=== PATIENT | female | born 1980 | race Caucasian/White ===

== ENCOUNTER 2022-05-19 16:01 | Inpatient (IN) | payer OTHER, MEDICAID, SELFPAY ==
[2022-05-19] VITALS (20 sets, daily range): BP systolic 162–197; BP diastolic 106–133; PULSE 92–135; RESP 13–24; TEMP 37.2; O2SAT 96–100
[2022-05-19 17:23] LABS: Add Manual Diff / Slide Review NO; Basophils Absolute Auto 0 /uL (0-100); Basophils Percent Auto 1.6 % (0-2); Eosinophils Absolute Auto 0 /uL (0-450); Eosinophils Percent Auto 0.1 % (2-4); Hematocrit 37.1 % (36-46); Hemoglobin 12.6 g/dL (12.0-16.0); Lymphocytes Absolute Auto 600 /uL (1100-4500); Lymphocytes Percent Auto 21.5 % (25-40); Mean Corpuscular HGB Conc 33.9 % (30-36); Mean Corpuscular Volume 97.4 fL (80-100); Monocytes Absolute Auto 300 /uL (0-900); Neutrophils Absolute Auto 1900 /uL (1500-7000); Neutrophils Percent Auto 64.8 % (50-75); Platelet Count 193 X10^3/uL (150-400); Red Cell Distribution Width 16.2 % (11.6-14.8); White Blood Cell Count 2.9 X10^3/uL (4.5-11.0)
[2022-05-19 17:24] LABS: Ur Creatinine Normal (Normal); Ur Specific Gravity Normal (Normal); Urine pH Normal (Normal)
[2022-05-19 17:25] LABS: UR Morphine/Opiate cutoff 300 Negative (Negative); Urine Amphetamines Negative (Negative); Urine Barbiturates Negative (Negative); Urine Benzodiazepines Negative (Negative); Urine Cocaine Negative (Negative); Urine MDMA Negative (Negative); Urine Methadone Negative (Negative); Urine Methamphetamines Negative (Negative); Urine Oxycodone Negative (Negative); Urine Phencyclidine Negative (Negative); Urine Tetrahydrocannabinol Positive (Negative); Urine Tricyclic Antidepressant Negative (Negative)
[2022-05-19 17:32] LABS: Prothrombin Time 11.9 SECONDS (10.1-12.7)
[2022-05-19 17:35] LABS: PTT Partial Thromboplastin Tim 31 SECONDS (26-36)
[2022-05-19 17:43] LABS: COVID19 -Nasal RAPID Negative (Negative)
[2022-05-19 17:52] LABS: Alanine Aminotransferase 33 IU/L (<35); Albumin Globulin Ratio 1.1 (1.0-2.8); Alkaline Phosphatase 51 U/L (38-126); Ammonia (NH3) 20 umol/L (9-30); Aspartate Aminotransferase 75 IU/L (14-36); BUN Creatinine Ratio 10.5 (6-22); Blood Urea Nitrogen 6 mg/dL (7-17); Calcium 8.1 mg/dL (8.4-10.2); Carbon Dioxide 20 mmol/L (22-32); Chloride 101 mmol/L (98-107); Estimated Glomerular Filt Rate > 60 mL/min (>60); Ethanol (ETOH) 123 mg/dL; Globulin 3.5 g/dL (1.7-4.1); Glucose 92 mg/dL (70-100); HEMOLYSIS < 15 (0-50); Lipase 307 U/L (23-300); Potassium 3.4 mmol/L (3.4-5.1); Sodium 138 mmol/L (137-145); Total Protein 7.5 g/dL (6.3-8.2)
[2022-05-19] MEDS: LORazepam 2 MG/ML INJ IV ×2 (17:55→21:23)
[2022-05-19] MEDS: ONDANSETRON 4 MG/2 ML INJ IV (17:55)
--- NOTE | 2022-05-19 17:56 | PC.NURSE ---
CIWA protocol give ativan 2 mg repeat q1hr per protocol. 2 mg iv ativan confirmed by 2 rns will not scan dose and briana wants waste, pulled dose available 2mg and gave full no waste required.
[2022-05-19] MEDS: SODIUM CHLORIDE 0.9% 1,000 ML 1000 ML IV ×2 (17:58→21:24)
[2022-05-19 18:22] LABS: Magnesium 1.2 mg/dL (1.6-2.3)
--- NOTE | 2022-05-19 18:23 | ED.EXTPRO ---
HPI - Extremity Problem General Chief complaint: Extremity Problem,Nontraumatic Stated complaint: numbness in both legs Time Seen by Provider: 05/19/22 17:28 Source: patient Mode of arrival: Wheelchair History of Present Illness HPI Narrative: Patient is a 42-year-old female history of alcohol abuse presenting with 5 days of numbness in her legs. She says she drinks a significant amount of Tequila daily she is shaking quite a bit. She said she fell on her tailbone since then she is had numbness in her legs. She says it just feels different. She is still able to tell when she is to urinate and have a bowel movement. No abdominal pain no nausea vomiting. Her upper extremities exam she has no complaints. She is noted to be tachycardic here in the ED. No chest pain or shortness of breath. No nausea vomiting. Related Data Allergies Allergy/AdvReac Type Severity Reaction Status Date / Time Penicillins Allergy Swelling Verified 05/19/22 16:28 of Lip/Tongue/Throat Review of Systems Review of Systems ROS Unobtainable: All systems reviewed & are unremarkable except as noted in HPI and below Patient History Social History Smoking Status: Current every day smoker Smoking Status: Current every day smoker tobacco type: vaping Substance Use Type: marijuana Exam Initial Vital Signs Initial Vital Signs: Vital Signs Temperature 99 F 05/19/22 16:29 Pulse Rate 115 H 05/19/22 16:29 Respiratory Rate 22 05/19/22 16:29 Blood Pressure 162/115 H 05/19/22 16:29 Pulse Oximetry 100 05/19/22 16:29 Oxygen Delivery Method 05/19/22 16:29 GENERAL: Alert 42-year-old female and in [no acute] distress. HEENT: Head atraumatic,EOMI, pupils reactive, face symmetric, [moist] mucous membranes CARDIOVASCULAR: Tachycardic, no murmurs RESPIRATORY: Breath sounds equal bilaterally, no wheezes rales or rhonchi. ABDOMEN: Soft, nontender. Normoactive bowel sounds all 4 quadrants. No guarding or rebound. EXTREMITIES: Normal range of motion, no clubbing or edema. Neurovascularly intact NEUROLOGICAL: Alert and oriented x4.Normal gait and speech. Decreased sensation bilaterally in lower extremities but strength is equal in lower extremities. All over shaking and tremors. Patient ambulated she is definitely ataxic unable have a steady gait. SKIN: Warm, dry, no laceration, no petechiae, no rashes or lesions. Course Orders Ordered: ED Orders 05/19/22 19:22 Ictotest Urine Stat Urine Microscopic Stat 05/19/22 19:26 Vitamin B12 Stat Acetaminophen (Acetaminophen 325 Mg Tablet) 650 mg PO Q6H PRN PRN Reason: Fever/Mild Pain (1-3) Al Hydrox/Mg Hydrox/Simethicone (Mag Hydrox/Alum/Simeth 30 Ml Udc) 30 ml PO Q6HR PRN PRN Reason: Dyspepsia Aspirin (Aspirin Ec 81 Mg Tablet) 81 mg PO DAILY MARYJO Atorvastatin Calcium (Atorvastatin 20 Mg Tablet) 20 mg PO BEDTIME MARYJO Clopidogrel Bisulfate (Clopidogrel 75 Mg Tablet) 75 mg PO DAILY MARYJO Enoxaparin Sodium (Enoxaparin 40 Mg/0.4 Ml Syringe) 40 mg SUBCUT DAILY MARYJO Folic Acid (Folic Acid 1 Mg Tablet) 1 mg PO DAILY MARYJO Dextrose (Dextrose 5% Water) 1,000 mls @ 125 mls/hr IV CONT MARYJO Last Admin: 05/19/22 20:35 Dose: 125 mls/hr Documented By: NICHOLAS Sodium Chloride (Normal Saline 0.9%) 1,000 mls @ 100 mls/hr IV CONT MARYJO Last Admin: 05/20/22 01:21 Dose: 100 mls/hr Documented By: NICHOLAS Magnesium Sulfate (Magnesium Sulfate) 4 gm in 100 mls @ 25 mls/hr IV NOW ONE Stop: 05/20/22 03:50 Last Admin: 05/20/22 01:00 Dose: 25 mls/hr Documented By: NICHOLAS Co-signed By: DAVE Lorazepam (Lorazepam 2 Mg/Ml Inj) 0 mg IV CIWAPRN PRN; Protocol PRN Reason: Alcohol Withdrawal Last Admin: 05/20/22 00:46 Dose: 2 mg Documented By: Admin: 05/19/22 21:23 Dose: 1 mg Documented By: Admin: 05/19/22 17:55 Dose: 2 mg Documented By: ALISSA Metoprolol Tartrate (Metoprolol Tartrate 5 Mg/5 Ml Inj) 5 mg IV Q15MIN PRN PRN Reason: Hypertension Stop: 05/22/22 00:31 Last Admin: 05/20/22 00:53 Dose: 5 mg Documented By: NICHOLAS Multivitamins (Multivitamin 1 Tablet) 1 tab PO DAILY MARYJO Naloxone HCl (Naloxone 0.4 Mg/Ml Vial) 0.2 mg IV Q2MIN PRN PRN Reason: Opiate Reversal Ondansetron HCl (Ondansetron 4 Mg/2 Ml Inj) 4 mg IV Q6HR PRN PRN Reason: Nausea And Vomiting Last Admin: 05/19/22 17:55 Dose: 4 mg Documented By: ALISSA Ondansetron HCl (Ondansetron 4 Mg/2 Ml Inj) 4 mg IV Q8HR PRN PRN Reason: Nausea And Vomiting Thiamine HCl (Thiamine 100 Mg Tablet) 100 mg PO DAILY MARYJO Stop: 05/23/22 09:01 Discontinued Medications Sodium Chloride (Normal Saline 0.9%) 1,000 mls @ 1,000 mls/hr IV BOLUS ONE Stop: 05/19/22 18:28 Last Infusion: 05/19/22 20:28 Dose: 0 mls/hr Documented By: Admin: 05/19/22 17:58 Dose: 1,000 mls/hr Documented By: ALISSA Sodium Chloride (Normal Saline 0.9%) 1,000 mls @ 1,000 mls/hr IV BOLUS ONE Stop: 05/19/22 20:17 Last Infusion: 05/20/22 00:29 Dose: 0 mls/hr Documented By: Infusion: 05/19/22 21:50 Dose: 0 mls/hr Documented By: Admin: 05/19/22 21:24 Dose: 1,000 mls/hr Documented By: NICHOLAS Thiamine HCl 100 mg/ Sodium (Chloride) 101 mls @ 404 mls/hr IV NOW ONE Stop: 05/19/22 19:28 Last Infusion: 05/19/22 20:29 Dose: 0 mls/hr Documented By: Admin: 05/19/22 20:05 Dose: 404 mls/hr Documented By: NICHOLAS Lorazepam (Lorazepam 2 Mg/Ml Inj) 1 mg IV NOW ONE Stop: 05/19/22 18:28 Last Admin: 05/19/22 18:33 Dose: 1 mg Documented By: ALISSA Lorazepam (Lorazepam 2 Mg/Ml Inj) 1 mg IV NOW ONE Stop: 05/19/22 18:29 Last Admin: 05/19/22 18:37 Dose: Not Given Documented By: ALISSA Phenobarbital (Phenobarbital 65 Mg/Ml Vial) 130 mg IV NOW ONE Stop: 05/19/22 18:28 Last Admin: 05/19/22 18:33 Dose: 130 mg Documented By: ALISSA Phenobarbital (Phenobarbital 65 Mg/Ml Vial) 130 mg IV NOW ONE Stop: 05/19/22 18:29 Last Admin: 05/19/22 18:38 Dose: Not Given Documented By: ALISSA Vital Signs Vital signs: Vital Signs - 8 hr 05/19/22 19:34 05/19/22 19:34 05/19/22 20:00 Pulse Rate 111 H Respiratory Rate Blood Pressure 166/110 H 188/118 H Pulse Oximetry 96 Oxygen Delivery Method Room Air 05/19/22 20:00 05/19/22 20:30 05/19/22 20:30 Pulse Rate 92 H 99 H Respiratory Rate 23 Blood Pressure 165/112 H Pulse Oximetry 100 97 Oxygen Delivery Method Room Air Room Air 05/19/22 21:00 05/19/22 21:10 05/19/22 21:10 Pulse Rate 109 H 112 H Respiratory Rate 22 22 Blood Pressure 183/120 H Pulse Oximetry 99 98 Oxygen Delivery Method Room Air Room Air 05/19/22 21:30 05/19/22 21:30 Pulse Rate 117 H Respiratory Rate 24 Blood Pressure 174/121 H Pulse Oximetry 97 Oxygen Delivery Method Room Air MDM - Extremity (Nontraumatic) Lab Data 05/19/22 17:08 05/19/22 17:08 Labs: Lab Results 05/19/22 05/19/22 05/19/22 Range/Units 16:40 17:00 17:08 WBC 2.9 L (4.5-11.0) X10^3/uL RBC 3.80 L (4.0-5.2) X10^6/uL Hgb 12.6 (12.0-16.0) g/dL Hct 37.1 (36-46) % MCV 97.4 (80-100) fL MCH 33.0 (26-34) PG MCHC 33.9 (30-36) % RDW 16.2 H (11.6-14.8) % Plt Count 193 (150-400) X10^3/uL Neut % (Auto) 64.8 (50-75) % Lymph % (Auto) 21.5 L (25-40) % Wallace % (Auto) 12.0 (3-14) % Eos % (Auto) 0.1 L (2-4) % Baso % (Auto) 1.6 (0-2) % Neut # (Auto) 1900 (1001-6157) /uL Lymph # (Auto) 600 L (9012-6356) /uL Wallace # (Auto) 300 (0-900) /uL Eos # (Auto) 0 (0-450) /uL Baso # (Auto) 0 (0-100) /uL PT (10.1-12.7) SECONDS INR (0.9-1.3) APTT (26-36) SECONDS Sodium (137-145) mmol/L Potassium (3.4-5.1) mmol/L Chloride (98-107) mmol/L Carbon Dioxide (22-32) mmol/L BUN (7-17) mg/dL Creatinine (0.52-1.04) mg/dL Estimated GFR (>60) mL/min BUN/Creatinine Ratio (6-22) Glucose (70-100) mg/dL Lactate (0.7-2.1) mmol/L Calcium (8.4-10.2) mg/dL Magnesium (1.6-2.3) mg/dL Total Bilirubin (0.2-1.3) mg/dL AST (14-36) IU/L ALT (<35) IU/L Alkaline Phosphatase (38-126) U/L Ammonia (9-30) umol/L Total Protein (6.3-8.2) g/dL Albumin (3.5-5.0) g/dL Globulin (1.7-4.1) g/dL Albumin/Globulin Ratio (1.0-2.8) Lipase (23-300) U/L Ur Bilirubin Confirm (Negative) Urine RBC (0-5/HPF) Urine WBC (0-5/HPF) Ur Squamous Epith Cells (0-5/HPF) Urine Bacteria (None) Ur Culture Indicated? U Opiates 300ng/mL cut Negative (Negative) Ur Oxycodone Screen Negative (Negative) Urine Methadone Screen Negative (Negative) Ur Barbiturates Screen Negative (Negative) U Tricyclic Antidepress Negative (Negative) Ur Phencyclidine Scrn Negative (Negative) Ur Amphetamines Screen Negative (Negative) U Methamphetamines Scrn Negative (Negative) Ur MDMA Scrn (Ecstasy) Negative (Negative) U Benzodiazepines Scrn Negative (Negative) Urine Cocaine Screen Negative (Negative) U Marijuana (THC) Screen Positive H (Negative) Ethyl Alcohol ( - 10) mg/dL SARS-CoV-2 (PCR) Negative (Negative) 05/19/22 05/19/22 05/19/22 Range/Units 17:08 17:08 17:08 WBC (4.5-11.0) X10^3/uL RBC (4.0-5.2) X10^6/uL Hgb (12.0-16.0) g/dL Hct (36-46) % MCV (80-100) fL MCH (26-34) PG MCHC (30-36) % RDW (11.6-14.8) % Plt Count (150-400) X10^3/uL Neut % (Auto) (50-75) % Lymph % (Auto) (25-40) % Wallace % (Auto) (3-14) % Eos % (Auto) (2-4) % Baso % (Auto) (0-2) % Neut # (Auto) (7579-9463) /uL Lymph # (Auto) (7482-5790) /uL Wallace # (Auto) (0-900) /uL Eos # (Auto) (0-450) /uL Baso # (Auto) (0-100) /uL PT 11.9 (10.1-12.7) SECONDS INR 1.0 (0.9-1.3) APTT 31 (26-36) SECONDS Sodium 138 (137-145) mmol/L Potassium 3.4 (3.4-5.1) mmol/L Chloride 101 (98-107) mmol/L Carbon Dioxide 20 L (22-32) mmol/L BUN 6 L (7-17) mg/dL Creatinine 0.57 (0.52-1.04) mg/dL Estimated GFR > 60 (>60) mL/min BUN/Creatinine Ratio 10.5 (6-22) Glucose 92 (70-100) mg/dL Lactate (0.7-2.1) mmol/L Calcium 8.1 L (8.4-10.2) mg/dL Magnesium (1.6-2.3) mg/dL Total Bilirubin 2.0 H (0.2-1.3) mg/dL AST 75 H (14-36) IU/L ALT 33 (<35) IU/L Alkaline Phosphatase 51 (38-126) U/L Ammonia 20 (9-30) umol/L Total Protein 7.5 (6.3-8.2) g/dL Albumin 4.0 (3.5-5.0) g/dL Globulin 3.5 (1.7-4.1) g/dL Albumin/Globulin Ratio 1.1 (1.0-2.8) Lipase 307 H (23-300) U/L Ur Bilirubin Confirm (Negative) Urine RBC (0-5/HPF) Urine WBC (0-5/HPF) Ur Squamous Epith Cells (0-5/HPF) Urine Bacteria (None) Ur Culture Indicated? U Opiates 300ng/mL cut (Negative) Ur Oxycodone Screen (Negative) Urine Methadone Screen (Negative) Ur Barbiturates Screen (Negative) U Tricyclic Antidepress (Negative) Ur Phencyclidine Scrn (Negative) Ur Amphetamines Screen (Negative) U Methamphetamines Scrn (Negative) Ur MDMA Scrn (Ecstasy) (Negative) U Benzodiazepines Scrn (Negative) Urine Cocaine Screen (Negative) U Marijuana (THC) Screen (Negative) Ethyl Alcohol 123 H ( - 10) mg/dL SARS-CoV-2 (PCR) (Negative) 05/19/22 05/19/22 05/19/22 Range/Units 17:08 17:08 19:22 WBC (4.5-11.0) X10^3/uL RBC (4.0-5.2) X10^6/uL Hgb (12.0-16.0) g/dL Hct (36-46) % MCV (80-100) fL MCH (26-34) PG MCHC (30-36) % RDW (11.6-14.8) % Plt Count (150-400) X10^3/uL Neut % (Auto) (50-75) % Lymph % (Auto) (25-40) % Wallace % (Auto) (3-14) % Eos % (Auto) (2-4) % Baso % (Auto) (0-2) % Neut # (Auto) (4826-8410) /uL Lymph # (Auto) (3558-7731) /uL Wallace # (Auto) (0-900) /uL Eos # (Auto) (0-450) /uL Baso # (Auto) (0-100) /uL PT (10.1-12.7) SECONDS INR (0.9-1.3) APTT (26-36) SECONDS Sodium (137-145) mmol/L Potassium (3.4-5.1) mmol/L Chloride (98-107) mmol/L Carbon Dioxide (22-32) mmol/L BUN (7-17) mg/dL Creatinine (0.52-1.04) mg/dL Estimated GFR (>60) mL/min BUN/Creatinine Ratio (6-22) Glucose (70-100) mg/dL Lactate 3.4 H (0.7-2.1) mmol/L Calcium (8.4-10.2) mg/dL Magnesium 1.2 L (1.6-2.3) mg/dL Total Bilirubin (0.2-1.3) mg/dL AST (14-36) IU/L ALT (<35) IU/L Alkaline Phosphatase (38-126) U/L Ammonia (9-30) umol/L Total Protein (6.3-8.2) g/dL Albumin (3.5-5.0) g/dL Globulin (1.7-4.1) g/dL Albumin/Globulin Ratio (1.0-2.8) Lipase (23-300) U/L Ur Bilirubin Confirm Negative (Negative) Urine RBC None seen (0-5/HPF) Urine WBC 1-5/hpf (0-5/HPF) Ur Squamous Epith Cells 1-5 /hpf (0-5/HPF) Urine Bacteria None seen (None) Ur Culture Indicated? Cult not indicated U Opiates 300ng/mL cut (Negative) Ur Oxycodone Screen (Negative) Urine Methadone Screen (Negative) Ur Barbiturates Screen (Negative) U Tricyclic Antidepress (Negative) Ur Phencyclidine Scrn (Negative) Ur Amphetamines Screen (Negative) U Methamphetamines Scrn (Negative) Ur MDMA Scrn (Ecstasy) (Negative) U Benzodiazepines Scrn (Negative) Urine Cocaine Screen (Negative) U Marijuana (THC) Screen (Negative) Ethyl Alcohol ( - 10) mg/dL SARS-CoV-2 (PCR) (Negative) 05/19/22 Range/Units 21:00 WBC (4.5-11.0) X10^3/uL RBC (4.0-5.2) X10^6/uL Hgb (12.0-16.0) g/dL Hct (36-46) % MCV (80-100) fL MCH (26-34) PG MCHC (30-36) % RDW (11.6-14.8) % Plt Count (150-400) X10^3/uL Neut % (Auto) (50-75) % Lymph % (Auto) (25-40) % Wallace % (Auto) (3-14) % Eos % (Auto) (2-4) % Baso % (Auto) (0-2) % Neut # (Auto) (0837-8222) /uL Lymph # (Auto) (6595-0866) /uL Wallace # (Auto) (0-900) /uL Eos # (Auto) (0-450) /uL Baso # (Auto) (0-100) /uL PT (10.1-12.7) SECONDS INR (0.9-1.3) APTT (26-36) SECONDS Sodium (137-145) mmol/L Potassium (3.4-5.1) mmol/L Chloride (98-107) mmol/L Carbon Dioxide (22-32) mmol/L BUN (7-17) mg/dL Creatinine (0.52-1.04) mg/dL Estimated GFR (>60) mL/min BUN/Creatinine Ratio (6-22) Glucose (70-100) mg/dL Lactate 2.0 (0.7-2.1) mmol/L Calcium (8.4-10.2) mg/dL Magnesium (1.6-2.3) mg/dL Total Bilirubin (0.2-1.3) mg/dL AST (14-36) IU/L ALT (<35) IU/L Alkaline Phosphatase (38-126) U/L Ammonia (9-30) umol/L Total Protein (6.3-8.2) g/dL Albumin (3.5-5.0) g/dL Globulin (1.7-4.1) g/dL Albumin/Globulin Ratio (1.0-2.8) Lipase (23-300) U/L Ur Bilirubin Confirm (Negative) Urine RBC (0-5/HPF) Urine WBC (0-5/HPF) Ur Squamous Epith Cells (0-5/HPF) Urine Bacteria (None) Ur Culture Indicated? U Opiates 300ng/mL cut (Negative) Ur Oxycodone Screen (Negative) Urine Methadone Screen (Negative) Ur Barbiturates Screen (Negative) U Tricyclic Antidepress (Negative) Ur Phencyclidine Scrn (Negative) Ur Amphetamines Screen (Negative) U Methamphetamines Scrn (Negative) Ur MDMA Scrn (Ecstasy) (Negative) U Benzodiazepines Scrn (Negative) Urine Cocaine Screen (Negative) U Marijuana (THC) Screen (Negative) Ethyl Alcohol ( - 10) mg/dL SARS-CoV-2 (PCR) (Negative) Urine Dip Bedside Urine Glucose Negative Bedside Urine Bilirubin ++ 2 Bedside Urine Ketone + 15 Urine Specific [place] 1.015 Bedside Urine Occult Blood +/- Bedside Urine pH 8 Bedside Urine Protein +++ 300 Bedside Urine Urobilinogen 2+ 4mg Bedside Urine Nitrite - Negative Bedside Urine Leukocytes + [address] scan - head: Radiologist's Impression: CT Scan Report Signed Patient: Yovanny Carroll MR#: [id number] : 1980 Acct:[id number] Age/Sex: 42 / F Date of Service: 05/19/22 Loc: ED Accession Number: [id number] ?? Procedure: CT head/brain wo con Ordering Provider: Jaleesa Hoffman D.O. PROCEDURE:? CT HEAD/BRAIN WO CON ? INDICATIONS:? fall ? TECHNIQUE:? Noncontrast 4.5 mm thick angled axial sections acquired from the foramen magnum to the vertex, with coronal and sagittal reformats.? For radiation dose reduction, the following was used:? automated exposure control, adjustment of mA and/or kV according to patient size.? ? COMPARISON:? None. ? FINDINGS:? Image quality:? Excellent.? ? CSF spaces:? Basal cisterns are patent.? No extra-axial fluid collections.? Ventricles are normal in size and shape.? ? Brain:? No midline shift.? No intracranial masses or hemorrhage.? Britt-white matter interface is normal.? ? Skull and face:? Calvarium and visualized facial bones are intact, without suspicious lesions.? ? Sinuses:? Visualized sinuses and mastoids are clear.? ? IMPRESSION:? No acute intracranial abnormality. ? ? ? Approved by: Quintin Ocasio M.D. on 05/19/2022 at 19:11? CT - cervical spine: Radiologist's Impression: CT Scan Report Signed Patient: Yovanny Carroll MR#: [id number] : 1980 Acct:[id number] Age/Sex: 42 / F Date of Service: 05/19/22 Loc: ED Accession Number: [id number] ?? Procedure: CT cervical spine wo con Ordering Provider: Jaleesa Hoffman D.O. PROCEDURE:? CT CERVICAL SPINE WO CON ? INDICATIONS:? fall ? TECHNIQUE:? Noncontrast 3 mm thick sections acquired from the skull base to the T4 level.? Sagittal and coronal reformats were then constructed.? For radiation dose reduction, the following was used:? automated exposure control, adjustment of mA and/or kV according to patient size.? ? COMPARISON:? None. ? FINDINGS:? Image quality:? Excellent.? ? Bones:? No acute fractures or dislocations.? There is mild straightening of the normal cervical lordosis, which may be related to positioning or muscle spasm.? Multilevel mild disc space narrowing degenerative endplate changes as well as uncovertebral joint and facet hypertrophy.? Visualized superior ribs are intact.? ? Soft tissues:? Prevertebral soft tissues are normal in thickness.? No paravertebral hematomas.? No apical pneumothoraces.? ? IMPRESSION:? No acute cervical spine fracture or subluxation.? Mild spondylosis. ? Approved by: Quintin Ocasio M.D. on 05/19/2022 at 19:15? CT scan - abdomen/pelvis: Radiologist's Impression: Signed Patient: Yovanny Carroll MR#: [id number] : 1980 Acct:[id number] Age/Sex: 42 / F Date of Service: 05/19/22 Loc: ED Accession Number: [id number] ?? Procedure: CT abdomen pelvis w con Ordering Provider: Jaleesa Hoffman D.O. PROCEDURE:? CT ABDOMEN PELVIS W CON ? INDICATIONS:? etoh fall numb lesgs sacral pain ? TECHNIQUE:? After the administration of intravenous contrast, axial sections acquired from the lung bases to the pubic symphysis.? Coronal and sagittal reformats were performed.? For radiation dose reduction, the following was used:? automated exposure control, adjustment of mA and/or kV according to patient size.? ? COMPARISON:? None. ? FINDINGS:? Image quality:? Excellent.? ? Lung bases:? Unremarkable. Heart:? No significant findings. ? ABDOMEN:? Liver:? Liver is diffusely hypoattenuating, consistent with fatty infiltration. Gallbladder:? Unremarkable. Biliary ducts:? Unremarkable.? ? Pancreas:? Unremarkable.? ? Spleen:? Unremarkable.? ? Adrenal Glands:? Unremarkable.? ? Kidneys and Ureters:? Unremarkable.? ? ? Stomach and Bowel:? Stomach, small bowel loops, and colon are unremarkable.? Peritoneum:? No abnormal intraperitoneal fluid.? No free air.? ? Ventral Wall: ? No hernias.? Abdominal Nodes:? No retroperitoneal or mesenteric adenopathy by size criteria.? Vessels:? Aorta and inferior vena cava are normal in size.? ? PELVIS: Pelvic Organs:? A tampon is seen in the vagina.? A heterogeneously hyperattenuating lesion in the anterior uterus measures approximately the 8.1 x 7.0 cm in axial dimension by 6.4 cm craniocaudal (80/2).? No suspicious adnexal mass. Bladder:? Unremarkable.? ? Pelvic Nodes: No enlarged lymph nodes.? Miscellaneous: No hernias are seen. ? ? ? Bones:? Transitional anatomy in the spine with partial sacralization of the lumbosacral transitional element.? Old healed left posterior rib fracture at the margin of the field of view of the exam. ? ? IMPRESSION:? 1. Large heterogeneous lesion in the anterior uterus measuring up to 8.1 cm may represent a uterine fibroid with central necrosis or superimposed hemorrhage, but malignancy is not excluded.? Recommend follow-up MRI of the pelvis with and without contrast. 2. Diffuse hepatic steatosis. 3. No acute osseous fracture in the abdomen or pelvis.? Approved by: Quintin Ocasio M.D. on 05/19/2022 at 19:22? [facility] Narrative Medical decision making narrative: Patient 42-year-old female history of alcohol abuse presenting with 5 days of bilateral leg numbness and ataxia. She is noted have an alcohol level of 123 in obvious shaking tachycardia and going through withdrawal. She is given Ativan and phenobarbital. She reports numbness in bilateral lower legs. Upon walking to the bathroom she is requiring significant assistance and has obvious ataxia. Head CT is negative no evidence of intracranial hemorrhage. Questionable vitamin B6 deficiency I do think it is intoxication. Cause it is obvious that she is going through withdrawal. She is awake alert and talking not somnolent no evidence of hepatic encephalopathy. Unclear cause of balance issue at this time. No evidence of significant electrolyte abnormality. She is found have a lactate of 3.4 which improved with fluids to 2.0. She is also noted to have slightly elevated T bili 2.0 AST is [address] of her abdomen and pelvis was done because she fell and landed on her tailbone no evidence of fracture. I do not think this is cauda equina or epidural abscess. Low she does have risk factor for alcoholism. Patient not having seizures but actually going through alcohol withdrawal and ataxia. [place] admitted to hospitalist for further workup and evaluation. Discharge Plan Departure Patient Disposition: Admitted As Inpatient Clinical Impression: Alcohol abuse, Ataxia Admit Date/Time: 05/19/22 21:47 Admit Provider: Rita Maxwell
--- NOTE | 2022-05-19 18:28 | DI.CT.S_ITS ---
PROCEDURE: CT CERVICAL SPINE WO CON INDICATIONS: fall TECHNIQUE: Noncontrast 3 mm thick sections acquired from the skull base to the T4 level. Sagittal and coronal reformats were then constructed. For radiation dose reduction, the following was used: automated exposure control, adjustment of mA and/or kV according to patient size. COMPARISON: None. FINDINGS: Image quality: Excellent. Bones: No acute fractures or dislocations. There is mild straightening of the normal cervical lordosis, which may be related to positioning or muscle spasm. Multilevel mild disc space narrowing degenerative endplate changes as well as uncovertebral joint and facet hypertrophy. Visualized superior ribs are intact. Soft tissues: Prevertebral soft tissues are normal in thickness. No paravertebral hematomas. No apical pneumothoraces. IMPRESSION: No acute cervical spine fracture or subluxation. Mild spondylosis. Approved by: Quintin Ocasio M.D. on 05/19/2022 at 19:15
--- NOTE | 2022-05-19 18:28 | DI.CT.S_ITS ---
PROCEDURE: CT ABDOMEN PELVIS W CON INDICATIONS: etoh fall numb lesgs sacral pain TECHNIQUE: After the administration of intravenous contrast, axial sections acquired from the lung bases to the pubic symphysis. Coronal and sagittal reformats were performed. For radiation dose reduction, the following was used: automated exposure control, adjustment of mA and/or kV according to patient size. COMPARISON: None. FINDINGS: Image quality: Excellent. Lung bases: Unremarkable. Heart: No significant findings. ABDOMEN: Liver: Liver is diffusely hypoattenuating, consistent with fatty infiltration. Gallbladder: Unremarkable. Biliary ducts: Unremarkable. Pancreas: Unremarkable. Spleen: Unremarkable. Adrenal Glands: Unremarkable. Kidneys and Ureters: Unremarkable. Stomach and Bowel: Stomach, small bowel loops, and colon are unremarkable. Peritoneum: No abnormal intraperitoneal fluid. No free air. Ventral Wall: No hernias. Abdominal Nodes: No retroperitoneal or mesenteric adenopathy by size criteria. Vessels: Aorta and inferior vena cava are normal in size. PELVIS: Pelvic Organs: A tampon is seen in the vagina. A heterogeneously hyperattenuating lesion in the anterior uterus measures approximately the 8.1 x 7.0 cm in axial dimension by 6.4 cm craniocaudal (80/2). No suspicious adnexal mass. Bladder: Unremarkable. Pelvic Nodes: No enlarged lymph nodes. Miscellaneous: No hernias are seen. Bones: Transitional anatomy in the spine with partial sacralization of the lumbosacral transitional element. Old healed left posterior rib fracture at the margin of the field of view of the exam. IMPRESSION: 1. Large heterogeneous lesion in the anterior uterus measuring up to 8.1 cm may represent a uterine fibroid with central necrosis or superimposed hemorrhage, but malignancy is not excluded. Recommend follow-up MRI of the pelvis with and without contrast. 2. Diffuse hepatic steatosis. 3. No acute osseous fracture in the abdomen or pelvis. Approved by: Quintin Ocasio M.D. on 05/19/2022 at 19:22
--- NOTE | 2022-05-19 18:28 | DI.CT.S_ITS ---
PROCEDURE: CT HEAD/BRAIN WO CON INDICATIONS: fall TECHNIQUE: Noncontrast 4.5 mm thick angled axial sections acquired from the foramen magnum to the vertex, with coronal and sagittal reformats. For radiation dose reduction, the following was used: automated exposure control, adjustment of mA and/or kV according to patient size. COMPARISON: None. FINDINGS: Image quality: Excellent. CSF spaces: Basal cisterns are patent. No extra-axial fluid collections. Ventricles are normal in size and shape. Brain: No midline shift. No intracranial masses or hemorrhage. Britt-white matter interface is normal. Skull and face: Calvarium and visualized facial bones are intact, without suspicious lesions. Sinuses: Visualized sinuses and mastoids are clear. IMPRESSION: No acute intracranial abnormality. Approved by: Quintin Ocasio M.D. on 05/19/2022 at 19:11
[2022-05-19] MEDS: LORazepam 2 MG/ML INJ 1 MG IV (18:33)
[2022-05-19] MEDS: PHENobarbital 65 MG/ML VIAL 130 MG IV (18:33)
[2022-05-19 18:48] LABS: Lactate (Lactic Acid) 3.4 mmol/L (0.7-2.1)
[2022-05-19 19:50] LABS: Ictotest Urine Negative (Negative)
[2022-05-19 19:55] LABS: Bacteria Urine None Seen; Culture Indicated Urine Cult Not Indicated; RBC Urine None Seen (0-5/HPF); Squamous Epithelial Cell Urine 1-5 /HPF (0-5/HPF); WBC Urine 1-5/HPF (0-5/HPF)
[2022-05-19] MEDS: THIAMINE 100 MG in SODIUM CHLORIDE 0.9% 100 ML 404 MG IV (20:05)
[2022-05-19] MEDS: DEXTROSE 5% WATER 1,000 ML 125 ML IV (20:35)
[2022-05-19 20:39] LABS: Reflexed Lactate in 2 Hours Y
--- NOTE | 2022-05-19 22:25 | PM.EVENT ---
Event Note Event Note (Rapid Response, Code, or fall): ICU consulted for alcohol withdrawal management. No camera available. Briefly this is a 42 year old female with history of alcohol abuse who presents with ataxia and LE weakness. Further workup revealed alcohol level 123 and patient is withdrawing. Recommend phenobarb load per protocol and consider precedex gtt. Further recommendation pending ICU admission w/ video monitor. D/w Rita Maxwell.
[2022-05-20] VITALS (64 sets, daily range): BP systolic 110–191; BP diastolic 76–121; PULSE 78–128; RESP 14–31; TEMP 36.4–36.7; O2SAT 76–100; BMI 20.9
--- NOTE | 2022-05-20 00:12 | PM.HP.1 ---
History of Present Illness History of Present Illness Date Patient Seen: 05/20/22 Time Patient Seen: 00:13 Chief complaint: numbness in both legs Narrative: Yovanny Carroll is a 42-year-old female history of alcohol abuse presented to the ED incoherent confused still significantly intoxicated unable to follow direction, complaining of with 5 days of numbness in her legs.? ED reported She says she drinks a significant amount of Tequila daily she is shaking quite a bit.? She said she fell on her tailbone since then she is had numbness in her legs.? She says it just feels different.? She is still able to tell when she is to urinate and have a bowel movement.? No abdominal pain no nausea vomiting.? Her upper extremities exam she has no complaints.? She is noted to be tachycardic here in the ED.? No chest pain or shortness of breath.? No nausea vomiting. On admit patient had at ETOH level 123 in ED, and is boarding in ED until bed available, she has been heavily medicated with phenobarbital loading and lorazepam for withdrawal symptoms, unable to rouse the patient and obtain HPI ROS, family history, medications. In ED patient had hypertensive urgency BP is 197/113, 162/115, 191/133. On admit temp 99?, BP 183/116, tachycardic 106, tachypneic 23, O2 saturation % room. WBC 2.9, BUN 6, bicarb 20, bili 2.0, AST 75, initial lactate 3.4, at the time of admit 2.0, ammonia negative, lipase 307, tox screen positive for THC, ETOH 123, UA negative, COVID negative, sofa score: 2, head CT negative, C-spine negative, CT a/P: Uterine lesion 8.1, hepatic steatosis, without fracture. Patient History Family & Social History Safety & Behavioral: Feels Safe in Current Yes Environment Been Physically Hurt or No Threatened By a Person Tobacco & Substance use: Smoking Status Current every day smoker Substance Use Type marijuana Drinks alcohol heavily daily Tequila per reports from ED Meds Home Medications and Allergies Allergies Allergy/AdvReac Type Severity Reaction Status Date / Time Penicillins Allergy Swelling Verified 05/19/22 16:28 of Lip/Tongue/Throat Review of Systems Review of Systems Narrative: On admit patient had at ETOH level 123 in ED, and is boarding in ED until bed available, she has been heavily medicated with phenobarbital loading and lorazepam for withdrawal symptoms, unable to rouse the patient and obtain HPI ROS, family history, medications. Exam Vital Signs (past 8 hours): - 05/19/22 16:29 05/19/22 17:17 05/19/22 17:28 Temperature 99 F Pulse Rate 115 H 103 H 99 H Respiratory Rate 22 13 16 Blood Pressure 162/115 H Pulse Oximetry 100 98 97 Oxygen Delivery Method Room Air 05/19/22 17:28 05/19/22 17:30 05/19/22 17:30 Temperature Pulse Rate 101 H Respiratory Rate 16 Blood Pressure 186/119 H 197/113 H Pulse Oximetry 99 Oxygen Delivery Method 05/19/22 18:00 05/19/22 18:00 05/19/22 18:30 Temperature Pulse Rate 104 H 120 H Respiratory Rate 18 22 Blood Pressure 167/106 H Pulse Oximetry 97 Oxygen Delivery Method 05/19/22 18:31 05/19/22 18:31 05/19/22 19:10 Temperature Pulse Rate 105 H 100 H Respiratory Rate 21 18 Blood Pressure 191/133 H Pulse Oximetry 97 98 Oxygen Delivery Method 05/19/22 19:34 05/19/22 19:34 05/19/22 20:00 Temperature Pulse Rate 111 H Respiratory Rate Blood Pressure 166/110 H 188/118 H Pulse Oximetry 96 Oxygen Delivery Method Room Air 05/19/22 20:00 05/19/22 20:30 05/19/22 20:30 Temperature Pulse Rate 92 H 99 H Respiratory Rate 23 Blood Pressure 165/112 H Pulse Oximetry 100 97 Oxygen Delivery Method Room Air Room Air 05/19/22 21:00 05/19/22 21:10 05/19/22 21:10 Temperature Pulse Rate 109 H 112 H Respiratory Rate 22 22 Blood Pressure 183/120 H Pulse Oximetry 99 98 Oxygen Delivery Method Room Air Room Air 05/19/22 21:30 05/19/22 21:30 05/19/22 22:00 Temperature Pulse Rate 117 H Respiratory Rate 24 Blood Pressure 174/121 H 182/110 H Pulse Oximetry 97 Oxygen Delivery Method Room Air 05/19/22 22:00 05/19/22 22:32 05/19/22 22:33 Temperature Pulse Rate 135 H 105 H Respiratory Rate 24 Blood Pressure 183/116 H Pulse Oximetry 98 Oxygen Delivery Method Room Air 05/19/22 22:33 Temperature Pulse Rate 106 H Respiratory Rate 23 Blood Pressure Pulse Oximetry 100 Oxygen Delivery Method Room Air Oxygen Delivery Method Room Air Narrative Exam Narrative: On admit patient had at ETOH level 123 in ED, and is boarding in ED until bed available, she has been heavily medicated with phenobarbital loading and lorazepam for withdrawal symptoms, unable to rouse the patient and obtain HPI ROS, family history, medications. Patient is resting comfortably, vital signs are stable although diastolic pressure continues to be high above 100. General: Patient is a well-developed, well-nourished female soundly medicated & sleeping in no distress at this time. HEENT: Normocephalic, atraumatic, mucous membranes are moist. Neck is supple and symmetric, trachea is midline, no adenopathy, no thyroid enlargement Negative for JVD Chest: Normal AP diameter and contour without kyphoscoliosis, no nasal flaring, retractions, or tachypneic labored breathing Lungs: Auscultation of all lung cueva are clear without adventitious sounds, wheezes, rhonchi, or rales. Cardio: Slightly tachycardic regular rate and rhythm without murmur, rubs, or gallops, no carotid bruit, no cardiac pulsations present. Abdomen: Soft, mildly distended- negative for organomegaly, or masses. Bowel sounds are present in all 4 quadrants without apparent guarding or rebound, or CVA tenderness. Musculoskeletal: Muscle tone appear equal within normal limits, no deformity, crepitus, effusions, cyanosis, clubbing or edema present. intact radial and pedal pulses are normal. Skin: Warm dry and intact without rashes, ulcerations or petechiae. Neuro: Patient is heavily medicated and sedated, sleeping. Psych: Unable to assess at this time. Objective Labs 05/19/22 17:08 05/19/22 17:08 Labs: Laboratory Results - last 24 hr 05/19/22 05/19/22 05/19/22 16:40 17:00 17:08 WBC 2.9 L RBC 3.80 L Hgb 12.6 Hct 37.1 MCV 97.4 MCH 33.0 MCHC 33.9 RDW 16.2 H Plt Count 193 Neut % (Auto) 64.8 Lymph % (Auto) 21.5 L [place] % (Auto) 12.0 Eos % (Auto) 0.1 L Baso % (Auto) 1.6 Neut # (Auto) 1900 Lymph # (Auto) 600 L [place] # (Auto) 300 Eos # (Auto) 0 Baso # (Auto) 0 PT INR APTT Sodium Potassium Chloride Carbon Dioxide BUN Creatinine Estimated GFR BUN/Creatinine Ratio Glucose Lactate Calcium Magnesium Total Bilirubin AST ALT Alkaline Phosphatase Ammonia Total Protein Albumin Globulin Albumin/Globulin Ratio Lipase Ur Bilirubin Confirm Urine RBC Urine WBC Ur Squamous Epith Cells Urine Bacteria Ur Culture Indicated? U Opiates 300ng/mL cut Negative Ur Oxycodone Screen Negative Urine Methadone Screen Negative Ur Barbiturates Screen Negative U Tricyclic Antidepress Negative Ur Phencyclidine Scrn Negative Ur Amphetamines Screen Negative U Methamphetamines Scrn Negative Ur MDMA Scrn (Ecstasy) Negative U Benzodiazepines Scrn Negative Urine Cocaine Screen Negative U Marijuana (THC) Screen Positive H Ethyl Alcohol SARS-CoV-2 (PCR) Negative 05/19/22 05/19/22 05/19/22 17:08 17:08 17:08 WBC RBC Hgb Hct MCV MCH MCHC RDW Plt Count Neut % (Auto) Lymph % (Auto) [place] % (Auto) Eos % (Auto) Baso % (Auto) Neut # (Auto) Lymph # (Auto) [place] # (Auto) Eos # (Auto) Baso # (Auto) PT 11.9 INR 1.0 APTT 31 Sodium 138 Potassium 3.4 Chloride 101 Carbon Dioxide 20 L BUN 6 L Creatinine 0.57 Estimated GFR > 60 BUN/Creatinine Ratio 10.5 Glucose 92 Lactate Calcium 8.1 L Magnesium Total Bilirubin 2.0 H AST 75 H ALT 33 Alkaline Phosphatase 51 Ammonia 20 Total Protein 7.5 Albumin 4.0 Globulin 3.5 Albumin/Globulin Ratio 1.1 Lipase 307 H Ur Bilirubin Confirm Urine RBC Urine WBC Ur Squamous Epith Cells Urine Bacteria Ur Culture Indicated? U Opiates 300ng/mL cut Ur Oxycodone Screen Urine Methadone Screen Ur Barbiturates Screen U Tricyclic Antidepress Ur Phencyclidine Scrn Ur Amphetamines Screen U Methamphetamines Scrn Ur MDMA Scrn (Ecstasy) U Benzodiazepines Scrn Urine Cocaine Screen U Marijuana (THC) Screen Ethyl Alcohol 123 H SARS-CoV-2 (PCR) 01/25/23 01/25/23 01/25/23 17:08 17:08 19:22 WBC RBC Hgb Hct MCV MCH MCHC RDW Plt Count Neut % (Auto) Lymph % (Auto) [place] % (Auto) Eos % (Auto) Baso % (Auto) Neut # (Auto) Lymph # (Auto) [place] # (Auto) Eos # (Auto) Baso # (Auto) PT INR APTT Sodium Potassium Chloride Carbon Dioxide BUN Creatinine Estimated GFR BUN/Creatinine Ratio Glucose Lactate 3.4 H Calcium Magnesium 1.2 L Total Bilirubin AST ALT Alkaline Phosphatase Ammonia Total Protein Albumin Globulin Albumin/Globulin Ratio Lipase Ur Bilirubin Confirm Negative Urine RBC None seen Urine WBC 1-5/hpf Ur Squamous Epith Cells 1-5 /hpf Urine Bacteria None seen Ur Culture Indicated? Cult not indicated U Opiates 300ng/mL cut Ur Oxycodone Screen Urine Methadone Screen Ur Barbiturates Screen U Tricyclic Antidepress Ur Phencyclidine Scrn Ur Amphetamines Screen U Methamphetamines Scrn Ur MDMA Scrn (Ecstasy) U Benzodiazepines Scrn Urine Cocaine Screen U Marijuana (THC) Screen Ethyl Alcohol SARS-CoV-2 (PCR) 05/19/22 21:00 WBC RBC Hgb Hct MCV MCH MCHC RDW Plt Count Neut % (Auto) Lymph % (Auto) [place] % (Auto) Eos % (Auto) Baso % (Auto) Neut # (Auto) Lymph # (Auto) [place] # (Auto) Eos # (Auto) Baso # (Auto) PT INR APTT Sodium Potassium Chloride Carbon Dioxide BUN Creatinine Estimated GFR BUN/Creatinine Ratio Glucose Lactate 2.0 Calcium Magnesium Total Bilirubin AST ALT Alkaline Phosphatase Ammonia Total Protein Albumin Globulin Albumin/Globulin Ratio Lipase Ur Bilirubin Confirm Urine RBC Urine WBC Ur Squamous Epith Cells Urine Bacteria Ur Culture Indicated? U Opiates 300ng/mL cut Ur Oxycodone Screen Urine Methadone Screen Ur Barbiturates Screen U Tricyclic Antidepress Ur Phencyclidine Scrn Ur Amphetamines Screen U Methamphetamines Scrn Ur MDMA Scrn (Ecstasy) U Benzodiazepines Scrn Urine Cocaine Screen U Marijuana (THC) Screen Ethyl Alcohol SARS-CoV-2 (PCR) Assessment & Plan Assessment & Plan narrative: Yovanny Carroll is a 42-year-old female history of alcohol abuse presented to the ED incoherent confused still significantly intoxicated unable to follow direction, complaining of with 5 days of numbness in her legs.? 1. Alcohol intoxication, secondary to chronic alcohol abuse, alcohol withdrawal, acute on chronic, present on admission -ETOH level 123 in ED -ED: incoherent confused still significantly intoxicated unable to follow direction. -On Admit :heavily medicated with phenobarbital loading and lorazepam for withdrawal symptoms, unable to rouse the patient and obtain HPI ROS, family history, medications. -patient boarding in ED until inpatient ICU bed available -phenobarbital loading in ED, followed by implementation of CIWA protocol -thiamine and folate -seizure precautions -NS at 100 cc/HR 2. Hypertensive urgency without the known diagnosis of hypertension, acute, present on admission -ED 197/113, 162/115, 191/133. On admit temp 99?, BP 183/116, tachycardic 106, tachypneic 23, O2 saturation 100 % room -initially ordered metoprolol 5 mg IV Q 15 minutes -then change to labetalol 10 mg IV q.4 hours as needed GiveforSBP>180,DBP>100,HR>110 give for one of the above for >30min sustained -further assessment once patient is able to give accurate history and once through withdrawals of blood pressure will be required -ordered Mag, BNP, lipids, trend troponin x3, echo 3. Ataxia, bilateral lower leg weakness/numbness, acute, present on admission -patient reported possible fall 5 days ago, ED noted patient was unable to ambulate independently -rule out possible CVA versus TIA, head injury, cord injury, intoxication -head CT negative, C-spine negative -ordered lipids, A1c, TSH, T4, brain MR tomorrow -ASA, Plavix, Lipitor -once patient is out of withdrawal recommend complete neuro exam -C-spine was negative, CT of abdomen and pelvis demonstrated no acute fracture, if echo and Brain MR are negative, and Neuro exam continues to demonstrate ataxia: Consider possible MR thoracic/lumbar to rule out acute cord injury. 4. Hypomagnesemia, acute, secondary likely to alcohol abuse, acute, present on admission -admit magnesium 1.2- 4 gm rider provided will track electrolytes Code status:Full Surrogate decision maker: Eduardo Montgomery as listed as emergency contact in the chart COVID PCR:Negative DVT/VTE prophylaxis: Lovenox and SCD Disposition: Patient admitted to the ICU due to severity of alcohol withdrawal with hypertensive urgency and ataxia, expected length of stay greater than 2 midnights Exception-the patient is not eligible for medication reconciliation; the patient is in an emergent medical situation were delaying treatment would jeopardize the patient's health. Time Spent With Patient Critical Care time: I spent a total of [] minutes of critical care time on this patient's care today; this time is exclusive of procedural time.
--- NOTE | 2022-05-20 00:23 | PC.NURSE ---
assisted patient to bathroom, patient very shaky, unstable on her feet. I am feeling edgy Patient hypertensive, heart rate of 99. Patient placed in bed with seizure pads and ekg monitor. Continue to monitor
[2022-05-20] MEDS: LORazepam 2 MG/ML INJ IV (00:46)
[2022-05-20] MEDS: METOPROLOL TARTRATE 5 MG/5 ML INJ IV (00:53)
[2022-05-20] MEDS: MAGNESIUM SULFATE 4 GM/100 ML PIGGYBACK IV (01:00)
[2022-05-20] MEDS: SODIUM CHLORIDE 0.9% 1,000 ML 100 ML IV ×3 (01:21→20:37)
[2022-05-20 02:28] LABS: NT-proBNP (BNP-Adult 18+) 119 pg/mL (<125)
[2022-05-20 02:31] LABS: Troponin I < 0.012 ng/mL (0.01-0.034)
[2022-05-20 04:59] LABS: Add Manual Diff / Slide Review NO; Basophils Absolute Auto 100 /uL (0-100); Basophils Percent Auto 1.6 % (0-2); Eosinophils Absolute Auto 0 /uL (0-450); Hematocrit 35.1 % (36-46); Hemoglobin 11.8 g/dL (12.0-16.0); Lymphocytes Absolute Auto 900 /uL (1100-4500); Lymphocytes Percent Auto 24.5 % (25-40); Mean Corpuscular HGB Conc 33.6 % (30-36); Mean Corpuscular Hemoglobin 32.9 PG (26-34); Monocytes Absolute Auto 300 /uL (0-900); Monocytes Percent Auto 9.5 % (3-14); Neutrophils Absolute Auto 2300 /uL (1500-7000); Neutrophils Percent Auto 63.4 % (50-75); Platelet Count 180 X10^3/uL (150-400); Red Blood Cell Count 3.58 X10^6/uL (4.0-5.2); Red Cell Distribution Width 16.3 % (11.6-14.8); White Blood Cell Count 3.6 X10^3/uL (4.5-11.0)
[2022-05-20 05:00] LABS: Lactate (Lactic Acid) 1.9 mmol/L (0.7-2.1)
[2022-05-20 05:03] LABS: Amylase 41 U/L (30-110)
[2022-05-20 05:06] LABS: Alanine Aminotransferase 28 IU/L (<35); Albumin 3.5 g/dL (3.5-5.0); Albumin Globulin Ratio 1.1 (1.0-2.8); Alkaline Phosphatase 43 U/L (38-126); Aspartate Aminotransferase 62 IU/L (14-36); Bilirubin Total 2.6 mg/dL (0.2-1.3); Calcium 6.8 mg/dL (8.4-10.2); Carbon Dioxide 21 mmol/L (22-32); Chloride 98 mmol/L (98-107); Cholesterol 188 mg/dL (140-199); Estimated Glomerular Filt Rate > 60 mL/min (>60); Globulin 3.1 g/dL (1.7-4.1); Glucose 138 mg/dL (70-100); HDL Cholesterol 96 mg/dL (40-60); HEMOLYSIS < 15 (0-50); LDL Cholesterol Calculated 77 mg/dL (<100); Magnesium 2.5 mg/dL (1.6-2.3); Sodium 129 mmol/L (137-145); Total Protein 6.6 g/dL (6.3-8.2); Triglycerides 75 mg/dL (35-150)
[2022-05-20 05:13] LABS: BUN Creatinine Ratio 4.7 (6-22); Blood Urea Nitrogen 2 mg/dL (7-17)
[2022-05-20 05:15] LABS: Troponin I < 0.012 ng/mL (0.01-0.034)
[2022-05-20 05:21] LABS: Procalcitonin 0.06 ng/mL (<0.5)
[2022-05-20 05:43] LABS: Hemoglobin A1C% w Est Avg Glu 4.7 % (4.0-6.0)
[2022-05-20 06:33] LABS: Vitamin B12 465 pg/mL (239-931)
--- NOTE | 2022-05-20 07:40 | PC.NURSE ---
bladder scan showed volume of 500cc, straight cath showed volume of 800cc. order from hospitalist/EDUCATION AND DEVELOPMENT MANAGER Hans straight catheter now, repeat postvoid residual in 4 hrs and if bladder volume increased again place borrego catheter for acute urinary retention.
--- NOTE | 2022-05-20 08:32 | PC.NURSE ---
ataxia to walk noted but can do heel/romero, reviewed pt with Dr Corona
--- NOTE | 2022-05-20 09:25 | PC.NURSE ---
pre void bladder scan 500 cc, pt up to bsc very ataxic and unsteady gate and void volume 550 cc, post void bladder scan 300 cc. borrego placed 16 fr 10cc and obtained 250cc very clear pale yellow urine. Dr giron aware, orders obtained.
--- NOTE | 2022-05-20 09:28 | PT-IP ANOTE ---
PT eval received. EMR reviewed. pt with CIWA score of 12 and BP 142/103 (8am). per doctor's note, pt is on active alcohol withdrawal. Talked to hospitalist regarding appropriateness for PT at this time and agreed to d/c PT eval order and will re order when pt is more appropriate.
[2022-05-20 13:14] LABS: Troponin I < 0.012 ng/mL (0.01-0.034)
--- NOTE | 2022-05-20 13:16 | OT.IPNOTE ---
Pt not medically stable at this time as having high BP and CIWA score, discharge OT eval orders.
--- NOTE | 2022-05-20 13:46 | P.TELICUCN_ITS ---
History of Present Illness Consult details IF CAMERA ACTIVATED, patient seen via real-time interactive audiovisual communication: Camera activated Chief complaint: numbness in both legs Consent obtained for tele-[id number] interface developer care: Yes Patient Location: ICU Provider location (State): [place] Other participants/roles: RN Narrative: Yovanny Carroll is a 42F with a PMH of ETOH Abuse who was admitted last night with intoxication, ETOH withdrawal. Started on CIWA and given Phenobarb. Also found to have LE numbness, ataxia and MRI spine has been ordered. Patient reports no h/o IVDU. Does note recent fall. Denies bowel/bladder incontinence. FORMERLY [facility] Social History Smoking Status: Current every day smoker Current Medications Current Medications Medications: Visit Medications (administered) Generic Name Dose Route Start Last Admin Trade Name Freq PRN Reason Stop Dose Admin Dextrose 1,000 mls @ 125 mls/hr 05/19/22 19:30 05/20/22 06:30 Dextrose 5% Water IV Infused CONT MARYJO Infusion Sodium Chloride 1,000 mls @ 100 mls/hr 05/19/22 23:45 05/20/22 11:57 Normal Saline 0.9% IV 0 mls/hr CONT MARYJO Infusion Lorazepam 0 mg 05/19/22 17:42 05/20/22 00:46 Lorazepam 2 Mg/Ml Inj IV 2 mg CIWAPRN PRN Administration Alcohol Withdrawal Protocol Metoprolol Tartrate 5 mg 05/20/22 00:17 05/20/22 00:53 Metoprolol Tartrate 5 Mg/5 Ml Inj IV 05/22/22 00:31 5 mg Q15MIN PRN Administration Hypertension Ondansetron HCl 4 mg 05/19/22 17:30 05/19/22 17:55 Ondansetron 4 Mg/2 Ml Inj IV 4 mg Q6HR PRN Administration Nausea And Vomiting Exam Vital Signs (past 8 hours): - 05/20/22 06:00 05/20/22 06:30 05/20/22 07:00 Temperature Pulse Rate 97 H 85 99 H Respiratory Rate 20 20 20 Blood Pressure Pulse Oximetry 98 97 96 05/20/22 07:25 05/20/22 07:25 05/20/22 07:30 Temperature Pulse Rate 95 H 97 H Respiratory Rate 20 20 Blood Pressure 150/100 H Pulse Oximetry 96 98 05/20/22 08:00 05/20/22 08:00 05/20/22 08:30 Temperature Pulse Rate 86 92 H Respiratory Rate 20 22 Blood Pressure 142/103 H Pulse Oximetry 97 97 05/20/22 09:00 05/20/22 09:02 05/20/22 09:02 Temperature Pulse Rate 118 H 97 H Respiratory Rate 24 17 Blood Pressure 172/109 H Pulse Oximetry 97 99 05/20/22 09:30 05/20/22 09:41 05/20/22 09:41 Temperature Pulse Rate 90 97 H Respiratory Rate 20 22 Blood Pressure 172/104 H 183/104 H Pulse Oximetry 96 98 05/20/22 10:00 05/20/22 10:00 05/20/22 10:30 Temperature Pulse Rate 105 H Respiratory Rate 22 Blood Pressure 152/108 H 153/105 H Pulse Oximetry 99 05/20/22 10:30 05/20/22 10:44 05/20/22 10:44 Temperature Pulse Rate 103 H 116 H Respiratory Rate 22 Blood Pressure 166/121 H Pulse Oximetry 96 100 05/20/22 10:45 05/20/22 10:45 05/20/22 11:00 Temperature Pulse Rate 117 H Respiratory Rate 22 Blood Pressure 165/113 H 152/95 H Pulse Oximetry 99 05/20/22 11:00 05/20/22 11:30 05/20/22 11:30 Temperature Pulse Rate 96 H 111 H Respiratory Rate Blood Pressure 159/108 H Pulse Oximetry 99 98 05/20/22 11:51 05/20/22 11:41 05/20/22 11:56 Temperature 98.1 F Pulse Rate 109 H 121 H Respiratory Rate 21 Blood Pressure 165/119 H 165/119 H Pulse Oximetry 98 05/20/22 12:00 05/20/22 12:00 05/20/22 12:30 Temperature Pulse Rate 108 H 109 H Respiratory Rate 14 Blood Pressure 154/111 H Pulse Oximetry 98 99 Oxygen Delivery Method Room Air Narrative Exam Narrative: Awake, alert. Conversant. Tachycardic. Otherwise VS are WNL. Objective Labs 05/20/22 04:20 05/20/22 04:20 Labs: Laboratory Results - last 24 hr 05/19/22 05/19/22 05/19/22 16:40 17:00 17:08 WBC 2.9 L RBC 3.80 L Hgb 12.6 Hct 37.1 MCV 97.4 MCH 33.0 MCHC 33.9 RDW 16.2 H Plt Count 193 Neut % (Auto) 64.8 Lymph % (Auto) 21.5 L [place] % (Auto) 12.0 Eos % (Auto) 0.1 L Baso % (Auto) 1.6 Neut # (Auto) 1900 Lymph # (Auto) 600 L [place] # (Auto) 300 Eos # (Auto) 0 Baso # (Auto) 0 PT INR APTT Sodium Potassium Chloride Carbon Dioxide BUN Creatinine Estimated GFR BUN/Creatinine Ratio Glucose Hemoglobin A1c Lactate Calcium Magnesium Total Bilirubin AST ALT Alkaline Phosphatase Ammonia Troponin I NT-Pro-B Natriuret Pep Total Protein Albumin Globulin Albumin/Globulin Ratio Triglycerides Cholesterol LDL Cholesterol, Calc HDL Cholesterol Amylase Lipase Vitamin B12 Procalcitonin Ur Bilirubin Confirm Urine RBC Urine WBC Ur Squamous Epith Cells Urine Bacteria Ur Culture Indicated? U Opiates 300ng/mL cut Negative Ur Oxycodone Screen Negative Urine Methadone Screen Negative Ur Barbiturates Screen Negative U Tricyclic Antidepress Negative Ur Phencyclidine Scrn Negative Ur Amphetamines Screen Negative U Methamphetamines Scrn Negative Ur MDMA Scrn (Ecstasy) Negative U Benzodiazepines Scrn Negative Urine Cocaine Screen Negative U Marijuana (THC) Screen Positive H Ethyl Alcohol SARS-CoV-2 (PCR) Negative 05/19/22 05/19/22 05/19/22 17:08 17:08 17:08 WBC RBC Hgb Hct MCV MCH MCHC RDW Plt Count Neut % (Auto) Lymph % (Auto) [place] % (Auto) Eos % (Auto) Baso % (Auto) Neut # (Auto) Lymph # (Auto) [place] # (Auto) Eos # (Auto) Baso # (Auto) PT 11.9 INR 1.0 APTT 31 Sodium 138 Potassium 3.4 Chloride 101 Carbon Dioxide 20 L BUN 6 L Creatinine 0.57 Estimated GFR > 60 BUN/Creatinine Ratio 10.5 Glucose 92 Hemoglobin A1c Lactate Calcium 8.1 L Magnesium Total Bilirubin 2.0 H AST 75 H ALT 33 Alkaline Phosphatase 51 Ammonia 20 Troponin I NT-Pro-B Natriuret Pep Total Protein 7.5 Albumin 4.0 Globulin 3.5 Albumin/Globulin Ratio 1.1 Triglycerides Cholesterol LDL Cholesterol, Calc HDL Cholesterol Amylase Lipase 307 H Vitamin B12 Procalcitonin Ur Bilirubin Confirm Urine RBC Urine WBC Ur Squamous Epith Cells Urine Bacteria Ur Culture Indicated? U Opiates 300ng/mL cut Ur Oxycodone Screen Urine Methadone Screen Ur Barbiturates Screen U Tricyclic Antidepress Ur Phencyclidine Scrn Ur Amphetamines Screen U Methamphetamines Scrn Ur MDMA Scrn (Ecstasy) U Benzodiazepines Scrn Urine Cocaine Screen U Marijuana (THC) Screen Ethyl Alcohol 123 H SARS-CoV-2 (PCR) 05/19/22 05/19/22 05/19/22 17:08 17:08 19:22 WBC RBC Hgb Hct MCV MCH MCHC RDW Plt Count Neut % (Auto) Lymph % (Auto) [place] % (Auto) Eos % (Auto) Baso % (Auto) Neut # (Auto) Lymph # (Auto) [place] # (Auto) Eos # (Auto) Baso # (Auto) PT INR APTT Sodium Potassium Chloride Carbon Dioxide BUN Creatinine Estimated GFR BUN/Creatinine Ratio Glucose Hemoglobin A1c Lactate 3.4 H Calcium Magnesium 1.2 L Total Bilirubin AST ALT Alkaline Phosphatase Ammonia Troponin I NT-Pro-B Natriuret Pep Total Protein Albumin Globulin Albumin/Globulin Ratio Triglycerides Cholesterol LDL Cholesterol, Calc HDL Cholesterol Amylase Lipase Vitamin B12 Procalcitonin Ur Bilirubin Confirm Negative Urine RBC None seen Urine WBC 1-5/hpf Ur Squamous Epith Cells 1-5 /hpf Urine Bacteria None seen Ur Culture Indicated? Cult not indicated U Opiates 300ng/mL cut Ur Oxycodone Screen Urine Methadone Screen Ur Barbiturates Screen U Tricyclic Antidepress Ur Phencyclidine Scrn Ur Amphetamines Screen U Methamphetamines Scrn Ur MDMA Scrn (Ecstasy) U Benzodiazepines Scrn Urine Cocaine Screen U Marijuana (THC) Screen Ethyl Alcohol SARS-CoV-2 (PCR) 05/19/22 05/20/22 05/20/22 21:00 00:01 00:01 WBC RBC Hgb Hct MCV MCH MCHC RDW Plt Count Neut % (Auto) Lymph % (Auto) [place] % (Auto) Eos % (Auto) Baso % (Auto) Neut # (Auto) Lymph # (Auto) [place] # (Auto) Eos # (Auto) Baso # (Auto) PT INR APTT Sodium Potassium Chloride Carbon Dioxide BUN Creatinine Estimated GFR BUN/Creatinine Ratio Glucose Hemoglobin A1c Lactate 2.0 Calcium Magnesium Total Bilirubin AST ALT Alkaline Phosphatase Ammonia Troponin I < 0.012 NT-Pro-B Natriuret Pep 119 Total Protein Albumin Globulin Albumin/Globulin Ratio Triglycerides Cholesterol LDL Cholesterol, Calc HDL Cholesterol Amylase Lipase Vitamin B12 Procalcitonin Ur Bilirubin Confirm Urine RBC Urine WBC Ur Squamous Epith Cells Urine Bacteria Ur Culture Indicated? U Opiates 300ng/mL cut Ur Oxycodone Screen Urine Methadone Screen Ur Barbiturates Screen U Tricyclic Antidepress Ur Phencyclidine Scrn Ur Amphetamines Screen U Methamphetamines Scrn Ur MDMA Scrn (Ecstasy) U Benzodiazepines Scrn Urine Cocaine Screen U Marijuana (THC) Screen Ethyl Alcohol SARS-CoV-2 (PCR) 05/20/22 05/20/22 05/20/22 04:20 04:20 04:20 WBC RBC Hgb Hct MCV MCH MCHC RDW Plt Count Neut % (Auto) Lymph % (Auto) [place] % (Auto) Eos % (Auto) Baso % (Auto) Neut # (Auto) Lymph # (Auto) [place] # (Auto) Eos # (Auto) Baso # (Auto) PT INR APTT Sodium Potassium Chloride Carbon Dioxide BUN Creatinine Estimated GFR BUN/Creatinine Ratio Glucose Hemoglobin A1c 4.7 Lactate Calcium Magnesium Total Bilirubin AST ALT Alkaline Phosphatase Ammonia Troponin I NT-Pro-B Natriuret Pep Total Protein Albumin Globulin Albumin/Globulin Ratio Triglycerides Cholesterol LDL Cholesterol, Calc HDL Cholesterol Amylase 41 Lipase Vitamin B12 465 Procalcitonin Ur Bilirubin Confirm Urine RBC Urine WBC Ur Squamous Epith Cells Urine Bacteria Ur Culture Indicated? U Opiates 300ng/mL cut Ur Oxycodone Screen Urine Methadone Screen Ur Barbiturates Screen U Tricyclic Antidepress Ur Phencyclidine Scrn Ur Amphetamines Screen U Methamphetamines Scrn Ur MDMA Scrn (Ecstasy) U Benzodiazepines Scrn Urine Cocaine Screen U Marijuana (THC) Screen Ethyl Alcohol SARS-CoV-2 (PCR) 05/20/22 05/20/22 05/20/22 04:20 04:20 04:20 WBC 3.6 L RBC 3.58 L Hgb 11.8 L Hct 35.1 L MCV 98.0 MCH 32.9 MCHC 33.6 RDW 16.3 H Plt Count 180 Neut % (Auto) 63.4 Lymph % (Auto) 24.5 L [place] % (Auto) 9.5 Eos % (Auto) 1.0 L Baso % (Auto) 1.6 Neut # (Auto) 2300 Lymph # (Auto) 900 L [place] # (Auto) 300 Eos # (Auto) 0 Baso # (Auto) 100 PT INR APTT Sodium 129 L Potassium 3.0 L Chloride 98 Carbon Dioxide 21 L BUN 2 L Creatinine 0.43 L Estimated GFR > 60 BUN/Creatinine Ratio 4.7 L Glucose 138 H Hemoglobin A1c Lactate 1.9 Calcium 6.8 L Magnesium 2.5 H Total Bilirubin 2.6 H AST 62 H ALT 28 Alkaline Phosphatase 43 Ammonia Troponin I NT-Pro-B Natriuret Pep Total Protein 6.6 Albumin 3.5 Globulin 3.1 Albumin/Globulin Ratio 1.1 Triglycerides 75 Cholesterol 188 LDL Cholesterol, Calc 77 HDL Cholesterol 96 H Amylase Lipase Vitamin B12 Procalcitonin 0.06 Ur Bilirubin Confirm Urine RBC Urine WBC Ur Squamous Epith Cells Urine Bacteria Ur Culture Indicated? U Opiates 300ng/mL cut Ur Oxycodone Screen Urine Methadone Screen Ur Barbiturates Screen U Tricyclic Antidepress Ur Phencyclidine Scrn Ur Amphetamines Screen U Methamphetamines Scrn Ur MDMA Scrn (Ecstasy) U Benzodiazepines Scrn Urine Cocaine Screen U Marijuana (THC) Screen Ethyl Alcohol SARS-CoV-2 (PCR) 05/20/22 05/20/22 04:20 12:46 WBC RBC Hgb Hct MCV MCH MCHC RDW Plt Count Neut % (Auto) Lymph % (Auto) [place] % (Auto) Eos % (Auto) Baso % (Auto) Neut # (Auto) Lymph # (Auto) [place] # (Auto) Eos # (Auto) Baso # (Auto) PT INR APTT Sodium Potassium Chloride Carbon Dioxide BUN Creatinine Estimated GFR BUN/Creatinine Ratio Glucose Hemoglobin A1c Lactate Calcium Magnesium Total Bilirubin AST ALT Alkaline Phosphatase Ammonia Troponin I < 0.012 < 0.012 NT-Pro-B Natriuret Pep Total Protein Albumin Globulin Albumin/Globulin Ratio Triglycerides Cholesterol LDL Cholesterol, Calc HDL Cholesterol Amylase Lipase Vitamin B12 Procalcitonin Ur Bilirubin Confirm Urine RBC Urine WBC Ur Squamous Epith Cells Urine Bacteria Ur Culture Indicated? U Opiates 300ng/mL cut Ur Oxycodone Screen Urine Methadone Screen Ur Barbiturates Screen U Tricyclic Antidepress Ur Phencyclidine Scrn Ur Amphetamines Screen U Methamphetamines Scrn Ur MDMA Scrn (Ecstasy) U Benzodiazepines Scrn Urine Cocaine Screen U Marijuana (THC) Screen Ethyl Alcohol SARS-CoV-2 (PCR) Assessment & Plan Assessment & Plan narrative: 42F admitted with ETOH intoxation and withdrawal, now with c/f LE ataxia/weakness pending further workup # ETOH Withdrawal # LE Weakness # Uterine Mass (noted on CT) 8.1 cm # Hypertension, uncontrolled - MRI Spine/Pelvis for further workup of LE findings as well as uterine mass - Continue CIWA, Phenobarb. Consider initiation of Precedex drip after MRI complete - PRN BP control, SBP goal < 160. Hypertension may be related to ETOH withdrawal, so would first follow CIWA - If MRI unremarkable and LE symptoms persist, will need to expand diagnostic workup to include other toxic, infectious, autoimmune etiologies (GBS, Lambert- Eaton, Dermato/Polymyositis, Tox, etc) - If ataxia noted, given ETOH history, would perform ocular exam and consider Thiamine treatment. Lovenox for VTE PPx. Time Spent With Patient Critical Care time: I spent a total of [] minutes of critical care time on this patient's care today; this time is exclusive of procedural time.
--- NOTE | 2022-05-20 14:04 | DI.MRI.S_ITS ---
PROCEDURE: MR LUMBAR SPINE WO CON INDICATIONS: LE weakness, ataxia TECHNIQUE: Noncontrast sagittal T1 spin echo and T2 fast echo, sagittal STIR, and T2 fast spin echo through the lumbar spine. In cases with scoliosis, additional coronal T2 fast spin echo may be performed. COMPARISON: None. FINDINGS: Image quality: Excellent. Alignment and Curvature: Bilateral L4 pars defects with approximately 5-6 mm grade 1 spondylolisthesis of L4 on L5. Otherwise normal alignment. Vertebral body heights maintained. Bone Marrow: No suspicious focal marrow signal abnormality or bone marrow edema. Spinal Cord: Normal position and appearance of the conus. Regional Soft Tissues: Prevertebral and paraspinous soft tissues normal. T12-L1: Normal appearance. L1-L2: Normal appearance. L2-L3: Normal appearance. L3-L4: Normal appearance. L4-L5: Pseudo bulge created by the isthmic spondylolisthesis of L4 on L5 flattens the ventral thecal sac and contributes to moderate bilateral neural foraminal narrowing with abutment of the bilateral exiting L4 nerve roots in both neural foramina. Bulky moderate to severe facet hypertrophy at L4-L5 with facet effusions, subchondral cystic change, and subchondral sclerosis. L5-S1: Moderate facet hypertrophy with subchondral cystic change in effusions. No spinal canal or neural foraminal stenosis. IMPRESSION: Grade 1 isthmic spondylolisthesis of L4 on L5 measuring 5-6 mm, contributing along with facet hypertrophy to moderate neural foraminal narrowing with mass effect on the exiting L4 nerve roots. Correlate for any corresponding L4 radicular symptoms. Dictated by: Angel Berry M.D. on 05/20/2022 at 16:09 Approved by: Angel Berry M.D. on 05/20/2022 at 16:11
[2022-05-20] MEDS: PHENobarbital 65 MG/ML VIAL 130 MG IV ×2 (14:21→15:00)
[2022-05-20] MEDS: THIAMINE 500 MG in SODIUM CHLORIDE 0.9% 100 ML 420 MG IV ×2 (15:00→22:48)
[2022-05-20] MEDS: POTASSIUM CHLORIDE 20 MEQ/15 ML UDC 40 MEQ PO (16:44)
[2022-05-20] MEDS: CALCIUM GLUCONATE 9.3 MEQ in SODIUM CHLORIDE 0.9% 50 ML 140 MEQ IV (16:46)
[2022-05-20] MEDS: ACETAMINOPHEN 325 MG TABLET 650 MG PO (16:46)
[2022-05-20] MEDS: dexmedeTOMIDine in 0.9 % NaCL 400 MCG/100 ML PLAST..BAG IV (16:47)
--- NOTE | 2022-05-20 20:54 | PM.ICURNDS ---
- Date Patient Seen: 05/20/22 Time Patient Seen: 20:54 :: This patient was seen via real time interactive two-way audiovisual telecommunication. Note: afebrile, hd stable calm on precdex drip mri results appreciated, needs for NSx eval discussed with Dr. Corona thiamine increased to 500mg tid for possible wernicke
[2022-05-21] VITALS (55 sets, daily range): BP systolic 104–180; BP diastolic 58–123; PULSE 69–135; RESP 13–34; TEMP 35.8–36.6; O2SAT 91–100
[2022-05-21 04:29] LABS: Add Manual Diff / Slide Review NO; Basophils Absolute Auto 0 /uL (0-100); Basophils Percent Auto 1.4 % (0-2); Eosinophils Absolute Auto 100 /uL (0-450); Eosinophils Percent Auto 1.8 % (2-4); Hematocrit 34.8 % (36-46); Hemoglobin 11.7 g/dL (12.0-16.0); Lymphocytes Absolute Auto 900 /uL (1100-4500); Lymphocytes Percent Auto 30.6 % (25-40); Mean Corpuscular HGB Conc 33.7 % (30-36); Mean Corpuscular Hemoglobin 33.1 PG (26-34); Mean Corpuscular Volume 98.1 fL (80-100); Monocytes Absolute Auto 200 /uL (0-900); Monocytes Percent Auto 8.3 % (3-14); Neutrophils Absolute Auto 1700 /uL (1500-7000); Neutrophils Percent Auto 57.9 % (50-75); Platelet Count 157 X10^3/uL (150-400); Red Blood Cell Count 3.55 X10^6/uL (4.0-5.2); Red Cell Distribution Width 15.7 % (11.6-14.8); White Blood Cell Count 2.9 X10^3/uL (4.5-11.0)
[2022-05-21 04:34] LABS: Alanine Aminotransferase 22 IU/L (<35); Albumin 3.1 g/dL (3.5-5.0); Alkaline Phosphatase 41 U/L (38-126); Aspartate Aminotransferase 40 IU/L (14-36); Bilirubin Total 2.7 mg/dL (0.2-1.3); Calcium 7.2 mg/dL (8.4-10.2); Carbon Dioxide 22 mmol/L (22-32); Chloride 106 mmol/L (98-107); Estimated Glomerular Filt Rate > 60 mL/min (>60); Glucose 91 mg/dL (70-100); HEMOLYSIS < 15 (0-50); Magnesium 1.8 mg/dL (1.6-2.3); Potassium 3.8 mmol/L (3.4-5.1); Sodium 134 mmol/L (137-145); Total Protein 6.1 g/dL (6.3-8.2)
[2022-05-21 04:42] LABS: BUN Creatinine Ratio 3.6 (6-22); Blood Urea Nitrogen < 2 mg/dL (7-17)
[2022-05-21] MEDS: SODIUM CHLORIDE 0.9% 1,000 ML 100 ML IV ×2 (06:22→16:23)
--- NOTE | 2022-05-21 06:25 | PC.NURSE ---
Night Note-Patient slept throughout the night, sharda for care, oriented to person, place, year, and situation, CIWA 2, Precedex gtt at 0.3mcg/kg/hr. IV Thiamine Q8h. SR, VSS. States lower legs are still numb and tingly feet hurt
[2022-05-21] MEDS: THIAMINE 500 MG in SODIUM CHLORIDE 0.9% 100 ML 420 MG IV ×3 (06:58→23:00)
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
[2022-05-21] MEDS: ENOXAPARIN 40 MG/0.4 ML SYRINGE SUBCUT (08:42)
[2022-05-21] MEDS: MULTIVITAMIN 1 TABLET 1 TAB PO (08:46)
[2022-05-21] MEDS: THIAMINE 100 MG TABLET PO (08:46)
[2022-05-21] MEDS: FOLIC ACID 1 MG TABLET PO (08:46)
[2022-05-21 10:06] LABS: Phosphorous 2.2 mg/dL (2.5-4.5)
--- NOTE | 2022-05-21 10:27 | P.TELICUPN_ITS ---
Subjective Subjective IF CAMERA ACTIVATED, patient seen via real-time interactive audiovisual communication: Camera activated Consent obtained for tele-filler shredder machine care: Yes Patient Location: ICU Provider location (State): [place] Other participants/roles: RN Subjective Interval history: Low CIWA score. Hemodynamically stable. On low dose Precedex. MRI showing mass effect on L4 nerve roots. Current Medications Current Medications Medications: Visit Medications (administered) Generic Name Dose Route Start Last Admin Trade Name Freq PRN Reason Stop Dose Admin Acetaminophen 650 mg 05/20/22 00:05 05/20/22 16:46 Acetaminophen 325 Mg Tablet PO 650 mg Q6H PRN Administration Fever/Mild Pain (1-3) Atorvastatin Calcium 20 mg 05/20/22 21:00 05/20/22 21:22 Atorvastatin 20 Mg Tablet PO Not Given BEDTIME MARYJO Enoxaparin Sodium 40 mg 05/20/22 09:00 05/21/22 08:42 Enoxaparin 40 Mg/0.4 Ml Syringe SUBCUT 40 mg DAILY MARYJO Administration Folic Acid 1 mg 05/20/22 09:00 05/21/22 08:46 Folic Acid 1 Mg Tablet PO 1 mg DAILY MARYJO Administration Dextrose 1,000 mls @ 125 mls/hr 05/19/22 19:30 05/20/22 06:30 Dextrose 5% Water IV Infused CONT MARYJO Infusion Sodium Chloride 1,000 mls @ 100 mls/hr 05/19/22 23:45 05/21/22 06:22 Normal Saline 0.9% IV 100 mls/hr CONT MARYJO Administration Thiamine HCl 500 mg/ Sodium 105 mls @ 420 mls/hr 05/20/22 23:00 05/21/22 07:24 Chloride IV Infused Q8H MARYJO Infusion dexmedeTOMIDine in 0.9 % NaCL 400 mcg in 100 mls @ 2.675 mls/hr 05/20/22 16:30 05/20/22 19:45 Precedex IV 0.3 mcg/kg/hr TITRATE MARYJO 4.013 mls/hr Titration Protocol 0.2 MCG/KG/HR Lorazepam 0 mg 05/19/22 17:42 05/20/22 00:46 Lorazepam 2 Mg/Ml Inj IV 2 mg CIWAPRN PRN Administration Alcohol Withdrawal Protocol Metoprolol Tartrate 5 mg 05/20/22 00:17 05/20/22 00:53 Metoprolol Tartrate 5 Mg/5 Ml Inj IV 05/22/22 00:31 5 mg Q15MIN PRN Administration Hypertension Multivitamins 1 tab 05/20/22 09:00 05/21/22 08:46 Multivitamin 1 Tablet PO 1 tab DAILY MARYJO Administration Ondansetron HCl 4 mg 05/19/22 17:30 05/19/22 17:55 Ondansetron 4 Mg/2 Ml Inj IV 4 mg Q6HR PRN Administration Nausea And Vomiting Thiamine HCl 100 mg 05/20/22 09:00 05/21/22 08:46 Thiamine 100 Mg Tablet PO 05/23/22 09:01 100 mg DAILY MARYJO Administration Objective Labs 05/21/22 04:08 05/21/22 04:08 Labs: Laboratory Results - last 24 hr 05/20/22 05/21/22 05/21/22 12:46 04:08 04:08 WBC 2.9 L RBC 3.55 L Hgb 11.7 L Hct 34.8 L MCV 98.1 MCH 33.1 MCHC 33.7 RDW 15.7 H Plt Count 157 Neut % (Auto) 57.9 Lymph % (Auto) 30.6 [place] % (Auto) 8.3 Eos % (Auto) 1.8 L Baso % (Auto) 1.4 Neut # (Auto) 1700 Lymph # (Auto) 900 L [place] # (Auto) 200 Eos # (Auto) 100 Baso # (Auto) 0 Sodium 134 L Potassium 3.8 Chloride 106 Carbon Dioxide 22 BUN < 2 L Creatinine 0.56 Estimated GFR > 60 BUN/Creatinine Ratio 3.6 L Glucose 91 Calcium 7.2 L Phosphorus Magnesium 1.8 Total Bilirubin 2.7 H AST 40 H ALT 22 Alkaline Phosphatase 41 Troponin I < 0.012 Total Protein 6.1 L Albumin 3.1 L Globulin 3.0 Albumin/Globulin Ratio 1.0 05/21/22 04:08 WBC RBC Hgb Hct MCV MCH MCHC RDW Plt Count Neut % (Auto) Lymph % (Auto) [place] % (Auto) Eos % (Auto) Baso % (Auto) Neut # (Auto) Lymph # (Auto) [place] # (Auto) Eos # (Auto) Baso # (Auto) Sodium Potassium Chloride Carbon Dioxide BUN Creatinine Estimated GFR BUN/Creatinine Ratio Glucose Calcium Phosphorus 2.2 L Magnesium Total Bilirubin AST ALT Alkaline Phosphatase Troponin I Total Protein Albumin Globulin Albumin/Globulin Ratio Exam Vital Signs (past 8 hours): - 05/21/22 03:00 05/21/22 03:02 05/21/22 03:02 Temperature Pulse Rate 75 76 Respiratory Rate 13 15 Blood Pressure 138/102 H Pulse Oximetry Oxygen Delivery Method 05/21/22 04:00 05/21/22 04:00 05/21/22 04:00 Temperature 97.7 F Pulse Rate 71 Respiratory Rate 15 Blood Pressure 159/101 H Pulse Oximetry 99 Oxygen Delivery Method Room Air 05/21/22 05:00 05/21/22 05:00 05/21/22 06:00 Temperature Pulse Rate 69 Respiratory Rate 16 Blood Pressure 135/89 142/101 H Pulse Oximetry Oxygen Delivery Method 05/21/22 06:00 05/21/22 07:00 05/21/22 07:00 Temperature Pulse Rate 73 73 Respiratory Rate 20 16 Blood Pressure 137/93 H Pulse Oximetry Oxygen Delivery Method 05/21/22 08:00 05/21/22 08:00 05/21/22 09:00 Temperature Pulse Rate 78 99 H Respiratory Rate 27 H 19 Blood Pressure 122/85 Pulse Oximetry Oxygen Delivery Method 05/21/22 09:01 05/21/22 09:01 05/21/22 09:00 Temperature 96.5 F L Pulse Rate 98 H Respiratory Rate 22 Blood Pressure 126/81 Pulse Oximetry Oxygen Delivery Method Oxygen Delivery Method Room Air Narrative Exam Narrative: Patient awake, alert and conversant. VS are WNL. Assessment & Plan Assessment & Plan narrative: 42F admitted with ETOH intoxation and withdrawal, now with LE weakness. MRI showing mass effect on L4 nerve roots. # ETOH Withdrawal, resolving # LE Weakness, improving # Uterine Mass (noted on CT) 8.1 cm # Hypertension, uncontrolled # Mass effect on L4 nerve roots - May need to consider MRI Pelvis for further workup of uterine mass. - Continue CIWA, start Librium. Hold Precedex drip. - PRN BP control, SBP goal < 160 - Continue Thiamine treatment - Check Phos level - Physical Therapy, follow up LE weakness Time Spent With Patient Critical Care time: I spent a total of [] minutes of critical care time on this patient's care today; this time is exclusive of procedural time.
[2022-05-21] MEDS: chlordiazePOXIDE 25 MG CAPSULE PO ×3 (10:39→20:27)
[2022-05-21] MEDS: NICOTINE 14 PATCH 14 MG TOP (10:39)
[2022-05-21] MEDS: SODIUM,POTASSIUM PHOSPHATES PACKET 2 EACH PO (10:47)
--- NOTE | 2022-05-21 10:58 | PM.PN.1 ---
Subjective Subjective Interval history: 42-year-old female with alcohol dependence admitted with acute alcohol intoxication, subsequent withdrawal, ataxia/bilateral lower extremity weakness and numbness. Patient reportedly had a fall 5 days prior to admission, following which she developed acute onset of bilateral lower extremity weakness, numbness, and urinary retention. Patient reports that she is feeling better today. She states the tingling and numbness had been up the level of her hips yesterday but is now below the knees. She is not been out of bed and is uncertain if she continues to be weak. RN has weaned Precedex down from 0.3 2.2 overnight. Patient is sitting up eating breakfast and denies any withdrawal symptoms. She has had some spotting as she missed a couple doses of her OCPs. She notes a hx of very heavy, clotty periods alternating w/irregular menses. She had an US 2 yrs ago which she believes was normal and started OCPs at that time. Exam Vital Signs (past 8 hours): - 05/21/22 03:00 05/21/22 03:02 05/21/22 03:02 Temperature Pulse Rate 75 76 Respiratory Rate 13 15 Blood Pressure 138/102 H Pulse Oximetry Oxygen Delivery Method 05/21/22 04:00 05/21/22 04:00 05/21/22 04:00 Temperature 97.7 F Pulse Rate 71 Respiratory Rate 15 Blood Pressure 159/101 H Pulse Oximetry 99 Oxygen Delivery Method Room Air 05/21/22 05:00 05/21/22 05:00 05/21/22 06:00 Temperature Pulse Rate 69 Respiratory Rate 16 Blood Pressure 135/89 142/101 H Pulse Oximetry Oxygen Delivery Method 05/21/22 06:00 05/21/22 07:00 05/21/22 07:00 Temperature Pulse Rate 73 73 Respiratory Rate 20 16 Blood Pressure 137/93 H Pulse Oximetry Oxygen Delivery Method 05/21/22 08:00 05/21/22 08:00 05/21/22 09:00 Temperature Pulse Rate 78 99 H Respiratory Rate 27 H 19 Blood Pressure 122/85 Pulse Oximetry Oxygen Delivery Method 05/21/22 09:01 05/21/22 09:01 05/21/22 09:00 Temperature 96.5 F L Pulse Rate 98 H Respiratory Rate 22 Blood Pressure 126/81 Pulse Oximetry Oxygen Delivery Method Oxygen Delivery Method Room Air Narrative Exam Narrative: GEN: Alert and oriented x 3, NAD HEENT:NC, Face symmetric CHEST: Respiratory excursions symmetric, CTAB CV: RRR, no M/R/G ABD: Soft, NT/ND, BT present in all 4 quadrants, no organomegaly or masses EXTR: warm, well perfused, no C/C/E SKIN: warm and dry, no rash NEURO: Alert and oriented x 3, Diminished sensation noted to Rt LE at level of mid-romero anteriorly and prox calf posteriorly, LLE w/similar distribution (sock anteriorly, slightly higher posteriorly), Motor strength 5/5 throughout, tremors noted to LLE Objective Labs 05/21/22 04:08 05/21/22 04:08 Labs: Laboratory Results - last 24 hr 05/20/22 05/21/22 05/21/22 12:46 04:08 04:08 WBC 2.9 L RBC 3.55 L Hgb 11.7 L Hct 34.8 L MCV 98.1 MCH 33.1 MCHC 33.7 RDW 15.7 H Plt Count 157 Neut % (Auto) 57.9 Lymph % (Auto) 30.6 [place] % (Auto) 8.3 Eos % (Auto) 1.8 L Baso % (Auto) 1.4 Neut # (Auto) 1700 Lymph # (Auto) 900 L [place] # (Auto) 200 Eos # (Auto) 100 Baso # (Auto) 0 Sodium 134 L Potassium 3.8 Chloride 106 Carbon Dioxide 22 BUN < 2 L Creatinine 0.56 Estimated GFR > 60 BUN/Creatinine Ratio 3.6 L Glucose 91 Calcium 7.2 L Phosphorus Magnesium 1.8 Total Bilirubin 2.7 H AST 40 H ALT 22 Alkaline Phosphatase 41 Troponin I < 0.012 Total Protein 6.1 L Albumin 3.1 L Globulin 3.0 Albumin/Globulin Ratio 1.0 05/21/22 04:08 WBC RBC Hgb Hct MCV MCH MCHC RDW Plt Count Neut % (Auto) Lymph % (Auto) [place] % (Auto) Eos % (Auto) Baso % (Auto) Neut # (Auto) Lymph # (Auto) [place] # (Auto) Eos # (Auto) Baso # (Auto) Sodium Potassium Chloride Carbon Dioxide BUN Creatinine Estimated GFR BUN/Creatinine Ratio Glucose Calcium Phosphorus 2.2 L Magnesium Total Bilirubin AST ALT Alkaline Phosphatase Troponin I Total Protein Albumin Globulin Albumin/Globulin Ratio [facility] Social History household members: significant other Smoking Status: Current every day smoker alcohol intake: current Assessment & Plan Assessment & Plan narrative: 1. Alcohol dependence with withdrawal Weaned off of precedex this am. Starting scheduled low dose librium. CIWA score remain low. Continue high dose thiamine and MVI> 2. Lower extremity weakness/numbness Lumbar spine MRI revealed a grade 1 isthmic spondylolisthesis of L4 on L5 measuring 5-6 mm, contributing along with facet hypertrophy to moderate neural foraminal narrowing with mass effect on the exiting L4 nerve roots. No spinal cord injury or impingement. Strength wnl while in bed. PT/OT eval pending 3. Ataxia I have asked therapy to assess the patient today to determine whether she has ongoing ataxia or weakness. She is on high-dose thiamine for possible underlying Wernicke's. 4. Hypertensive urgency without diagnosis of hypertension Hypertension may have been secondary to alcohol withdrawal, rather than hypertensive urgency. Her blood pressures have since normalized. 5. Hypomagnesemia Human level was 1.2 on admission. With repletion it was up to 2.5 yesterday and is 1.8 today. 6. Leukopenia/normocytic anemia White cell count was 2.9 on admission, up to 3.6 yesterday and back to 2.9 today. Hemoglobin is stable at 11.7. Suspect these findings are related to her alcohol dependence, but will monitor. 7. Uterine mass CT scan revealed a large heterogeneous lesion anterior uterus measuring up to 8.1 cm which could be a uterine fibroid central necrosis or superimposed hemorrhage, but malignancy was not excluded. Will need follow-up MRI of the pelvis with and without contrast. Discussed findings w/pt 8. Mild hyponatremia Sodium was 129 yesterday, up to 134 today 9. Hypokalemia Sodium was 3.0 yesterday, up to 3.8 today. 10. Hyperbilirubinemia with elevated LFTs Likely alcohol induced. Bilirubin is up to 2.7 today's that other LFTs are improving. She evidence of fatty infiltration of the liver on abdominal pelvic CT. CODE Full Prophy On Lovenox Dispo Pending Time Spent With Patient Critical Care time: I spent a total of [] minutes of critical care time on this patient's care today; this time is exclusive of procedural time.
--- NOTE | 2022-05-21 12:39 | OT.IP.EVAL ---
Current Diagnoses Alcohol abuse with withdrawal, unspecified (05/19/22) Occupational Therapy Inpatient Evaluation/Re-Eval M1 PT/OT-IP Prior Functional Status Start: 05/21/22 13:34 Freq: NEEDED Status: Active Protocol: Document 05/21/22 12:00 [facility] (Rec: 05/21/22 13:57 [facility] [id number]) Medical Review Prior Functional Status Communication independent Mobility and Gait independent with no devices Activities of Daily Living and IADL's completely independent with all ADL, IADL, and drives Social History Household Members significant other Living Arrangements House Number of Floors (Floors) Two Floors Number of Stairs To Enter/Railing? 5 steps with bilateral narrow rails to enter, 13 steps with bilateral narrow rails to the bedroom downstairs. Pt states has a bedroom on the main level if needed. Home Environment High Toilet,Tub/Shower Home Equipment Hand Held Shower Additional Social History Comment Pt states is in between jobs and has her boys 11 and 14 years old at times. Pt lives with her significant other who works. M2 OT-IP Current Condition Start: 05/21/22 13:34 Freq: Status: Active Protocol: Document 05/21/22 12:00 [facility] (Rec: 05/21/22 13:57 [facility] [id number]) Occupational Therapy Current Condition Current Condition Evaluation Date 05/21/22 Treatment Diagnosis ETOH abuse and withdrawal, ataxia Diagnosis Onset Date 05/19/22 M3 OT- IP Subjective and Pain Start: 05/21/22 13:34 Freq: Status: Active Protocol: Document 05/21/22 12:00 [facility] (Rec: 05/21/22 13:57 [facility] [id number]) OT- Subjective Occupational Therapy Visit Type Type Initial Evaluation Visit Start Time 12:00 Visit Stop Time 12:39 Total Visit Minutes 39 Occupational Therapy Visit Comments Patient Comments Pt wanting to get up. Patient/Caregiver Goals To go home. OT Pain Assessment Pain When Pain Assessed At Rest Pain Present Pain Present Denied Pain M4 OT- IP ADL's Start: 05/21/22 13:34 Freq: Status: Active Protocol: Document 05/21/22 12:00 [facility] (Rec: 05/21/22 13:57 [facility] [id number]) OT [id number] Comments OT Self-Feeding Comments No issues anticipated, possibly needing occasional set-up. Not at meal time. OT ADL-Grooming General Evaluation Grooming Ability Independent Comments OT Grooming Comments Pt able to independently put on her makeup in addition to grooming needs while seated. OT ADL-Oral Care General Eval Oral Care Ability Independent Comments Oral Care Comments Pt able to use the mouth wash while seated. OT ADL-Dressing General Eval Lower Body Dressing Ability Moderate Assistance Comments OT Dressing Comments Assist to eliseo brief over her left foot and up over her hips due to decreased balance. OT ADL-Toileting General Evaluation Toileting Ability Total Assistance Comments OT Toileting Comments Jovel in place. Pt wanting to have tampon as starting her menstrual period, able to have nursing explain to her that best to just use a pad for now for safety. OT ADL-Bathing Comments OT Bathing Comments At this time sponge bath more appropriate at this time due to decrease balance and safety awareness. M5 OT- IP IADL's Start: 05/21/22 13:34 Freq: Status: Active Protocol: Document 05/21/22 12:00 [facility] (Rec: 05/21/22 13:57 [facility] [id number]) OT-Instrumental Activities of Daily Living Deficits IADL Deficits Identified Deficits Home Safety Awareness Awareness of Need for Assistance at Home Decreased Awareness Ability to Problem Solve Emergency Able to Problem Solve Situations Medication Management Medication Management Comments Pt states does not take any medications. Money Management Money Management Comments Pt would require assist at this time. Meal Preparation Meal Preparation Comments Pt will require assist at this time. Receiving Worker Receiving Worker Comments Pt will require assist at this time. Driving Driving Concerns Identified Regarding Safety M6 OT- IP Functional Cognition Start: 05/21/22 13:34 Freq: Status: Active Protocol: Document 05/21/22 12:00 [facility] (Rec: 05/21/22 13:57 [facility] [id number]) Cognitive Factors Limiting Selfcare Function Cognitive Ability Level of Alertness Alert Patient Orientation Name,Place,Situation Attention Span Ability Capable of Focused Attention, Capable of Sustained Attention Ability to Follow Commands Able to Follow One Step Commands Safety Awareness Underestimates Need for Assistance Cognitive Comments Cognitive Assessment Comments Pt able to follow commands however is a bit impulsive and needing vc for safety for FWW safety and mobility needs. Pt also a bit tearful and frustrated in not being able to be more independent with ADL and mobility needs. OT- Vision and Hearing OT- Hearing Assessment OT- Hearing Assessment WFL OT- Vision Assessment Visual Acuity WFL M7 OT- IP Mobility and Balance Start: 05/21/22 13:34 Freq: Status: Active Protocol: Document 05/21/22 12:00 [facility] (Rec: 05/21/22 13:57 [facility] [id number]) OT- Bed Mobility Assessment Supine to Sit Supine to Sit Assist Standby Assistance Scooting Scooting to Edge of Bed Contact Guard Assistance OT-Transfer Assessment Sit to and From Stand Sit to and from Stand Moderate Assistance,Maximum Assistance Transfers Transfer Ability Maximum Assistance Technique Transfer Destination Bed,Chair Transfer Technique Stand Step Pivot Devices Transfer Assistive Devices None,Gait Belt,Front Wheeled Walker Comments Mobility Comments Pt able to get to the edge of the bed with SBA with the head of the bed up. MODA/MAXA to stand and pt tends to lean on her heels, RLE then to go into extension at rest as well. Stand pivot transfer MAXA X 1 , pt very unsteady on her feet and shaky. In addition needing to manage all the lines and tubing. Next able to try use of FWW to stand vc to push on the armrest of the recliner to stand MOD/MAX AX 1 to stand and pt needing assist to guide the FWW and help with pt's balance. At this time best to have 2 person assist for safety - especially having to manage all the tube/line for the pt as well. OT- Gait Assessment Comments Gait Ability Comments transfer only at this time. OT- Balance Assessment Sitting Balance and Reactions Static Sitting Balance Ability Good Dynamic Sitting Balance Ability Fair Standing Balance and Reactions Static Standing Balance Ability Poor Dynamic Standing Balance Ability Poor M8 OT- IP Objective Assessments Start: 05/21/22 13:34 Freq: Status: Active Protocol: Document 05/21/22 12:00 [facility] (Rec: 05/21/22 13:57 [facility] [id number]) OT Gross Range of Motion Upper Extremity Range of Motion Assessment Within Functional Limits OT Strength Upper Extremity Strength Assessment Within Functional Limits Comments Strength Comments 4+/5 throughout OT- Coordination Assessment Upper Extremity Finger to Nose Test Bilateral UE Impaired Finger Tapping Test Left UE Impaired OT Sensation Assessment Comments Summary Comments Intact light tough for BUE. Pt states light touch on her left leg not as sensitive as the right leg. Edema Edema Absent M9 OT- IP Assessment and Plan Start: 05/21/22 13:34 Freq: Status: Active Protocol: Document 05/21/22 12:00 [facility] (Rec: 05/21/22 13:57 [facility] [id number]) OT Summary Assessment and Plan Potential Rehabilitation Potential Good Analytic Complexity at Evaluation Moderate Summary OT Impairments Strength,Balance,Coordination, Sensation,Tone,Functional Cognition,Functional Mobility, Self-Feeding,Grooming,Dressing ,Toileting,Bathing,Toilet Transfers,Shower Transfers, Activity Tolerance Progress Towards Goals Slow Progress due to Pain,Slow Progress due to Medical Issues,Slow Progress due to Activity Tolerance,Slow Progress due to Cognition Assessment Summary Pt MOD complexity and main barriers are decreased balance , coordination of BLE, and needing extensive assist for transfer needs, assist for LB dressing due to poor static standing balance at this time. Pending progress and medical stability, pt may need skilled rehab pending how pt improves. Goals Self-Feeding Goal Independent Grooming Goal Independent Dressing Goal Independent,Moderate Assistance Bathing Goal Independent Toilet Transfer Goal Independent Shower Transfer Goal Independent Days to Meet Goals 20 Frequency of Treatment Frequency Of Treatment Once a Day Treatment Plan OT Treatment Plan ADL Training,Functional Cognition Training,Functional Mobility,Patient/Family Education,Discharge Planning Other Treatment Recommendations and Next Stand with FWW in front of the Treatment Focus sink for ADl needs. Discharge Recommendations OT Discharge Recommendations SNF Rehab Transportation Needs at Discharge Wheelchair/Cabulance
--- NOTE | 2022-05-21 13:20 | PT.IIE ---
Current Diagnoses Alcohol abuse with withdrawal, unspecified (05/19/22) Physical Therapy Inpatient Evaluation/Re-Eval M1 PT/OT-IP Prior Functional Status Start: 05/21/22 14:56 Freq: NEEDED Status: Active Protocol: Document 05/21/22 13:20 [facility] (Rec: 05/21/22 15:15 AB [id number]) Medical Review Prior Functional Status Medical History Reviewed Yes Communication able to make needs known Mobility and Gait pt lyssa bonilla she is independent with all mobilities and ambulation without AD Activities of Daily Living and IADL's per OT note:completely indepedent with all ADL, IADL, and drives Social History Household Members significant other Living Arrangements House Number of Floors (Floors) Two Floors Number of Stairs To Enter/Railing? pt stated that she has 6 steps B rails to enter the house and bedroom is downstairs with 13 steps with B rails Home Environment Standard Height Toilet,Tub/ Shower Home Equipment Hand Held Shower Additional Social History Comment pt stated that she lives with her boy friend who works and cannot assist her 24/7 has 2 children 14 and 11 y/o who also is at home M2 PT-IP Current Condition Start: 05/21/22 14:56 Freq: NEEDED Status: Active Protocol: Document 05/21/22 13:20 [facility] (Rec: 05/21/22 15:15 AB [id number]) Physical Therapy Current Condition Current Condition Evaluation Date 05/21/22 Treatment Diagnosis s/p fall; alcohol withdrawal; diffficulty in walking Onset Date 05/19/22 M3 PT-IP Subjective Start: 05/21/22 14:56 Freq: NEEDED Status: Active Protocol: Document 05/21/22 13:20 [facility] (Rec: 05/21/22 15:15 AB [id number]) Subjective Physical Therapy Visit Type Type Initial Evaluation Visit Start Time 13:20 Visit Stop Time 13:50 Total Visit Minutes 30 Number of SKULL GRINDER Visits 0 Physical Therapy Visit Comments Patient Comments agreeable to do PT M4 PT-IP Mobility and Gait Start: 05/21/22 14:56 Freq: NEEDED Status: Active Protocol: Document 05/21/22 13:20 [facility] (Rec: 05/21/22 15:15 AB [id number]) PT-Transfer Assessment Sit to and From Stand Sit to and from Stand Moderate Assistance,Maximum Assistance,1 Person Assistance ,Use of Upper Extremities Equipment Transfer Assistive Device Gait Belt,Front Wheeled Walker Orthotic/Prosthetic Devices or Brace: No Transfers Transfer Destination Bedside Commode Transfer Technique Stand Step Pivot Transfer Ability Level of Assist Moderate Assistance,Maximum Assistance,1 Person Assistance ,Use of Upper Extremities Comments Mobility Comments pt sitting on the chair and requesting to use the toilet. HR: 134 and BP: 155/100. nurse in room and giving pt IV medical for BP/HR. Checked BP after a few mintues: 139/ 104 but HR decreased to 107. pt wanting to use the toilet but informed regarding use of bedside at this time for safety. pt tearful but agreed to use bedside commode. completed sit to stand mod to max A and max cues. (+) tremors and unsteadiness. able to take a few steps using FWW mod to max A and max cues and able to transfer to bedside commode. Required max A for standing balance using FWW for support while assisted with brief management. pt want to use the commode for a few minutes. call light within reach. informed nurse. Gait Assessment Comments Gait Comments able to take steps for transfers PT-Balance Assessment Sitting Balance and Reactions Static Sitting Balance Ability Good Dynamic Sitting Balance Ability Good Standing Balance and Reactions Static Standing Balance Ability Poor Dynamic Standing Balance Ability Poor Device Used FWW M5 PT-IP Objective Assessments Start: 05/21/22 14:56 Freq: NEEDED Status: Active Protocol: Document 05/21/22 13:20 [facility] (Rec: 05/21/22 15:15 AB [email or web address]) Orientation Orientation/Cognition Level of Alertness Alert Orientation Name Safety Awareness Decreased Safety Awareness Gross Range of Motion Lower Extremity ROM Assessment Within Functional Limits Strength Lower Extremity Strength Assessment Bilaterally Impaired Hip 4-/5 Knee 4-/5 Muscle Tone Comments Muscle Tone Comments (+) tremors : trunk and UE M6 PT-IP Treatment Start: 05/21/22 14:56 Freq: NEEDED Status: Active Protocol: Document 05/21/22 13:20 AB (Rec: 05/21/22 15:15 AB [email or web address]) Physical Therapy Treatment Education Education Provided Safety M7 PT-IP Assessment and Plan Start: 05/21/22 14:56 Freq: NEEDED Status: Active Protocol: Document 05/21/22 13:20 [facility] (Rec: 05/21/22 15:15 AB [id number]) PT Summary Assessment and Plan Potential Rehabilitation Potential Fair Status of Condition at Evaluation Evolving Summary Impairments Pain,ROM,Strength,Balance, Coordination,Sensation,Tone, Cognition,Bed Mobility, Transfers,Gait,Activity Tolerance Assessment Summary pt requiring mod to max A using FWW for transfers, able to take steps using FWW but has not actually ambulate yet. Limited activity due to BP increase 139/104 and HR increase 107. pt will require SNF rehab at this time. will continue to assess progress. Goals Bed Mobility Goal Independent Transfer Goal Independent,Front Wheeled Walker Gait Goal Independent,Front Wheel Walker Gait Distance 100 Other Goals improve transfers and ambulation without AD 200 ft SBA up/down 13 steps B rails SBA Days to Meet Goals 10 Frequency of Treatment Frequency Of Treatment Once a Day Treatment Plan Physical Therapy Treatment Plan Bed Mobility Training,Transfer Training,Gait Training, Therapeutic Exercise,Balance Retraining,Discharge Planning, Hot or Cold Pack,Neuromuscular Re-ed,Coordination Retraining Precautions Other Precautions falls; HR, BP Recommendations To Nursing Amount of Assist Needed 1 Person Assist Discharge Recommendations PT Discharge Recommendations SNF Rehab Equipment Needed for Home Before FWW if not safe w/o AD and pt Discharge is going home Transportation Needs at Discharge Wheelchair/Cabulance
[2022-05-21] MEDS: METOPROLOL TARTRATE 5 MG/5 ML INJ IV ×2 (13:27→16:55)
--- NOTE | 2022-05-21 14:16 | DIET.CONS ---
Dietary Consultation Note Admission Date: 05/19/2022 21:47 Assessment: 42 yo F admitted with ataxia and numbness in lower legs with HTN urgency. Pt with 123mg/dl ETOH at admission. Today low phos of 2.2, which RN states is being addressed with replacement. Pt reported UBW of 144-149 lbs 3-4 months ago, 16-18.8% wt loss (severe). 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 Appetite is dependent on this. Admitted intoxicated, subsequent withdrawal. Diet recall: B: (8 am) yogurt and/or fruit L: lettuce wrap fish taco when pt has time OR fried foods when pt does not have time.? D: (10 pm) chx, broccoli, salad with avocado and lemon juice OR take out when children are not with her (common in past few weeks).? Fluids: water 1/2 gallon/?day, 1 gallon when exercising. Juice and Gatorade.? ETOH: approx 4 shots tequila most days reported. Higher intake per staff notes.? Ht: 160.02 cm Wt: 55 kg BMI: 20.9 UBW: 65-68kg Last BM: () MNA: Patel Score: 17 Diet: 05/20/22 Breakfast General (Regular) Diet Diet Modifications: Nutrition Percent Meal Consumed 10 05/21/22 10:00 Labs: RBC 3.55 X10^6/uL (4.0-5.2) L 05/21/22 04:08 Hgb 11.7 g/dL (12.0-16.0) L 05/21/22 04:08 Hct 34.8 % (36-46) L 05/21/22 04:08 Creatinine 0.56 mg/dL (0.52-1.04) 05/21/22 04:08 Hemoglobin A1c 4.7 % (4.0-6.0) 05/20/22 04:20 Lactate 1.9 mmol/L (0.7-2.1) 05/20/22 04:20 NT-Pro-B Natriuret Pep 119 pg/mL (<125) 05/20/22 00:01 Nutrition Diagnosis: Severe acute protein calorie malnutrition r/t social stress resulting in inadequate PO / dimished?intake and excessive ETOH intake aeb wt loss of 16-18.8% in 3-4 ?months (severe) and ETOH withdrawal. -The patient is at much higher risk for medical and surgical complications because of his malnutrition.? This increases the difficulty and complexity of medical and surgical interventions and increases the chances of poor outcomes such as morbidity and mortality. Interventions: ? 1. ONS BID to support pro/kcal needs 2. MNT ETOH education: after discharge protein shakes when appetite is low or is too busy to sit down and eat. Discussed how ETOH can affect nutritional status and vitamin B levels and recc consideration for B vitamin if pt decides to continue consuming ETOH once discharged.?Addressed potential cravings if d/c of ETOH after discharge and how to manage with small frequent meals with PRo. EER: 1550-1650kcals (28-30kcal/kg per BMI) 80-100g PRO (1.8-2g/kg per malnutrition) Monitoring/Evaluations: ONS tolerance, weight, PO Electronically Signed by: Debbie Victoria 05/21/22 14:16 Clinical Dietitian [address] [id number]
[2022-05-21] MEDS: LORazepam 2 MG/ML INJ IV ×4 (14:36→23:57)
[2022-05-21] MEDS: LABETALOL 20 MG/4 ML SYRINGE 10 MG IV (15:43)
[2022-05-21] MEDS: dexmedeTOMIDine in 0.9 % NaCL 400 MCG/100 ML PLAST..BAG 5.5 MCG IV (18:00)
--- NOTE | 2022-05-21 19:52 | PC.NURSE ---
[address] Redding that patient's CIWA score is 13 and she is stating she wants to leave. New order to restart Precedex. Bed alarm set. Patient's boyfriend is at bedside.
[2022-05-21] MEDS: dexmedeTOMIDine in 0.9 % NaCL 400 MCG/100 ML PLAST..BAG 6.875 MCG IV (20:08)
--- NOTE | 2022-05-21 20:14 | PM.ICURNDS ---
- Date Patient Seen: 05/21/22 Time Patient Seen: 20:14 :: This patient was seen via real time interactive two-way audiovisual telecommunication. Note: Restarted back on precedex gtt 0.5 mcg/kg/min this evening. On librium therapy. Awake and following commands. Anxious to go home. Will continue titrating down precedex gtt to seek RASS goal 0. D/w bedside RN.
[2022-05-21] MEDS: ATORVASTATIN 20 MG TABLET PO (20:27)
[2022-05-22] VITALS (66 sets, daily range): BP systolic 84–183; BP diastolic 58–129; PULSE 78–100; RESP 12–35; TEMP 36.5–36.8; O2SAT 96–99
[2022-05-22] MEDS: SODIUM CHLORIDE 0.9% 1,000 ML 100 ML IV ×2 (01:43→21:09)
[2022-05-22] MEDS: LABETALOL 20 MG/4 ML SYRINGE 10 MG IV (03:09)
--- NOTE | 2022-05-22 03:39 | PC.NURSE ---
Lens Assorter Note-Patient has been on Precedex, titrated from 0.5mcg/kg/hr to current rate 0.7mcg/kg/hr. CIWA 10-11, mostly for moderate tremors, anxiety, and disorientation > [address] and situation, asks appropriate questions. IV Ativan given per protocol, also on PO Librium. PRN IV Labetalol for HTN, SR, afebrile.
[2022-05-22 05:13] LABS: Add Manual Diff / Slide Review NO; Basophils Absolute Auto 0 /uL (0-100); Basophils Percent Auto 0.9 % (0-2); Eosinophils Absolute Auto 0 /uL (0-450); Eosinophils Percent Auto 1.1 % (2-4); Hematocrit 34.4 % (36-46); Hemoglobin 11.7 g/dL (12.0-16.0); Lymphocytes Absolute Auto 1000 /uL (1100-4500); Lymphocytes Percent Auto 23.8 % (25-40); Mean Corpuscular HGB Conc 34.1 % (30-36); Mean Corpuscular Hemoglobin 33.7 PG (26-34); Mean Corpuscular Volume 98.7 fL (80-100); Monocytes Absolute Auto 300 /uL (0-900); Monocytes Percent Auto 6.3 % (3-14); Neutrophils Absolute Auto 2900 /uL (1500-7000); Neutrophils Percent Auto 67.9 % (50-75); Platelet Count 157 X10^3/uL (150-400); Red Blood Cell Count 3.48 X10^6/uL (4.0-5.2); Red Cell Distribution Width 16.2 % (11.6-14.8); White Blood Cell Count 4.2 X10^3/uL (4.5-11.0)
[2022-05-22 05:19] LABS: Alanine Aminotransferase 19 IU/L (<35); Alkaline Phosphatase 41 U/L (38-126); Aspartate Aminotransferase 27 IU/L (14-36); BUN Creatinine Ratio 4.3 (6-22); Blood Urea Nitrogen < 2 mg/dL (7-17); Carbon Dioxide 18 mmol/L (22-32); Chloride 107 mmol/L (98-107); Estimated Glomerular Filt Rate > 60 mL/min (>60); Globulin 2.9 g/dL (1.7-4.1); Glucose 93 mg/dL (70-100); HEMOLYSIS < 15 (0-50); Magnesium 1.5 mg/dL (1.6-2.3); Potassium 3.2 mmol/L (3.4-5.1); Sodium 136 mmol/L (137-145); Total Protein 5.9 g/dL (6.3-8.2)
[2022-05-22 05:21] LABS: Phosphorous 2.8 mg/dL (2.5-4.5)
[2022-05-22] MEDS: dexmedeTOMIDine in 0.9 % NaCL 400 MCG/100 ML PLAST..BAG 8.25 MCG IV ×2 (06:15→17:12)
[2022-05-22] MEDS: THIAMINE 500 MG in SODIUM CHLORIDE 0.9% 100 ML 420 MG IV ×3 (06:45→23:11)
[2022-05-22] MEDS: POTASSIUM CHLORIDE 20 MEQ TAB 40 MEQ PO ×2 (08:10→14:00)
[2022-05-22] MEDS: MAGNESIUM CHLORIDE 64 MG TABLET 128 MG PO (08:10)
[2022-05-22] MEDS: FOLIC ACID 1 MG TABLET PO (08:25)
[2022-05-22] MEDS: chlordiazePOXIDE 25 MG CAPSULE PO ×3 (08:25→20:39)
[2022-05-22] MEDS: MULTIVITAMIN 1 TABLET 1 TAB PO (08:25)
[2022-05-22] MEDS: ENOXAPARIN 40 MG/0.4 ML SYRINGE SUBCUT (08:25)
[2022-05-22] MEDS: NICOTINE 14 PATCH 14 MG TOP (08:46)
--- NOTE | 2022-05-22 09:42 | PM.PN.EICU ---
Subjective Subjective IF CAMERA ACTIVATED, patient seen via real-time interactive audiovisual communication: Camera activated Consent obtained for tele-executive staff assistant care: Yes Patient Location: ICU Provider location (State): Other participants/roles: RN Interval history: Comfortable in bed, agitated/ needed IV Ativan overnight and resumption of the Precedex Current Medications Current Medications Medications: Visit Medications (administered) Generic Name Dose Route Start Last Admin Trade Name Freq PRN Reason Stop Dose Admin Acetaminophen 650 mg 05/20/22 00:05 05/20/22 16:46 Acetaminophen 325 Mg Tablet PO 650 mg Q6H PRN Administration Fever/Mild Pain (1-3) Atorvastatin Calcium 20 mg 05/20/22 21:00 05/21/22 20:27 Atorvastatin 20 Mg Tablet PO 20 mg BEDTIME MARYJO Administration Chlordiazepoxide HCl 25 mg 05/21/22 10:45 05/22/22 08:25 Chlordiazepoxide 25 Mg Capsule PO 25 mg TID MARYJO Administration Enoxaparin Sodium 40 mg 05/20/22 09:00 05/22/22 08:25 Enoxaparin 40 Mg/0.4 Ml Syringe SUBCUT 40 mg DAILY MARYJO Administration Folic Acid 1 mg 05/20/22 09:00 05/22/22 08:25 Folic Acid 1 Mg Tablet PO 1 mg DAILY MARYJO Administration Sodium Chloride 1,000 mls @ 100 mls/hr 05/19/22 23:45 05/22/22 01:43 Normal Saline 0.9% IV 100 mls/hr CONT MARYJO Administration Thiamine HCl 500 mg/ Sodium 105 mls @ 420 mls/hr 05/20/22 23:00 05/22/22 06:45 Chloride IV 420 mls/hr Q8H MARYJO Administration dexmedeTOMIDine in 0.9 % NaCL 400 mcg in 100 mls @ 2.75 mls/hr 05/21/22 17:45 05/22/22 06:15 Precedex IV 0.6 mcg/kg/hr TITRATE MARYJO 8.25 mls/hr Administration Protocol 0.2 MCG/KG/HR Labetalol HCl 10 mg 05/20/22 07:28 05/22/22 03:09 Labetalol 20 Mg/4 Ml Syringe IV 10 mg Q4HR PRN Administration SBP >190 or DBP >110 Protocol Lorazepam 0 mg 05/19/22 17:42 05/21/22 23:57 Lorazepam 2 Mg/Ml Inj IV 2 mg CIWAPRN PRN Administration Alcohol Withdrawal Protocol Multivitamins 1 tab 05/20/22 09:00 05/22/22 08:25 Multivitamin 1 Tablet PO 1 tab DAILY MARYJO Administration Nicotine 14 mg 05/21/22 09:30 05/22/22 08:46 Nicotine 14 Patch TOP 14 mg DAILY MARYJO Administration Ondansetron HCl 4 mg 05/19/22 17:30 05/19/22 17:55 Ondansetron 4 Mg/2 Ml Inj IV 4 mg Q6HR PRN Administration Nausea And Vomiting Potassium Chloride 40 meq 05/22/22 07:15 05/22/22 08:10 Potassium Chloride 20 Meq Tab PO 05/22/22 13:16 40 meq Q6H MARYJO Administration Objective Labs 05/22/22 04:22 05/22/22 04:22 Labs: Laboratory Results - last 24 hr 05/21/22 05/22/22 05/22/22 04:08 04:22 04:22 WBC 4.2 L RBC 3.48 L Hgb 11.7 L Hct 34.4 L MCV 98.7 MCH 33.7 MCHC 34.1 RDW 16.2 H Plt Count 157 Neut % (Auto) 67.9 Lymph % (Auto) 23.8 L [place] % (Auto) 6.3 Eos % (Auto) 1.1 L Baso % (Auto) 0.9 Neut # (Auto) 2900 Lymph # (Auto) 1000 L [place] # (Auto) 300 Eos # (Auto) 0 Baso # (Auto) 0 Sodium 136 L Potassium 3.2 L Chloride 107 Carbon Dioxide 18 L BUN < 2 L Creatinine 0.47 L Estimated GFR > 60 BUN/Creatinine Ratio 4.3 L Glucose 93 Calcium 7.0 L Phosphorus 2.2 L Magnesium 1.5 L Total Bilirubin 2.0 H AST 27 ALT 19 Alkaline Phosphatase 41 Total Protein 5.9 L Albumin 3.0 L Globulin 2.9 Albumin/Globulin Ratio 1.0 05/22/22 04:22 WBC RBC Hgb Hct MCV MCH MCHC RDW Plt Count Neut % (Auto) Lymph % (Auto) [place] % (Auto) Eos % (Auto) Baso % (Auto) Neut # (Auto) Lymph # (Auto) [place] # (Auto) Eos # (Auto) Baso # (Auto) Sodium Potassium Chloride Carbon Dioxide BUN Creatinine Estimated GFR BUN/Creatinine Ratio Glucose Calcium Phosphorus 2.8 Magnesium Total Bilirubin AST ALT Alkaline Phosphatase Total Protein Albumin Globulin Albumin/Globulin Ratio Exam Vital Signs (past 8 hours): - 05/22/22 01:59 05/22/22 02:00 05/22/22 02:00 Temperature Pulse Rate 82 83 Respiratory Rate 20 19 Blood Pressure 157/105 H Pulse Oximetry 05/22/22 03:02 05/22/22 03:02 05/22/22 03:09 Temperature Pulse Rate 79 79 Respiratory Rate 18 Blood Pressure 176/121 H 165/112 H Pulse Oximetry 05/22/22 03:04 05/22/22 03:04 05/22/22 03:50 Temperature Pulse Rate 78 Respiratory Rate 18 Blood Pressure 165/112 H 175/120 H Pulse Oximetry 05/22/22 03:50 05/22/22 04:00 05/22/22 04:00 Temperature 97.7 F Pulse Rate 84 85 Respiratory Rate 19 20 Blood Pressure 167/115 H Pulse Oximetry 98 05/22/22 04:13 05/22/22 04:43 05/22/22 05:00 Temperature Pulse Rate 86 85 Respiratory Rate 19 Blood Pressure 167/115 H 134/107 H Pulse Oximetry 05/22/22 05:00 05/22/22 05:01 05/22/22 06:00 Temperature Pulse Rate 89 87 85 Respiratory Rate 16 16 22 Blood Pressure Pulse Oximetry 05/22/22 06:00 05/22/22 06:06 05/22/22 06:15 Temperature Pulse Rate 87 87 Respiratory Rate 21 23 Blood Pressure 163/112 H Pulse Oximetry 05/22/22 06:30 05/22/22 06:45 05/22/22 07:00 Temperature Pulse Rate 89 88 Respiratory Rate 22 21 Blood Pressure 124/89 Pulse Oximetry 05/22/22 07:00 Temperature Pulse Rate 93 H Respiratory Rate 20 Blood Pressure Pulse Oximetry Oxygen Delivery Method Room Air Oxygen Flow Rate 98 Assessment & Plan Assessment & Plan narrative: Assessment & Plan narrative: 42F admitted with ETOH intoxation and withdrawal, now with LE weakness. MRI showing mass effect on L4 nerve roots. # ETOH Withdrawal, resolving # LE Weakness, improving # Uterine Mass (noted on CT) 8.1 cm # Hypertension, uncontrolled # Mass effect on L4 nerve roots - Continue CIWA,continue Librium, wean off Precedex drip. - PRN BP control, SBP goal < 160 - Continue Thiamine treatment - May need to consider MRI Pelvis for further workup of uterine mass. - Physical Therapy, follow up LE weakness Time Spent With Patient Critical Care time: I spent a total of [25] minutes of critical care time on this patient's care today; this time is exclusive of procedural time. Time Spent With Patient Critical Care time: I spent a total of [] minutes of critical care time on this patient's care today; this time is exclusive of procedural time.
--- NOTE | 2022-05-22 11:23 | P.PN_ITS ---
Subjective Subjective Interval history: 2-year-old female with alcohol dependence admitted with acute alcohol int oxication, subsequent withdrawal, ataxia/bilateral lower extremity weakness and numbness, as well as severe acute protein calorie malnutrition. Patient reportedly had a fall 5 days prior to admission, following which she developed acute onset of bilateral lower extremity weakness, numbness, and uri nary retention. Yesterday, patient had worsening alcohol withdrawal symptoms off of Precedex. They were not particularly responsive to lorazepam. She was placed back on Precedex. Overnight her CIWA scores have been in the 10-13 range. Precedex is up to 0.6 mcg/kg/hr. Patient has significant tremors. She is attempting to eat her breakfast but is unable to use her fork properly due to the degree of tremor she is having. 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 Exam Vital Signs (past 8 hours): - 05/22/22 03:50 05/22/22 03:50 05/22/22 04:00 Temperature Pulse Rate 84 85 Respiratory Rate 19 20 Blood Pressure 175/120 H Pulse Oximetry 98 05/22/22 04:00 05/22/22 04:13 05/22/22 04:43 Temperature 97.7 F Pulse Rate 86 85 Respiratory Rate 19 Blood Pressure 167/115 H 167/115 H Pulse Oximetry 05/22/22 05:00 05/22/22 05:00 05/22/22 05:01 Temperature Pulse Rate 89 87 Respiratory Rate 16 16 Blood Pressure 134/107 H Pulse Oximetry 05/22/22 06:00 05/22/22 06:00 05/22/22 06:06 Temperature Pulse Rate 85 87 Respiratory Rate 22 21 Blood Pressure 163/112 H Pulse Oximetry 05/22/22 06:15 05/22/22 06:30 05/22/22 06:45 Temperature Pulse Rate 87 89 88 Respiratory Rate 23 22 21 Blood Pressure Pulse Oximetry 05/22/22 07:00 05/22/22 07:00 05/22/22 07:15 Temperature Pulse Rate 93 H 91 H Respiratory Rate 20 15 Blood Pressure 124/89 Pulse Oximetry 05/22/22 07:30 05/22/22 07:45 05/22/22 07:56 Temperature Pulse Rate 87 86 Respiratory Rate 22 16 Blood Pressure 162/112 H Pulse Oximetry 05/22/22 07:56 05/22/22 08:00 05/22/22 08:00 Temperature Pulse Rate 91 H 90 Respiratory Rate 15 12 Blood Pressure 156/110 H Pulse Oximetry 05/22/22 08:15 05/22/22 08:30 05/22/22 08:45 Temperature Pulse Rate 95 H 94 H 96 H Respiratory Rate Blood Pressure Pulse Oximetry 05/22/22 09:00 05/22/22 09:15 05/22/22 09:30 Temperature Pulse Rate 97 H 95 H 96 H Respiratory Rate 19 21 23 Blood Pressure Pulse Oximetry 05/22/22 10:10 05/22/22 10:15 05/22/22 10:16 Temperature Pulse Rate 97 H 96 H 93 H Respiratory Rate 20 21 19 Blood Pressure Pulse Oximetry 05/22/22 10:16 Temperature Pulse Rate Respiratory Rate Blood Pressure 84/58 L Pulse Oximetry Oxygen Delivery Method Room Air Oxygen Flow Rate 98 Narrative Exam Narrative: GEN: Alert and oriented x 3, very tremulous HEENT:NC, Face symmetric CHEST: Respiratory excursions symmetric, CTAB CV: RRR, no M/R/G ABD: Soft, NT/ND, BT present in all 4 quadrants, no organomegaly or masses EXTR: warm, well perfused, no C/C/E SKIN: warm and dry, no rash NEURO: Alert and oriented x 3, overall improvement in sensory neuropathy, now in a sock distribution bilaterally, significant tremors noted as above Objective Labs 05/22/22 04:22 05/22/22 04:22 Labs: Laboratory Results - last 24 hr 05/22/22 05/22/22 05/22/22 04:22 04:22 04:22 WBC 4.2 L RBC 3.48 L Hgb 11.7 L Hct 34.4 L MCV 98.7 MCH 33.7 MCHC 34.1 RDW 16.2 H Plt Count 157 Neut % (Auto) 67.9 Lymph % (Auto) 23.8 L [place] % (Auto) 6.3 Eos % (Auto) 1.1 L Baso % (Auto) 0.9 Neut # (Auto) 2900 Lymph # (Auto) 1000 L [place] # (Auto) 300 Eos # (Auto) 0 Baso # (Auto) 0 Sodium 136 L Potassium 3.2 L Chloride 107 Carbon Dioxide 18 L BUN < 2 L Creatinine 0.47 L Estimated GFR > 60 BUN/Creatinine Ratio 4.3 L Glucose 93 Calcium 7.0 L Phosphorus 2.8 Magnesium 1.5 L Total Bilirubin 2.0 H AST 27 ALT 19 Alkaline Phosphatase 41 Total Protein 5.9 L Albumin 3.0 L Globulin 2.9 Albumin/Globulin Ratio 1.0 [facility] Social History household members: significant other Smoking Status: Current every day smoker alcohol intake: current Assessment & Plan Assessment & Plan narrative: 1. Alcohol dependence with withdrawal Weaned off of precedex yesterday afternoon but had to be restarted due to worsening withdrawal symptoms. High CIWA scores overnight. Continue high dose thiamine and MVI. Continue Precedex infusion and Librium. 2. Lower extremity weakness/numbness Lumbar spine MRI revealed a grade 1 isthmic spondylolisthesis of L4 on L5 measuring 5-6 mm, contributing along with facet hypertrophy to moderate neural foraminal narrowing with mass effect on the exiting L4 nerve roots.? No spinal cord injury or impingement.? Strength wnl while in bed.? PT/OT eval attempted but limited due to her significant tremors from alcohol withdrawal. Her sensory neuropathy is now in a sock distribution. 3. Ataxia Patient was significantly tremulous during therapy evaluation yesterday. Continue working on mobility when it is safe to do so. She is on high-dose thiamine for possible underlying Wernicke's. 4. Hypertensive urgency without diagnosis of hypertension Hypertension may have been secondary to alcohol withdrawal, rather than hypertensive urgency.? Her blood pressures are back up since yesterday, which is consistent with alcohol withdrawal being the inciting factor. 5. Hypomagnesemia Magnesium level is back down again to 1.5. We will replete. Recheck tomorrow. 6. Leukopenia/normocytic anemia White blood cell count is improved from 2.9-4.2, again confirming that this is likely secondary to her alcohol dependence. Hemoglobin is stable at 11.7. 7. Uterine mass CT scan revealed a large heterogeneous lesion anterior uterus measuring up to 8.1 cm which could be a uterine fibroid central necrosis or superimposed hemorrhage, but malignancy was not excluded.? Will need follow-up MRI of the pelvis with and without contrast. Discussed findings w/pt on 05/22/2022 8. Mild hyponatremia Sodium was 129 on 05/20, up to 134 yesterday, and is 136 today. 9. Hypokalemia Potassium was 3.8 yesterday, back down to 3.2 today. Will replete. Recheck tomorrow. 10. Hyperbilirubinemia with elevated LFTs Likely alcohol induced.? LFTs are normalizing. She evidence of fatty infiltration of the liver on? abdominal pelvic CT. CODE Full Prophy On Lovenox Dispo Pending Significant other with whom patient lives was at bedside during my evaluation today. All questions were answered. Time Spent With Patient Critical Care time: I spent a total of [] minutes of critical care time on this patient's care today; this time is exclusive of procedural time.
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
--- NOTE | 2022-05-22 12:55 | PT-IP ANOTE ---
talked with nurse and stated that the doctor wants her to stay in bed today and PT on hold for the whole day. stated that pt is actively withdrawing from alcohol and has increase shaking. also stated that CIWA scores is up into double digits today.
[2022-05-22] MEDS: ATORVASTATIN 20 MG TABLET PO (20:39)
--- NOTE | 2022-05-22 20:48 | PM.ICURNDS ---
- :: This patient was seen via real time interactive two-way audiovisual telecommunication. Patient seems to be imporioving on precedex, sitting up in bed and lucid, eatting dinner. Her LE parathesias have imrpove,d but has some tremors. will continue current management, and plan to wean off precede as toleated
[2022-05-22] MEDS: LORazepam 2 MG/ML INJ IV (23:56)
[2022-05-23] VITALS (56 sets, daily range): BP systolic 111–169; BP diastolic 59–123; PULSE 83–146; RESP 12–34; TEMP 35.9–37.1; O2SAT 94–100
[2022-05-23] MEDS: LORazepam 2 MG/ML INJ IV ×3 (00:50→06:30)
--- NOTE | 2022-05-23 05:00 | PC.NURSE ---
Addendum entered by Katlin Crain R.N. 05/23/22 05:27: Ordered to turn down precedex until anesthesiologist can come in and put in a central line. Original Note: Pt rt ac site compromised. Iv was removed. Rt forearm and hand significantly swollen. Notified hospitalist. Ordered to hold fluids and placement for central line.
[2022-05-23] MEDS: dexmedeTOMIDine in 0.9 % NaCL 400 MCG/100 ML PLAST..BAG 6.875 MCG IV ×2 (05:37→15:28)
--- NOTE | 2022-05-23 06:22 | PM.CN ---
History of Present Illness Consult details Date Patient Seen: 05/23/22 Time Patient Seen: 06:22 Chief complaint: numbness in both legs Requesting provider: Rita Maxwell Narrative: Called to bedside for patient in alcohol withdrawal and need for IV access. Multiple previous attempts in upper extremities without success. Hans says ok to proceed with PIV in feet. Patient not diabetic and no signs of current infection or rash over feet. After alcohol skin prep to right foot and using aseptic technique with 22G PIV x 3 unsuccessful. Alcohol prep and aseptic technique to left foot and 22G PIV placed to saphenous and flushes easily. Avoided patient's tattoos on feet at patient request. Meds Home Medications and Allergies Allergies Allergy/AdvReac Type Severity Reaction Status Date / Time Penicillins Allergy Swelling Verified 05/19/22 16:28 of Lip/Tongue/Throat Exam Vital Signs (past 8 hours): - 05/22/22 23:01 05/22/22 23:01 05/22/22 23:07 Temperature Pulse Rate 100 H 90 Respiratory Rate 26 H 21 Blood Pressure 138/103 H Pulse Oximetry 99 Oxygen Delivery Method 05/23/22 00:00 05/23/22 00:36 05/23/22 00:36 Temperature 98.8 F Pulse Rate 91 H Respiratory Rate 19 Blood Pressure 159/101 H Pulse Oximetry 95 Oxygen Delivery Method Room Air 05/23/22 00:47 05/23/22 01:00 05/23/22 01:00 Temperature Pulse Rate 93 H 90 Respiratory Rate 16 21 Blood Pressure 159/101 H 147/98 H Pulse Oximetry Oxygen Delivery Method 05/23/22 01:01 05/23/22 01:20 05/23/22 02:41 Temperature Pulse Rate 91 H 95 H 92 H Respiratory Rate 21 23 12 Blood Pressure 147/98 H 148/120 H Pulse Oximetry Oxygen Delivery Method 05/23/22 02:17 05/23/22 02:17 05/23/22 03:01 Temperature Pulse Rate 101 H Respiratory Rate 22 Blood Pressure 148/120 H 135/67 Pulse Oximetry Oxygen Delivery Method 05/23/22 03:01 05/23/22 03:36 05/23/22 04:00 Temperature Pulse Rate 101 H 87 Respiratory Rate 25 H 21 Blood Pressure Pulse Oximetry Oxygen Delivery Method Room Air 05/23/22 04:06 05/23/22 04:06 05/23/22 04:42 Temperature 98.0 F Pulse Rate 91 H 94 H Respiratory Rate 22 24 Blood Pressure 119/79 Pulse Oximetry 97 Oxygen Delivery Method 05/23/22 05:00 05/23/22 05:00 05/23/22 05:04 Temperature Pulse Rate 93 H 94 H Respiratory Rate 17 15 Blood Pressure 129/88 Pulse Oximetry Oxygen Delivery Method Oxygen Delivery Method Room Air Oxygen Flow Rate 0 Objective Labs 05/22/22 04:22 05/22/22 04:22 PFS Social History household members: significant other Tobacco & Substance Use Smoking Status: Current every day smoker alcohol intake: current Assessment & Plan Time Spent With Patient Critical Care time: I spent a total of [] minutes of critical care time on this patient's care today; this time is exclusive of procedural time.
[2022-05-23 06:31] LABS: Add Manual Diff / Slide Review NO; Basophils Absolute Auto 100 /uL (0-100); Eosinophils Absolute Auto 0 /uL (0-450); Eosinophils Percent Auto 0.6 % (2-4); Hematocrit 35.6 % (36-46); Hemoglobin 11.8 g/dL (12.0-16.0); Lymphocytes Absolute Auto 1300 /uL (1100-4500); Lymphocytes Percent Auto 21.3 % (25-40); Mean Corpuscular HGB Conc 33.2 % (30-36); Mean Corpuscular Hemoglobin 32.7 PG (26-34); Mean Corpuscular Volume 98.5 fL (80-100); Monocytes Absolute Auto 600 /uL (0-900); Monocytes Percent Auto 9.5 % (3-14); Neutrophils Absolute Auto 4100 /uL (1500-7000); Neutrophils Percent Auto 67.6 % (50-75); Platelet Count 199 X10^3/uL (150-400); Red Blood Cell Count 3.61 X10^6/uL (4.0-5.2); Red Cell Distribution Width 15.7 % (11.6-14.8); White Blood Cell Count 6.1 X10^3/uL (4.5-11.0)
[2022-05-23 06:40] LABS: Calcium 8.6 mg/dL (8.4-10.2); Carbon Dioxide 21 mmol/L (22-32); Chloride 102 mmol/L (98-107); Estimated Glomerular Filt Rate > 60 mL/min (>60); Glucose 88 mg/dL (70-100); HEMOLYSIS < 15 (0-50); Magnesium 1.3 mg/dL (1.6-2.3); Potassium 3.9 mmol/L (3.4-5.1); Sodium 132 mmol/L (137-145)
[2022-05-23] MEDS: PHENobarbital 65 MG/ML VIAL 260 MG IV (06:42)
[2022-05-23 06:47] LABS: BUN Creatinine Ratio 3.4 (6-22); Blood Urea Nitrogen < 2 mg/dL (7-17)
[2022-05-23] MEDS: THIAMINE 500 MG in SODIUM CHLORIDE 0.9% 100 ML 420 MG IV ×3 (08:21→22:45)
[2022-05-23] MEDS: NICOTINE 14 PATCH 14 MG TOP (08:25)
[2022-05-23] MEDS: ENOXAPARIN 40 MG/0.4 ML SYRINGE SUBCUT (08:26)
[2022-05-23] MEDS: MAGNESIUM SULFATE 2 GM/50 ML PIGGYBACK IV (09:45)
--- NOTE | 2022-05-23 10:45 | PT-IP ANOTE ---
Reviewed the chart and spoke with BORING MACHINE OPERATOR this AM who indicated pt not able to meaningfully participate with PT this morning. Will follow up again later today if staffing allows.
--- NOTE | 2022-05-23 11:27 | PM.PN.EICU ---
Subjective Subjective IF CAMERA ACTIVATED, patient seen via real-time interactive audiovisual communication: Camera activated Consent obtained for tele-tree deadener care: Yes Patient Location: ICU Provider location (State): [place] Other participants/roles: RN Interval history: Patietn substanitally more delirious overniht, received phenobarb 260 early AM, currently on precedex Current Medications Current Medications Medications: Visit Medications (administered) Generic Name Dose Route Start Last Admin Trade Name Freq PRN Reason Stop Dose Admin Acetaminophen 650 mg 05/20/22 00:05 05/20/22 16:46 Acetaminophen 325 Mg Tablet PO 650 mg Q6H PRN Administration Fever/Mild Pain (1-3) Atorvastatin Calcium 20 mg 05/20/22 21:00 05/22/22 20:39 Atorvastatin 20 Mg Tablet PO 20 mg BEDTIME MARYJO Administration Chlordiazepoxide HCl 50 mg 05/23/22 09:00 05/23/22 10:21 Chlordiazepoxide 25 Mg Capsule PO Not Given TID MARYJO Enoxaparin Sodium 40 mg 05/20/22 09:00 05/23/22 08:26 Enoxaparin 40 Mg/0.4 Ml Syringe SUBCUT 40 mg DAILY MARYJO Administration Folic Acid 1 mg 05/20/22 09:00 05/22/22 08:25 Folic Acid 1 Mg Tablet PO 1 mg DAILY MARYJO Administration Thiamine HCl 500 mg/ Sodium 105 mls @ 420 mls/hr 05/20/22 23:00 05/23/22 08:36 Chloride IV Infused Q8H MARYJO Infusion dexmedeTOMIDine in 0.9 % NaCL 400 mcg in 100 mls @ 2.75 mls/hr 05/21/22 17:45 05/23/22 10:00 Precedex IV 0.6 mcg/kg/hr TITRATE MARYJO 8.25 mls/hr Titration Protocol 0.2 MCG/KG/HR Labetalol HCl 10 mg 05/20/22 07:28 05/22/22 03:09 Labetalol 20 Mg/4 Ml Syringe IV 10 mg Q4HR PRN Administration SBP >190 or DBP >110 Protocol Lorazepam 0 mg 05/19/22 17:42 05/23/22 02:17 Lorazepam 2 Mg/Ml Inj IV 2 mg CIWAPRN PRN Administration Alcohol Withdrawal Protocol Multivitamins 1 tab 05/20/22 09:00 05/22/22 08:25 Multivitamin 1 Tablet PO 1 tab DAILY MARYJO Administration Nicotine 14 mg 05/21/22 09:30 05/23/22 08:25 Nicotine 14 Patch TOP 14 mg DAILY MARYJO Administration Ondansetron HCl 4 mg 05/19/22 17:30 05/19/22 17:55 Ondansetron 4 Mg/2 Ml Inj IV 4 mg Q6HR PRN Administration Nausea And Vomiting Objective Labs 05/23/22 06:21 05/23/22 06:21 Labs: Laboratory Results - last 24 hr 05/23/22 05/23/22 06:21 06:21 WBC 6.1 RBC 3.61 L Hgb 11.8 L Hct 35.6 L MCV 98.5 MCH 32.7 MCHC 33.2 RDW 15.7 H Plt Count 199 Neut % (Auto) 67.6 Lymph % (Auto) 21.3 L [place] % (Auto) 9.5 Eos % (Auto) 0.6 L Baso % (Auto) 1.0 Neut # (Auto) 4100 Lymph # (Auto) 1300 [place] # (Auto) 600 Eos # (Auto) 0 Baso # (Auto) 100 Sodium 132 L Potassium 3.9 Chloride 102 Carbon Dioxide 21 L BUN < 2 L Creatinine 0.59 Estimated GFR > 60 BUN/Creatinine Ratio 3.4 L Glucose 88 Calcium 8.6 Magnesium 1.3 L Exam Vital Signs (past 8 hours): - 05/23/22 03:36 05/23/22 04:00 05/23/22 04:06 Temperature 98.0 F Pulse Rate 87 Respiratory Rate 21 Blood Pressure 119/79 Pulse Oximetry Oxygen Delivery Method Room Air 05/23/22 04:06 05/23/22 04:42 05/23/22 05:00 Temperature Pulse Rate 91 H 94 H Respiratory Rate 22 24 Blood Pressure 129/88 Pulse Oximetry 97 Oxygen Delivery Method 05/23/22 05:00 05/23/22 05:04 05/23/22 06:44 Temperature Pulse Rate 93 H 94 H Respiratory Rate 17 15 Blood Pressure 169/123 H Pulse Oximetry Oxygen Delivery Method 05/23/22 06:44 05/23/22 06:48 05/23/22 07:00 Temperature Pulse Rate 146 H 130 H 97 H Respiratory Rate 34 H 23 24 Blood Pressure Pulse Oximetry Oxygen Delivery Method 05/23/22 07:00 05/23/22 07:00 05/23/22 07:13 Temperature Pulse Rate 97 H Respiratory Rate 24 Blood Pressure 169/120 H 150/101 H Pulse Oximetry Oxygen Delivery Method 05/23/22 07:13 05/23/22 07:15 05/23/22 07:15 Temperature Pulse Rate 95 H 95 H Respiratory Rate 24 25 H Blood Pressure 143/99 H Pulse Oximetry Oxygen Delivery Method 05/23/22 07:30 05/23/22 07:30 05/23/22 07:45 Temperature Pulse Rate 92 H Respiratory Rate 24 Blood Pressure 129/95 H 125/91 H Pulse Oximetry Oxygen Delivery Method 05/23/22 07:45 05/23/22 08:00 05/23/22 08:00 Temperature Pulse Rate 92 H 91 H Respiratory Rate 21 22 Blood Pressure 130/95 H Pulse Oximetry Oxygen Delivery Method 05/23/22 08:15 05/23/22 08:15 05/23/22 09:00 Temperature 96.7 F L Pulse Rate 90 Respiratory Rate 23 Blood Pressure 117/83 Pulse Oximetry Oxygen Delivery Method 05/23/22 08:30 05/23/22 08:30 05/23/22 09:00 Temperature Pulse Rate 90 Respiratory Rate 24 Blood Pressure 116/85 122/87 Pulse Oximetry Oxygen Delivery Method 05/23/22 09:00 05/23/22 08:00 05/23/22 08:00 Temperature 97.6 F Pulse Rate 91 H Respiratory Rate 23 Blood Pressure Pulse Oximetry 99 Oxygen Delivery Method Room Air 05/23/22 09:30 05/23/22 09:30 05/23/22 10:00 Temperature Pulse Rate 88 Respiratory Rate 23 Blood Pressure 130/97 H 133/101 H Pulse Oximetry 99 Oxygen Delivery Method 05/23/22 10:00 05/23/22 10:30 05/23/22 10:30 Temperature Pulse Rate 89 84 Respiratory Rate 23 23 Blood Pressure 140/89 Pulse Oximetry 100 99 Oxygen Delivery Method 05/23/22 11:00 05/23/22 11:00 Temperature Pulse Rate 85 Respiratory Rate 23 Blood Pressure 135/79 Pulse Oximetry 98 Oxygen Delivery Method Oxygen Delivery Method Room Air Oxygen Flow Rate 0 Narrative Exam Narrative: surrogate for full exam is primary team Assessment & Plan Assessment & Plan narrative: # ETOH Withdrawal, resolving # LE Weakness, improving # Uterine Mass (noted on CT) 8.1 cm # Hypertension, uncontrolled # Mass effect on L4 nerve roots - Continue CIWA,continue Librium, wean off Precedex drip. - PRN BP control, SBP goal < 160 - Continue Thiamine treatment - May need to consider MRI Pelvis for further workup of uterine mass. - Physical Therapy, follow up LE weakness - if her hyperactive delirium does no resolve, should consider a nmda receptor encephalitis work up Time Spent With Patient Critical Care time: I spent a total of [35] minutes of critical care time on this patient's care today; this time is exclusive of procedural time.
--- NOTE | 2022-05-23 13:17 | PM.PN.1 ---
Subjective Subjective Interval history: 42-year-old female with alcohol dependence admitted with acute alcohol intoxication, subsequent withdrawal, ataxia/bilateral lower extremity weakness and numbness, as well as severe acute protein calorie malnutrition. Patient reportedly had a fall 5 days prior to admission, following which she developed acute onset of bilateral lower extremity weakness, numbness, and urinary retention. Pt reported improving sxs on 05/21. Sxs improved again on 05/22. Unfortunately, she had worsening withdrawal sxs and required resumption of a precedex infusion. Early this am, she became increasingly agitated, required higher doses of precedex and two doses of phenobarb. She is now calm and sedated, requiring 4-point restraints. Exam Vital Signs (past 8 hours): - 05/23/22 06:44 05/23/22 06:44 05/23/22 06:48 Temperature Pulse Rate 146 H 130 H Respiratory Rate 34 H 23 Blood Pressure 169/123 H Pulse Oximetry Oxygen Delivery Method 05/23/22 07:00 05/23/22 07:00 05/23/22 07:00 Temperature Pulse Rate 97 H 97 H Respiratory Rate 24 24 Blood Pressure 169/120 H Pulse Oximetry Oxygen Delivery Method 05/23/22 07:13 05/23/22 07:13 05/23/22 07:15 Temperature Pulse Rate 95 H Respiratory Rate 24 Blood Pressure 150/101 H 143/99 H Pulse Oximetry Oxygen Delivery Method 05/23/22 07:15 05/23/22 07:30 05/23/22 07:30 Temperature Pulse Rate 95 H 92 H Respiratory Rate 25 H 24 Blood Pressure 129/95 H Pulse Oximetry Oxygen Delivery Method 05/23/22 07:45 05/23/22 07:45 05/23/22 08:00 Temperature Pulse Rate 92 H Respiratory Rate 21 Blood Pressure 125/91 H 130/95 H Pulse Oximetry Oxygen Delivery Method 05/23/22 08:00 05/23/22 08:15 05/23/22 08:15 Temperature Pulse Rate 91 H 90 Respiratory Rate 22 23 Blood Pressure 117/83 Pulse Oximetry Oxygen Delivery Method 05/23/22 09:00 05/23/22 08:30 05/23/22 08:30 Temperature 96.7 F L Pulse Rate 90 Respiratory Rate 24 Blood Pressure 116/85 Pulse Oximetry Oxygen Delivery Method 05/23/22 09:00 05/23/22 09:00 05/23/22 08:00 Temperature 97.6 F Pulse Rate 91 H Respiratory Rate 23 Blood Pressure 122/87 Pulse Oximetry 99 Oxygen Delivery Method 05/23/22 08:00 05/23/22 09:30 05/23/22 09:30 Temperature Pulse Rate 88 Respiratory Rate 23 Blood Pressure 130/97 H Pulse Oximetry 99 Oxygen Delivery Method Room Air 05/23/22 10:00 05/23/22 10:00 05/23/22 10:30 Temperature Pulse Rate 89 Respiratory Rate 23 Blood Pressure 133/101 H 140/89 Pulse Oximetry 100 Oxygen Delivery Method 05/23/22 10:30 05/23/22 11:00 05/23/22 11:00 Temperature Pulse Rate 84 85 Respiratory Rate 23 23 Blood Pressure 135/79 Pulse Oximetry 99 98 Oxygen Delivery Method 05/23/22 11:30 05/23/22 11:30 05/23/22 12:00 Temperature Pulse Rate 84 Respiratory Rate 24 Blood Pressure 123/72 126/78 Pulse Oximetry 98 Oxygen Delivery Method 05/23/22 12:00 Temperature Pulse Rate 83 Respiratory Rate 24 Blood Pressure Pulse Oximetry 98 Oxygen Delivery Method Oxygen Delivery Method Room Air Oxygen Flow Rate 0 Narrative Exam Narrative: GEN: sedate, NAD HEENT:NC, Face symmetric CHEST: Respiratory excursions symmetric, CTAB CV: RRR, no M/R/G ABD: Soft, NT/ND, BT present in all 4 quadrants, no organomegaly or masses EXTR: warm, well perfused, no C/C/E to LEs, RUE w/evidence of IV failure at the wrist and antecubital fossa, generalized forearm/hand edema noted SKIN: warm and dry, no rash NEURO: sedate, no tremors Objective Labs 05/23/22 06:21 05/23/22 06:21 Labs: Laboratory Results - last 24 hr 05/23/22 05/23/22 06:21 06:21 WBC 6.1 RBC 3.61 L Hgb 11.8 L Hct 35.6 L MCV 98.5 MCH 32.7 MCHC 33.2 RDW 15.7 H Plt Count 199 Neut % (Auto) 67.6 Lymph % (Auto) 21.3 L [place] % (Auto) 9.5 Eos % (Auto) 0.6 L Baso % (Auto) 1.0 Neut # (Auto) 4100 Lymph # (Auto) 1300 [place] # (Auto) 600 Eos # (Auto) 0 Baso # (Auto) 100 Sodium 132 L Potassium 3.9 Chloride 102 Carbon Dioxide 21 L BUN < 2 L Creatinine 0.59 Estimated GFR > 60 BUN/Creatinine Ratio 3.4 L Glucose 88 Calcium 8.6 Magnesium 1.3 L [facility] Social History household members: significant other Smoking Status: Current every day smoker alcohol intake: current Assessment & Plan Assessment & Plan narrative: 1. Alcohol dependence with withdrawal Weaned off of precedex on the afternoon of 05/21 but it had to be restarted due to worsening withdrawal symptoms. Required increased precedex and phenobarb x 2 this am.? Continue high dose thiamine and MVI.? Continue Precedex infusion and Librium. Librium increased to 50 mg TID. 2. Lower extremity weakness/numbness Lumbar spine MRI revealed a grade 1 isthmic spondylolisthesis of L4 on L5 measuring 5-6 mm, contributing along with facet hypertrophy to moderate neural foraminal narrowing with mass effect on the exiting L4 nerve roots.? No spinal cord injury or impingement.? Strength wnl while in bed.? PT/OT eval attempted but limited due to her significant tremors from alcohol withdrawal.? 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 Today, she is too sedate for evaluation. 3. Ataxia Patient was significantly tremulous during therapy evaluation yesterday.? Continue working on mobility when it is safe to do so.? She is on high-dose thiamine for possible underlying Wernicke's. 4. Hypertensive urgency without diagnosis of hypertension Hypertension may have been secondary to alcohol withdrawal, rather than hypertensive urgency.? BPs are controlled currently. 5. Hypomagnesemia Magnesium level is 1.2 today.? We will replete.? Recheck tomorrow. 6. Leukopenia/normocytic anemia White blood cell count is improved from 2.9-4.2 yesterday, normal today. Hemoglobin is stable at 11.8.? 7. Uterine mass CT scan revealed a large heterogeneous lesion anterior uterus measuring up to 8.1 cm which could be a uterine fibroid central necrosis or superimposed hemorrhage, but malignancy was not excluded.? Will need follow-up MRI of the pelvis with and without contrast. Discussed findings w/pt on 05/22/2022 8. Mild hyponatremia Sodium was 129 on 05/20, up to 134 05/21 and 136 05/22. Remains mildly low at 132 today. 9. Hypokalemia Potassium was 3.81/, back down to 3.2 yesterday.? 3.9 today. Will give an additional 20 meq today when more awake to get K above 4. 10. Hyperbilirubinemia with elevated LFTs Likely alcohol induced.? LFTs are normalizing.? She evidence of fatty infiltration of the liver on? abdominal pelvic CT. Bili was down to 2.0 and her AST/ALT/alk phos were normal on yesterday's labs. CODE Full Prophy On Lovenox Dispo Pending Time Spent With Patient Critical Care time: I spent a total of [] minutes of critical care time on this patient's care today; this time is exclusive of procedural time.
--- NOTE | 2022-05-23 15:43 | PC.NURSE ---
1400 Left hand has increased edema. Patient ring on Left ring finger attempted to be removed, but is too tight. Ring removed with ring cutter per ER staff and given to patient's boyfriend, Hernan, which he put in patient's purse.
[2022-05-23] MEDS: chlordiazePOXIDE 25 MG CAPSULE 50 MG PO ×2 (16:56→20:45)
[2022-05-23] MEDS: POTASSIUM CHLORIDE 20 MEQ/15 ML UDC PO (17:00)
[2022-05-23] MEDS: FOLIC ACID 1 MG TABLET PO (17:00)
[2022-05-23] MEDS: MULTIVITAMIN 1 TABLET 1 TAB PO (17:00)
--- NOTE | 2022-05-23 20:25 | PM.ICURNDS ---
- Date Patient Seen: 05/23/22 Time Patient Seen: 20:25 :: This patient was seen via real time interactive two-way audiovisual telecommunication. Note: Patient remains on precedex 0.4 mcg. On librium therapy. Cont titrating down precedex D/w RN at bedside.
[2022-05-23] MEDS: ATORVASTATIN 20 MG TABLET PO (20:45)
--- NOTE | 2022-05-23 22:07 | PC.NURSE ---
Patient awake but sleepy able to follow simple commands. Some confusion off and on, but taking oral medications. No attempts to remove lines, and soft wrist restraints removed. boyfriend at bedside with patient. Will wean precedex if possible.
[2022-05-24] VITALS (20 sets, daily range): BP systolic 114–168; BP diastolic 63–101; PULSE 84–121; RESP 13–27; TEMP 36.4–37.4; O2SAT 95–100
[2022-05-24 05:07] LABS: Add Manual Diff / Slide Review NO; Basophils Absolute Auto 0 /uL (0-100); Basophils Percent Auto 0.7 % (0-2); Eosinophils Absolute Auto 100 /uL (0-450); Eosinophils Percent Auto 0.9 % (2-4); Hematocrit 33.5 % (36-46); Hemoglobin 11.3 g/dL (12.0-16.0); Lymphocytes Absolute Auto 1400 /uL (1100-4500); Lymphocytes Percent Auto 21.4 % (25-40); Mean Corpuscular HGB Conc 33.6 % (30-36); Mean Corpuscular Hemoglobin 33.3 PG (26-34); Monocytes Absolute Auto 600 /uL (0-900); Monocytes Percent Auto 9.5 % (3-14); Neutrophils Absolute Auto 4300 /uL (1500-7000); Neutrophils Percent Auto 67.5 % (50-75); Platelet Count 227 X10^3/uL (150-400); Red Blood Cell Count 3.38 X10^6/uL (4.0-5.2); Red Cell Distribution Width 16.4 % (11.6-14.8); White Blood Cell Count 6.4 X10^3/uL (4.5-11.0)
[2022-05-24 05:08] LABS: BUN Creatinine Ratio 10.9 (6-22); Blood Urea Nitrogen 6 mg/dL (7-17); Calcium 8.3 mg/dL (8.4-10.2); Carbon Dioxide 21 mmol/L (22-32); Chloride 103 mmol/L (98-107); Estimated Glomerular Filt Rate > 60 mL/min (>60); Glucose 90 mg/dL (70-100); HEMOLYSIS < 15 (0-50); Magnesium 1.8 mg/dL (1.6-2.3); Potassium 4.3 mmol/L (3.4-5.1); Sodium 132 mmol/L (137-145)
[2022-05-24] MEDS: THIAMINE 500 MG in SODIUM CHLORIDE 0.9% 100 ML 420 MG IV (06:16)
[2022-05-24] MEDS: chlordiazePOXIDE 25 MG CAPSULE 50 MG PO ×4 (09:08→23:50)
[2022-05-24] MEDS: FOLIC ACID 1 MG TABLET PO (09:08)
[2022-05-24] MEDS: NICOTINE 14 PATCH 14 MG TOP (09:08)
[2022-05-24] MEDS: ENOXAPARIN 40 MG/0.4 ML SYRINGE SUBCUT (09:08)
--- NOTE | 2022-05-24 09:25 | PM.PN.1 ---
Subjective Subjective Date Patient Seen: 05/24/22 Interval history: Able to walk around with PT using walker today but still very unsteady on feet. Downgraded from ICU. She is wanting to go home, but I told her one more day needed at least. Exam Vital Signs (past 8 hours): - 05/24/22 02:00 05/24/22 02:00 05/24/22 03:06 Temperature Pulse Rate 85 84 Respiratory Rate 24 23 Blood Pressure 148/67 H Pulse Oximetry 98 98 05/24/22 04:00 05/24/22 04:00 05/24/22 05:15 Temperature 97.5 F L Pulse Rate 85 84 Respiratory Rate 13 25 H Blood Pressure 127/73 Pulse Oximetry 97 95 05/24/22 06:00 05/24/22 06:00 05/24/22 06:57 Temperature Pulse Rate 86 84 Respiratory Rate 27 H 24 Blood Pressure 134/63 Pulse Oximetry 95 97 Oxygen Delivery Method Room Air Oxygen Flow Rate 0 Narrative Exam Narrative: GEN: NAD, flat affect HEENT:NC, Face symmetric CHEST: Respiratory excursions symmetric, CTAB CV: RRR, no M/R/G ABD: Soft, NT/ND, BT present in all 4 quadrants, no organomegaly or masses EXTR: warm, well perfused, no C/C/E to LEs, RUE w/evidence of IV failure at the wrist and antecubital fossa, generalized forearm/hand edema noted SKIN: warm and dry, no rash NEURO: sedate, no tremors Objective Labs 05/24/22 04:28 05/24/22 04:28 Labs: Laboratory Results - last 24 hr 05/24/22 05/24/22 04:28 04:28 WBC 6.4 RBC 3.38 L Hgb 11.3 L Hct 33.5 L MCV 99.0 MCH 33.3 MCHC 33.6 RDW 16.4 H Plt Count 227 Neut % (Auto) 67.5 Lymph % (Auto) 21.4 L [place] % (Auto) 9.5 Eos % (Auto) 0.9 L Baso % (Auto) 0.7 Neut # (Auto) 4300 Lymph # (Auto) 1400 [place] # (Auto) 600 Eos # (Auto) 100 Baso # (Auto) 0 Sodium 132 L Potassium 4.3 Chloride 103 Carbon Dioxide 21 L BUN 6 L Creatinine 0.55 Estimated GFR > 60 BUN/Creatinine Ratio 10.9 Glucose 90 Calcium 8.3 L Magnesium 1.8 [facility] Social History household members: significant other Smoking Status: Current every day smoker alcohol intake: current Assessment & Plan Assessment & Plan narrative: 1. Alcohol dependence with withdrawal, improving Weaned off of precedex on the afternoon of 05/21 but it had to be restarted due to worsening withdrawal symptoms. Now off again on 05/24.? Continue high dose thiamine and MVI.? Continue Librium 50 mg TID and will likely discharge on taper. 2. Lower extremity weakness/numbness Lumbar spine MRI revealed a grade 1 isthmic spondylolisthesis of L4 on L5 measuring 5-6 mm, contributing along with facet hypertrophy to moderate neural foraminal narrowing with mass effect on the exiting L4 nerve roots.? Dr. Monsivais spinal surgeon at looked at images and said no acute intervention needed. No spinal cord injury or impingement.? Now walking with PT using walker. 3. Ataxia, improving Now walking with PT. She is on high-dose thiamine for possible underlying Wernicke's. 4. Hypertensive urgency without diagnosis of hypertension, improving Hypertension may have been secondary to alcohol withdrawal, rather than hypertensive urgency.? BPs are controlled currently. 5. Hypomagnesemia Down to 1.2. Monitoring and repleting PRN. 6. Normocytic anemia Hemoglobin is stable in . 7. Uterine mass CT scan revealed a large heterogeneous lesion anterior uterus measuring up to 8.1 cm which could be a uterine fibroid central necrosis or superimposed hemorrhage, but malignancy was not excluded.? Will need follow-up MRI of the pelvis with and without contrast. Discussed findings w/pt on 05/22/2022 8. Mild hyponatremia Sodium was 129 on 05/20, up to 134 05/21 and 136 05/22. Remains mildly low at 132 today. 9. Hypokalemia Monitoring and repleting PRN. 10. Hyperbilirubinemia with elevated LFTs Likely alcohol induced.? LFTs are normalizing.? She evidence of fatty infiltration of the liver on? abdominal pelvic CT. Bili was down to 2.0 and her AST/ALT/alk phos were normal on yesterday's labs. CODE Full Prophy On Lovenox Dispo PT recommending SNF, but patient refuses and wants to return home. Likely in one more day. Time Spent With Patient Critical Care time: I spent a total of [] minutes of critical care time on this patient's care today; this time is exclusive of procedural time.
--- NOTE | 2022-05-24 10:10 | P.TELICUPN_ITS ---
Subjective Subjective IF CAMERA ACTIVATED, patient seen via real-time interactive audiovisual communication: Camera activated Consent obtained for tele-shredder picker care: Yes Patient Location: ICU Provider location (State): [place] Other participants/roles: RN Interval history: Patient Summary: 42 yo Woman in ICU for ETOH withdrawal Recent events: Patient's Dex drip down to 0.2 mcg/kg/min. Nurse reports patient is more calm and awake this morning. Current Medications Current Medications Medications: Visit Medications (administered) Generic Name Dose Route Start Last Admin Trade Name Freq PRN Reason Stop Dose Admin Acetaminophen 650 mg 05/20/22 00:05 05/20/22 16:46 Acetaminophen 325 Mg Tablet PO 650 mg Q6H PRN Administration Fever/Mild Pain (1-3) Atorvastatin Calcium 20 mg 05/20/22 21:00 05/23/22 20:45 Atorvastatin 20 Mg Tablet PO 20 mg BEDTIME MARYJO Administration Chlordiazepoxide HCl 50 mg 05/23/22 09:00 05/24/22 09:08 Chlordiazepoxide 25 Mg Capsule PO 50 mg TID MARYJO Administration Enoxaparin Sodium 40 mg 05/20/22 09:00 05/24/22 09:08 Enoxaparin 40 Mg/0.4 Ml Syringe SUBCUT 40 mg DAILY MARYJO Administration Folic Acid 1 mg 05/20/22 09:00 05/24/22 09:08 Folic Acid 1 Mg Tablet PO 1 mg DAILY MARYJO Administration Thiamine HCl 500 mg/ Sodium 105 mls @ 420 mls/hr 05/20/22 23:00 05/24/22 06:35 Chloride IV Infused Q8H MARYJO Infusion dexmedeTOMIDine in 0.9 % NaCL 400 mcg in 100 mls @ 2.75 mls/hr 05/21/22 17:45 05/24/22 09:05 Precedex IV 0.01 mcg/kg/hr TITRATE MARYJO 0.2 mls/hr Titration Protocol 0.2 MCG/KG/HR Labetalol HCl 10 mg 05/20/22 07:28 05/22/22 03:09 Labetalol 20 Mg/4 Ml Syringe IV 10 mg Q4HR PRN Administration SBP >190 or DBP >110 Protocol Lorazepam 0 mg 05/19/22 17:42 05/23/22 02:17 Lorazepam 2 Mg/Ml Inj IV 2 mg CIWAPRN PRN Administration Alcohol Withdrawal Protocol Multivitamins 1 tab 05/20/22 09:00 05/23/22 17:00 Multivitamin 1 Tablet PO 1 tab DAILY MARYJO Administration Nicotine 14 mg 05/21/22 09:30 05/24/22 09:08 Nicotine 14 Patch TOP 14 mg DAILY MARYJO Administration Ondansetron HCl 4 mg 05/19/22 17:30 05/19/22 17:55 Ondansetron 4 Mg/2 Ml Inj IV 4 mg Q6HR PRN Administration Nausea And Vomiting Objective Labs 05/24/22 04:28 05/24/22 04:28 Labs: Laboratory Results - last 24 hr 05/24/22 05/24/22 04:28 04:28 WBC 6.4 RBC 3.38 L Hgb 11.3 L Hct 33.5 L MCV 99.0 MCH 33.3 MCHC 33.6 RDW 16.4 H Plt Count 227 Neut % (Auto) 67.5 Lymph % (Auto) 21.4 L Dillon % (Auto) 9.5 Eos % (Auto) 0.9 L Baso % (Auto) 0.7 Neut # (Auto) 4300 Lymph # (Auto) 1400 Dillon # (Auto) 600 Eos # (Auto) 100 Baso # (Auto) 0 Sodium 132 L Potassium 4.3 Chloride 103 Carbon Dioxide 21 L BUN 6 L Creatinine 0.55 Estimated GFR > 60 BUN/Creatinine Ratio 10.9 Glucose 90 Calcium 8.3 L Magnesium 1.8 Exam Vital Signs (past 8 hours): - 05/24/22 03:06 05/24/22 04:00 05/24/22 04:00 Temperature 97.5 F L Pulse Rate 84 85 Respiratory Rate 23 13 Blood Pressure 127/73 Pulse Oximetry 98 97 05/24/22 05:15 05/24/22 06:00 05/24/22 06:00 Temperature Pulse Rate 84 86 Respiratory Rate 25 H 27 H Blood Pressure 134/63 Pulse Oximetry 95 95 05/24/22 06:57 Temperature Pulse Rate 84 Respiratory Rate 24 Blood Pressure Pulse Oximetry 97 Oxygen Delivery Method Room Air Oxygen Flow Rate 0 Narrative Exam Narrative: Patient seen over two way audio-visual system. Patient is seen sitting up and talking on the phone. Assessment & Plan Assessment & Plan narrative: [address] [address] Teleintensivist Progress Note Patient: Yovanny Carroll MR#: [id number] : 1980 Acct:[id number] Age/Sex: 42 / F ? Date of Service: 05/19/22 Provider:?Braden Bass Subjective Subjective IF CAMERA ACTIVATED, patient seen via real-time interactive audiovisual communication: Camera activated Consent obtained for tele-shredder picker care: Yes Patient Location: ICU Provider location (State): [place] Other participants/roles: RN Interval history: Patietn substanitally more delirious overniht, received phenobarb 260 early AM, currently on precedex Current Medications Current Medications Medications: Visit Medications (administered) Generic Name Dose Route Start Last Admin ? Trade Name Freq? PRN Reason Stop Dose Admin Acetaminophen ?650 mg ?05/20/22 00:05 ?05/20/22 16:46 ? Acetaminophen 325 Mg Tablet ?PO ? ?650 mg ? ?Q6H PRN ? ?Administration ? ?Fever/Mild Pain (1-3) ? ? Atorvastatin Calcium ?20 mg ?05/20/22 21:00 ?05/22/22 20:39 ? Atorvastatin 20 Mg Tablet ?PO ? ?20 mg ? ?BEDTIME MARYJO ? ?Administration Chlordiazepoxide HCl ?50 mg ?05/23/22 09:00 ?05/23/22 10:21 ? Chlordiazepoxide 25 Mg Capsule ?PO ? ?Not Given ? ?TID MARYJO ? ? Enoxaparin Sodium ?40 mg ?05/20/22 09:00 ?05/23/22 08:26 ? Enoxaparin 40 Mg/0.4 Ml Syringe ?SUBCUT ? ?40 mg ? ?DAILY MARYJO ? ?Administration Folic Acid ?1 mg ?05/20/22 09:00 ?05/22/22 08:25 ? Folic Acid 1 Mg Tablet ?PO ? ?1 mg ? ?DAILY SCHB ? ?Administration Thiamine HCl 500 mg/ Sodium ?105 mls @ 420 mls/hr ?05/20/22 23:00 ?05/23/22 08:36 ? Chloride ?IV ? ?Infused E ? ?Q8H MARYJO ? ?Infusion dexmedeTOMIDine in 0.9 % NaCL ?400 mcg in 100 mls @ 2.75 mls/hr ?05/21/22 17:45 ?05/23/22 10:00 ? PrecedexE ?IV ? ?0.6 mcg/kg/hr ? ?TITRATE MARYJO ? ?8.25 mls/hr ?Titration ? ?Protocol ?0.2 MCG/KG/HR ? ? Labetalol HCl ?10 mg ?05/20/22 07:28 ?05/22/22 03:09 ? Labetalol 20 Mg/4 Ml Syringe ?IV ? ?10 mg ? ?Q4HR PRN ? ?Administration ? ?SBP >190 or DBP >110 ?Protocol ? ? Lorazepam ?0 mg ?05/19/22 17:42 ?05/23/22 02:17 ? Lorazepam 2 Mg/Ml Inj ?IV ? ?2 mg ? ?CIWAPRN PRN ? ?Administration ? ?Alcohol Withdrawal ?Protocol ? ? Multivitamins ?1 tab ?05/20/22 09:00 ?05/22/22 08:25 ? Multivitamin 1 Tablet ?PO ? ?1 tab ? ?DAILY MARYJO ? ?Administration Nicotine ?14 mg ?05/21/22 09:30B ?05/23/22 08:25 ? Nicotine 14 Patch ?TOP ? ?14 mg ? ?DAILY MARYJO ? ?Administration Ondansetron HCl ?4 mg ?05/19/22 17:30 ?05/19/22 17:55 ? Ondansetron 4 Mg/2 Ml Inj ?IV ? ?4 mg ? ?Q6HR PRN ? ?Administration ? ?Nausea And Vomiting ? ? Objective Labs 05/23/22 06:21? 05/23/22 06:21? Labs: Laboratory Results - last 24 hr ? 05/23/22 05/23/22 ? 06:21 06:21 WBC ?6.1 ? RBC ?3.61 L ? Hgb ?11.8 L ? Hct ?35.6 L ? MCV ?98.5 ? MCH ?32.7 ? MCHC ?33.2 ? RDW ?15.7 H ? Plt Count ?199 ? Neut % (Auto) ?67.6 ? Lymph % (Auto) ?21.3 L ? Dillon % (Auto) ?9.5 ? Eos % (Auto) ?0.6 L ? Baso % (Auto) ?1.0 ? Neut # (Auto) ?4100 ? Lymph # (Auto) ?1300 ? Dillon # (Auto) ?600 ? Eos # (Auto) ?0 ? Baso # (Auto) ?100 ? Sodium ? ?132 L Potassium ? ?3.9 Chloride ? ?102 Carbon Dioxide ? ?21 L BUN ? ?< 2 L Creatinine ?B ?0.59 Estimated GFR ? ?> 60 BUN/Creatinine Ratio ? ?3.4 L Glucose ? ?88 Calcium ? ?8.6 Magnesium ? ?1.3 L Exam Vital Signs (past 8 hours): - ? 05/23/22 03:36 05/23/22 04:00 05/23/22 04:06 Temperature ? ? 98.0 F Pulse Rate 87 ? ? Respiratory Rate 21 ? ? Blood Pressure ? ? 119/79 Pulse Oximetry ? ? ? Oxygen Delivery Method ? Room Air ? ? 05/23/22 04:06 05/23/22 04:42 05/23/22 05:00 Temperature ? ? ? Pulse Rate 91 H 94 H ? Respiratory Rate 22 24 ? Blood Pressure ? ? 129/88 Pulse Oximetry 97 ? ? Oxygen Delivery Method ? 05/23/22 05:00 05/23/22 05:04 05/23/22 06:44 Temperature ? ? ? Pulse Rate 93 H 94 H ? Respiratory Rate 17 15B ? Blood Pressure ? ? 169/123 H Pulse Oximetry ? ? ? Oxygen Delivery Method ? 05/23/22 06:44 05/23/22 06:48 05/23/22 07:00 Temperature ? ? ? Pulse Rate 146 H 130 H 97 H Respiratory Rate 34 H 23 24 Blood Pressure ? ? ? Pulse Oximetry ? ? ? Oxygen Delivery Method ? 05/23/22 07:00 05/23/22 07:00 05/23/22 07:13 Temperature ? ? ? Pulse Rate ? 97 H ? Respiratory Rate ? 24 ? Blood Pressure 169/120 H ? 150/101 H Pulse Oximetry ? ? ? Oxygen Delivery Method ? 05/23/22 07:13 05/23/22 07:15 05/23/22 07:15 Temperature ? ? ? Pulse Rate 95 H ? 95 H Respiratory Rate 24 ? 25 H Blood Pressure ? 143/99 H ? Pulse Oximetry ? ? ? Oxygen Delivery Method ? 05/23/22 07:30 05/23/22 07:30 05/23/22 07:45 Temperature ? ? ? Pulse Rate ? 92 H ? Respiratory Rate ? 24 ? Blood Pressure 129/95 H ? 125/91 H Pulse Oximetry ? ? ? Oxygen Delivery Method ? 05/23/22 07:45 05/23/22 08:00 05/23/22 08:00 Temperature ? ? ? Pulse Rate 92 H ? 91 H Respiratory Rate 21 ? 22 Blood Pressure ? 130/95 H ? Pulse Oximetry ? ? ? Oxygen Delivery Method ? 05/23/22 08:15 05/23/22 08:15 05/23/22 09:00 Temperature ? ? 96.7 F L Pulse Rate 90 ? ? Respiratory Rate 23 ? ? Blood Pressure ? 117/83 ? Pulse Oximetry ? ? ? Oxygen Delivery Method ? 05/23/22 08:30 05/23/22 08:30 05/23/22 09:00 Temperature ? ? ? Pulse Rate ? 90 ? Respiratory Rate ? 24 ? Blood Pressure 116/85 ? 122/87 Pulse Oximetry ? ? ? Oxygen Delivery Method ? 05/23/22 09:00 05/23/22 08:00 05/23/22 08:00 Temperature ? 97.6 F ? Pulse Rate 91 H ? ? Respiratory Rate 23 ? ? Blood Pressure ? ?B ? Pulse Oximetry 99 ? ? Oxygen Delivery MethodB ? ? Room Air ? 05/23/22 09:30 05/23/22 09:30 05/23/22 10:00 Temperature ? ? ? Pulse Rate ? 88 ? Respiratory Rate ? 23 ? Blood Pressure 130/97 H ? 133/101 H Pulse Oximetry ? 99 ? Oxygen Delivery Method ? 05/23/22 10:00 05/23/22 10:30 05/23/22 10:30 Temperature ? ? ? Pulse Rate 89 ? 84 Respiratory Rate 23 ? 23 Blood Pressure ? 140/89 ? Pulse Oximetry 100 ? 99 Oxygen Delivery Method ? 05/23/22 11:00 05/23/22 11:00 Temperature ? ? Pulse Rate ? 85 Respiratory Rate ? 23 Blood Pressure 135/79 ? Pulse Oximetry ? 98 Oxygen Delivery Method ?B ? Oxygen Delivery Method? Room Air? Oxygen Flow Rate? 0 ? Narrative Exam Narrative: surrogate for full exam is primary team Assessment & Plan Assessment & Plan narrative: -ETOH withdrawak-improving -HTN -Uterine Mass -LE weakness:Lumbar spine MRI revealed a grade 1 isthmic spondylolisthesis of L4 on L5 measuring 5-6 mm, contributing along with facet hypertrophy to moderate neural foraminal narrowing with mass effect on the exiting L4 nerve roots.? No spinal cord injury or impingement. Plan -wean down Dex drip as tolerated -start Clonidine 0.1 mg BID for better BP control and to help wean off Dex drip as well -if still unable to wean off Dex drip today can consider adding gabapentin -Pelvic MRI when able for uterine mass work-up -consider neurosurgery consult if LE weakness does not improve PT/OT Time Spent With Patient Critical Care time: I spent a total of [37] minutes of critical care time on this patient's care today; this time is exclusive of procedural time.
[2022-05-24] MEDS: cloNIDine 0.1 MG TABLET PO ×2 (10:50→20:51)
[2022-05-24] MEDS: MULTIVITAMIN 1 TABLET 1 TAB PO (10:50)
[2022-05-24] MEDS: ACETAMINOPHEN 325 MG TABLET 650 MG PO ×2 (11:01→20:52)
--- NOTE | 2022-05-24 15:00 | CM.DPNOTE ---
Discharge Planning Note: Patient improving today and this afternoon is off Precedex drip. Lower extremity weakness. PT/OT pending. Patient napping now, boyfriend Hernan in the room. Home Health Travel Pt Josiah in earlier he is friends with family and will stay in touch with them. Plan: Follow closely for discharge needs. Kaelyn Hooper RN/DCP
--- NOTE | 2022-05-24 17:20 | PT.IPTN ---
Current Diagnoses Alcohol abuse with withdrawal, unspecified (05/19/22) Physical Therapy Treatment Note M2 PT-IP Current Condition Start: 05/21/22 14:56 Freq: NEEDED Status: Active Protocol: Document 05/24/22 15:15 LRN (Rec: 05/24/22 17:19 LRN [id number]) Physical Therapy Current Condition Current Condition Evaluation Date 05/21/22 Treatment Diagnosis s/p fall; alcohol withdrawal; diffficulty in walking Onset Date 05/19/22 M3 PT-IP Subjective Start: 05/21/22 14:56 Freq: NEEDED Status: Active Protocol: Document 05/24/22 15:15 LRN (Rec: 05/24/22 17:19 LRN [id number]) Subjective Physical Therapy Visit Type Type Treatment Note Visit Start Time 15:15 Visit Stop Time 15:45 Total Visit Minutes 30 Physical Therapy Visit Comments Patient Comments agreeable to do PT Therapy Pain Assessment Location R foot Intensity 2 Left Ankle Intensity 6 Description Burning M4 PT-IP Mobility and Gait Start: 05/21/22 14:56 Freq: NEEDED Status: Active Protocol: Document 05/24/22 15:15 LRN (Rec: 05/24/22 17:19 LRN [id number]) PT-Bed Mobility Assessment Supine to Sit Supine to Sit Contact Guard Assistance Scooting Scooting to Edge of Bed Contact Guard Assistance PT-Transfer Assessment Sit to and From Stand Sit to and from Stand Moderate Assistance,1 Person Assistance,Use of Upper Extremities Equipment Transfer Assistive Device Gait Belt,Front Wheeled Walker Orthotic/Prosthetic Devices or Brace: No Transfers Transfer Destination Chair Transfer Ability Level of Assist Moderate Assistance,Maximum Assistance,1 Person Assistance ,Use of Upper Extremities Comments Mobility Comments Pt walked from bed to chair. Nsg was present at the start and reported pt's BP was good. Nsg was present to disconnect Tele during therapy , reporting they were planning on removing tele because pt's HR was normal and blood pressure was good. Gait Assessment Gait Gait Assistance Required: Moderate Assistance,Maximum Assistance Distance (Feet) 136 Able to Maintain Weight Bearing Status Yes During Gait Assistive Devices Assistive Device Front Wheeled Walker Orthotic/Prosthetic Devices or Brace: No Gait Deviations General Gait Pattern Ataxic,Decreased Stride Length ,Decreased Feet Clearance, Flexed Trunk Comments Gait Comments Pt was unstead on her feet and her legs would occasionally give way a little, remaining standing/walking. Pt wanted to walk down to opposite end of the hospital but somewhat collapsed in the chair on return to her room; therefore pt appeared to have poor awareness of her abilities and exercise tolerance. PT-Balance Assessment Sitting Balance and Reactions Static Sitting Balance Ability Good Dynamic Sitting Balance Ability Good Standing Balance and Reactions Static Standing Balance Ability Poor Dynamic Standing Balance Ability Poor Device Used FWW M5 PT-IP Objective Assessments Start: 05/21/22 14:56 Freq: NEEDED Status: Active Protocol: Document 05/24/22 15:15 LRN (Rec: 05/24/22 17:19 LRN [id number]) Orientation Orientation/Cognition Level of Alertness Alert Orientation Name Safety Awareness Decreased Safety Awareness Muscle Tone Comments Muscle Tone Comments (+) tremors : trunk and UE M6 PT-IP Treatment Start: 05/21/22 14:56 Freq: NEEDED Status: Active Protocol: Document 05/24/22 15:15 LRN (Rec: 05/24/22 17:19 LRN [id number]) Physical Therapy Treatment Education Education Provided Safety M7 PT-IP Assessment and Plan Start: 05/21/22 14:56 Freq: NEEDED Status: Active Protocol: Document 05/24/22 15:15 LRN (Rec: 05/24/22 17:19 LRN [id number]) PT Summary Assessment and Plan Potential Rehabilitation Potential Fair Status of Condition at Evaluation Evolving Summary Impairments Pain,ROM,Strength,Balance, Coordination,Sensation,Tone, Cognition,Bed Mobility, Transfers,Gait,Activity Tolerance Assessment Summary Pt appears to have improved in her ability to transfer out of bed, but still needed much assist for standing and walking. The pt felt she was capable of walking to the opposite end of the hospital, but was very fatigued on returning to her room to sit in a chair, almost sitting uncontrolled and with poor transfer mechanics. Pt is impulsive in her transfer stand to sit. The pt was left sitting in a chair with the chair alarm in place, tray table was place by her chair and call light was withing reach. Pt was speaking to MD at end of therapy and nsg notified. Nsg agreed to complete pt set up (placing tray table in front of patient ) after MD leaves the room. Discussed with MD that pt was unstead on her feet and was not independent or safe to go home. Goals Bed Mobility Goal Independent Transfer Goal Independent,Front Wheeled Walker Gait Goal Independent,Front Wheel Walker Gait Distance 100 Other Goals improve transfers and ambulation without AD 200 ft SBA up/down 13 steps B rails SBA Days to Meet Goals 10 Frequency of Treatment Frequency Of Treatment Once a Day Treatment Plan Physical Therapy Treatment Plan Bed Mobility Training,Transfer Training,Gait Training, Therapeutic Exercise,Balance Retraining,Discharge Planning, Hot or Cold Pack,Neuromuscular Re-ed,Coordination Retraining Precautions Other Precautions falls; HR, BP Recommendations To Nursing Amount of Assist Needed 1 Person Assist Discharge Recommendations PT Discharge Recommendations SNF Rehab Equipment Needed for Home Before FWW if not safe w/o AD and pt Discharge is going home Transportation Needs at Discharge Wheelchair/Cabulance
[2022-05-24] MEDS: ATORVASTATIN 20 MG TABLET PO (20:51)
[2022-05-24] MEDS: SODIUM CHLORIDE 0.9% FLUSH 10 ML IV (20:53)
[2022-05-25] VITALS: BP 149/83; PULSE 90; RESP 19; TEMP 36.6; O2SAT 97
[2022-05-25 04:00] VITALS: BP 129/82; PULSE 85; RESP 15; TEMP 36.8; O2SAT 98
[2022-05-25] MEDS: ENOXAPARIN 40 MG/0.4 ML SYRINGE SUBCUT (09:23)
[2022-05-25] MEDS: NICOTINE 14 PATCH 14 MG TOP (09:23)
[2022-05-25 09:28] VITALS: BP 124/88; PULSE 88; RESP 16; TEMP 36.7; O2SAT 97
--- NOTE | 2022-05-25 12:01 | PT.IPTN ---
Current Diagnoses Alcohol abuse with withdrawal, unspecified (05/19/22) Physical Therapy Treatment Note M2 PT-IP Current Condition Start: 05/21/22 14:56 Freq: NEEDED Status: Active Protocol: Document 05/24/22 15:15 LRN (Rec: 05/24/22 17:19 LRN [id number]) Physical Therapy Current Condition Current Condition Evaluation Date 05/21/22 Treatment Diagnosis s/p fall; alcohol withdrawal; diffficulty in walking Onset Date 05/19/22 M3 PT-IP Subjective Start: 05/21/22 14:56 Freq: NEEDED Status: Active Protocol: Document 05/25/22 12:01 AB (Rec: 05/25/22 12:45 AB [id number]) Subjective Physical Therapy Visit Type Type Treatment Note Visit Start Time 12:01 Visit Stop Time 12:23 Total Visit Minutes 22 Number of PLATE SHEAR OPERATOR Visits 0 M4 PT-IP Mobility and Gait Start: 05/21/22 14:56 Freq: NEEDED Status: Active Protocol: Document 05/25/22 12:01 AB (Rec: 05/25/22 12:45 AB [id number]) PT-Bed Mobility Assessment Supine to Sit Supine to Sit Standby Assistance PT-Transfer Assessment Sit to and From Stand Sit to and from Stand Minimal Assistance,Moderate Assistance,Maximum Assistance, 1 Person Assistance,Use of Upper Extremities Equipment Transfer Assistive Device Gait Belt,Front Wheeled Walker Orthotic/Prosthetic Devices or Brace: No Transfers Transfer Destination Bed,Toilet Transfer Technique ambulated Transfer Ability Level of Assist Moderate Assistance,Maximum Assistance,1 Person Assistance ,Use of Upper Extremities Comments Mobility Comments checked on pt this morning but was asleep and try to wake pt up but unsuccessfuly. checked back on pt after ~ 2 hours and pt still asleep. nurse in room. attempted to wake pt up and pt stated that she needs 10 min more. checked back on pt and pt trying to get up out of the bed by herself. pt with decrease safety awareness. pt needing assistance with putting socks on. completed sit to stand mod A and with posterior LOB and needing to sit back. attemped to stand again min to mod A and max cues. ambulated to the toilet mod to max A and max cues. presents with very unsteady gait with posterior LOB and B knees slightly giving out. pt requiring max A for controlled descent to the toilet. completed sit to stand from the toilet mod to max A and max cues and required max A for standing balance while completing hygiene care and underwear management. pt ambulated to the sink using FWW mod to max A and max cues. able to stand by the sink mod to max A while completing handwashing and grooming needs. pt with several posterior LOB requiring max A and max cues. pt ambulated to the chair ~ 12 ft using FWW mod to max A and max cues. positioned pt on the chair. call light and table placed within reach. informed pt regarding d/c plan and needs. pt stated that she can stay on main level of the house and sleep on the couch but still has 4 steps to enter with B rails. informed pt regarding need for caregiver training and has to have a FWW. pt understood. informed nurse regarding caregiver training. Gait Assessment Gait Gait Assistance Required: Moderate Assistance,Maximum Assistance Distance (Feet) 25 Able to Maintain Weight Bearing Status Yes During Gait Assistive Devices Assistive Device Gait Belt,Front Wheeled Walker Orthotic/Prosthetic Devices or Brace: No Gait Deviations General Gait Pattern Ataxic,Decreased Stride Length ,Decreased Feet Clearance,Step -to Gait Factors Limiting Gait Function Factors Limiting Gait Function Decreased Activity Tolerance, Decreased Strength,Difficulty Following Directions, Incoordination,Poor Balance, Poor Safety Awareness M5 PT-IP Objective Assessments Start: 05/21/22 14:56 Freq: NEEDED Status: Active Protocol: Document 05/24/22 15:15 LRN (Rec: 05/24/22 17:19 LRN [id number]) Orientation Orientation/Cognition Level of Alertness Alert Orientation Name Safety Awareness Decreased Safety Awareness Muscle Tone Comments Muscle Tone Comments (+) tremors : trunk and UE M6 PT-IP Treatment Start: 05/21/22 14:56 Freq: NEEDED Status: Active Protocol: Document 05/25/22 12:01 AB (Rec: 05/25/22 12:45 AB [id number]) Physical Therapy Treatment Education Education Provided Safety M7 PT-IP Assessment and Plan Start: 05/21/22 14:56 Freq: NEEDED Status: Active Protocol: Document 05/25/22 12:01 AB (Rec: 05/25/22 12:45 AB [id number]) PT Summary Assessment and Plan Potential Rehabilitation Potential Fair Summary Impairments Pain,ROM,Strength,Balance, Coordination,Sensation,Tone, Cognition,Bed Mobility, Transfers,Gait,Activity Tolerance Progress Towards Goals Slow Progress due to Medical Issues,Slow Progress - Other Assessment Summary pt requiring mod to max A with mobility using FWW. presents with very unsteady gait with several LOB during standing and ambulation requiring max A and max cues. pt has decrease safety awareness and will require 24/7 assist at home. pt refuse to go to SNF rehab. pt stated that her BF will be off work for 1 week to assist her and then a friend will be able to assist her afterwards. will continue to assess progress. caregiver training and stair climbing training has to be completed prior to d/c. Goals Bed Mobility Goal Independent Transfer Goal Independent,Front Wheeled Walker Gait Goal Independent,Front Wheel Walker Gait Distance 100 Other Goals improve transfers and ambulation without AD 200 ft SBA up/down 13 steps B rails SBA Days to Meet Goals 10 Frequency of Treatment Frequency Of Treatment Once a Day Treatment Plan Physical Therapy Treatment Plan Bed Mobility Training,Transfer Training,Gait Training, Therapeutic Exercise,Balance Retraining,Discharge Planning, Hot or Cold Pack,Neuromuscular Re-ed,Coordination Retraining Precautions Other Precautions falls; HR, BP Recommendations To Nursing Amount of Assist Needed 1 Person Assist Discharge Recommendations PT Discharge Recommendations Home with 24/7 Assist Available,Home Health,SNF Rehab Equipment Needed for Home Before FWW if not safe w/o AD and pt Discharge is going home Transportation Needs at Discharge Wheelchair/Cabulance
[2022-05-25] MEDS: FOLIC ACID 1 MG TABLET PO (12:27)
[2022-05-25] MEDS: MULTIVITAMIN 1 TABLET 1 TAB PO (12:27)
[2022-05-25] MEDS: chlordiazePOXIDE 25 MG CAPSULE 50 MG PO (12:28)
[2022-05-25 12:48] VITALS: BP 101/63
--- NOTE | 2022-05-25 14:55 | OT.IP.TRT ---
Current Diagnoses Alcohol abuse with withdrawal, unspecified (05/19/22) Occupational Therapy Treatment Note M2 OT-IP Current Condition Start: 05/21/22 13:34 Freq: Status: Active Protocol: Document 05/21/22 12:00 [facility] (Rec: 05/21/22 13:57 [facility] [id number]) Occupational Therapy Current Condition Current Condition Evaluation Date 05/21/22 Treatment Diagnosis ETOH abuse and withdrawal, ataxia Diagnosis Onset Date 05/19/22 M3 OT- IP Subjective and Pain Start: 05/21/22 13:34 Freq: Status: Active Protocol: Document 05/25/22 15:48 [facility] (Rec: 05/25/22 16:05 [facility] [id number]) OT- Subjective Occupational Therapy Visit Type Type Treatment Note Visit Start Time 14:31 Visit Stop Time 14:55 Total Visit Minutes 24 Occupational Therapy Visit Comments Patient Comments Pt's significant other and friends present for caregiver training. Patient/Caregiver Goals TO go home. OT Pain Assessment Pain When Pain Assessed At Rest Pain Present Pain Present Denied Pain M4 OT- IP ADL's Start: 05/21/22 13:34 Freq: Status: Active Protocol: Document 05/25/22 15:48 [facility] (Rec: 05/25/22 16:05 [facility] [id number]) OT IDC-Njwh-Yflutps Comments OT Self-Feeding Comments No issues anticipated, possibly needing occasional set-up. Not at meal time. OT ADL-Grooming Comments OT Grooming Comments Not performed. OT ADL-Oral Care Comments Oral Care Comments Not performed. OT ADL-Dressing Comments OT Dressing Comments Educated that pt will need extensive assist for dressing needs especially when standing and best to be seated to initiate dressing needs at this time. OT ADL-Toileting Comments OT Toileting Comments Pt not wanting to use the bathroom. Educated best to get a BSC to increased ease for pt to help to stand by pushing on the BSC armrest to help to stand. Educated to always have a hand on the gait belt to assist with standing and another hand to help for clothing management needs. OT ADL-Bathing Comments OT Bathing Comments Shower chair was obtained. Sitting for shower or sponge bath will be the safest at this time as pt is very unsteady and at times unpredictable with her movements. M5 OT- IP IADL's Start: 05/21/22 13:34 Freq: Status: Active Protocol: Document 05/21/22 12:00 [facility] (Rec: 05/21/22 13:57 [facility] [id number]) OT-Instrumental Activities of Daily Living Deficits IADL Deficits Identified Deficits Home Safety Awareness Awareness of Need for Assistance at Home Decreased Awareness Ability to Problem Solve Emergency Able to Problem Solve Situations Medication Management Medication Management Comments Pt states does not take any medications. Money Management Money Management Comments Pt would require assist at this time. Meal Preparation Meal Preparation Comments Pt will require assist at this time. Hand Counter Hand Counter Comments Pt will require assist at this time. Driving Driving Concerns Identified Regarding Safety M6 OT- IP Functional Cognition Start: 05/21/22 13:34 Freq: Status: Active Protocol: Document 05/25/22 15:48 [facility] (Rec: 05/25/22 16:05 [facility] [id number]) Cognitive Factors Limiting Selfcare Function Cognitive Ability Level of Alertness Alert,Drowsy Attention Span Ability Capable of Focused Attention, Capable of Sustained Attention Ability to Follow Commands Able to Follow One Step Commands Safety Awareness Underestimates Need for Assistance Cognitive Comments Cognitive Assessment Comments Pt continues to be very impulsive and needing MAX vc for safety with FWW, how to use her hands to help push up from surfaces sitting on. Pt tends to grab the FWW to stand and not let go of the FWW when sitting down. Pt is a very high safety risk and will need 24/7 assist. M7 OT- IP Mobility and Balance Start: 05/21/22 13:34 Freq: Status: Active Protocol: Document 05/25/22 15:48 [facility] (Rec: 05/25/22 16:05 [facility] [id number]) OT- Bed Mobility Assessment Supine to Sit Supine to Sit Assist Moderate Assistance Sit to Supine Sit to Supine Assist Minimal Assistance OT-Transfer Assessment Sit to and From Stand Sit to and from Stand Moderate Assistance,Maximum Assistance Transfers Transfer Ability Moderate Assistance,Maximum Assistance Technique Transfer Destination Bed,Chair Transfer Technique Stand Step Pivot Devices Transfer Assistive Devices Gait Belt,Front Wheeled Walker Comments Mobility Comments Suggested her friends get a fww versus the 4ww that they picked up. At this time pt needing MODA/MAXA to stand as tends to lean posteriorly and very unsteady on her feet and at times needing assist to help guide the FWW as well. Pt's significant other able to safely assist pt to eliseo/doff the gait belt, assist with transfers and bed mobility needs. VC for good understanding to assist for ADl needs. Pt's significant other insistent that they will be able to do the 4 short steps to get into the house and refusing to try prior to being discharged. Pt would benefit from home health however does not have insurance. Pt will need 24/7 assist due to decreased balance, endurance, functional cognition, and ataxic movements of her BLE. M9 OT- IP Assessment and Plan Start: 05/21/22 13:34 Freq: Status: Active Protocol: Document 05/25/22 15:48 [facility] (Rec: 05/25/22 16:05 [facility] [id number]) OT Summary Assessment and Plan Potential Rehabilitation Potential Good Analytic Complexity at Evaluation Moderate Summary OT Impairments Strength,Balance,Coordination, Sensation,Tone,Functional Cognition,Functional Mobility, Self-Feeding,Grooming,Dressing ,Toileting,Bathing,Toilet Transfers,Shower Transfers, Activity Tolerance Progress Towards Goals Slow Progress due to Medical Issues,Slow Progress due to Cognition Assessment Summary Pt's significant other present for caregiver training. Pt's friends able to flower picker equipment needs however suggested they switch to get a fww instead the 4ww and also to flower picker a BSC and WC. Pt's significant other not wanting to get a wc at this time. Also suggested pt get pads or disposable briefs. Pt's significant other able to safely eliseo/doff the gait belt, do transfers and bed mobility with the pt with good safety. He also states good understanding for all ADl needs and need for pt to have 24/7 assist as currently pt is a very high fall risk due to poor balance, impulsivity and poor safety awareness. Pt going home with 24/7 assist. Goals Self-Feeding Goal Independent Grooming Goal Standby Assistance Dressing Goal Minimal Assistance Toileting Goal Minimal Assistance Bathing Goal Minimal Assistance Toilet Transfer Goal Minimal Assistance Shower Transfer Goal Minimal Assistance Days to Meet Goals 30 Frequency of Treatment Frequency Of Treatment Once a Day Treatment Plan OT Treatment Plan ADL Training,Functional Cognition Training,Functional Mobility,Patient/Family Education,Discharge Planning Discharge Recommendations OT Discharge Recommendations SNF Rehab Other Discharge Recommendations Pt refusing SNF and going home with 24/7 assist. Home health not an option due to no insurance as was state in hospital rounds. Transportation Needs at Discharge Wheelchair/Cabulance
--- NOTE | 2022-05-25 15:40 | PC.NURSE ---
Discharge instructions and home care handout reviewed with patient and her significant other Hernan. They state understanding and state they have no further questions or needs at this time. Hernan states he is able to take off work this week and will be with patient 24hr/day. They have friends coming to help. Patient is not steady or safe to be on her own, they state understanding. IV was removed this morning, site is [facility]. Patient states she does not know who she will see for follow up because she does not have one, patient agrees to seek care at walk in clinic or ER if symptoms return or worsen. Patient escorted out via wheelchair with all her belongings to home with her boyfriend.
--- NOTE | 2022-05-25 16:48 | PM.DS.1 ---
History of Present Illness History of Present Illness Date Patient Seen: 05/25/22 Time Patient Seen: 00:13 Chief complaint: numbness in both legs Narrative: Yovanny Carroll is a 42-year-old female history of alcohol abuse presented to the ED incoherent confused still significantly intoxicated unable to follow direction, complaining of with 5 days of numbness in her legs.? ED reported She says she drinks a significant amount of Tequila daily she is shaking quite a bit.? She said she fell on her tailbone since then she is had numbness in her legs.? She says it just feels different.? She is still able to tell when she is to urinate and have a bowel movement.? No abdominal pain no nausea vomiting.? Her upper extremities exam she has no complaints.? She is noted to be tachycardic here in the ED.? No chest pain or shortness of breath.? No nausea vomiting. On admit patient had at ETOH level 123 in ED, and is boarding in ED until bed available, she has been heavily medicated with phenobarbital loading and lorazepam for withdrawal symptoms, unable to rouse the patient and obtain HPI ROS, family history, medications. In ED patient had hypertensive urgency BP is 197/113, 162/115, 191/133. On admit temp 99?, BP 183/116, tachycardic 106, tachypneic 23, O2 saturation % room. WBC 2.9, BUN 6, bicarb 20, bili 2.0, AST 75, initial lactate 3.4, at the time of admit 2.0, ammonia negative, lipase 307, tox screen positive for THC, ETOH 123, UA negative, COVID negative, sofa score: 2, head CT negative, C-spine negative, CT a/P: Uterine lesion 8.1, hepatic steatosis, without fracture. Discharge Providers Provider Date of admission: 05/19/22 21:47 Discharge Date: 05/25/22 Consults: 05/19/22 23:51 Consult to Dietitian, Adult Routine Comment: Reason For Exam: etoh abuse 05/20/22 00:01 Consult to Occupational Therapy Evaluate & Treat Comment: Ataxia Physician Instructions: Evaluate and treat Consult to Physical Therapy Evaluate & Treat Comment: Ataxia Physician Instructions: Evaluate and Treat 05/20/22 07:56 Consult to Tele-postdoctoral fellow Routine Comment: Consulting Provider: [facility] [employer] Reason for consultation: Bone Density Technician services 05/21/22 09:16 Consult to Occupational Therapy Evaluate & Treat Comment: Physician Instructions: Evaluate and treat Consult to Physical Therapy Evaluate & Treat Comment: Physician Instructions: Evaluate and Treat 05/21/22 15:54 Consult to Discharge Planning Routine Comment: SNF recommended Discharge provider: Emory Corona DO Summary Hospital Course Discharge Diagnosis: 1. Alcohol dependence with withdrawal, improving 2. Lower extremity weakness/numbness Lumbar spine MRI revealed a grade 1 isthmic spondylolisthesis of L4 on L5 measuring 5-6 mm, contributing along with facet hypertrophy to moderate neural foraminal narrowing with mass effect on the exiting L4 nerve roots.? Dr. Monsivais spinal surgeon at looked at images and said no acute intervention needed. No spinal cord injury or impingement.? Now walking with PT using walker. 3. Ataxia, improving Now walking with PT. She is on high-dose thiamine for possible underlying Wernicke's. 4. Hypertensive urgency without diagnosis of hypertension, improving Hypertension may have been secondary to alcohol withdrawal, rather than hypertensive urgency.? BPs are controlled currently. 5. Hypomagnesemia Down to 1.2. Monitoring and repleting PRN. 6. Normocytic anemia Hemoglobin is stable in 11's. 7. Uterine mass CT scan revealed a large heterogeneous lesion anterior uterus measuring up to 8.1 cm which could be a uterine fibroid central necrosis or superimposed hemorrhage, but malignancy was not excluded.? Will need follow-up MRI of the pelvis with and without contrast. Discussed findings w/pt on 05/22/2022 8. Mild hyponatremia Sodium was 129 on 05/20, up to 134 05/21 and 136 05/22.? Remains mildly low in 130's. 9. Hypokalemia Monitoring and repleting PRN. 10. Hyperbilirubinemia with elevated LFTs Likely alcohol induced.? LFTs are normalizing.? She evidence of fatty infiltration of the liver on? abdominal pelvic CT.? Bili was down to 2.0 and her AST/ALT/alk phos were normal on yesterday's labs. Hospital Course: Admitted for acute alcohol withdrawals with ataxia and delirium tremens requiring ICU for phenobarbital and Precedex. Had urinary retention along with ataxia so there was concern for lumbar spine lesion and lumbar MRI showed bilateral L4 nerve root compression neurosurgery reviewed images and said ataxia in retention was not a result of the L4 findings. Likely more related to her acute alcohol withdrawals and encephalopathy. Patient given Librium as well and slowly improved over 1 week and her withdrawal subsided. She was still weak and required a walker to ambulate and PT recommended SNF. However patient refused and wanted return home. Home health PT not able to be arranged secondary to no insurance. Patient refused Librium taper on discharge. She has family who will help her at home as well as set up new state insurance before getting a PCP. Patient counseled to avoid alcohol and utilize AA. Time Spent with Patient Time spent: Greater than 30 minutes Exam Vital Signs (past 8 hours): - 05/25/22 09:28 05/25/22 09:33 05/25/22 12:48 Temperature 98.0 F Pulse Rate 88 Respiratory Rate 16 Blood Pressure 124/88 101/63 Pulse Oximetry 97 Oxygen Delivery Method Room Air Oxygen Flow Rate 0 Oxygen Delivery Method Room Air Oxygen Flow Rate 0 Narrative Exam Narrative: GEN: NAD, flat affect HEENT:NC, Face symmetric CHEST: Respiratory excursions symmetric, CTAB CV: RRR, no M/R/G ABD: Soft, NT/ND, BT present in all 4 quadrants, no organomegaly or masses EXTR: warm, well perfused, no C/C/E to LEs, RUE w/evidence of IV failure at the wrist and antecubital fossa, generalized forearm/hand edema noted SKIN: warm and dry, no rash NEURO: sedate, no tremors Objective Labs 05/24/22 04:28 05/24/22 04:28 [facility] Social History household members: significant other Smoking Status: Current every day smoker alcohol intake: current Discharge Plan Discharge Plan Patient Disposition: Home Provider Discharge Comment: You were admitted for alcohol withdrawals which took a while to control. You improved and are now safe to return home. I suggest you do not drink alcohol as you are at risk of having withdrawals and being hospitalized again in the future. Visit Report/Discharge Packet Instructions: How to Prevent Falls, DI for Drug or Alcohol Withdrawal Stand Alone Forms: Patient Portal/API, Stroke Signs & Symptoms
[2022-05-26 07:36] LABS: Vitamin B6 2.3 ug/L (3.4-65.2)
--- NOTE | 2022-06-20 07:52 | DI.ECHO.S_ITS ---
:Reason For Study: Hypertensive urgency, ataxia : :Ordering Physician: ERNESTO, : :CHEMA Performed By: Shahla Dooley : :Referring: CHEMA OROZCO : + + Interpretation Summary Normal sinus rhythm. Normal LV size and mildly increased wall thickness. The worst movement is demonstrated by the septum. Otherwise mild global hypokinesis. Moderately reduced LV systolic function estimated at 40-45%. Stage I diastolic dysfunction. Normal chamber sizes. No significant valvular abnormalities. No prior study available for comparison. Procedure: A two-dimensional transthoracic echocardiogram with color flow and Doppler was performed. The patient was in sinus rhythm with heart rates between 70-88 bpm during the exam. Left Ventricle: The left ventricle is normal in size. There is mild concentric left ventricular hypertrophy. The ejection fraction is estimated to be 40-45%. Diastolic parameters suggest a relaxation abnormality of the left ventricle, consistent with probable normal filling pressures. Right Ventricle: The right ventricle is normal in size and function. Atria: The left atrial size is normal. The right atrium is normal in size. There is no Doppler evidence for an interatrial shunt. Mitral Valve: The mitral valve is normal in structure and function. There is no mitral regurgitation noted. Aortic Valve: The aortic valve is normal in structure and function. There is mild aortic regurgitation. Tricuspid Valve: The tricuspid valve is normal in structure and function. No tricuspid regurgitation. Pulmonic Valve: The pulmonic valve leaflets are thin and pliable; valve motion is normal. There is no pulmonic valvular regurgitation. Great Vessels: The dimensions of the ascending aorta are normal. The IVC is of normal diameter and collapses less than 50% with a sniff. This suggests a right atrial pressure of 8 mm Hg. Pericardium/ Pleura There is no pericardial effusion. There is no pleural effusion. MMode/2D Measurements & Calculations LVIDd: 3.4 cm LVOT diam: 1.8 cm LVIDs: 2.8 cm Ao root diam: 2.9 cm FS: 18.1 % asc Aorta Diam: 3.2 cm EPSS: 0.63 cm IVSd: 1.1 cm LVPWd: 1.1 cm LA A2 area: 12.9 cm2 RA long axis: 3.8 cm LA A4 area: 11.0 cm2 RA area: 8.2 cm2 LA length (vol): 3.8 cm RA vol: 15.3 ml LA vol: 31.4 ml TAPSE: 1.7 cm Doppler Measurements & Calculations Ao V2 max: 82.3 cm/sec LVOT Max Sam: 70.4 cm/sec Ao V2 mean: 62.2 cm/sec LV V1 max P.0 mmHg Ao max P.7 mmHg LV V1 VTI: 10.6 cm Ao mean P.7 mmHg RAZ(I,D): 1.9 cm2 Ao V2 VTI: 13.7 cm RAZ(V,D): 2.1 cm2 sev ratio: 0.77 MV E max sam: 47.8 cm/sec PA V2 max: 86.0 cm/sec MV A max sam: 73.5 cm/sec PA V2 mean: 61.6 cm/sec MV E/A: 0.65 PA mean P.7 mmHg Med Peak E' Sam: 3.6 cm/sec E/E' med: 13.3 Lat Peak E' Sam: 3.7 cm/sec E/E' lat: 12.8 E/e' average: 13.1 MV dec time: 0.17 sec MVA(VTI): 1.9 cm2 MV V2 mean: 51.0 cm/sec SV(LVOT): 26.2 ml MV mean P.2 mmHg MV V2 VTI: 14.0 cm Electronically signed by: Kennedi Begum M.D. on Reading Physician:05/20/2022 12:47 PM
== END 2022-05-25 15:35 | disposition home or self-care (01) | DRG 775 ==
LOC: ED 21:39 → AC 21:48 → ICU 05-20 11:22
PROVIDERS: Emergency Medicine; Family Medicine; Nurse Practitioner Critical Care Medicine; Admitting Provider Nurse Practitioner Family; Emergency Provider Emergency Medicine; Referring Provider Emergency Medicine; Visit Provider Nurse Practitioner Family
DX: F10.139 Alcohol abuse with withdrawal, unspecified (principal); Y90.6 Blood alcohol level of 120-199 mg/100 ml; I16.0 Hypertensive urgency; F30.8 Other manic episodes; E83.42 Hypomagnesemia; R27.8 Other lack of coordination; E43 Unspecified severe protein-calorie malnutrition; M43.16 Spondylolisthesis, lumbar region; N85.9 Noninflammatory disorder of uterus, unspecified; E87.1 Hypo-osmolality and hyponatremia; E87.6 Hypokalemia; R33.9 Retention of urine, unspecified; G93.40 Encephalopathy, unspecified; F17.200 Nicotine dependence, unspecified, uncomplicated; Z68.21 Body mass index [BMI] 21.0-21.9, adult; Z20.822 Contact with and (suspected) exposure to COVID-19
CPT/HCPCS: 36415; 51701; 51798; 70450; 72125; 72148; 74177; 80048; 80053; 80061; 80305; 80320; 81003; 81015; 82140; 82150; 82607; 83036; 83605; 83690; 83735; 83880; 84100; 84145; 84207; 84484; 85025; 85610; 85730; 87086; 87635; 93306; 96365; 96366; 96367; 97116; 97163; 97166; 97530; 99233; 99285; 99291; C9803; J0610; J1650; J2060; J2405; J2560; J3475

== ENCOUNTER 2022-12-12 13:03 | Inpatient (IN) | payer OTHER, MEDICAID, SELFPAY ==
[2022-05-20 20:00] VITALS: BMI 20.9
[2022-12-12] VITALS (33 sets, daily range): BP systolic 121–182; BP diastolic 76–116; PULSE 89–152; RESP 16–30; TEMP 36.7–37.6; O2SAT 96–100; BMI 20.5
--- NOTE | 2022-12-12 10:25 | DI.MRI.S_ITS ---
PROCEDURE: MR PELVIS WO/W CON INDICATIONS: uterine mass on CT TECHNIQUE: Coronal HASTE, sagittal breath-hold T2 FSE; axial T1 FSE with and without fat saturation through the pelvis. Optional long- and short-axis uterine nonbreath-hold T2 FSE through the uterus. Sagittal or axial dynamic VIBE during administration of contrast. Post-contrast axial or coronal VIBE/2-D FLASH with fat saturation from the iliac crests to the symphysis. Optional diffusion weighted imaging and ADC may be performed. COMPARISON: [facility], CT, CT ABDOMEN PELVIS W CON, 12/12/2022, 14:46. FINDINGS: Image quality: Excellent. Uterus: Uterus is mildly enlarged. Within the anterior mid uterine segment, there is a T2 hypointense, T1 isointense mass which demonstrates peripheral enhancement and internal cystic change. The mass is intramural, with a submucosal interface. The mass measures 6.0 x 5.7 by 4.8 centimeter. Endometrium is normal in thickness. Junctional zone is normal in thickness at 12 mm or less. Adnexa: Both ovaries are normal in size, without suspicious cystic or solid lesions. Urinary system: Bladder wall is normal in thickness. Distal ureters are non distended. Urethra appears normal in morphology. Nodes and vessels: No pelvic or inguinal adenopathy by size criteria. Iliac vessels are normal in size. Bowel and peritoneum: No pathologic free pelvic fluid. Inferior colon and small bowel loops are normal in caliber. Soft tissues: No inguinal hernias. No findings of pelvic floor incompetence in the absence of provocation. Bones: Marrow demonstrates normal overall signal. IMPRESSION: 6.0 x 5.7 x 4.7 centimeter mass within the mid uterine segment. The mass contains internal cystic change. Findings favor a degenerating fibroid. Dictated by: King Jarquin M.D. on 12/13/2022 at 12:10 Approved by: King Jarquin M.D. on 12/13/2022 at 12:14
--- NOTE | 2022-12-12 13:43 | PC.NURSE ---
Two RNs attempted 5 IV starts unsuccessfully. Third RN now attempting US start.
--- NOTE | 2022-12-12 13:54 | ED_ITS ---
HPI - Abdominal Pain General Chief Complaint: Abdominal Pain Stated Complaint: Vomiting for 5 days Time Seen by Provider: 12/12/22 13:14 Source: patient Mode of arrival: Ambulatory History of Present Illness HPI narrative: Patient is a 42-year-old female history of alcohol abuse presenting today with nausea vomiting shaking. She reports that she is not been able to keep liquids or food down for the last 5 days. She is trying to keep alcohol down but it is not staying. She was previously admitted to the ICU in April for alcohol wi thdrawal. Nursing reports that she was complaining of some right upper quadrant pain but she currently denies now. She complains of extreme thirst. She is an obvious withdrawals now. Related Data Home Medications Medication Instructions Recorded Confirmed gabapentin 300 mg capsule 300 mg PO PRN PRN Pain (Scale 12/12/22 12/12/22 Score 1-3) levonorgestrel 0.15 mg-ethinyl 1 tab PO DAILY 12/12/22 12/12/22 estradiol 0.03 mg tablet lidocaine 5 % topical patch 1 patch topical PRN PRN Pain 12/12/22 12/12/22 (Scale Score 1-3) Allergies Allergy/AdvReac Type Severity Reaction Status Date / Time Penicillins Allergy Swelling Verified 12/12/22 17:22 of Lip/Tongue/Throat Review of Systems Review of Systems ROS Unobtainable: All systems reviewed & are unremarkable except as noted in HPI and below Patient History Social History household members: significant other Smoking Status: Current every day smoker alcohol intake: current Smoking Status: Current every day smoker tobacco type: vaping alcohol intake frequency: 3 or more drinks per day Alcohol type: hard liquor Substance Use Type: marijuana Exam Initial Vital Signs Initial Vital Signs: Vital Signs Pulse Rate 109 H 12/12/22 13:11 Respiratory Rate 25 H 12/12/22 13:11 GENERAL: Alert jaundice 42-year-old female HEENT: Head atraumatic,EOMI, pupils reactive, face symmetric, moist mucous membranes CARDIOVASCULAR: Regular rate and rhythm without murmurs, rubs or gallops. RESPIRATORY: Breath sounds equal bilaterally, no wheezes rales or rhonchi. ABDOMEN: Soft, nontender. Normoactive bowel sounds all 4 quadrants. No guarding or rebound. Minimal tenderness right upper quadrant EXTREMITIES: Normal range of motion, no clubbing or edema. Neurovascularly intact NEUROLOGICAL: Alert and oriented x4 shaking SKIN: Warm, dry, no laceration, no petechiae, no rashes or lesions. Course Orders Ordered: Acetaminophen (Acetaminophen 325 Mg Tablet) 650 mg PO Q6H PRN PRN Reason: Fever/Mild Pain (1-3) Folic Acid (Folic Acid 1 Mg Tablet) 1 mg PO DAILY [facility] Heparin Sodium (Porcine) (Heparin 5,000 Unit/Ml Vial) 5,000 unit SUBCUT BID [facility] Last Admin: 12/12/22 20:24 Dose: 5,000 unit Documented By: BRICE Thiamine HCl 500 mg/ Sodium (Chloride) 105 mls @ 420 mls/hr IV TID [facility] Last Infusion: 12/12/22 22:40 Dose: 0 mls/hr Documented By: Admin: 12/12/22 20:24 Dose: 420 mls/hr Documented By: Infusion: 12/12/22 17:40 Dose: 0 mls/hr Documented By: Admin: 12/12/22 17:20 Dose: 420 mls/hr Documented By: SANG Lactated Ringer's (Lactated Ringers) 1,000 mls @ 125 mls/hr IV CONT [facility]ARYJO Last Admin: 12/13/22 01:23 Dose: 125 mls/hr Documented By: Infusion: 12/13/22 01:19 Dose: 125 mls/hr Documented By: Admin: 12/12/22 17:19 Dose: 125 mls/hr Documented By: SANG Magnesium Sulfate (Magnesium Sulfate) 4 gm in 100 mls @ 25 mls/hr IV NOW ONE Stop: 12/13/22 11:16 Last Admin: 12/13/22 07:37 Dose: 25 mls/hr Documented By: SANG Co-signed By: ALEX Lorazepam (Lorazepam 2 Mg/Ml Inj) 0 mg IV CIWAPRN PRN; Protocol PRN Reason: Alcohol Withdrawal Last Admin: 12/12/22 23:00 Dose: 1 mg Documented By: BRICE Lorazepam (Lorazepam 1 Mg Tablet) 0 mg PO CIWAPRN PRN; Protocol PRN Reason: Alcohol Withdrawal Last Admin: 12/13/22 06:57 Dose: 1 mg Documented By: Admin: 12/12/22 17:45 Dose: 1 mg Documented By: SANG Multivitamins (Multivitamin 1 Tablet) 1 tab PO DAILY [facility] Naloxone HCl (Naloxone 0.4 Mg/Ml Vial) 0.2 mg IV Q2MIN PRN PRN Reason: Opiate Reversal Ondansetron HCl (Ondansetron 4 Mg/2 Ml Inj) 4 mg IV Q8HR PRN PRN Reason: Nausea And Vomiting Pantoprazole Sodium (Pantoprazole 40 Mg Vial) 40 mg IV DAILY [facility]ARY[facility] Discontinued Medications Sodium Chloride (Normal Saline 0.9%) 1,000 mls @ 1,000 mls/hr IV BOLUS ONE Stop: 12/12/22 14:13 Last Infusion: 12/12/22 15:30 Dose: 0 mls/hr Documented By: Admin: 12/12/22 14:05 Dose: 1,000 mls/hr Documented By: ST Sodium Chloride (Normal Saline 0.9%) 1,000 mls @ 1,000 mls/hr IV BOLUS ONE Stop: 12/12/22 16:57 Last Infusion: 12/12/22 16:50 Dose: 1,000 mls/hr Documented By: Admin: 12/12/22 16:20 Dose: 1,000 mls/hr Documented By: YE Lorazepam (Lorazepam 2 Mg/Ml Inj) 2 mg IV NOW ONE Stop: 12/12/22 15:59 Last Admin: 12/12/22 16:20 Dose: 2 mg Documented By: YE Ondansetron HCl (Ondansetron 4 Mg/2 Ml Inj) 4 mg IV NOW ONE Stop: 12/12/22 13:15 Last Admin: 12/12/22 14:04 Dose: 4 mg Documented By: Pantoprazole Sodium (Pantoprazole 40 Mg Vial) 80 mg IV NOW ONE Stop: 12/12/22 13:15 Last Admin: 12/12/22 14:04 Dose: 80 mg Documented By: ST Phenobarbital (Phenobarbital 65 Mg/Ml Vial) 260 mg IV NOW ONE Stop: 12/12/22 14:01 Last Admin: 12/12/22 14:05 Dose: 260 mg Documented By: ST Vital Signs Vital signs: Vital Signs - 8 hr 12/12/22 13:20 12/12/22 13:11 12/12/22 13:30 Temperature 98.1 F Pulse Rate 106 H 109 H 97 H Respiratory Rate 22 25 H 19 Blood Pressure 121/80 Pulse Oximetry 98 Oxygen Delivery Method Room Air 12/12/22 13:37 12/12/22 13:37 12/12/22 14:00 Temperature Pulse Rate 98 H Respiratory Rate 18 Blood Pressure 174/112 H 157/96 H Pulse Oximetry 100 Oxygen Delivery Method 12/12/22 14:00 12/12/22 14:30 12/12/22 14:30 Temperature Pulse Rate 89 93 H Respiratory Rate 17 16 Blood Pressure 173/92 H Pulse Oximetry 100 100 Oxygen Delivery Method MDM - Abdominal Pain Lab Data 12/13/22 04:05 12/13/22 04:05 Labs: Lab Results 12/12/22 12/12/22 12/12/22 Range/Units 13:14 13:45 13:45 WBC 3.4 L (4.5-11.0) X10^3/uL RBC 3.47 L (4.0-5.2) X10^6/uL Hgb 12.8 (12.0-16.0) g/dL Hct 37.8 (36-46) % MCV 108.8 H (80-100) fL MCH 36.9 H (26-34) PG MCHC 33.9 (30-36) % RDW 17.8 H (11.6-14.8) % Plt Count 140 L (150-400) X10^3/uL Neut % (Auto) 70.4 (50-75) % Lymph % (Auto) 18.8 L (25-40) % [place] % (Auto) 9.7 (3-14) % Eos % (Auto) 0.1 L (2-4) % Baso % (Auto) 1.0 (0-2) % Neut # (Auto) 2400 (9547-4797) /uL Lymph # (Auto) 600 L (6134-0503) /uL [place] # (Auto) 300 (0-900) /uL Eos # (Auto) 0 (0-450) /uL Baso # (Auto) 0 (0-100) /uL PT 14.9 H (10.1-12.7) SECONDS INR 1.3 (0.9-1.3) APTT 29 (26-36) SECONDS Sodium (137-145) mmol/L Potassium (3.4-5.1) mmol/L Chloride (98-107) mmol/L Carbon Dioxide (22-32) mmol/L BUN (7-17) mg/dL Creatinine (0.52-1.04) mg/dL Estimated GFR (>60) mL/min BUN/Creatinine Ratio (6-22) Glucose (70-100) mg/dL Lactate (0.7-2.1) mmol/L Calcium (8.4-10.2) mg/dL Total Bilirubin (0.2-1.3) mg/dL AST (14-36) IU/L ALT (<35) IU/L Alkaline Phosphatase (38-126) U/L Total Protein (6.3-8.2) g/dL Albumin (3.5-5.0) g/dL Globulin (1.7-4.1) g/dL Albumin/Globulin Ratio (1.0-2.8) Lipase (23-300) U/L Serum , Qual Negative (Negative) 12/12/22 12/12/22 12/12/22 Range/Units 13:45 13:45 15:50 WBC (4.5-11.0) X10^3/uL RBC (4.0-5.2) X10^6/uL Hgb (12.0-16.0) g/dL Hct (36-46) % MCV (80-100) fL MCH (26-34) PG MCHC (30-36) % RDW (11.6-14.8) % Plt Count (150-400) X10^3/uL Neut % (Auto) (50-75) % Lymph % (Auto) (25-40) % [place]ickson % (Auto) (3-14) % Eos % (Auto) (2-4) % Baso % (Auto) (0-2) % Neut # (Auto) (0068-6716) /uL Lymph # (Auto) (5119-6461) /uL Dickson # (Auto) (0-900) /uL Eos # (Auto) (0-450) /uL Baso # (Auto) (0-100) /uL PT (10.1-12.7) SECONDS INR (0.9-1.3) APTT (26-36) SECONDS Sodium 135 L (137-145) mmol/L Potassium 3.9 (3.4-5.1) mmol/L Chloride 97 L (98-107) mmol/L Carbon Dioxide 14 L (22-32) mmol/L BUN 10 (7-17) mg/dL Creatinine 0.76 (0.52-1.04) mg/dL Estimated GFR > 60 (>60) mL/min BUN/Creatinine Ratio 13.2 (6-22) Glucose 75 (70-100) mg/dL Lactate 5.9 H* 4.5 H* (0.7-2.1) mmol/L Calcium 8.4 (8.4-10.2) mg/dL Total Bilirubin 9.2 H (0.2-1.3) mg/dL AST 160 H (14-36) IU/L ALT 63 H (<35) IU/L Alkaline Phosphatase 69 (38-126) U/L Total Protein 7.0 (6.3-8.2) g/dL Albumin 3.8 (3.5-5.0) g/dL Globulin 3.2 (1.7-4.1) g/dL Albumin/Globulin Ratio 1.2 (1.0-2.8) Lipase 779 H (23-300) U/L Serum , Qual (Negative) Point of care testing: Point of Care Testing Test Results Negative Urine Dip Bedside Urine Glucose Negative Bedside Urine Bilirubin + 1 Bedside Urine Ketone +++ 80 Urine Specific [place] 1.005 Bedside Urine Occult Blood +++ Bedside Urine pH 6.5 Bedside Urine Protein + 30 Bedside Urine Urobilinogen 1+ 2mg Bedside Urine Nitrite - Negative Bedside Urine Leukocytes +/- [address] scan - abdomen/pelvis: Radiologist's Impression: PROCEDURE:? CT ABDOMEN PELVIS W CON ? INDICATIONS:? etoh vomiting ? TECHNIQUE:? After the administration of intravenous contrast, axial sections acquired from the lung bases to the pubic symphysis.? Coronal and sagittal reformats were performed.? For radiation dose reduction, the following was used:? automated exposure control, adjustment of mA and/or kV according to patient size.? ? COMPARISON:? [facility], CT, CT ABDOMEN PELVIS W CON, 05/19/2022, 18:50. ? FINDINGS: ? Lower thorax: The lung bases are clear.? Heart size normal.? No hiatal hernia. ? Liver: The liver is diffusely decreased in attenuation without focal mass lesion.? Hepatomegaly, 23.3 cm ? Biliary system:? No calcified cholelithiasis or pericholecystic inflammation.? No intra or extrahepatic bile duct dilatation. ? Pancreas:? Unremarkable without mass or inflammation evident. ? Spleen:? Normal in size and density. ? Adrenals:? Normal morphology and density. ? Reproductive system:? Heterogenously enhancing mass lesion in the uterus is again noted, similar in size and irregular enhancement measuring approximately 7.6 x 3.9 cm ? Urinary system:? Normal renal size and attenuation. No renal calculi, hydronephrosis, or solid mass present.? Urinary bladder unremarkable. ? Gastrointestinal system:? The bowel is unremarkable without evidence of bowel obstruction or inflammation. The stomach appears unremarkable.? There is fatty infiltration of the large bowel wall, likely sequelae of prior colitis ? Appendix:? No findings to suggest acute appendicitis. ? Peritoneal spaces:? No mesenteric or retroperitoneal adenopathy.? No free air.? No free fluid.? ? Vasculature:? The IVC, aorta and iliac vasculature are unremarkable. ? Abdominal wall:? Abdominal wall intact without evidence of ventral or inguinal hernias. ? Musculoskeletal:? Normal bone mineralization.? Degenerative disc disease and arthropathy noted in lower lumbar spine.? No acute fractures.? ? IMPRESSION: ? 1. No acute CT findings in the abdomen and pelvis. ? 2. Heterogenous mass lesion in the uterus is stable from the prior.? Differential includes degenerating fibroid and malignancy.? Advise follow-up MRI with contrast. ? 3. Hepatomegaly with profound hepatic steatosis? Approved by: Perry Hogan M.D. on 12/12/2022 at 14:47? US - abdomen: Radiologist's Impression: PROCEDURE:? US ABDOMEN LIMITED ? INDICATIONS:? ELEVATED BILIRUBIN ? TECHNIQUE:? Real-time scanning was performed of the abdominal and retroperitoneal organs, with image documentation.? ? COMPARISON:? None. ? FINDINGS:? ? Liver:? Liver is enlarged at 19.2 cm with dense increased echogenicity reflecting fatty infiltration.? No focal mass lesion. ? Gallbladder:? Sonolucent without evidence cholelithiasis, gallbladder wall thickening or pericholecystic fluid.? No sonographic Posey sign.? ? Biliary ducts:? Intrahepatic bile ducts are non-dilated.? Extrahepatic bile duct caliber measures 5.4 mm.? Normal is 6-7 mm or less in diameter, or 10 mm or less post-cholecystectomy.? ? Pancreas:? Visualized portions of the pancreas are sonographically normal.? ? ? IMPRESSION:? ? Hepatomegaly and hepatic fatty infiltration ? Approved by: Perry Hogan M.D. on 12/12/2022 at 14:54? [facility] Narrative Medical decision making narrative: Patient 42-year-old female history of alcohol abuse presenting today with 5 days of vomiting shaking and tachycardic now in withdrawals. She is found have a bicarb of 14 a lactate of 5.9. Probable alcoholic ketoacidosis. She is given IV fluids lactate improved to 4.5. CT showed mass in the uterus and hepatomegaly with hepatic steatosis. She also was complaining of right upper quadrant pain but not having any pain now. Bilirubin is noted to be elevated 9.2 with AST 160 and ALT 63 with lipase is 779. Presumed to be alcohol hepatitis. Ultrasound confirms hepatic steatosis without gallbladder disease. She is nontender on exam but obviously jaundiced. She has received phenobarbital Ativan and IV fluids and is feeling better. Previously admitted to ICU for number of days for alcohol withdrawal. Dr. Beckman accepts pateitn in ED to see and evaluate Discharge Plan Departure Patient Disposition: Admitted As Inpatient Clinical Impression: Alcohol abuse with withdrawal Admit Date/Time: 12/12/22 16:09 Admit Provider: Amol Beckman
--- NOTE | 2022-12-12 14:01 | DI.CT.S_ITS ---
PROCEDURE: CT ABDOMEN PELVIS W CON INDICATIONS: etoh vomiting TECHNIQUE: After the administration of intravenous contrast, axial sections acquired from the lung bases to the pubic symphysis. Coronal and sagittal reformats were performed. For radiation dose reduction, the following was used: automated exposure control, adjustment of mA and/or kV according to patient size. COMPARISON: [facility], CT, CT ABDOMEN PELVIS W CON, 05/19/2022, 18:50. FINDINGS: Lower thorax: The lung bases are clear. Heart size normal. No hiatal hernia. Liver: The liver is diffusely decreased in attenuation without focal mass lesion. Hepatomegaly, 23.3 cm Biliary system: No calcified cholelithiasis or pericholecystic inflammation. No intra or extrahepatic bile duct dilatation. Pancreas: Unremarkable without mass or inflammation evident. Spleen: Normal in size and density. Adrenals: Normal morphology and density. Reproductive system: Heterogenously enhancing mass lesion in the uterus is again noted, similar in size and irregular enhancement measuring approximately 7.6 x 3.9 cm Urinary system: Normal renal size and attenuation. No renal calculi, hydronephrosis, or solid mass present. Urinary bladder unremarkable. Gastrointestinal system: The bowel is unremarkable without evidence of bowel obstruction or inflammation. The stomach appears unremarkable. There is fatty infiltration of the large bowel wall, likely sequelae of prior colitis Appendix: No findings to suggest acute appendicitis. Peritoneal spaces: No mesenteric or retroperitoneal adenopathy. No free air. No free fluid. Vasculature: The IVC, aorta and iliac vasculature are unremarkable. Abdominal wall: Abdominal wall intact without evidence of ventral or inguinal hernias. Musculoskeletal: Normal bone mineralization. Degenerative disc disease and arthropathy noted in lower lumbar spine. No acute fractures. IMPRESSION: 1. No acute CT findings in the abdomen and pelvis. 2. Heterogenous mass lesion in the uterus is stable from the prior. Differential includes degenerating fibroid and malignancy. Advise follow-up MRI with contrast. 3. Hepatomegaly with profound hepatic steatosis Approved by: Perry Hogan M.D. on 12/12/2022 at 14:47
[2022-12-12 14:02] LABS: Add Manual Diff / Slide Review NO; Basophils Absolute Auto 0 /uL (0-100); Eosinophils Absolute Auto 0 /uL (0-450); Eosinophils Percent Auto 0.1 % (2-4); Hematocrit 37.8 % (36-46); Hemoglobin 12.8 g/dL (12.0-16.0); Lymphocytes Absolute Auto 600 /uL (1100-4500); Lymphocytes Percent Auto 18.8 % (25-40); Mean Corpuscular HGB Conc 33.9 % (30-36); Mean Corpuscular Hemoglobin 36.9 PG (26-34); Mean Corpuscular Volume 108.8 fL (80-100); Monocytes Absolute Auto 300 /uL (0-900); Monocytes Percent Auto 9.7 % (3-14); Neutrophils Absolute Auto 2400 /uL (1500-7000); Neutrophils Percent Auto 70.4 % (50-75); Platelet Count 140 X10^3/uL (150-400); Red Blood Cell Count 3.47 X10^6/uL (4.0-5.2); Red Cell Distribution Width 17.8 % (11.6-14.8); White Blood Cell Count 3.4 X10^3/uL (4.5-11.0)
[2022-12-12] MEDS: ONDANSETRON 4 MG/2 ML INJ IV (14:04)
[2022-12-12] MEDS: PANTOPRAZOLE 40 MG VIAL 80 MG IV (14:04)
[2022-12-12] MEDS: PHENobarbital 65 MG/ML VIAL 260 MG IV (14:05)
[2022-12-12] MEDS: SODIUM CHLORIDE 0.9% 1,000 ML 1000 ML IV ×2 (14:05→16:20)
[2022-12-12 14:08] LABS: INR 1.3 (0.9-1.3); Prothrombin Time 14.9 SECONDS (10.1-12.7)
[2022-12-12 14:11] LABS: PTT Partial Thromboplastin Tim 29 SECONDS (26-36)
[2022-12-12 14:13] LABS: Alanine Aminotransferase 63 IU/L (<35); Albumin 3.8 g/dL (3.5-5.0); Albumin Globulin Ratio 1.2 (1.0-2.8); Alkaline Phosphatase 69 U/L (38-126); Aspartate Aminotransferase 160 IU/L (14-36); BUN Creatinine Ratio 13.2 (6-22); Bilirubin Total 9.2 mg/dL (0.2-1.3); Blood Urea Nitrogen 10 mg/dL (7-17); Calcium 8.4 mg/dL (8.4-10.2); Carbon Dioxide 14 mmol/L (22-32); Chloride 97 mmol/L (98-107); Estimated Glomerular Filt Rate > 60 mL/min (>60); Globulin 3.2 g/dL (1.7-4.1); Glucose 75 mg/dL (70-100); HEMOLYSIS < 15 (0-50); Lipase 779 U/L (23-300); Potassium 3.9 mmol/L (3.4-5.1); Sodium 135 mmol/L (137-145)
[2022-12-12 14:14] LABS: Lactate (Lactic Acid) 5.9 mmol/L (0.7-2.1)
--- NOTE | 2022-12-12 14:22 | DI.US.S_ITS ---
PROCEDURE: US ABDOMEN LIMITED INDICATIONS: ELEVATED BILIRUBIN TECHNIQUE: Real-time scanning was performed of the abdominal and retroperitoneal organs, with image documentation. COMPARISON: None. FINDINGS: Liver: Liver is enlarged at 19.2 cm with dense increased echogenicity reflecting fatty infiltration. No focal mass lesion. Gallbladder: Sonolucent without evidence cholelithiasis, gallbladder wall thickening or pericholecystic fluid. No sonographic Posey sign. Biliary ducts: Intrahepatic bile ducts are non-dilated. Extrahepatic bile duct caliber measures 5.4 mm. Normal is 6-7 mm or less in diameter, or 10 mm or less post-cholecystectomy. Pancreas: Visualized portions of the pancreas are sonographically normal. IMPRESSION: Hepatomegaly and hepatic fatty infiltration Approved by: Perry Hogan M.D. on 12/12/2022 at 14:54
[2022-12-12 14:37] LABS: Pregnancy Test Serum,Qual Negative (Negative)
[2022-12-12 15:59] LABS: Reflexed Lactate in 2 Hours Y
[2022-12-12 16:12] LABS: Lactate 2HR (Lactic Acid Rflx) 4.5 mmol/L (0.7-2.1)
[2022-12-12] MEDS: LORazepam 2 MG/ML INJ IV ×2 (16:20→23:00)
--- NOTE | 2022-12-12 16:50 | PC.NURSE ---
Called report to SHILA Nieves
--- NOTE | 2022-12-12 17:06 | PM.HP.1 ---
History of Present Illness History of Present Illness Date Patient Seen: 12/12/22 Time Patient Seen: 17:00 Chief complaint: Vomiting for 5 days Narrative: Ms. Carroll is a 42W with H alcohol abuse who presents with vomiting and shaking. She has a long history of alcohol abuse, she has been drinking significantly for decades. She has never had a withdrawal seizure or needed to be intubated. She was hospitalized for severe withdrawal earlier this year. She has never tried any medications for withdrawal. She has never tried outpatient or inpatient rehab. She tried AA a long time ago and disliked it. She had abdominal pain earlier but this is gone. She has no fevers/chills. She has no blood in vomit. She feels anxious and shaky. In the ED workup was done, vitals notable for afebrile, blood pressure 170s/90s, heart rate 100s. Labs reviewed by me and notable for WBC 3.4, hgb 12.8, plts 140. Na 135, co2 14, lactate 5.9. Bili 9.2, ast 160, alt 63. CT abdomen reviewed by me and shows hepatomegaly with significant hepatic steatosis, and stable uterus mas lesion. Ultrasound shows hepatomegaly. She was ordered for IV fluids, phenobarbital and ativan and admitted for further treatment. [facility] Social History household members: significant other Smoking Status: Current every day smoker alcohol intake: current Meds Home Medications and Allergies Home Medications Medication Instructions Recorded Confirmed Type gabapentin 300 mg capsule 300 mg PO PRN PRN Pain (Scale 12/12/22 12/12/22 History Score 1-3) levonorgestrel 0.15 mg-ethinyl 1 tab PO DAILY 12/12/22 12/12/22 History estradiol 0.03 mg tablet lidocaine 5 % topical patch 1 patch topical PRN PRN Pain 12/12/22 12/12/22 History (Scale Score 1-3) Allergies Allergy/AdvReac Type Severity Reaction Status Date / Time Penicillins Allergy Swelling Verified 05/19/22 16:28 of Lip/Tongue/Throat Review of Systems Review of Systems Narrative: 14 systems reviewed and negative aside from what is noted in HPI Exam Vital Signs (past 8 hours): - 12/12/22 13:20 12/12/22 13:11 12/12/22 13:30 Temperature 98.1 F Pulse Rate 106 H 109 H 97 H Respiratory Rate 22 25 H 19 Blood Pressure 121/80 Pulse Oximetry 98 Oxygen Delivery Method Room Air 12/12/22 13:37 12/12/22 13:37 12/12/22 14:00 Temperature Pulse Rate 98 H Respiratory Rate 18 Blood Pressure 174/112 H 157/96 H Pulse Oximetry 100 Oxygen Delivery Method 12/12/22 14:00 12/12/22 14:30 12/12/22 14:30 Temperature Pulse Rate 89 93 H Respiratory Rate 17 16 Blood Pressure 173/92 H Pulse Oximetry 100 100 Oxygen Delivery Method 12/12/22 14:54 12/12/22 14:54 12/12/22 15:00 Temperature Pulse Rate 108 H Respiratory Rate 20 Blood Pressure 175/101 H 141/76 H Pulse Oximetry 100 Oxygen Delivery Method 12/12/22 15:00 12/12/22 15:30 12/12/22 15:30 Temperature Pulse Rate 98 H 100 H Respiratory Rate 19 18 Blood Pressure 153/98 H Pulse Oximetry 100 96 Oxygen Delivery Method 12/12/22 16:00 12/12/22 16:00 12/12/22 16:30 Temperature Pulse Rate 104 H Respiratory Rate 22 Blood Pressure 182/116 H 173/96 H Pulse Oximetry 100 Oxygen Delivery Method 12/12/22 16:30 Temperature Pulse Rate 103 H Respiratory Rate 30 H Blood Pressure Pulse Oximetry 100 Oxygen Delivery Method Oxygen Delivery Method Room Air Narrative Exam Narrative: GEN: anxious, shaky HEENT: moist mucous membranes CV: tachycardic, no murmurs PULM: clear bilaterally ABD: soft, nontender, nondistended EXT: warm and well perfused no edema NEURO: awake, alert, no focal deficits noted Objective Labs 12/12/22 13:45 12/12/22 13:45 Labs: Laboratory Results - last 24 hr 12/12/22 12/12/22 12/12/22 13:14 13:45 13:45 WBC 3.4 L RBC 3.47 L Hgb 12.8 Hct 37.8 MCV 108.8 H MCH 36.9 H MCHC 33.9 RDW 17.8 H Plt Count 140 L Neut % (Auto) 70.4 Lymph % (Auto) 18.8 L [place] % (Auto) 9.7 Eos % (Auto) 0.1 L Baso % (Auto) 1.0 Neut # (Auto) 2400 Lymph # (Auto) 600 L [place] # (Auto) 300 Eos # (Auto) 0 Baso # (Auto) 0 PT 14.9 H INR 1.3 APTT 29 Sodium Potassium Chloride Carbon Dioxide BUN Creatinine Estimated GFR BUN/Creatinine Ratio Glucose Lactate Calcium Total Bilirubin AST ALT Alkaline Phosphatase Total Protein Albumin Globulin Albumin/Globulin Ratio Lipase Serum , Qual Negative 12/12/22 12/12/22 12/12/22 13:45 13:45 15:50 WBC RBC Hgb Hct MCV MCH MCHC RDW Plt Count Neut % (Auto) Lymph % (Auto) [place] % (Auto) Eos % (Auto) Baso % (Auto) Neut # (Auto) Lymph # (Auto) [place] # (Auto) Eos # (Auto) Baso # (Auto) PT INR APTT Sodium 135 L Potassium 3.9 Chloride 97 L Carbon Dioxide 14 L BUN 10 Creatinine 0.76 Estimated GFR > 60 BUN/Creatinine Ratio 13.2 Glucose 75 Lactate 5.9 H* 4.5 H* Calcium 8.4 Total Bilirubin 9.2 H AST 160 H ALT 63 H Alkaline Phosphatase 69 Total Protein 7.0 Albumin 3.8 Globulin 3.2 Albumin/Globulin Ratio 1.2 Lipase 779 H Serum , Qual Assessment & Plan Assessment & Plan narrative: 1. Acute EtOH withdrawal, alcohol abuse -she has long history of alcohol abuse -withdrawal is likely occurring because can not keep down any alcohol -will place in ICU for closer monitoring, as has required precedex last admission -for now treat with CIWA protocol and ativan -ordered MVI, folate, and thiamine -she is interested in quitting drinking and getting resources on discharge 2. Alcoholic ketoacidosis -she is notably acidotic with co2 of 14 on admit -lactate is 5.9 -suspect etiology is likely alcoholic ketoacidosis -repeat lactate down to 4.5 -treat with high dose thiamine 500mg TID for 2 days 3. Alcoholic hepatitis -had abdominal discomfort on admission -lfts with bilirubin >9, elevated ast/alt as well -PT only mildly about reference range -maddrey's discriminant function is low, for now no indication for steroids -trend lfts daily for now 4. Vomiting -suspect secondary to alcoholic hepatitis vs possible gastritis -treat hepatitis as above -for possible gastritis, start IV PPI -zofran prn ordered 5. Uterine mass -noted on last admission -never followed up -will order MRI pelvis here I have discussed plan and obtained history from the patient. I have discussed plan of care with ED physician and bedside nurse. I have reviewed labs, imaging. CODE: Full Proxy: Hernan Montgomery, miguel angel Quality [facility] - Meds 'Current medications' to include all prescriptions, [id number] products, herbals, cannabis/cannabidiol products, and vitamin/mineral/dietary (nutritional) supplements. I have utilized all available resources to obtain, update, or review the patient?s current medications. [If Yes, STOP here]: Yes
[2022-12-12] MEDS: LACTATED RINGERS 1,000 ML 125 ML IV (17:19)
[2022-12-12] MEDS: THIAMINE 500 MG in SODIUM CHLORIDE 0.9% 100 ML 420 MG IV ×2 (17:20→20:24)
[2022-12-12] MEDS: LORazepam 1 MG TABLET PO (17:45)
--- NOTE | 2022-12-12 18:40 | PC.NURSE ---
Admit: Pt arrived via stretcher from ED at approximately 1703. Pt was able to transfer self to ICU bed in rm 230. Pt attached to telemetry, vital signs obtained. Hypertensive and tachycardic, provider aware. Pt 96% on RA. CIWA scored, pt medicated per protocol (See MAR). Pt tolerating full liquid dinner w/o c/o nausea. Pt up to BSC to void, HR 130's-140's. Pt assisted back to bed. Seizure pads attached, suction set up and ready for use at bedside. Bed alarm active, bed in low and locked position, call light within reach and pt able to use to make needs known. Care ongoing.
[2022-12-12 18:49] LABS: MRSA (Nasal) PCR Not Detected (Not Detect)
[2022-12-12] MEDS: HEPARIN 5,000 UNIT/ML VIAL 5000 UNIT SUBCUT (20:24)
[2022-12-13] VITALS (61 sets, daily range): BP systolic 123–162; BP diastolic 89–105; PULSE 7–138; RESP 14–28; TEMP 36.4–37.1; O2SAT 90–100
[2022-12-13] MEDS: LACTATED RINGERS 1,000 ML 125 ML IV ×3 (01:23→20:08)
[2022-12-13 05:09] LABS: Add Manual Diff / Slide Review NO; Basophils Absolute Auto 0 /uL (0-100); Eosinophils Absolute Auto 0 /uL (0-450); Eosinophils Percent Auto 0.9 % (2-4); Hematocrit 29.5 % (36-46); Hemoglobin 10.2 g/dL (12.0-16.0); Lymphocytes Absolute Auto 1100 /uL (1100-4500); Lymphocytes Percent Auto 33.3 % (25-40); Mean Corpuscular HGB Conc 34.6 % (30-36); Mean Corpuscular Hemoglobin 37.4 PG (26-34); Mean Corpuscular Volume 107.9 fL (80-100); Monocytes Absolute Auto 300 /uL (0-900); Monocytes Percent Auto 9.4 % (3-14); Neutrophils Absolute Auto 1800 /uL (1500-7000); Neutrophils Percent Auto 55.4 % (50-75); Platelet Count 112 X10^3/uL (150-400); Red Blood Cell Count 2.73 X10^6/uL (4.0-5.2); Red Cell Distribution Width 17.5 % (11.6-14.8); White Blood Cell Count 3.2 X10^3/uL (4.5-11.0)
[2022-12-13 05:14] LABS: Alanine Aminotransferase 45 IU/L (<35); Albumin 2.4 g/dL (3.5-5.0); Albumin Globulin Ratio 0.9 (1.0-2.8); Alkaline Phosphatase 46 U/L (38-126); Aspartate Aminotransferase 106 IU/L (14-36); BUN Creatinine Ratio 6.5 (6-22); Bilirubin Total 7.5 mg/dL (0.2-1.3); Blood Urea Nitrogen 4 mg/dL (7-17); Calcium 7.2 mg/dL (8.4-10.2); Carbon Dioxide 22 mmol/L (22-32); Chloride 101 mmol/L (98-107); Estimated Glomerular Filt Rate > 60 mL/min (>60); Globulin 2.7 g/dL (1.7-4.1); Glucose 72 mg/dL (70-100); HEMOLYSIS 20 (0-50); Magnesium 1.2 mg/dL (1.6-2.3); Potassium 3.5 mmol/L (3.4-5.1); Sodium 131 mmol/L (137-145); Total Protein 5.1 g/dL (6.3-8.2)
--- NOTE | 2022-12-13 06:28 | PC.NURSE ---
Microfilmer Note-Patient dozed most of the night, oriented x3-4, CIWA 3-8 for tremors and mild anxiety, 1mg IV Ativan given x1. SR/ST, HR 100, up to 140 at beginning of shift, 80s-120 by am, BP 172/107 at 2130, down to 147/96 in am, afebrile, SpO2 >94% on RA, LS CTA. Using BSC with SBA, voided 350ml + 2 UMV, urine is concentrated. LR @ 125ml/hr, IV Thiamine as scheduled. Seizure pads on rails, bed alarm on, curtain open.
[2022-12-13] MEDS: LORazepam 1 MG TABLET PO ×4 (06:57→23:12)
[2022-12-13] MEDS: MAGNESIUM SULFATE 4 GM/100 ML PIGGYBACK IV (07:37)
[2022-12-13 08:19] LABS: Lactate (Lactic Acid) 2.7 mmol/L (0.7-2.1)
[2022-12-13] MEDS: HEPARIN 5,000 UNIT/ML VIAL 5000 UNIT SUBCUT ×2 (08:23→20:30)
[2022-12-13] MEDS: PANTOPRAZOLE 40 MG VIAL IV (08:23)
[2022-12-13] MEDS: FOLIC ACID 1 MG TABLET PO (08:23)
[2022-12-13] MEDS: MULTIVITAMIN 1 TABLET 1 TAB PO (08:23)
[2022-12-13 09:54] LABS: Reflexed Lactate in 2 Hours Y
[2022-12-13] MEDS: THIAMINE 500 MG in SODIUM CHLORIDE 0.9% 100 ML 420 MG IV ×3 (10:52→20:28)
[2022-12-13] MEDS: chlordiazePOXIDE 25 MG CAPSULE PO ×3 (13:06→23:12)
--- NOTE | 2022-12-13 14:46 | PM.PN.1 ---
Subjective Subjective Date Patient Seen: 12/13/22 Time Patient Seen: 08:00 Interval history: She still feels she is withdrawing. Her tachycardia is mildly improved. Her nausea is improving. Exam Vital Signs (past 8 hours): - 12/13/22 07:53 12/13/22 08:00 12/13/22 07:00 Temperature Pulse Rate 85 106 H 111 H Respiratory Rate 18 15 20 Blood Pressure 141/91 H Pulse Oximetry 97 96 Oxygen Delivery Method Oxygen Flow Rate 0 12/13/22 07:30 12/13/22 08:00 12/13/22 08:01 Temperature Pulse Rate 96 H 85 Respiratory Rate 20 19 Blood Pressure 141/91 H Pulse Oximetry 96 95 Oxygen Delivery Method Oxygen Flow Rate 12/13/22 08:01 12/13/22 08:30 12/13/22 09:00 Temperature Pulse Rate 102 H 109 H 110 H Respiratory Rate 14 20 18 Blood Pressure Pulse Oximetry 97 96 97 Oxygen Delivery Method Oxygen Flow Rate 12/13/22 09:30 12/13/22 11:51 12/13/22 12:00 Temperature 97.5 F L Pulse Rate 101 H 108 H 7 L Respiratory Rate 18 14 18 Blood Pressure 148/95 H Pulse Oximetry 96 94 Oxygen Delivery Method Oxygen Flow Rate 12/13/22 13:00 12/13/22 10:46 12/13/22 10:49 Temperature Pulse Rate Respiratory Rate Blood Pressure 140/92 H Pulse Oximetry 90 L Oxygen Delivery Method Room Air Oxygen Flow Rate 12/13/22 10:49 12/13/22 11:00 12/13/22 11:30 Temperature Pulse Rate 116 H 132 H 122 H Respiratory Rate 15 22 18 Blood Pressure Pulse Oximetry 97 98 95 Oxygen Delivery Method Oxygen Flow Rate 12/13/22 12:00 12/13/22 12:02 12/13/22 12:02 Temperature Pulse Rate 108 H 107 H Respiratory Rate 19 18 Blood Pressure 144/98 H Pulse Oximetry 95 95 Oxygen Delivery Method Oxygen Flow Rate 12/13/22 12:03 12/13/22 12:03 12/13/22 12:30 Temperature Pulse Rate 106 H 109 H Respiratory Rate 18 19 Blood Pressure 148/95 H Pulse Oximetry 95 96 Oxygen Delivery Method Oxygen Flow Rate 12/13/22 13:00 12/13/22 13:30 12/13/22 14:00 Temperature Pulse Rate 106 H 113 H 107 H Respiratory Rate 17 18 18 Blood Pressure Pulse Oximetry 96 95 95 Oxygen Delivery Method Oxygen Flow Rate Oxygen Delivery Method Room Air Oxygen Flow Rate 0 Narrative Exam Narrative: GEN: anxious, shaky HEENT: moist mucous membranes CV: tachycardic, no murmurs PULM: clear bilaterally ABD: soft, nontender, nondistended EXT: warm and well perfused no edema NEURO: awake, alert, no focal deficits noted Objective Labs 12/13/22 04:05 12/13/22 04:05 Labs: Laboratory Results - last 24 hr 12/12/22 12/12/22 12/13/22 15:50 17:26 04:05 WBC 3.2 L RBC 2.73 L Hgb 10.2 L Hct 29.5 L MCV 107.9 H MCH 37.4 H MCHC 34.6 RDW 17.5 H Plt Count 112 L Neut % (Auto) 55.4 Lymph % (Auto) 33.3 [place] % (Auto) 9.4 Eos % (Auto) 0.9 L Baso % (Auto) 1.0 Neut # (Auto) 1800 Lymph # (Auto) 1100 [place] # (Auto) 300 Eos # (Auto) 0 Baso # (Auto) 0 Sodium Potassium Chloride Carbon Dioxide BUN Creatinine Estimated GFR BUN/Creatinine Ratio Glucose Lactate 4.5 H* Calcium Magnesium Total Bilirubin AST ALT Alkaline Phosphatase Total Protein Albumin Globulin Albumin/Globulin Ratio Nasal Screen MRSA (PCR) Not detected 12/13/22 12/13/22 12/13/22 04:05 07:50 11:20 WBC RBC Hgb Hct MCV MCH MCHC RDW Plt Count Neut % (Auto) Lymph % (Auto) [place] % (Auto) Eos % (Auto) Baso % (Auto) Neut # (Auto) Lymph # (Auto) [place] # (Auto) Eos # (Auto) Baso # (Auto) Sodium 131 L Potassium 3.5 Chloride 101 Carbon Dioxide 22 BUN 4 L Creatinine 0.62 Estimated GFR > 60 BUN/Creatinine Ratio 6.5 Glucose 72 Lactate 2.7 H 3.0 H Calcium 7.2 L Magnesium 1.2 L Total Bilirubin 7.5 H AST 106 H ALT 45 H Alkaline Phosphatase 46 Total Protein 5.1 L Albumin 2.4 L Globulin 2.7 Albumin/Globulin Ratio 0.9 L Nasal Screen MRSA (PCR) PFSH Social History household members: significant other Smoking Status: Current every day smoker alcohol intake: current Assessment & Plan Assessment & Plan narrative: 1. Acute EtOH withdrawal, alcohol abuse -she has long history of alcohol abuse -withdrawal is likely occurring because can not keep down any alcohol -will place in ICU for closer monitoring, as has required precedex last admission -for now treat with CIWA protocol and ativan -start librium 25mg q6 -ordered MVI, folate, and thiamine -she is interested in quitting drinking and getting resources on discharge 2. Alcoholic ketoacidosis -she is notably acidotic with co2 of 14 on admit -lactate is 5.9 -suspect etiology is likely alcoholic ketoacidosis -repeat lactate down to 4.5 -treat with high dose thiamine 500mg TID for 2 days 3. Alcoholic hepatitis, improving -had abdominal discomfort on admission -lfts with bilirubin >9, elevated ast/alt as well -PT only mildly about reference range -maddrey's discriminant function is low, for now no indication for steroids -trend lfts daily for now 4. Vomiting -suspect secondary to alcoholic hepatitis vs possible gastritis -treat hepatitis as above -for possible gastritis, start IV PPI -zofran prn ordered 5. Uterine mass -noted on last admission -never followed up -will order MRI pelvis here 6. Hypomagnesemia -secondary to alcohol abuse -ordered mag riders 7. Elevated lactate -secondary to alcohol vs thiamine vs other -currently she is afebrile, normal white count, no infectious symptoms -continue to trend until normal
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
--- NOTE | 2022-12-13 17:23 | PC.NURSE ---
Day shift: Pt A&Ox3-4, HR 80's-100's at rest, 130's-150's with activity. Provider aware. Pt up to BSC 1PA, tremulous. CIWA 2-9. Treated per protocol (See MAR). Significant other Hernan De Guzman (listed as Hernan Montgomery in chart, incorrect last name, correct phone number), visited briefly. Stated pt has tried outpatient detox facilities but was taken to the hospital for severe withdrawal symptoms. States pt has been actively trying to detox for the last few months without success. Pt requested parents to have ability to request information. Parents are Nayana Franklin # [phone]. Pt able to ambulate to BR to have BM with 1PA-SBA. Seizure pads in place, bed alarm active, suction set up and at bedside. Call light with in reach and pt able to use to make needs known. Care ongoing.
[2022-12-13] MEDS: LACTATED RINGERS 1,000 ML 1000 ML IV (18:27)
[2022-12-13] MEDS: ACETAMINOPHEN 325 MG TABLET 650 MG PO (21:06)
[2022-12-14] VITALS (15 sets, daily range): BP systolic 124–160; BP diastolic 85–115; PULSE 88–130; RESP 14–26; TEMP 36.3–37.1; O2SAT 82–100
[2022-12-14 05:03] LABS: Hematocrit 34.8 % (36-46); Hemoglobin 11.9 g/dL (12.0-16.0); Mean Corpuscular HGB Conc 34.1 % (30-36); Mean Corpuscular Hemoglobin 36.6 PG (26-34); Mean Corpuscular Volume 107.3 fL (80-100); Platelet Count 134 X10^3/uL (150-400); Red Blood Cell Count 3.24 X10^6/uL (4.0-5.2); Red Cell Distribution Width 16.6 % (11.6-14.8); White Blood Cell Count 3.3 X10^3/uL (4.5-11.0)
[2022-12-14 05:13] LABS: Calcium 8.2 mg/dL (8.4-10.2); Carbon Dioxide 24 mmol/L (22-32); Chloride 97 mmol/L (98-107); Estimated Glomerular Filt Rate > 60 mL/min (>60); Glucose 84 mg/dL (70-100); HEMOLYSIS 31 (0-50); Magnesium 1.7 mg/dL (1.6-2.3); Potassium 3.3 mmol/L (3.4-5.1); Sodium 132 mmol/L (137-145)
[2022-12-14 05:14] LABS: Alanine Aminotransferase 45 IU/L (<35); Alkaline Phosphatase 71 U/L (38-126); Aspartate Aminotransferase 87 IU/L (14-36); Bilirubin Conjugated 4.9 md/dL (0.0-0.3); Bilirubin Total 9.1 mg/dL (0.2-1.3); Bilirubin Unconjugated 1.3 mg/dL (0.0-1.1); HEMOLYSIS < 15 (0-50)
[2022-12-14 05:18] LABS: BUN Creatinine Ratio 3.2 (6-22); Blood Urea Nitrogen < 2 mg/dL (7-17)
[2022-12-14] MEDS: chlordiazePOXIDE 25 MG CAPSULE PO ×3 (05:53→20:46)
[2022-12-14] MEDS: SODIUM CHLORIDE 0.9% 1,000 ML 1000 ML IV (06:27)
[2022-12-14 06:57] LABS: Reflexed Lactate in 2 Hours Y
[2022-12-14] MEDS: HEPARIN 5,000 UNIT/ML VIAL 5000 UNIT SUBCUT ×2 (08:57→20:46)
[2022-12-14] MEDS: NICOTINE 21 MG PATCH TOP ×2 (08:57→21:43)
[2022-12-14] MEDS: MULTIVITAMIN 1 TABLET 1 TAB PO (08:58)
[2022-12-14] MEDS: FOLIC ACID 1 MG TABLET PO (08:58)
[2022-12-14 09:20] LABS: Lactate 2HR (Lactic Acid Rflx) 6.2 mmol/L (0.7-2.1)
[2022-12-14] MEDS: THIAMINE 500 MG in SODIUM CHLORIDE 0.9% 100 ML 420 MG IV ×2 (09:24→15:44)
[2022-12-14] MEDS: PANTOPRAZOLE 40 MG VIAL IV (09:25)
--- NOTE | 2022-12-14 09:54 | PC.NURSE ---
Addendum entered by Clementina Walters R.N. 12/14/22 16:12: Relayed critical lab result of 5.9 to provider. Provider said next lactate to check will be in am. Addendum entered by Clementina Walters R.N. 12/14/22 12:39: Provider said next lactate can be four hours after previous lactate (1515) instead of 2 hours. Addendum entered by Clementina Walters R.N. 12/14/22 11:59: Reported critical Lactate of 7.4 to provider. Relayed concern regarding difficult IV access/blood draw and pt's intermittent confusion. Addendum entered by Clementina Walters R.N. 12/14/22 10:10: When RN came in and assessed IV at shift change, IV was tender and indurated. RN turned off LR due to IV being painful and possibly phlebitis. RN turned on LR when new IV was inserted. Original Note: Critical lab of lactate 6.2 relayed to provider.
[2022-12-14] MEDS: POTASSIUM CHLORIDE 20 MEQ TAB 40 MEQ PO ×2 (09:59→14:59)
[2022-12-14] MEDS: LACTATED RINGERS 1,000 ML 125 ML IV (09:59)
[2022-12-14] MEDS: MAGNESIUM CHLORIDE 64 MG TABLET 128 MG PO (11:27)
[2022-12-14 11:52] LABS: Lactate (Lactic Acid) 7.4 mmol/L (0.7-2.1)
[2022-12-14] MEDS: SODIUM CHLORIDE 0.9% 1,000 ML 100 ML IV ×2 (12:16→21:51)
--- NOTE | 2022-12-14 12:32 | PM.PN.1 ---
Subjective Subjective Interval history: She is starting to feel a bit better. She is able to eat some food today. Has some waxing and waning encephlopathy today per nursing staff. She is a bit more jaundiced today, lactate uptrending but hemodynamically stable and no fever, suspect due to decreased liver c. Has mild LLQ cramping / discomfort. Exam Vital Signs (past 8 hours): - 12/14/22 04:38 12/14/22 09:00 Oxygen Delivery Method Room Air Room Air Oxygen Delivery Method Room Air Oxygen Flow Rate 0 Narrative Exam Narrative: GEN: no acute distress, jaundiced HEENT: moist mucous membranes, + scleral icterus CV: tachycardic, no murmurs PULM: clear bilaterally ABD: soft, mild llq tenderness no rebound, nondistended EXT: warm and well perfused no edema NEURO: awake, alert, no focal deficits noted but slowed responses Objective Labs 12/14/22 04:20 12/14/22 04:20 Labs: Laboratory Results - last 24 hr 12/14/22 12/14/22 12/14/22 04:20 04:20 04:20 WBC 3.3 L RBC 3.24 L Hgb 11.9 L Hct 34.8 L MCV 107.3 H MCH 36.6 H MCHC 34.1 RDW 16.6 H Plt Count 134 L Sodium 132 L Potassium 3.3 L Chloride 97 L Carbon Dioxide 24 BUN < 2 L Creatinine 0.62 Estimated GFR > 60 BUN/Creatinine Ratio 3.2 L Glucose 84 Lactate 5.0 H* Calcium 8.2 L Magnesium 1.7 Total Bilirubin Conjugated Bilirubin Unconjugated Bilirubin AST ALT Alkaline Phosphatase Total Protein Albumin Globulin Albumin/Globulin Ratio 12/14/22 12/14/22 12/14/22 04:20 08:54 11:17 WBC RBC Hgb Hct MCV MCH MCHC RDW Plt Count Sodium Potassium Chloride Carbon Dioxide BUN Creatinine Estimated GFR BUN/Creatinine Ratio Glucose Lactate 6.2 H* 7.4 H* Calcium Magnesium Total Bilirubin 9.1 H Conjugated Bilirubin 4.9 H Unconjugated Bilirubin 1.3 H AST 87 H ALT 45 H Alkaline Phosphatase 71 Total Protein 6.0 L Albumin 3.0 L Globulin 3.0 Albumin/Globulin Ratio 1.0 PFSH Social History household members: significant other Smoking Status: Current every day smoker alcohol intake: current Assessment & Plan Assessment & Plan narrative: 1. Acute EtOH withdrawal, alcohol abuse -she has long history of alcohol abuse -withdrawal is likely occurring because can not keep down any alcohol -for now treat with CIWA protocol and ativan -decrease librium to q8 today -ordered MVI, folate, and thiamine -she is interested in quitting drinking and getting resources on discharge 2. Alcoholic ketoacidosis -she is notably acidotic with co2 of 14 on admit, now resolved -lactate is 5.9 -suspect etiology is likely alcoholic ketoacidosis -treat with high dose thiamine 500mg TID for 2 days, followed by 100 mg daily. 3. Alcoholic hepatitis, improving with likely hepatic encephalopathy or toxic encephalopathy -had abdominal discomfort on admission -lfts with bilirubin >9, elevated ast/alt as well -PT only mildly about reference range -maddrey's discriminant function is low, for now no indication for steroids -trend lfts daily for now -continue to follow INR, will check ammonia level with next lab draw, consider lactulose for encephalopathy though may also be due to alcohol withdrawal, treatment with librium, etc. 4. Vomiting, resolved -suspect secondary to alcoholic hepatitis vs possible gastritis -treat hepatitis as above -for possible gastritis, start IV PPI -zofran prn ordered 5. Uterine mass -noted on last admission -never followed up -MRI consistent with fibroid. Outpatient gynecology follow up recommended. 6. Hypomagnesemia, hypokalemia -secondary to alcohol abuse, decreased intake -ordered mag and K riders as needed 7. Elevated lactate -secondary to alcohol vs thiamine vs other -currently she is afebrile, normal white count, no infectious symptoms -continue to trend for now Code: Full
[2022-12-14 13:26] LABS: Reflexed Lactate in 2 Hours Y
--- NOTE | 2022-12-14 13:44 | CM.DPC ---
DCP Cont: Met with patient, included NEDRA Huggins, at bedside. Patient was sleepy, but able to engage in conversation. She had her breakfast in front of her, ate minimal amount, stated, she still felt nauseated. Confirmed that she resides here in [place], her significant other is still Hernan. Bhavna had asked her about rehab for alcohol use. Stated, she is not willing to completely stop drinking at this time, can consider cutting back, but not in a place to currently stop. She did get emotional, teary, slow to respond to questions. Stated that at one time, she had been to [facility], then ended up going to [facility]. Asked her if she had a primary care provider, indicated, she did have one at [facility], someone named Sheri, can't remember her last name. Stated that she was seen for a tumor on her back. Did ask patient if she would like resources for local providers, indicated, she would. Bhavna had mentioned the possibility of seeing a counselor, not just for her drinking, but for the stressors going on in her life. Patient had indicated that she has a 15 year old son, that does not get along with her boy friend. She did not want to engage much further in conversation, would like time to think about options. P: DCP to continue to follow. NEDRA printed out some resources, this DC Senior Tax Accountant will keep with patient's face sheet, to give to her when she is ready for discharge. Plan is likely to be home when stable. Cristal Lynn RN/Director Of Rehabilitation
--- NOTE | 2022-12-14 14:12 | CM.SWNOTE ---
FINANCIAL OPERATIONS CONSULTANT ETOH assessment SW met bedside along with coworker JAC Sanchez and explained role to pt and she confirms that she is still living with her fiance Hernan and sometimes has her two sons that she shares visitation with their bio dad/pt's ex . Pt confirms that she is still unemployed and continues to drink and appears jaundiced and tremulous and still receiving withdrawal medication but able to participate in goal directed discussion. Pt confirms that this is her second detox at [facility] since [place] this year and also had a detox experience at [facility] in [place] but her withdrawals were needing more medical management and she went from [facility] to [facility]. SW inquired about pt's ETOH use and pt appears to be in denial of her alcohol use and medical implications and seems to be in the pre-contemplative stage. Pt states that she is not ready to be sober/abstinent yet from alcohol but prefers more of a harm reduction approach of cutting back on the amount she drinks but to still have alcohol daily. SW discussed the challenges with attempting harm reduction model without trained supports involved in her plan of reducing her drinking. Pt denies any hx of ETOH formal tx or MH counseling and pt became tearful when SW discussed the benefit of establishing with even a MH therapist to support her with her triggers and life stressors of her difficult divorce, the challenges she is facing with her teenage son and his disapproval of her fiance, and her medical complications of spinal tumor and neuropathy. Pt currently not able to commit to possible resources or options but agreeable with considering this discussion and SW discussing further with her tomorrow to determine if pt agreeable with any ETOH or MH resources. NEDRA Prater
[2022-12-14 15:51] LABS: Lactate 2HR (Lactic Acid Rflx) 5.9 mmol/L (0.7-2.1)
[2022-12-14] MEDS: LORazepam 2 MG/ML INJ IV ×4 (15:52→22:38)
[2022-12-14 16:29] LABS: Appearance Urine UA CLEAR; Bilirubin Urine UA 2+ (NEGATIVE); Color Urine UA YELLOW; Glucose Urine UA NEGATIVE (Negative); Ketones Urine UA NEGATIVE (NEGATIVE); Leukocyte Esterase Urine UA 1+ (NEGATIVE); Nitrite Urine UA NEGATIVE (Negative); Occult Blood Urine UA 2+ (Negative); Protein Urine UA NEGATIVE (Negative)
[2022-12-14 16:39] LABS: Bacteria Urine Many (>30); Culture Indicated Urine Specimen Cultured; RBC Urine 0-1/HPF (0-5/HPF); Squamous Epithelial Cell Urine 0-1 /HPF (0-5/HPF); WBC Urine 5-10/HPF (0-5/HPF)
[2022-12-14 16:40] LABS: Ictotest Urine Positive (Negative)
[2022-12-14] MEDS: levoFLOXacin 250 MG TABLET 500 MG PO (18:16)
[2022-12-14] MEDS: LORazepam 1 MG TABLET PO (20:45)
[2022-12-15] VITALS (58 sets, daily range): BP systolic 99–170; BP diastolic 69–116; PULSE 74–147; RESP 12–34; TEMP 36.4–36.9; O2SAT 83–100
[2022-12-15] MEDS: LORazepam 2 MG/ML INJ IV ×8 (01:32→21:22)
[2022-12-15] MEDS: chlordiazePOXIDE 25 MG CAPSULE PO (03:59)
[2022-12-15 04:54] LABS: INR 1.4 (0.9-1.3); Prothrombin Time 16.5 SECONDS (10.1-12.7)
[2022-12-15 04:55] LABS: Ammonia (NH3) < 9 umol/L (9-30)
[2022-12-15 04:58] LABS: Albumin 2.7 g/dL (3.5-5.0); Albumin Globulin Ratio 0.9 (1.0-2.8); Alkaline Phosphatase 66 U/L (38-126); Aspartate Aminotransferase 73 IU/L (14-36); Bilirubin Total 8.5 mg/dL (0.2-1.3); Calcium 7.6 mg/dL (8.4-10.2); Carbon Dioxide 21 mmol/L (22-32); Chloride 99 mmol/L (98-107); Estimated Glomerular Filt Rate > 60 mL/min (>60); Globulin 2.9 g/dL (1.7-4.1); Glucose 99 mg/dL (70-100); HEMOLYSIS < 15 (0-50); Magnesium 1.3 mg/dL (1.6-2.3); Potassium 3.6 mmol/L (3.4-5.1); Sodium 131 mmol/L (137-145); Total Protein 5.6 g/dL (6.3-8.2)
[2022-12-15 05:00] LABS: Add Manual Diff / Slide Review NO; Basophils Absolute Auto 0 /uL (0-100); Eosinophils Absolute Auto 0 /uL (0-450); Eosinophils Percent Auto 1.5 % (2-4); Hematocrit 30.9 % (36-46); Hemoglobin 10.7 g/dL (12.0-16.0); Lymphocytes Absolute Auto 900 /uL (1100-4500); Lymphocytes Percent Auto 31.7 % (25-40); Mean Corpuscular HGB Conc 34.5 % (30-36); Mean Corpuscular Hemoglobin 37.8 PG (26-34); Mean Corpuscular Volume 109.6 fL (80-100); Monocytes Absolute Auto 300 /uL (0-900); Monocytes Percent Auto 10.7 % (3-14); Neutrophils Absolute Auto 1600 /uL (1500-7000); Neutrophils Percent Auto 55.1 % (50-75); Platelet Count 161 X10^3/uL (150-400); Red Blood Cell Count 2.82 X10^6/uL (4.0-5.2); Red Cell Distribution Width 16.9 % (11.6-14.8); White Blood Cell Count 2.9 X10^3/uL (4.5-11.0)
[2022-12-15 05:04] LABS: Alanine Aminotransferase 55 IU/L (<35)
[2022-12-15 05:05] LABS: BUN Creatinine Ratio 3.2 (6-22); Blood Urea Nitrogen < 2 mg/dL (7-17)
[2022-12-15] MEDS: PANTOPRAZOLE DR 40 MG TABLET PO (05:06)
[2022-12-15 07:25] LABS: Reflexed Lactate in 2 Hours Y
[2022-12-15] MEDS: NICOTINE 21 MG PATCH TOP (08:39)
[2022-12-15] MEDS: MULTIVITAMIN 1 TABLET 1 TAB PO (08:39)
[2022-12-15] MEDS: THIAMINE 100 MG TABLET PO (08:39)
[2022-12-15] MEDS: HEPARIN 5,000 UNIT/ML VIAL 5000 UNIT SUBCUT ×2 (08:39→21:28)
[2022-12-15] MEDS: SODIUM CHLORIDE 0.9% 1,000 ML 100 ML IV ×2 (08:39→19:53)
[2022-12-15] MEDS: FOLIC ACID 1 MG TABLET PO (08:39)
[2022-12-15] MEDS: chlordiazePOXIDE 25 MG CAPSULE 50 MG PO ×2 (09:40→17:22)
--- NOTE | 2022-12-15 10:21 | P.PN_ITS ---
Subjective Subjective Interval history: She is starting to feel a bit better. She is able to eat some food today. Has some waxing and waning encephlopathy today per nursing staff. Overnight she required multiple doses of ativan. Increased librium to 50 mg q8hr today. Exam Vital Signs (past 8 hours): - 12/15/22 04:00 12/15/22 05:26 12/15/22 08:39 Temperature 98.5 F Pulse Rate 114 H 115 H 119 H Respiratory Rate 21 24 25 H Blood Pressure 163/107 H 163/107 H 155/98 H Pulse Oximetry 100 Oxygen Delivery Method Oxygen Flow Rate 0 12/15/22 09:19 12/15/22 08:00 Temperature Pulse Rate 109 H Respiratory Rate 22 Blood Pressure Pulse Oximetry Oxygen Delivery Method Room Air Oxygen Flow Rate Oxygen Delivery Method Room Air Oxygen Flow Rate 0 Narrative Exam Narrative: GEN: no acute distress, jaundiced HEENT: moist mucous membranes, + scleral icterus CV: tachycardic, no murmurs PULM: clear bilaterally ABD: soft, mild tenderness RUQ over liver, ND EXT: warm and well perfused no edema NEURO: awake, alert, no focal deficits noted but slowed responses Objective Labs 12/15/22 04:30 12/15/22 04:30 Labs: Laboratory Results - last 24 hr 12/14/22 12/14/22 12/14/22 06:10 11:17 13:26 WBC RBC Hgb Hct MCV MCH MCHC RDW Plt Count Neut % (Auto) Lymph % (Auto) [place] % (Auto) Eos % (Auto) Baso % (Auto) Neut # (Auto) Lymph # (Auto) [place] # (Auto) Eos # (Auto) Baso # (Auto) PT INR Sodium Potassium Chloride Carbon Dioxide BUN Creatinine Estimated GFR BUN/Creatinine Ratio Glucose Lactate 7.4 H* 5.9 H* Calcium Magnesium Total Bilirubin AST ALT Alkaline Phosphatase Ammonia Total Protein Albumin Globulin Albumin/Globulin Ratio Urine Color Yellow Urine Appearance Clear Urine pH 7.0 Ur Specific [place] 1.010 Urine Protein Negative Urine Glucose (UA) Negative Urine Ketones Negative Urine Occult Blood 2+ H Urine Nitrate Negative Urine Bilirubin 2+ H Ur Bilirubin Confirm Positive H Urine Urobilinogen 1.0 Ur Leukocyte Esterase 1+ H Urine RBC 0-1/hpf Urine WBC 5-10/hpf H Ur Squamous Epith Cells 0-1 /hpf Urine Bacteria Many (>30) H Ur Culture Indicated? Specimen cultured 12/15/22 12/15/22 12/15/22 04:30 04:30 04:30 WBC 2.9 L RBC 2.82 L Hgb 10.7 L Hct 30.9 L MCV 109.6 H MCH 37.8 H MCHC 34.5 RDW 16.9 H Plt Count 161 Neut % (Auto) 55.1 Lymph % (Auto) 31.7 [place] % (Auto) 10.7 Eos % (Auto) 1.5 L Baso % (Auto) 1.0 Neut # (Auto) 1600 Lymph # (Auto) 900 L [place] # (Auto) 300 Eos # (Auto) 0 Baso # (Auto) 0 PT INR Sodium 131 L Potassium 3.6 Chloride 99 Carbon Dioxide 21 L BUN < 2 L Creatinine 0.63 Estimated GFR > 60 BUN/Creatinine Ratio 3.2 L Glucose 99 Lactate Calcium 7.6 L Magnesium 1.3 L Total Bilirubin 8.5 H AST 73 H ALT 55 H Alkaline Phosphatase 66 Ammonia < 9 L Total Protein 5.6 L Albumin 2.7 L Globulin 2.9 Albumin/Globulin Ratio 0.9 L Urine Color Urine Appearance Urine pH Ur Specific [place] Urine Protein Urine Glucose (UA) Urine Ketones Urine Occult Blood Urine Nitrate Urine Bilirubin Ur Bilirubin Confirm Urine Urobilinogen Ur Leukocyte Esterase Urine RBC Urine WBC Ur Squamous Epith Cells Urine Bacteria Ur Culture Indicated? 12/15/22 12/15/22 04:30 05:25 WBC RBC Hgb Hct MCV MCH MCHC RDW Plt Count Neut % (Auto) Lymph % (Auto) [place] % (Auto) Eos % (Auto) Baso % (Auto) Neut # (Auto) Lymph # (Auto) [place] # (Auto) Eos # (Auto) Baso # (Auto) PT 16.5 H INR 1.4 H Sodium Potassium Chloride Carbon Dioxide BUN Creatinine Estimated GFR BUN/Creatinine Ratio Glucose Lactate 5.0 H* Calcium Magnesium Total Bilirubin AST ALT Alkaline Phosphatase Ammonia Total Protein Albumin Globulin Albumin/Globulin Ratio Urine Color Urine Appearance Urine pH Ur Specific [place] Urine Protein Urine Glucose (UA) Urine Ketones Urine Occult Blood Urine Nitrate Urine Bilirubin Ur Bilirubin Confirm Urine Urobilinogen Ur Leukocyte Esterase Urine RBC Urine WBC Ur Squamous Epith Cells Urine Bacteria Ur Culture Indicated? [facility] Social History household members: significant other Smoking Status: Current every day smoker alcohol intake: current Assessment & Plan Assessment & Plan narrative: 1. Acute EtOH withdrawal, alcohol abuse -she has long history of alcohol abuse -withdrawal is likely occurring because can not keep down any alcohol -for now treat with CIWA protocol and ativan -need to increase librium today to 50 q8 for worsening withdrawal symptoms overnight. -ordered MVI, folate, and thiamine -case management following as well, she waxes and wanes on her readiness for alcohol cessation at discharge. 2. Alcoholic ketoacidosis -she is notably acidotic with co2 of 14 on admit, now resolved -lactate is 5.9, follow daily as noted below as is not likely in setting of sepsis. -suspect etiology is likely alcoholic ketoacidosis -treat with high dose thiamine 500mg TID for 2 days, followed by 100 mg daily. 3. Alcoholic hepatitis, stable with likely toxic encephalopathy and/or hepatic encephalopathy. -had abdominal discomfort on admission, continues but improved today. -lfts with bilirubin >9, elevated ast/alt as well. Stable to slightly improved today. -PT only mildly about reference range, continue to follow. -maddrey's discriminant function is low, for now no indication for steroids -trend lfts daily -continue to follow INR, ammonia is <9, consider lactulose for encephalopathy though suspect more likely to be due to alcohol withdrawal, treatment with librium, etc. 4. Vomiting, resolved -suspect secondary to alcoholic hepatitis vs possible gastritis -treat hepatitis as above -for possible gastritis, continue IV PPI, can change to oral tomorrow if still tolerating a diet. -zofran prn ordered 5. Uterine mass / fibroid -noted on last admission -never followed up -MRI consistent with uterine fibroid. Outpatient gynecology follow up recommended. 6. Hypomagnesemia, hypokalemia -secondary to alcohol abuse, decreased intake. Mg 1.3 today and ordered repletion. -continue to replete mag and K riders as needed 7. Elevated lactate -secondary to alcohol vs thiamine vs other -currently she is afebrile, normal white count, no infectious symptoms -continue to trend for now daily. Code: Full additional history obtained via bedside staff, case management. Discussed plan of care with patient and bedside staff. I have reviewed patient's lab evaluation from today and flowsheet documentation personally. Have ordered follow up lab testing as discussed above.
--- NOTE | 2022-12-15 10:31 | CM.DPC ---
DCP Cont: Discussed patient during team rounds. Was noted to have worsening withdrawals. Patient is not medically ready for discharge. Did have conversation with her yesterday, a well as NEDRA Huggins, discussing resources. Patient did not want to quit drinking, would rather try to cut down. Stated, she's not in a place where she can just stop. Patient has been tearful, dealing with stresses, including a past divorce, and her teenage son who does not get along with significant other. During the conversation, discussed counseling as well. Patient then did not engage in further conversation, wanted to have some time to think about options. P: DCP to continue to offer resources. Most likely will not be able to revisit resources today, she is not as alert today. Her significant other, Hernan, had called and spoke to nurse, Clementina. Stated, he would also like to be available for planning, knows some rehab ideas. Patient will have to consent to this, as well. P: DCP to continue to follow and be available for any resources needed. Cristal Lynn RN/Tool And Gauge Inspector
--- NOTE | 2022-12-15 10:31 | PC.NURSE ---
Addendum entered by Clementina Walters R.N. 12/15/22 12:42: Spoke with pharmacist regarding pt's am labs K of 3.6 and Mg of 1.3 for replacement protocol. Original Note: In AM, RN spoke with provider about patient's lactate level and patient's increasing agitation, anxiety, hallucinations, and confusion related to alcohol withdrawal. Provider told RN that next lactate lab needed would be . in am.
[2022-12-15] MEDS: MAGNESIUM SULFATE 4 GM/100 ML PIGGYBACK IV (13:48)
[2022-12-15] MEDS: levoFLOXacin 250 MG TABLET 500 MG PO (17:22)
--- NOTE | 2022-12-15 20:03 | PC.NURSE ---
Addendum entered by Julia Massey R.N. 12/16/22 06:40: 0630- Patient continues to rest comfortably. Precedex titrated to 0.2 jeromy/kg/hr. Patient will wake to her name and attempts to follow commands. Urine output is sufficient, bilious and tea colored. Will monitor. Addendum entered by Julia Massey R.N. 12/15/22 22:18: 2233- Patient is resting comfortably at this time. Precedex is at 0.4 jeromy/kg/hr. Jovel placed per order. Will monitor. Addendum entered by Julia Massey R.N. 12/15/22 21:32: 2120- Ciwaa 14 with Precedex infusion. Medicated per order with Ativan IV. Will monitor. Addendum entered by Julia Massey R.N. 12/15/22 20:45: 2028- Ciwaa continues to escalate see charting. Patient increasingly uncooperative. Precedex started per order. Will monitor. Original Note: 1999- Patient has required 6mg IV ativan for Ciwaa scores (see charting). Patient last dose was at 19:45. Patient remains impulsive and very verbally combative. Patient attempting to get oob and asks the same questions over and over. Message sent to Dr Elizalde to upgrade to ICU await response. Will monitor.
[2022-12-15] MEDS: dexmedeTOMIDine in 0.9 % NaCL 400 MCG/100 ML PLAST..BAG IV (20:29)
[2022-12-16] VITALS (47 sets, daily range): BP systolic 111–165; BP diastolic 81–112; PULSE 72–83; RESP 13–24; TEMP 35.9–36.7; O2SAT 93–99
[2022-12-16 05:23] LABS: Add Manual Diff / Slide Review NO; Basophils Absolute Auto 0 /uL (0-100); Basophils Percent Auto 1.8 % (0-2); Eosinophils Absolute Auto 100 /uL (0-450); Eosinophils Percent Auto 3.1 % (2-4); Hematocrit 31.2 % (36-46); Hemoglobin 10.7 g/dL (12.0-16.0); INR 1.3 (0.9-1.3); Lymphocytes Absolute Auto 1100 /uL (1100-4500); Lymphocytes Percent Auto 43.8 % (25-40); Mean Corpuscular HGB Conc 34.2 % (30-36); Mean Corpuscular Hemoglobin 37.3 PG (26-34); Mean Corpuscular Volume 109.3 fL (80-100); Monocytes Absolute Auto 300 /uL (0-900); Monocytes Percent Auto 12.1 % (3-14); Neutrophils Absolute Auto 900 /uL (1500-7000); Neutrophils Percent Auto 39.2 % (50-75); Platelet Count 174 X10^3/uL (150-400); Prothrombin Time 15.5 SECONDS (10.1-12.7); Red Blood Cell Count 2.86 X10^6/uL (4.0-5.2); White Blood Cell Count 2.4 X10^3/uL (4.5-11.0)
[2022-12-16 05:31] LABS: Alanine Aminotransferase 35 IU/L (<35); Albumin 2.4 g/dL (3.5-5.0); Albumin Globulin Ratio 0.8 (1.0-2.8); Alkaline Phosphatase 78 U/L (38-126); Aspartate Aminotransferase 52 IU/L (14-36); Bilirubin Total 7.9 mg/dL (0.2-1.3); Carbon Dioxide 21 mmol/L (22-32); Chloride 106 mmol/L (98-107); Estimated Glomerular Filt Rate > 60 mL/min (>60); Globulin 2.9 g/dL (1.7-4.1); Glucose 82 mg/dL (70-100); HEMOLYSIS < 15 (0-50); Magnesium 2.2 mg/dL (1.6-2.3); Potassium 3.8 mmol/L (3.4-5.1); Sodium 134 mmol/L (137-145); Total Protein 5.3 g/dL (6.3-8.2)
[2022-12-16 05:58] LABS: BUN Creatinine Ratio 3.4 (6-22); Blood Urea Nitrogen < 2 mg/dL (7-17)
[2022-12-16 05:59] LABS: Calcium 7.1 mg/dL (8.4-10.2)
[2022-12-16] MEDS: SODIUM CHLORIDE 0.9% 1,000 ML 100 ML IV ×2 (06:01→15:53)
--- NOTE | 2022-12-16 09:15 | PC.NURSE ---
Addendum entered by Lizbeth Matthews R.N. 12/16/22 18:53: Pt woke to take antibiotic, ate a cup of pudding. Addendum entered by Lizbeth Matthews R.N. 12/16/22 16:22: Pt rested comfortably, repositioned as charted to off load pressure. Pt awoke around 1545 when a friend visited. Pt agreeable to brush teeth, bathe, and wash hair with shampoo cap. Pt was able to perform these tasks mostly independent in the bed with minimal assistance with setup. Pt able to have conversation with significant other and friend. Friend and significant other left, pt requested to rest. Pt resting comfortably. Pt rousable to voice but declines to open eyes and sit up to take PO evening medication. This RN attempted several times. Will attempt again. Pt declines to eat dinner, stating, I just want to sleep. Bed alarm active. Care ongoing, will continue to monitor. Original Note: Day shift: Pt fatigued, responds to voice and touch. Pt able to open eyes. Dexmedetomidine at 0.2 mcg/min/kg (See MAR). Repositioned pt, pt able to nod and shake head. Able to follow simple commands. VSS, afebrile, RA 97%. Seizure pads attached, suction set up and at bedside, bed alarm active, call light within reach, room close to nurse's station. Care ongoing. Will continue to monitor.
[2022-12-16] MEDS: HEPARIN 5,000 UNIT/ML VIAL 5000 UNIT SUBCUT ×2 (09:34→20:59)
[2022-12-16] MEDS: NICOTINE 21 MG PATCH TOP (09:35)
--- NOTE | 2022-12-16 10:17 | PM.PN.1 ---
Subjective Subjective Interval history: 42 F, worsening withdrawal symptoms overnight, placed on precedex infusion. I had difficulty arousing her on precedex infusion, did wake up for nursing staff earlier. Unable to complete subjective history at this time. Exam Vital Signs (past 8 hours): - 12/16/22 04:00 12/16/22 02:30 12/16/22 02:30 Temperature 97.2 F L Pulse Rate 75 Respiratory Rate 18 Blood Pressure 137/97 H Pulse Oximetry 97 Oxygen Delivery Method 12/16/22 03:00 12/16/22 03:00 12/16/22 03:30 Temperature Pulse Rate 74 Respiratory Rate 17 Blood Pressure 143/108 H 150/106 H Pulse Oximetry 99 Oxygen Delivery Method 12/16/22 03:30 12/16/22 04:00 12/16/22 04:00 Temperature Pulse Rate 74 74 Respiratory Rate 18 18 Blood Pressure 145/101 H Pulse Oximetry 98 98 Oxygen Delivery Method 12/16/22 04:18 12/16/22 07:00 12/16/22 07:00 Temperature Pulse Rate 74 Respiratory Rate 21 Blood Pressure 128/83 Pulse Oximetry 97 Oxygen Delivery Method Room Air 12/16/22 07:30 12/16/22 07:32 12/16/22 07:32 Temperature Pulse Rate 73 74 Respiratory Rate 19 16 Blood Pressure 145/93 H Pulse Oximetry 97 98 Oxygen Delivery Method 12/16/22 07:58 12/16/22 08:00 12/16/22 08:00 Temperature 96.6 F L Pulse Rate Respiratory Rate Blood Pressure 137/96 H Pulse Oximetry Oxygen Delivery Method Room Air 12/16/22 08:00 12/16/22 08:30 12/16/22 08:30 Temperature Pulse Rate 72 72 Respiratory Rate 20 18 Blood Pressure 146/99 H Pulse Oximetry 96 96 Oxygen Delivery Method 12/16/22 09:00 12/16/22 09:00 Temperature Pulse Rate 73 Respiratory Rate 20 Blood Pressure 131/93 H Pulse Oximetry 96 Oxygen Delivery Method Oxygen Delivery Method Room Air Oxygen Flow Rate 0 Narrative Exam Narrative: GEN: no acute distress, jaundiced, not awaking to voice, vitals stable on monitor. HEENT: moist mucous membranes, + scleral icterus CV: RRR, no murmurs PULM: clear bilaterally, poor inspiration ABD: soft, nondistended EXT: warm and well perfused, trace bilateral edema NEURO: sedated with precedex infusion Objective Labs 12/16/22 04:35 12/16/22 04:35 Labs: Laboratory Results - last 24 hr 12/16/22 12/16/22 12/16/22 04:35 04:35 04:35 WBC 2.4 L RBC 2.86 L Hgb 10.7 L Hct 31.2 L MCV 109.3 H MCH 37.3 H MCHC 34.2 RDW 17.0 H Plt Count 174 Neut % (Auto) 39.2 L Lymph % (Auto) 43.8 H [place] % (Auto) 12.1 Eos % (Auto) 3.1 Baso % (Auto) 1.8 Neut # (Auto) 900 L Lymph # (Auto) 1100 [place] # (Auto) 300 Eos # (Auto) 100 Baso # (Auto) 0 PT 15.5 H INR 1.3 Sodium 134 L Potassium 3.8 Chloride 106 Carbon Dioxide 21 L BUN < 2 L Creatinine 0.58 Estimated GFR > 60 BUN/Creatinine Ratio 3.4 L Glucose 82 Calcium 7.1 L Magnesium 2.2 Total Bilirubin 7.9 H AST 52 H ALT 35 H Alkaline Phosphatase 78 Total Protein 5.3 L Albumin 2.4 L Globulin 2.9 Albumin/Globulin Ratio 0.8 L PFSH Social History household members: significant other Smoking Status: Current every day smoker alcohol intake: current Assessment & Plan Assessment & Plan narrative: 1. Acute EtOH withdrawal, alcohol abuse -she has long history of alcohol abuse, prior withdrawal needing precedex. -Treated initially with CIWA protocol and ativan along with librium. Needing precedex for frequent ativan dosing given overnight, now in the ICU on precedex infusion. continue precedex infusion today, weaning as able. Continue librium but will decrease again to 25 mg TID from 50 given sedation level this morning. -ordered MVI, folate, and thiamine -case management following as well, she waxes and wanes on her readiness for alcohol cessation at discharge. 2. Alcoholic ketoacidosis -she was notably acidotic with co2 of 14 on admit, now resolved -lactate is 5.9, follow daily as noted below as is not likely in setting of sepsis. -suspect etiology is likely alcoholic ketoacidosis -treat with high dose thiamine 500mg TID for 2 days, followed by 100 mg daily. 3. Alcoholic hepatitis, stable with likely toxic encephalopathy and/or hepatic encephalopathy. -had abdominal discomfort on admission, continues but improved today. -lfts with bilirubin >9, elevated ast/alt as well. Stable to slightly improved today. -PT only mildly about reference range, continue to follow. -maddrey's discriminant function is low, for now no indication for steroids -trend lfts daily -continue to follow INR, ammonia is <9, consider lactulose for encephalopathy though suspect more likely to be due to alcohol withdrawal, treatment with librium, etc. 4. Vomiting, resolved -suspect secondary to alcoholic hepatitis vs possible gastritis -treat hepatitis as above -for possible gastritis, continue IV PPI, can change to oral tomorrow if still tolerating a diet. -zofran prn ordered 5. Uterine mass / fibroid -noted on last admission -never followed up -MRI consistent with uterine fibroid. Outpatient gynecology follow up recommended. 6. Hypomagnesemia, hypokalemia -secondary to alcohol abuse, decreased intake. Mg 1.3 today ordered repletion with improvement to 2.2 today. -continue to replete mag and K riders as needed, but none needed today. 7. Elevated lactate -secondary to alcohol vs thiamine vs other -currently she is afebrile, normal white count, no infectious symptoms -continue to trend for now daily. 8. Acute cystitis due to E. coli - did have some pelvic pain on admission, UA positive. Urine cultures with sensitive E. coli. Treat with 3 days of levofloxacin given tongue swelling with penicillins. Code: Full additional history obtained via bedside staff, case management. Discussed plan of care with patient and bedside staff. I have reviewed patient's lab evaluation from today and flowsheet documentation personally. Have ordered follow up lab testing as discussed above. I spent 35 minutes providing critical care management this patient. This excludes time spent in performing separately billed procedures.
[2022-12-16 12:42] LABS: Lactate (Lactic Acid) 2.1 mmol/L (0.7-2.1)
[2022-12-16 14:32] LABS: Reflexed Lactate in 2 Hours Y
[2022-12-16] MEDS: dexmedeTOMIDine in 0.9 % NaCL 400 MCG/100 ML PLAST..BAG IV (16:01)
[2022-12-16] MEDS: levoFLOXacin 250 MG TABLET 500 MG PO (18:43)
[2022-12-16] MEDS: chlordiazePOXIDE 25 MG CAPSULE PO (19:18)
[2022-12-17] VITALS (21 sets, daily range): BP systolic 105–170; BP diastolic 72–111; PULSE 70–101; RESP 15–28; TEMP 36.4; O2SAT 94–100
[2022-12-17] MEDS: chlordiazePOXIDE 25 MG CAPSULE PO ×2 (04:13→11:15)
--- NOTE | 2022-12-17 04:18 | PC.NURSE ---
0400- Patient awake and appropriate. Requesting to have the borrego out. Patient advised this will happen after she is off Precedex. Taking po well makes good eye contact. Librium given per order. Will monitor.
[2022-12-17 04:51] LABS: Basophils Absolute Auto 0 /uL (0-100); Basophils Percent Auto 1.2 % (0-2); Eosinophils Absolute Auto 100 /uL (0-450); Eosinophils Percent Auto 1.3 % (2-4); Hematocrit 32.3 % (36-46); Hemoglobin 10.9 g/dL (12.0-16.0); INR 1.3 (0.9-1.3); Lymphocytes Absolute Auto 1100 /uL (1100-4500); Lymphocytes Percent Auto 28.9 % (25-40); Mean Corpuscular HGB Conc 33.9 % (30-36); Mean Corpuscular Hemoglobin 37.4 PG (26-34); Mean Corpuscular Volume 110.2 fL (80-100); Monocytes Absolute Auto 500 /uL (0-900); Neutrophils Absolute Auto 2200 /uL (1500-7000); Neutrophils Percent Auto 56.6 % (50-75); Platelet Count 187 X10^3/uL (150-400); Prothrombin Time 14.6 SECONDS (10.1-12.7); Red Blood Cell Count 2.93 X10^6/uL (4.0-5.2); Red Cell Distribution Width 16.8 % (11.6-14.8); White Blood Cell Count 3.9 X10^3/uL (4.5-11.0)
[2022-12-17 04:56] LABS: Alanine Aminotransferase 30 IU/L (<35); Albumin 2.2 g/dL (3.5-5.0); Albumin Globulin Ratio 0.8 (1.0-2.8); Alkaline Phosphatase 76 U/L (38-126); Aspartate Aminotransferase 49 IU/L (14-36); Bilirubin Total 6.6 mg/dL (0.2-1.3); Calcium 7.1 mg/dL (8.4-10.2); Carbon Dioxide 18 mmol/L (22-32); Chloride 105 mmol/L (98-107); Estimated Glomerular Filt Rate > 60 mL/min (>60); Globulin 2.9 g/dL (1.7-4.1); Glucose 102 mg/dL (70-100); HEMOLYSIS < 15 (0-50); Magnesium 1.8 mg/dL (1.6-2.3); Sodium 130 mmol/L (137-145); Total Protein 5.1 g/dL (6.3-8.2)
[2022-12-17 05:02] LABS: Add Manual Diff / Slide Review SLIDE REVIEW
[2022-12-17 05:03] LABS: BUN Creatinine Ratio 2.9 (6-22); Blood Urea Nitrogen 2 mg/dL (7-17)
[2022-12-17 05:50] LABS: Anisocytosis 1+; Macrocytosis 2+
[2022-12-17] MEDS: PANTOPRAZOLE DR 40 MG TABLET PO (06:51)
--- NOTE | 2022-12-17 08:26 | PM.PN.1 ---
Exam Vital Signs (past 8 hours): - 12/17/22 00:30 12/17/22 01:00 12/17/22 01:00 Pulse Rate 79 80 Respiratory Rate 22 22 Blood Pressure 141/95 H Pulse Oximetry 96 96 Oxygen Delivery Method 12/17/22 01:30 12/17/22 02:00 12/17/22 02:00 Pulse Rate 79 80 Respiratory Rate 21 21 Blood Pressure 139/92 H Pulse Oximetry 96 94 Oxygen Delivery Method 12/17/22 02:30 12/17/22 03:00 12/17/22 03:00 Pulse Rate 77 78 Respiratory Rate 20 19 Blood Pressure 146/100 H Pulse Oximetry 98 99 Oxygen Delivery Method 12/17/22 03:30 12/17/22 04:00 12/17/22 04:00 Pulse Rate 79 80 Respiratory Rate 16 17 Blood Pressure 155/102 H Pulse Oximetry 100 100 Oxygen Delivery Method 12/17/22 04:00 12/17/22 04:30 12/17/22 05:00 Pulse Rate 81 Respiratory Rate 17 Blood Pressure 164/108 H Pulse Oximetry 98 Oxygen Delivery Method Room Air 12/17/22 05:00 12/17/22 05:30 12/17/22 06:00 Pulse Rate 76 75 Respiratory Rate 15 17 Blood Pressure 133/92 H Pulse Oximetry 100 100 Oxygen Delivery Method 12/17/22 06:00 Pulse Rate 75 Respiratory Rate 17 Blood Pressure Pulse Oximetry 99 Oxygen Delivery Method Oxygen Delivery Method Room Air Oxygen Flow Rate 0 Narrative Exam Narrative: GEN: no acute distress, jaundiced, not awaking to voice, vitals stable on monitor. HEENT: moist mucous membranes, + scleral icterus CV: RRR, no murmurs PULM: clear bilaterally, poor inspiration ABD: soft, nondistended EXT: warm and well perfused, trace bilateral edema NEURO: sedated with precedex infusion Objective Labs 12/17/22 04:17 12/17/22 04:17 Labs: Laboratory Results - last 24 hr 12/16/22 12/17/22 12/17/22 11:15 04:17 04:17 WBC 3.9 L D RBC 2.93 L Hgb 10.9 L Hct 32.3 L MCV 110.2 H MCH 37.4 H MCHC 33.9 RDW 16.8 H Plt Count 187 Neut % (Auto) 56.6 Lymph % (Auto) 28.9 [place] % (Auto) 12.0 Eos % (Auto) 1.3 L Baso % (Auto) 1.2 Neut # (Auto) 2200 Lymph # (Auto) 1100 [place] # (Auto) 500 Eos # (Auto) 100 Baso # (Auto) 0 RBC Morphology See below Anisocytosis 1+ H Macrocytosis 2+ H PT INR Sodium 130 L Potassium 4.0 Chloride 105 Carbon Dioxide 18 L BUN 2 L Creatinine 0.69 Estimated GFR > 60 BUN/Creatinine Ratio 2.9 L Glucose 102 H Lactate 2.1 Calcium 7.1 L Magnesium 1.8 Total Bilirubin 6.6 H AST 49 H ALT 30 Alkaline Phosphatase 76 Total Protein 5.1 L Albumin 2.2 L Globulin 2.9 Albumin/Globulin Ratio 0.8 L 12/17/22 04:17 WBC RBC Hgb Hct MCV MCH MCHC RDW Plt Count Neut % (Auto) Lymph % (Auto) [place] % (Auto) Eos % (Auto) Baso % (Auto) Neut # (Auto) Lymph # (Auto) [place] # (Auto) Eos # (Auto) Baso # (Auto) RBC Morphology Anisocytosis Macrocytosis PT 14.6 H INR 1.3 Sodium Potassium Chloride Carbon Dioxide BUN Creatinine Estimated GFR BUN/Creatinine Ratio Glucose Lactate Calcium Magnesium Total Bilirubin AST ALT Alkaline Phosphatase Total Protein Albumin Globulin Albumin/Globulin Ratio [facility] Social History household members: significant other Smoking Status: Current every day smoker alcohol intake: current Assessment & Plan Assessment & Plan narrative: 1. Acute EtOH withdrawal, alcohol abuse -she has long history of alcohol abuse, prior withdrawal needing precedex. -Treated initially with CIWA protocol and ativan along with librium. Needing precedex for frequent ativan dosing given overnight, now in the ICU on precedex infusion. continue precedex infusion today, weaning as able. Continue librium but will decrease again to 25 mg TID from 50 given sedation level this morning. -ordered MVI, folate, and thiamine -case management following as well, she waxes and wanes on her readiness for alcohol cessation at discharge. 2. Alcoholic ketoacidosis and lactic acidosis, resolved -she was notably acidotic with co2 of 14 on admit, now resolved -lactate up to 7.4, now 2.1 -suspect etiology is likely alcoholic ketoacidosis -treat with high dose thiamine 500mg TID for 2 days, followed by 100 mg daily. 3. Alcoholic hepatitis, stable with likely toxic encephalopathy and/or hepatic encephalopathy. -had abdominal discomfort on admission, continues but improved today. -lfts with bilirubin >9, elevated ast/alt as well. Stable to slightly improved today. -PT only mildly about reference range, continue to follow. -maddrey's discriminant function is low, for now no indication for steroids -trend lfts daily -continue to follow INR, ammonia is <9, consider lactulose for encephalopathy though suspect more likely to be due to alcohol withdrawal, treatment with librium, etc. 4. Vomiting, resolved -suspect secondary to alcoholic hepatitis vs possible gastritis -treat hepatitis as above -for possible gastritis, continue IV PPI, can change to oral tomorrow if still tolerating a diet. -zofran prn ordered 5. Uterine mass / fibroid -noted on last admission -never followed up -MRI consistent with uterine fibroid. Outpatient gynecology follow up recommended. 6. Hypomagnesemia, hypokalemia -secondary to alcohol abuse, decreased intake. Mg 1.3 today ordered repletion with improvement to 2.2 today. -continue to replete mag and K riders as needed, but none needed today. 7. Lactic acidosis, resolved -secondary to alcohol vs thiamine vs other -currently she is afebrile, normal white count, no infectious symptoms -trended from 7.4 to 2.1 8. Acute cystitis due to E. coli - did have some pelvic pain on admission, UA positive. Urine cultures with sensitive E. coli. Treat with 3 days of levofloxacin given tongue swelling with penicillins. Code: Full additional history obtained via bedside staff, case management. Discussed plan of care with patient and bedside staff. I have reviewed patient's lab evaluation from today and flowsheet documentation personally. Have ordered follow up lab testing as discussed above. I spent 35 minutes providing critical care management this patient. This excludes time spent in performing separately billed procedures.
[2022-12-17] MEDS: NICOTINE 21 MG PATCH TOP (08:55)
[2022-12-17] MEDS: HEPARIN 5,000 UNIT/ML VIAL 5000 UNIT SUBCUT (08:55)
[2022-12-17] MEDS: FOLIC ACID 1 MG TABLET PO (08:56)
[2022-12-17] MEDS: THIAMINE 100 MG TABLET PO (08:56)
[2022-12-17] MEDS: MULTIVITAMIN 1 TABLET 1 TAB PO (08:56)
--- NOTE | 2022-12-17 11:10 | PM.DS.1 ---
History of Present Illness History of Present Illness Date Patient Seen: 12/12/22 Time Patient Seen: 17:00 Chief complaint: Vomiting for 5 days Narrative: Ms. Carroll is a 42W with H alcohol abuse who presents with vomiting and shaking. She has a long history of alcohol abuse, she has been drinking significantly for decades. She has never had a withdrawal seizure or needed to be intubated. She was hospitalized for severe withdrawal earlier this year. She has never tried any medications for withdrawal. She has never tried outpatient or inpatient rehab. She tried AA a long time ago and disliked it. She had abdominal pain earlier but this is gone. She has no fevers/chills. She has no blood in vomit. She feels anxious and shaky. In the ED workup was done, vitals notable for afebrile, blood pressure 170s/90s, heart rate 100s. Labs reviewed by me and notable for WBC 3.4, hgb 12.8, plts 140. Na 135, co2 14, lactate 5.9. Bili 9.2, ast 160, alt 63. CT abdomen reviewed by me and shows hepatomegaly with significant hepatic steatosis, and stable uterus mas lesion. Ultrasound shows hepatomegaly. She was ordered for IV fluids, phenobarbital and ativan and admitted for further treatment. Discharge Providers Provider Date of admission: 12/12/22 16:09 Discharge Date: 12/17/22 Consults: 12/12/22 17:34 Consult to Automotive Welder Routine Comment: Discharge provider: Emory Corona DO Summary Hospital Course Discharge Diagnosis: 1. Acute EtOH withdrawal, alcohol abuse -she has long history of alcohol abuse, prior withdrawal needing precedex. -Treated initially with CIWA protocol and ativan along with librium. Needing precedex for frequent ativan dosing, now in the ICU on precedex infusion. Weaned off precedex over few days. Continude librium but will decrease again to 25 mg TID and discharged on librium taper. -ordered MVI, folate, and thiamine -case management following as well, and they're report is patient is not willing to go to alcohol treatment at this time 2. Alcoholic ketoacidosis and lactic acidosis, resolved -she was notably acidotic with co2 of 14 on admit, now resolved -lactate up to 7.4, now 2.1 -suspect etiology is likely alcoholic ketoacidosis -treat with high dose thiamine 500mg TID for 2 days, followed by 100 mg daily. 3. Alcoholic hepatitis, stable with likely toxic encephalopathy and/or hepatic encephalopathy now resolved -had abdominal discomfort on admission, continues but improved today. -lfts with bilirubin >9, elevated ast/alt as well. Now downtrending. -PT only mildly about reference range, continue to follow. -maddrey's discriminant function is low, for now no indication for steroids -trend lfts daily -continue to follow INR, ammonia is <9, consider lactulose for encephalopathy though suspect more likely to be due to alcohol withdrawal, treatment with librium, etc. 4. Vomiting, resolved -suspect secondary to alcoholic hepatitis vs possible gastritis -treat hepatitis as above -for possible gastritis, continue IV PPI, can change to oral tomorrow if still tolerating a diet. -zofran prn ordered 5. Uterine mass / fibroid -noted on last admission -never followed up -MRI consistent with uterine fibroid. Outpatient gynecology follow up recommended. 6. Hypomagnesemia, hypokalemia -secondary to alcohol abuse, decreased intake. Mg 1.3 today ordered repletion with improvement to 2.2. -continue to replete mag and K riders as needed 7. Lactic acidosis, resolved -secondary to alcohol vs thiamine vs other -currently she is afebrile, normal white count, no infectious symptoms -trended from 7.4 to 2.1 8. Acute cystitis due to E. coli - did have some pelvic pain on admission, UA positive. Urine cultures with sensitive E. coli. Treated with 3 days of levofloxacin given tongue swelling with penicillins. Hospital Course: Admitted for acute alcohol withdrawals and alcoholic hepatitis. Required precedex drip which was slowly weaned off. After 6 days she was stable and able to walk, eat and use the restroom independently. LFT's and T-bili trending down. 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 She was ok with medicaiton to curb the cravings, so she was placed on daily gabapentin 300mg. Discharged on librium taper. Exam Vital Signs (past 8 hours): - 12/17/22 03:30 12/17/22 04:00 12/17/22 04:00 Temperature Pulse Rate 79 80 Respiratory Rate 16 17 Blood Pressure 155/102 H Pulse Oximetry 100 100 Oxygen Delivery Method 12/17/22 04:00 12/17/22 04:30 12/17/22 05:00 Temperature Pulse Rate 81 Respiratory Rate 17 Blood Pressure 164/108 H Pulse Oximetry 98 Oxygen Delivery Method Room Air 12/17/22 05:00 12/17/22 05:30 12/17/22 06:00 Temperature Pulse Rate 76 75 Respiratory Rate 15 17 Blood Pressure 133/92 H Pulse Oximetry 100 100 Oxygen Delivery Method 12/17/22 06:00 12/17/22 06:30 12/17/22 07:00 Temperature Pulse Rate 75 74 Respiratory Rate 17 17 Blood Pressure 147/100 H Pulse Oximetry 99 98 Oxygen Delivery Method 12/17/22 07:00 12/17/22 07:30 12/17/22 08:00 Temperature 97.6 F Pulse Rate 74 74 Respiratory Rate 15 28 H Blood Pressure 170/111 H Pulse Oximetry 99 100 Oxygen Delivery Method 12/17/22 08:00 12/17/22 08:30 12/17/22 08:00 Temperature Pulse Rate 70 88 Respiratory Rate 17 17 Blood Pressure Pulse Oximetry 99 Oxygen Delivery Method Room Air 12/17/22 09:00 12/17/22 09:00 12/17/22 09:43 Temperature Pulse Rate 94 H 98 H Respiratory Rate 21 19 Blood Pressure 127/86 Pulse Oximetry Oxygen Delivery Method 12/17/22 10:00 12/17/22 10:00 Temperature Pulse Rate 101 H Respiratory Rate 16 Blood Pressure 105/72 Pulse Oximetry Oxygen Delivery Method Oxygen Delivery Method Room Air Oxygen Flow Rate 0 Narrative Exam Narrative: GEN: no acute distress, jaundiced, not awaking to voice, vitals stable on monitor. HEENT: moist mucous membranes, + scleral icterus CV: RRR, no murmurs PULM: clear bilaterally, poor inspiration ABD: soft, nondistended EXT: warm and well perfused, trace bilateral edema NEURO: sedated with precedex infusion Objective Labs 12/17/22 04:17 12/17/22 04:17 Labs: Laboratory Results - last 24 hr 12/16/22 12/17/22 12/17/22 11:15 04:17 04:17 WBC 3.9 L D RBC 2.93 L Hgb 10.9 L Hct 32.3 L MCV 110.2 H MCH 37.4 H MCHC 33.9 RDW 16.8 H Plt Count 187 Neut % (Auto) 56.6 Lymph % (Auto) 28.9 Douglas % (Auto) 12.0 Eos % (Auto) 1.3 L Baso % (Auto) 1.2 Neut # (Auto) 2200 Lymph # (Auto) 1100 Douglas # (Auto) 500 Eos # (Auto) 100 Baso # (Auto) 0 RBC Morphology See below Anisocytosis 1+ H Macrocytosis 2+ H PT INR Sodium 130 L Potassium 4.0 Chloride 105 Carbon Dioxide 18 L BUN 2 L Creatinine 0.69 Estimated GFR > 60 BUN/Creatinine Ratio 2.9 L Glucose 102 H Lactate 2.1 Calcium 7.1 L Magnesium 1.8 Total Bilirubin 6.6 H AST 49 H ALT 30 Alkaline Phosphatase 76 Total Protein 5.1 L Albumin 2.2 L Globulin 2.9 Albumin/Globulin Ratio 0.8 L 12/17/22 04:17 WBC RBC Hgb Hct MCV MCH MCHC RDW Plt Count Neut % (Auto) Lymph % (Auto) Douglas % (Auto) Eos % (Auto) Baso % (Auto) Neut # (Auto) Lymph # (Auto) Douglas # (Auto) Eos # (Auto) Baso # (Auto) RBC Morphology Anisocytosis Macrocytosis PT 14.6 H INR 1.3 Sodium Potassium Chloride Carbon Dioxide BUN Creatinine Estimated GFR BUN/Creatinine Ratio Glucose Lactate Calcium Magnesium Total Bilirubin AST ALT Alkaline Phosphatase Total Protein Albumin Globulin Albumin/Globulin Ratio [facility] Social History household members: significant other Smoking Status: Current every day smoker alcohol intake: current Discharge Plan Discharge Plan Patient Disposition: Home Provider Discharge Comment: You were admitted for severe alcohol withdrawals. This improved with withdrawal treatment. You will now be on a few more days of Librium to complete the withdrawal treatment for ongoing treatment of alcohol cravings you may take gabapentin 300 mg once daily. I have sent a prescription for this. For your facial rash I suggest coal tar shampoo in the scalp and into your eyes with your eyes closed and use it at least 3 times per week. Discharge orders & Medications Prescriptions: New chlordiazepoxide HCl 25 mg capsule See Rx Instructions .ROUTE .COMPLEX Qty: 6 0RF Rx Instructions: 25 mg orally 3 times daily for 1 day, then 25mg twice daily for 1 day, then 25mg once daily for 1 day then stop Continued levonorgestrel-ethinyl estrad 0.15-0.03 mg tablet 1 tab PO DAILY lidocaine 5 % adhesive patch,medicated 1 patch topical PRN PRN (Reason: Pain (Scale Score 1-3)) Changed gabapentin 300 mg capsule 300 mg PO DAILY Qty: 60 0RF Medication counseling provided by Pharmacist: Yes Visit Report/Discharge Packet Stand Alone Forms: Patient Portal/API, Stroke Signs & Symptoms Discharges patient from system. Discharge Date/Time: 12/17/22 16:09
--- NOTE | 2022-12-17 11:31 | CM.DPC ---
DCP Discharge Home Per MD, pt is medically stable to d/c home today with taper for withdrawals and no identified barriers to discharge. Per RN and CLAY TRANSPORTER, were able to get pt up to the bathroom and some hygiene care and might do shower today and somewhat unsteady but no current need for PT/OT eval. SW met bedside with pt and she became tearful stating she is ready to just be home in her own clothes and own environment. Pt states her fiance Hernan has been visiting and wants pt to be in a better place with her drinking but he is not upset with her. Pt states her friend Yvonne can provide transport home this afternoon while Hernan is working and then Hernan will be home for assist if needed and friend can help pt epic cupid analyst any prescriptions at the pharmacy. Pt is agreeable with SW providing ETOH/counseling resources to review after discharge but confirms she is not ready yet for Inpt ETOH tx at this time. Plan: Patient to d/c home via friend POV this afternoon and pt has resources to follow up in the community after discharge. NEDRA Prater
== END 2022-12-17 16:09 | disposition home or self-care (01) | DRG 775 ==
LOC: ED 16:10 → AC 16:10 → ICU 17:03
PROVIDERS: Internal Medicine; Admitting Provider Internal Medicine; Emergency Provider Emergency Medicine; Visit Provider Internal Medicine
DX: F10.139 Alcohol abuse with withdrawal, unspecified (principal); K70.10 Alcoholic hepatitis without ascites; E87.29 Other acidosis; G92.8 Other toxic encephalopathy; E83.42 Hypomagnesemia; E87.6 Hypokalemia; N30.00 Acute cystitis without hematuria; B96.20 Unspecified Escherichia coli [E. coli] as the cause of diseases classified elsewhere; K29.70 Gastritis, unspecified, without bleeding; D25.1 Intramural leiomyoma of uterus; F17.200 Nicotine dependence, unspecified, uncomplicated
CPT/HCPCS: 36415; 36592; 72197; 74177; 76705; 80048; 80053; 80076; 81001; 81003; 81025; 82140; 82962; 83605; 83690; 83735; 84703; 85025; 85027; 85610; 85730; 87077; 87086; 87186; 87797; 96374; 96375; 99284; C9113; J1642; J1644; J2060; J2405; J2560; J3475; Q9967

== ENCOUNTER 2022-12-24 15:23 | Emergency (ER) | payer OTHER, MEDICAID, SELFPAY ==
[2022-12-12 17:22] VITALS: BMI 20.5
[2022-12-24] VITALS (9 sets, daily range): BP systolic 123–146; BP diastolic 89–106; PULSE 80–110; RESP 13–27; TEMP 36.9; O2SAT 98–100; BMI 24.0
--- NOTE | 2022-12-24 15:26 | PC.NURSE ---
called pt from waiting room. informed by security pt went down to the vending [facility].
--- NOTE | 2022-12-24 15:50 | DI.RAD.S_ITS ---
PROCEDURE: XR CHEST 1V INDICATIONS: altered mental status TECHNIQUE: One view of the chest was acquired. COMPARISON: None. FINDINGS: Surgical changes and devices: None. Lungs and pleura: Lungs are clear. No pleural effusions or pneumothorax. Mediastinum: Mediastinal contours appear normal. Heart size is normal. Bones and chest wall: No suspicious bony lesions. Overlying soft tissues appear unremarkable. IMPRESSION: Portable chest within normal limits for age. Dictated by: Manda Dorsey M.D. on 12/24/2022 at 16:42 Approved by: Manda Dorsey M.D. on 12/24/2022 at 16:42
[2022-12-24 17:13] LABS: Add Manual Diff / Slide Review NO; Basophils Absolute Auto 100 /uL (0-100); Eosinophils Absolute Auto 0 /uL (0-450); Eosinophils Percent Auto 0.7 % (2-4); Hematocrit 31.3 % (36-46); Hemoglobin 10.6 g/dL (12.0-16.0); Lymphocytes Absolute Auto 1500 /uL (1100-4500); Mean Corpuscular HGB Conc 33.8 % (30-36); Mean Corpuscular Hemoglobin 35.8 PG (26-34); Mean Corpuscular Volume 105.7 fL (80-100); Monocytes Absolute Auto 500 /uL (0-900); Neutrophils Absolute Auto 4900 /uL (1500-7000); Neutrophils Percent Auto 70.3 % (50-75); Platelet Count 544 X10^3/uL (150-400); Red Blood Cell Count 2.96 X10^6/uL (4.0-5.2); Red Cell Distribution Width 16.7 % (11.6-14.8)
[2022-12-24 17:18] LABS: Ammonia (NH3) 10 umol/L (9-30)
[2022-12-24 17:19] LABS: Alanine Aminotransferase 37 IU/L (<35); Albumin Globulin Ratio 0.9 (1.0-2.8); Alkaline Phosphatase 110 U/L (38-126); Aspartate Aminotransferase 92 IU/L (14-36); BUN Creatinine Ratio 8.2 (6-22); Bilirubin Total 8.1 mg/dL (0.2-1.3); Blood Urea Nitrogen 5 mg/dL (7-17); Calcium 8.3 mg/dL (8.4-10.2); Carbon Dioxide 22 mmol/L (22-32); Chloride 104 mmol/L (98-107); Estimated Glomerular Filt Rate > 60 mL/min (>60); Globulin 3.4 g/dL (1.7-4.1); Glucose 79 mg/dL (70-100); HEMOLYSIS 18 (0-50); Potassium 3.3 mmol/L (3.4-5.1); Sodium 133 mmol/L (137-145); Total Protein 6.4 g/dL (6.3-8.2)
[2022-12-24 17:36] LABS: Ictotest Urine Positive (Negative)
[2022-12-24 17:40] LABS: UR Morphine/Opiate cutoff 300 Negative (Negative); Ur Creatinine Normal (Normal); Ur Specific Gravity Normal (Normal); Urine Amphetamines Negative (Negative); Urine Barbiturates Negative (Negative); Urine Benzodiazepines Positive (Negative); Urine Cocaine Negative (Negative); Urine MDMA Negative (Negative); Urine Methadone Negative (Negative); Urine Methamphetamines Negative (Negative); Urine Phencyclidine Negative (Negative); Urine Tetrahydrocannabinol Negative (Negative); Urine Tricyclic Antidepressant Negative (Negative); Urine pH Normal (Normal)
[2022-12-24 17:41] LABS: Urine Oxycodone Negative (Negative)
[2022-12-24 17:47] LABS: Bacteria Urine Occasional (0-1); RBC Urine None Seen (0-5/HPF); Renal Epithelial Cells Urine 1-5/HPF (0-1/HPF); Squamous Epithelial Cell Urine 5-10 /HPF (0-5/HPF)
[2022-12-24 17:48] LABS: Culture Indicated Urine Cult Not Indicated; Transitional Epi Cells Urine 0-1/HPF (0-5/HPF); WBC Urine 0-1/HPF (0-5/HPF)
--- NOTE | 2022-12-24 18:05 | ED.EXTPRO ---
HPI - Extremity Problem General Chief complaint: Extremity Problem,Nontraumatic Stated complaint: Edema in feet, Seen here recently Time Seen by Provider: 12/24/22 18:05 Source: patient Mode of arrival: Ambulatory Limitations: no limitations History of Present Illness HPI Narrative: This is a 42-year-old female with past history of alcohol abuse with liver disease. Patient was recently hospitalized and discharged on 12/17/2022 for alcohol withdrawal. Patient presents today she states she has new swelling in her feet that started when she left the hospital. She has noticed a little bit of shortness of breath when she goes upstairs. She states swelling slowly worsened over the last couple days. She denies any pain. No fevers no chills no chest pain or pressure, shortness of breath only when exerting herself going upstairs. No syncope or lightheadedness. No nausea, no vomiting. Patient denies any diarrhea or constipation, no melena hematochezia. No dysuria urgency or frequency. Patient states she has not had similar issues in the she states she is on gabapentin daily currently she finished the prescription for Librium. She states she has not had any cravings for alcohol though she did have a couple sips yesterday. She states she occasionally vapes tobacco, uses CBD gummies, no illicit or IV drugs. Denies any prior surgeries. States she has a primary care through [facility]. She is not connected with gastroenterology or hepatology. She defers any meeting with social work for assistance with ETOH abuse for continued abstinence. Patient does state that she picked up some compression socks, Epsom salts, a potassium supplement, something called water out and Dandelion tea and asked if these would be appropriate to take. Related Data Home Medications Medication Instructions Recorded Confirmed levonorgestrel 0.15 mg-ethinyl 1 tab PO DAILY 12/12/22 12/12/22 estradiol 0.03 mg tablet lidocaine 5 % topical patch 1 patch topical PRN PRN Pain 12/12/22 12/12/22 (Scale Score 1-3) Previous Rx's Medication Instructions Recorded chlordiazepoxide HCl 25 mg capsule See Rx Instructions .Route 12/17/22 .COMPLEX #6 caps gabapentin 300 mg capsule 300 mg PO DAILY #60 caps 12/17/22 furosemide 40 mg tablet (Lasix) 40 mg PO DAILY #5 tabs 12/24/22 Allergies Allergy/AdvReac Type Severity Reaction Status Date / Time Penicillins Allergy Swelling Verified 12/12/22 17:22 of Lip/Tongue/Throat Review of Systems Review of Systems ROS Unobtainable: All systems reviewed & are unremarkable except as noted in HPI and below Patient History Social History household members: significant other Smoking Status: Current every day smoker alcohol intake: current Smoking Status: Current every day smoker tobacco type: vaping alcohol intake frequency: 3 or more drinks per day Alcohol type: hard liquor Substance Use Type: marijuana Exam Narrative Exam Narrative: GENERAL: Alert and oriented x three, female in mild distress. Patient has jaundice. HEENT: Head normocephalic, atraumatic, EOMI, positive for scleral icterus, pupils reactive, face symmetric, moist mucous membranes NECK: Supple, full range of motion CARDIOVASCULAR: Regular rate and rhythm without murmurs, rubs or gallops. RESPIRATORY: Breath sounds equal bilaterally, no wheezes rales or rhonchi. ABDOMEN: Soft, nontender. Nondistended. No fluid wave. Normoactive bowel sounds all 4 quadrants. No guarding or rebound, rigidity, no mass : No CVA tenderness EXTREMITIES: Normal range of motion, no clubbing, 1+ bilateral lower extremity edema. Neurovascularly intact. 2+ pulses bilateral lower extremities. No warmth, erythema or other skin changes changes. NEUROLOGICAL: Cranial nerves II through XII grossly intact. Moving all extremities SKIN: Warm, dry, no petechiae, no rashes or lesions. Initial Vital Signs Initial Vital Signs: Vital Signs Temperature 98.4 F 12/24/22 15:40 Pulse Rate 110 H 12/24/22 15:40 Respiratory Rate 16 12/24/22 15:40 Blood Pressure 123/93 H 12/24/22 15:40 Pulse Oximetry 100 12/24/22 15:40 Oxygen Delivery Method Room Air 12/24/22 15:40 Course Orders Ordered: Discontinued Medications Furosemide (Furosemide 40 Mg/4 Ml Vial) 40 mg IV NOW ONE Stop: 12/24/22 18:23 Last Admin: 12/24/22 18:40 Dose: 40 mg Documented By: CARLI Potassium Chloride (Potassium Chloride 20 Meq/15 Ml Udc) 40 meq PO NOW ONE Stop: 09/01/23 18:32 Last Admin: 12/24/22 18:38 Dose: 40 meq Documented By: CARLI Vital Signs Vital signs: Vital Signs - 8 hr 12/24/22 15:40 Temperature 98.4 F Pulse Rate 110 H Respiratory Rate 16 Blood Pressure 123/93 H Pulse Oximetry 100 Oxygen Delivery Method Room Air MDM - Extremity (Nontraumatic) Lab Data 12/24/22 16:47 12/24/22 16:47 Labs: Lab Results 12/24/22 12/24/22 12/24/22 Range/Units 16:47 16:47 16:47 WBC 7.0 (4.5-11.0) X10^3/uL RBC 2.96 L (4.0-5.2) X10^6/uL Hgb 10.6 L (12.0-16.0) g/dL Hct 31.3 L (36-46) % MCV 105.7 H D (80-100) fL MCH 35.8 H (26-34) PG MCHC 33.8 (30-36) % RDW 16.7 H (11.6-14.8) % Plt Count 544 H (150-400) X10^3/uL Neut % (Auto) 70.3 (50-75) % Lymph % (Auto) 21.0 L (25-40) % [place] % (Auto) 7.0 (3-14) % Eos % (Auto) 0.7 L (2-4) % Baso % (Auto) 1.0 (0-2) % Neut # (Auto) 4900 (1875-6666) /uL Lymph # (Auto) 1500 (4069-6812) /uL [place] # (Auto) 500 (0-900) /uL Eos # (Auto) 0 (0-450) /uL Baso # (Auto) 100 (0-100) /uL Sodium 133 L (137-145) mmol/L Potassium 3.3 L (3.4-5.1) mmol/L Chloride 104 (98-107) mmol/L Carbon Dioxide 22 (22-32) mmol/L BUN 5 L (7-17) mg/dL Creatinine 0.61 (0.52-1.04) mg/dL Estimated GFR > 60 (>60) mL/min BUN/Creatinine Ratio 8.2 (6-22) Glucose 79 (70-100) mg/dL Calcium 8.3 L (8.4-10.2) mg/dL Total Bilirubin 8.1 H (0.2-1.3) mg/dL AST 92 H (14-36) IU/L ALT 37 H (<35) IU/L Alkaline Phosphatase 110 (38-126) U/L Ammonia 10 (9-30) umol/L Total Creatine Kinase (30-135) U/L Troponin I (0.01-0.034) ng/mL NT-Pro-B Natriuret Pep (<125) pg/mL Total Protein 6.4 (6.3-8.2) g/dL Albumin 3.0 L (3.5-5.0) g/dL Globulin 3.4 (1.7-4.1) g/dL Albumin/Globulin Ratio 0.9 L (1.0-2.8) Lipase (23-300) U/L Ur Bilirubin Confirm (Negative) Urine RBC (0-5/HPF) Urine WBC (0-5/HPF) Ur Squamous Epith Cells (0-5/HPF) Ur Transition Epith Cell (0-5/HPF) Ur Renal Epithelial Cell (0-1/HPF) Urine Bacteria (None) Ur Culture Indicated? U Opiates 300ng/mL cut (Negative) Ur Oxycodone Screen (Negative) Urine Methadone Screen (Negative) Ur Barbiturates Screen (Negative) U Tricyclic Antidepress (Negative) Ur Phencyclidine Scrn (Negative) Ur Amphetamines Screen (Negative) U Methamphetamines Scrn (Negative) Ur MDMA Scrn (Ecstasy) (Negative) U Benzodiazepines Scrn (Negative) Urine Cocaine Screen (Negative) U Marijuana (THC) Screen (Negative) Ethyl Alcohol ( - 10) mg/dL 12/24/22 12/24/22 12/24/22 Range/Units 16:47 16:47 16:47 WBC (4.5-11.0) X10^3/uL RBC (4.0-5.2) X10^6/uL Hgb (12.0-16.0) g/dL Hct (36-46) % MCV (80-100) fL MCH (26-34) PG MCHC (30-36) % RDW (11.6-14.8) % Plt Count (150-400) X10^3/uL Neut % (Auto) (50-75) % Lymph % (Auto) (25-40) % [place] % (Auto) (3-14) % Eos % (Auto) (2-4) % Baso % (Auto) (0-2) % Neut # (Auto) (1172-4035) /uL Lymph # (Auto) (7524-0858) /uL [place] # (Auto) (0-900) /uL Eos # (Auto) (0-450) /uL Baso # (Auto) (0-100) /uL Sodium (137-145) mmol/L Potassium (3.4-5.1) mmol/L Chloride (98-107) mmol/L Carbon Dioxide (22-32) mmol/L BUN (7-17) mg/dL Creatinine (0.52-1.04) mg/dL Estimated GFR (>60) mL/min BUN/Creatinine Ratio (6-22) Glucose (70-100) mg/dL Calcium (8.4-10.2) mg/dL Total Bilirubin (0.2-1.3) mg/dL AST (14-36) IU/L ALT (<35) IU/L Alkaline Phosphatase (38-126) U/L Ammonia (9-30) umol/L Total Creatine Kinase (30-135) U/L Troponin I (0.01-0.034) ng/mL NT-Pro-B Natriuret Pep (<125) pg/mL Total Protein (6.3-8.2) g/dL Albumin (3.5-5.0) g/dL Globulin (1.7-4.1) g/dL Albumin/Globulin Ratio (1.0-2.8) Lipase (23-300) U/L Ur Bilirubin Confirm Positive H (Negative) Urine RBC None seen (0-5/HPF) Urine WBC 0-1/hpf (0-5/HPF) Ur Squamous Epith Cells 5-10 /hpf H (0-5/HPF) Ur Transition Epith Cell 0-1/hpf (0-5/HPF) Ur Renal Epithelial Cell 1-5/hpf H (0-1/HPF) Urine Bacteria Occasional (0-1) (None) Ur Culture Indicated? Cult not indicated U Opiates 300ng/mL cut Negative (Negative) Ur Oxycodone Screen Negative (Negative) Urine Methadone Screen Negative (Negative) Ur Barbiturates Screen Negative (Negative) U Tricyclic Antidepress Negative (Negative) Ur Phencyclidine Scrn Negative (Negative) Ur Amphetamines Screen Negative (Negative) U Methamphetamines Scrn Negative (Negative) Ur MDMA Scrn (Ecstasy) Negative (Negative) U Benzodiazepines Scrn Positive H (Negative) Urine Cocaine Screen Negative (Negative) U Marijuana (THC) Screen Negative (Negative) Ethyl Alcohol ( - 10) mg/dL 12/24/22 12/24/22 12/24/22 Range/Units 17:47 17:47 17:47 WBC (4.5-11.0) X10^3/uL RBC (4.0-5.2) X10^6/uL Hgb (12.0-16.0) g/dL Hct (36-46) % MCV (80-100) fL MCH (26-34) PG MCHC (30-36) % RDW (11.6-14.8) % Plt Count (150-400) X10^3/uL Neut % (Auto) (50-75) % Lymph % (Auto) (25-40) % [place] % (Auto) (3-14) % Eos % (Auto) (2-4) % Baso % (Auto) (0-2) % Neut # (Auto) (5255-3378) /uL Lymph # (Auto) (8206-2576) /uL [place] # (Auto) (0-900) /uL Eos # (Auto) (0-450) /uL Baso # (Auto) (0-100) /uL Sodium (137-145) mmol/L Potassium (3.4-5.1) mmol/L Chloride (98-107) mmol/L Carbon Dioxide (22-32) mmol/L BUN (7-17) mg/dL Creatinine (0.52-1.04) mg/dL Estimated GFR (>60) mL/min BUN/Creatinine Ratio (6-22) Glucose (70-100) mg/dL Calcium (8.4-10.2) mg/dL Total Bilirubin (0.2-1.3) mg/dL AST (14-36) IU/L ALT (<35) IU/L Alkaline Phosphatase (38-126) U/L Ammonia (9-30) umol/L Total Creatine Kinase 22 L (30-135) U/L Troponin I < 0.012 (0.01-0.034) ng/mL NT-Pro-B Natriuret Pep 263 H (<125) pg/mL Total Protein (6.3-8.2) g/dL Albumin (3.5-5.0) g/dL Globulin (1.7-4.1) g/dL Albumin/Globulin Ratio (1.0-2.8) Lipase 306 H (23-300) U/L Ur Bilirubin Confirm (Negative) Urine RBC (0-5/HPF) Urine WBC (0-5/HPF) Ur Squamous Epith Cells (0-5/HPF) Ur Transition Epith Cell (0-5/HPF) Ur Renal Epithelial Cell (0-1/HPF) Urine Bacteria (None) Ur Culture Indicated? U Opiates 300ng/mL cut (Negative) Ur Oxycodone Screen (Negative) Urine Methadone Screen (Negative) Ur Barbiturates Screen (Negative) U Tricyclic Antidepress (Negative) Ur Phencyclidine Scrn (Negative) Ur Amphetamines Screen (Negative) U Methamphetamines Scrn (Negative) Ur MDMA Scrn (Ecstasy) (Negative) U Benzodiazepines Scrn (Negative) Urine Cocaine Screen (Negative) U Marijuana (THC) Screen (Negative) Ethyl Alcohol < 10 ( - 10) mg/dL Point of Care Testing Test Results Negative Urine Dip Bedside Urine Glucose Negative Bedside Urine Bilirubin + 1 Bedside Urine Ketone - Negative Urine Specific [place] 1.010 Bedside Urine Occult Blood +/- Bedside Urine pH 6.0 Bedside Urine Protein - Negative Bedside Urine Urobilinogen - Negative Bedside Urine Nitrite - Negative Bedside Urine Leukocytes +/- 15 Esterase Imaging Data Chest x-ray: Radiologist's Impression: Close Chest X-Ray (Signed) Manda Dorsey - 12/24/22 Telemetry Strips 12/12/22 Abdomen Ultrasound (Signed) Perry Hogan - 12/12/22 Abdomen/Pelvis CT (Signed) Perry Hogan - 12/12/22 Pelvis MRI (Signed) King Jarquin - 12/12/22 Echocardiogram Ultrasound (Signed) Kennedi Begum - 06/20/22 Lumbar Spine MRI (Signed) Angel Berry - 05/20/22 Telemetry Strips 05/19/22 Telemetry Strips 05/19/[address] (Signed) Quintin Ocasio - 05/19/[address] (Signed) Quintin Ocasio - 05/19/22 Abdomen/Pelvis CT (Signed) Quintin Ocasio - 05/19/22 Launch?[address] [address] XRay Report Signed Patient: Yovanny Carroll MR#: [id number] : 1980 Acct:[id number] Age/Sex: 42 / F Date of Service: 12/24/22 Loc: ED Accession Number: [id number] ?? Procedure: XR chest 1V Ordering Provider: Marvin Garrett D.O. PROCEDURE:? XR CHEST 1V ? INDICATIONS:? altered mental status ? TECHNIQUE:? One view of the chest was acquired.? ? COMPARISON:? None. ? FINDINGS:? ? Surgical changes and devices:? None.? ? Lungs and pleura:? Lungs are clear.? No pleural effusions or pneumothorax.? ? Mediastinum:? Mediastinal contours appear normal.? Heart size is normal.? ? Bones and chest wall:? No suspicious bony lesions.? Overlying soft tissues appear unremarkable.? ? ? IMPRESSION:? Portable chest within normal limits for age. ? ? Dictated by: Manda Dorsey M.D. on 12/24/2022 at 16:42 ? ? Approved by: Manda Dorsey M.D. on 12/24/2022 at 16:42?? ECG Data Attestation EKG: I personally reviewed and interpreted this ECG as follows: Interpretation: Sinus rhythm rate 84 DE 126 QRS is 72 and QTC 472. No acute ST elevation or depression is noted. No priors available. MDM Narrative Medical decision making narrative: 42-year-old female with known liver disease who is had some increasing edema in her feet since she was discharged approximately 5 or 6 days ago with alcohol withdrawal. Patient states she is not having any persistent withdrawal symptoms. Patient's labs show chronic anemia, no white count, coags are appropriate, sodium is 133 potassium 3.3 was given dose orally, BUN renal function or appropriate bilirubin 8.1 was 6.6 on the 25th with an AST ALT 92 and 37. Lipase was 306. Alk-phos is negative with BNP of 263 troponin negative. Suspect patient is having some 3rd spacing. She is jaundiced with some scleral icterus. She has not established with GI or hepatology was given referral for this. Patient states she is continuing to abstain although she had some sips of alcohol recently. Patient was given dose of Lasix, return precautions and discussed need for follow-up. Discharge Plan Departure Patient Disposition: Home Clinical Impression: Bilateral edema of lower extremity, Chronic liver failure Activity Restrictions/Additional Instructions: Please follow-up with gastroenterology/hepatology for your liver failure, please call to set up an appointment. Continue to avoid alcohol but you may need additional interventions which is why it is important for you to follow up with a liver specialist. You may take Lasix 1 tablet daily for the next 5 days. Prescription sent to [facility] in [place]. If you wish to stop your gabapentin I would recommend weaning down to 1 tablet daily, if you are tolerating this well after 7 days you can take half tablet daily x7 days and then stop it in its entirety. Please return for worsening symptoms, fevers, increasing swelling of her extremities, abdomen, nausea or vomiting, no abdominal back or flank pain, new chest pain or shortness of breath, black or bloody stools or other new or concerning changes. Prescriptions: New furosemide [Lasix] 40 mg tablet 40 mg PO DAILY Qty: 5 0RF No Action levonorgestrel-ethinyl estrad 0.15-0.03 mg tablet 1 tab PO DAILY lidocaine 5 % adhesive patch,medicated 1 patch topical PRN PRN (Reason: Pain (Scale Score 1-3)) chlordiazepoxide HCl 25 mg capsule See Rx Instructions .ROUTE .COMPLEX Qty: 6 0RF Rx Instructions: 25 mg orally 3 times daily for 1 day, then 25mg twice daily for 1 day, then 25mg once daily for 1 day then stop gabapentin 300 mg capsule 300 mg PO DAILY Qty: 60 0RF Referrals: Russell Meza MD [Non-Staff] - Stand Alone Forms: Patient Portal/API
[2022-12-24 18:38] LABS: Creatine Kinase 22 U/L (30-135); Ethanol (ETOH) < 10 mg/dL
[2022-12-24] MEDS: POTASSIUM CHLORIDE 20 MEQ/15 ML UDC 40 MEQ PO (18:38)
[2022-12-24] MEDS: FUROSEMIDE 40 MG/4 ML VIAL IV (18:40)
[2022-12-24 18:43] LABS: Lipase 306 U/L (23-300)
[2022-12-24 18:51] LABS: NT-proBNP (BNP-Adult 18+) 263 pg/mL (<125); Troponin I < 0.012 ng/mL (0.01-0.034)
== END 2022-12-24 19:33 | disposition home or self-care (01) ==
PROVIDERS: Emergency Medicine; Emergency Provider Emergency Medicine
DX: R60.0 Localized edema (principal); K72.10 Chronic hepatic failure without coma; R06.02 Shortness of breath
CPT/HCPCS: 36415; 71045; 80053; 80305; 80320; 81003; 81015; 81025; 82140; 82550; 83690; 83880; 84484; 85025; 93005; 96374; 99284; J1940

== ENCOUNTER 2023-04-24 14:45 | Emergency (ER) | payer OTHER, MEDICAID, SELFPAY ==
[2022-12-12 17:22] VITALS: BMI 20.5
[2023-04-24 14:49] VITALS: BP 165/81; PULSE 110; RESP 18; TEMP 36.9; O2SAT 100; BMI 23.7
[2023-04-24 15:28] LABS: UR Morphine/Opiate cutoff 300 Negative (Negative); Ur Creatinine Normal (Normal); Ur Specific Gravity Normal (Normal); Urine Amphetamines Negative (Negative); Urine Barbiturates Negative (Negative); Urine Benzodiazepines Negative (Negative); Urine Cocaine Negative (Negative); Urine MDMA Negative (Negative); Urine Methadone Negative (Negative); Urine Methamphetamines Negative (Negative); Urine Oxycodone Negative (Negative); Urine Phencyclidine Negative (Negative); Urine Tetrahydrocannabinol Negative (Negative); Urine Tricyclic Antidepressant Negative (Negative); Urine pH Normal (Normal)
--- NOTE | 2023-04-24 15:55 | ED.RECABL ---
HPI - Recheck/Abnormal Lab/Rx <Amanda Newman PA-C - Last Filed: 04/24/23 15:58> General Chief Complaint: Recheck/Abnormal Lab/Rx Stated Complaint: UA Time Seen by Provider: 04/24/23 15:11 History of Present Illness HPI narrative: 43-year-old female presents to the ED for a drug/toxicology screen requested by her drug recovery center in [place]. Patient recently went through a drug rehab. Patient feels well and reports no symptoms. Related Data Home Medications Medication Instructions Recorded Confirmed levonorgestrel 0.15 mg-ethinyl 1 tab PO DAILY 12/12/22 12/12/22 estradiol 0.03 mg tablet lidocaine 5 % topical patch 1 patch topical PRN PRN Pain 12/12/22 12/12/22 (Scale Score 1-3) Previous Rx's Medication Instructions Recorded chlordiazepoxide HCl 25 mg capsule See Rx Instructions .Route 12/17/22 .COMPLEX #6 caps gabapentin 300 mg capsule 300 mg PO DAILY #60 caps 12/17/22 furosemide 40 mg tablet (Lasix) 40 mg PO DAILY #5 tabs 12/24/22 Allergies Allergy/AdvReac Type Severity Reaction Status Date / Time Penicillins Allergy Swelling Verified 04/29/23 09:33 of Lip/Tongue/Throat Review of Systems <Amanda Newman PA-C - Last Filed: 04/24/23 15:58> Constitutional Constitutional: Denies chills, Denies fatigue, Denies fever(s), Denies frequent falls, Denies lethargy and Denies weakness Eyes Eyes: Denies change in vision, Denies eye discharge, Denies irritation and Denies loss of vision ENT Ears, Nose, Mouth, and Throat: Denies change in voice, Denies dizziness, Denies neck pain, Denies sore throat and Denies throat swelling Cardiovascular Cardiovascular: Denies chest pain, Denies irregular heart rhythm, Denies lightheadedness, Denies palpitations, Denies dyspnea, Denies dyspnea on exertion and Denies orthopnea Respiratory Respiratory: Denies cough, Denies dyspnea, Denies dyspnea on exertion and Denies wheezing Gastrointestinal Gastrointestinal: Denies abdominal pain, Denies change in bowel habits, Denies diarrhea, Denies nausea and Denies vomiting Musculoskeletal Musculoskeletal: Denies neck pain and Denies numbness Integumentary/Breasts Skin/Breast: Denies pruritus, Denies erythema, Denies rash and Denies wounds Neurologic Neurologic: Denies behavioral changes, Denies confusion, Denies dizziness, Denies frequent falls, Denies loss of vision, Denies numbness and Denies weakness Psychiatric Psychiatric: Denies anxiety, Denies behavioral changes, Denies confusion, Denies depression, Denies homicidal ideation and Denies suicidal ideation Endocrine Endocrine: Denies fatigue, Denies flushing and Denies palpitations Hematologic/Lymphatic Hematologic/Lymphatic: Denies easy bruising Allergic/Immunologic Allergic/Immunologic: Denies urticaria, Denies throat swelling and Denies wheezing Patient History <Amanda Newman PA-C - Last Filed: 04/24/23 15:58> Social History household members: significant other Smoking Status: Current every day smoker alcohol intake: current Smoking Status: Current every day smoker tobacco type: vaping alcohol intake frequency: other Alcohol type: hard liquor Substance Use Type: former substance user Exam <Amanda Newman PA-C - Last Filed: 04/24/23 15:58> Narrative Exam Narrative: Patient appears well, conversing normally. Physical exam deferred due to nature of encounter. Urine was obtained for a urine drug screen. Initial Vital Signs Initial Vital Signs: Vital Signs Temperature 98.4 F 04/24/23 14:49 Pulse Rate 110 H 04/24/23 14:49 Respiratory Rate 18 04/24/23 14:49 Blood Pressure 165/81 H 04/24/23 14:49 Pulse Oximetry 100 04/24/23 14:49 Oxygen Delivery Method Room Air 04/24/23 14:49 <Tony Flores MD - Last Filed: 05/04/23 10:11> Initial Vital Signs Initial Vital Signs: Vital Signs Temperature 98.4 F 04/24/23 14:49 Pulse Rate 110 H 04/24/23 14:49 Respiratory Rate 18 04/24/23 14:49 Blood Pressure 165/81 H 04/24/23 14:49 Pulse Oximetry 100 04/24/23 14:49 Oxygen Delivery Method Room Air 04/24/23 14:49 Course <Amanda Newman PA-C - Last Filed: 04/24/23 15:58> Orders Ordered: ED Orders 04/24/23 15:11 Urine Drug Screen, Rapid Stat Vital Signs Vital signs: Vital Signs - 8 hr 04/24/23 14:49 Temperature 98.4 F Pulse Rate 110 H Respiratory Rate 18 Blood Pressure 165/81 H Pulse Oximetry 100 Oxygen Delivery Method Room Air <Tony Flores MD - Last Filed: 05/04/23 10:11> Orders Ordered: ED Orders 04/24/23 15:11 Urine Drug Screen, Rapid Stat Vital Signs Vital signs: Vital Signs - 8 hr 04/24/23 14:49 Temperature 98.4 F Pulse Rate 110 H Respiratory Rate 18 Blood Pressure 165/81 H Pulse Oximetry 100 Oxygen Delivery Method Room Air MDM - Recheck/Abnormal Lab/Rx <Amanda Newman PA-C - Last Filed: 04/24/23 15:58> Lab Data Labs: Lab Results 04/24/23 Range/Units 15:11 U Opiates 300ng/mL cut Negative (Negative) Ur Oxycodone Screen Negative (Negative) Urine Methadone Screen Negative (Negative) Ur Barbiturates Screen Negative (Negative) U Tricyclic Antidepress Negative (Negative) Ur Phencyclidine Scrn Negative (Negative) Ur Amphetamines Screen Negative (Negative) U Methamphetamines Scrn Negative (Negative) Ur MDMA Scrn (Ecstasy) Negative (Negative) U Benzodiazepines Scrn Negative (Negative) Urine Cocaine Screen Negative (Negative) U Marijuana (THC) Screen Negative (Negative) Urine pH Normal (Normal) Urine Specific [place] Normal (Normal) Ur Creatinine Normal (Normal) MDM Narrative Medical decision making narrative: 43-year-old female presents to the ED for a drug/toxicology screen requested by her drug recovery center in [place]. Urine Drug/tox screen obtained which was negative. Discussed findings with patient. Results were faxed to the drug recovery center in [place] as requested by the patient. Results also given to the patient. <Tony Flores MD - Last Filed: 05/04/23 10:11> Lab Data Labs: Lab Results 04/24/23 Range/Units 15:11 U Opiates 300ng/mL cut Negative (Negative) Ur Oxycodone Screen Negative (Negative) Urine Methadone Screen Negative (Negative) Ur Barbiturates Screen Negative (Negative) U Tricyclic Antidepress Negative (Negative) Ur Phencyclidine Scrn Negative (Negative) Ur Amphetamines Screen Negative (Negative) U Methamphetamines Scrn Negative (Negative) Ur MDMA Scrn (Ecstasy) Negative (Negative) U Benzodiazepines Scrn Negative (Negative) Urine Cocaine Screen Negative (Negative) U Marijuana (THC) Screen Negative (Negative) Urine pH Normal (Normal) Urine Specific [place] Normal (Normal) Ur Creatinine Normal (Normal) Discharge Plan Departure Patient Disposition: Home Clinical Impression: Encounter for drug screening Activity Restrictions/Additional Instructions: You were seen in the ED today for a toxicology/drug screen. Your drug screen was negative, and has been faxed over to your drug recovery center in [place] as per your request. Prescriptions: No Action furosemide [Lasix] 40 mg tablet 40 mg PO DAILY Qty: 5 0RF levonorgestrel-ethinyl estrad 0.15-0.03 mg tablet 1 tab PO DAILY lidocaine 5 % adhesive patch,medicated 1 patch topical PRN PRN (Reason: Pain (Scale Score 1-3)) chlordiazepoxide HCl 25 mg capsule See Rx Instructions .ROUTE .COMPLEX Qty: 6 0RF Rx Instructions: 25 mg orally 3 times daily for 1 day, then 25mg twice daily for 1 day, then 25mg once daily for 1 day then stop gabapentin 300 mg capsule 300 mg PO DAILY Qty: 60 0RF Stand Alone Forms: Patient Portal/API ED Sign-out <Tony Flores MD - Last Filed: 05/04/23 10:11> Cosign ED Attending Cosignature Attestation: I was immediately available in the department for consultation. This documentation has been reviewed and I agree with assessment and plan. Supervised by Tony Flores MD
== END 2023-04-24 15:39 | disposition home or self-care (01) ==
PROVIDERS: Emergency Medicine; Emergency Provider Student in an Organized Health Care Education/Training Program
DX: Z02.83 Encounter for blood-alcohol and blood-drug test (principal)
CPT/HCPCS: 80305; 99281; 99282

== ENCOUNTER 2023-04-29 09:24 | Emergency (ER) | payer OTHER, MEDICAID, SELFPAY ==
[2022-12-12 17:22] VITALS: BMI 20.5
[2023-04-29 09:34] VITALS: BP 154/113; PULSE 111; RESP 15; TEMP 36.9; O2SAT 98; BMI 24.7
--- NOTE | 2023-04-29 09:42 | ED.RECABL ---
HPI - Recheck/Abnormal Lab/Rx General Chief Complaint: Recheck/Abnormal Lab/Rx Stated Complaint: drug screen Time Seen by Provider: 04/29/23 09:25 Source: patient Mode of arrival: Ambulatory History of Present Illness HPI narrative: Patient is a 43-year-old female who is under the care of a drug and alcohol rehab program who is here stating that she was required to produce a urine sample for urine drug screen. She has no symptoms. Denies the use of drugs or alcohol. Related Data Home Medications Medication Instructions Recorded Confirmed levonorgestrel 0.15 mg-ethinyl 1 tab PO DAILY 12/12/22 12/12/22 estradiol 0.03 mg tablet lidocaine 5 % topical patch 1 patch topical PRN PRN Pain 12/12/22 12/12/22 (Scale Score 1-3) Previous Rx's Medication Instructions Recorded chlordiazepoxide HCl 25 mg capsule See Rx Instructions .Route 12/17/22 .COMPLEX #6 caps gabapentin 300 mg capsule 300 mg PO DAILY #60 caps 12/17/22 furosemide 40 mg tablet (Lasix) 40 mg PO DAILY #5 tabs 12/24/22 Allergies Allergy/AdvReac Type Severity Reaction Status Date / Time Penicillins Allergy Swelling Verified 04/29/23 09:33 of Lip/Tongue/Throat Review of Systems Review of Systems Narrative: Patient reports no symptoms Patient History Social History household members: significant other Smoking Status: Current every day smoker alcohol intake: current Smoking Status: Current every day smoker tobacco type: vaping alcohol intake frequency: other Alcohol type: hard liquor Substance Use Type: former substance user Exam Initial Vital Signs Initial Vital Signs: Vital Signs Temperature 98.4 F 04/29/23 09:34 Pulse Rate 111 H 04/29/23 09:34 Respiratory Rate 15 04/29/23 09:34 Blood Pressure 154/113 H 04/29/23 09:34 Pulse Oximetry 98 04/29/23 09:34 Oxygen Delivery Method Room Air 04/29/23 09:34 Const General: cooperative and comfortable Resp Effort & Inspection: normal respiratory effort Cardio Rate: regular rate Skin General: no rashes or lesions noted Neuro General: patient alert and patient awake Course Orders Ordered: ED Orders 04/29/23 09:36 Urine Drug Screen, Rapid Stat Vital Signs Vital signs: Vital Signs - 8 hr 04/29/23 09:34 Temperature 98.4 F Pulse Rate 111 H Respiratory Rate 15 Blood Pressure 154/113 H Pulse Oximetry 98 Oxygen Delivery Method Room Air MDM - Recheck/Abnormal Lab/Rx Lab Data Labs: Lab Results 04/29/23 Range/Units 09:32 U Opiates 300ng/mL cut Negative (Negative) Ur Oxycodone Screen Negative (Negative) Urine Methadone Screen Negative (Negative) Ur Barbiturates Screen Negative (Negative) U Tricyclic Antidepress Negative (Negative) Ur Phencyclidine Scrn Negative (Negative) Ur Amphetamines Screen Negative (Negative) U Methamphetamines Scrn Negative (Negative) Ur MDMA Scrn (Ecstasy) Negative (Negative) U Benzodiazepines Scrn Negative (Negative) Urine Cocaine Screen Negative (Negative) U Marijuana (THC) Screen Negative (Negative) Urine pH Normal (Normal) Urine Specific [place] Normal (Normal) Ur Creatinine Normal (Normal) MDM Narrative Medical decision making narrative: Patient's UDS was negative. She was given a copy of this. Had a discussion with the patient stating that I would recommend that she talk with whoever wants the samples taken to order those so that she can get them done at the outpatient lab rather than coming to the emergency department to being charged an ER visit for this. No further workup required in the ER. She expressed understanding and agreement. Discharge Plan Departure Patient Disposition: Home Clinical Impression: Encounter for drug screening Activity Restrictions/Additional Instructions: I would highly recommend that you talk with whoever is requesting these drug screens to order the test themselves and have it sent to the lab here at the hospital so that you can have this done as an outpatient rather than being charged for an entire emergency department visit. Prescriptions: No Action furosemide [Lasix] 40 mg tablet 40 mg PO DAILY Qty: 5 0RF levonorgestrel-ethinyl estrad 0.15-0.03 mg tablet 1 tab PO DAILY lidocaine 5 % adhesive patch,medicated 1 patch topical PRN PRN (Reason: Pain (Scale Score 1-3)) chlordiazepoxide HCl 25 mg capsule See Rx Instructions .ROUTE .COMPLEX Qty: 6 0RF Rx Instructions: 25 mg orally 3 times daily for 1 day, then 25mg twice daily for 1 day, then 25mg once daily for 1 day then stop gabapentin 300 mg capsule 300 mg PO DAILY Qty: 60 0RF Stand Alone Forms: Patient Portal/API
[2023-04-29 09:52] LABS: UR Morphine/Opiate cutoff 300 Negative (Negative); Ur Creatinine Normal (Normal); Ur Specific Gravity Normal (Normal); Urine Amphetamines Negative (Negative); Urine Barbiturates Negative (Negative); Urine Benzodiazepines Negative (Negative); Urine Cocaine Negative (Negative); Urine MDMA Negative (Negative); Urine Methadone Negative (Negative); Urine Methamphetamines Negative (Negative); Urine Oxycodone Negative (Negative); Urine Phencyclidine Negative (Negative); Urine Tetrahydrocannabinol Negative (Negative); Urine Tricyclic Antidepressant Negative (Negative); Urine pH Normal (Normal)
== END 2023-04-29 10:00 | disposition home or self-care (01) ==
LOC: ED 09:35
PROVIDERS: Emergency Provider Emergency Medicine
DX: Z02.89 Encounter for other administrative examinations (principal)
CPT/HCPCS: 80305; 99281; 99282

== ENCOUNTER → 2023-05-25 15:12 | Outpatient (CLI) | payer OTHER, MEDICAID, SELFPAY ==
[2022-12-12 17:22] VITALS: BMI 20.5
[2023-05-25 16:03] LABS: Ur Creatinine Normal (Normal); Ur Specific Gravity Normal (Normal); Urine Tetrahydrocannabinol Negative (Negative); Urine pH Normal (Normal)
[2023-05-25 16:04] LABS: UR Morphine/Opiate cutoff 300 Negative (Negative); Urine Amphetamines Negative (Negative); Urine Barbiturates Negative (Negative); Urine Benzodiazepines Negative (Negative); Urine Cocaine Negative (Negative); Urine MDMA Negative (Negative); Urine Methadone Negative (Negative); Urine Methamphetamines Negative (Negative); Urine Oxycodone Negative (Negative); Urine Phencyclidine Negative (Negative); Urine Tricyclic Antidepressant Negative (Negative)
== END ==
PROVIDERS: PCP Physician Assistant; Referring Provider Nurse Practitioner; Visit Provider Nurse Practitioner
DX: F10.20 Alcohol dependence, uncomplicated (principal)
CPT/HCPCS: 80305

== ENCOUNTER → 2023-06-21 12:17 | Outpatient (CLI) | payer OTHER, MEDICAID, SELFPAY ==
[2022-12-12 17:22] VITALS: BMI 20.5
[2023-06-21 14:14] LABS: UR Morphine/Opiate cutoff 300 Negative (Negative); Ur Creatinine Normal (Normal); Ur Specific Gravity Normal (Normal); Urine Amphetamines Negative (Negative); Urine Barbiturates Negative (Negative); Urine Benzodiazepines Negative (Negative); Urine Cocaine Negative (Negative); Urine MDMA Negative (Negative); Urine Methadone Negative (Negative); Urine Methamphetamines Negative (Negative); Urine Oxycodone Negative (Negative); Urine Phencyclidine Negative (Negative); Urine Tetrahydrocannabinol Negative (Negative); Urine Tricyclic Antidepressant Negative (Negative); Urine pH Normal (Normal)
== END ==
PROVIDERS: PCP Physician Assistant; Referring Provider Nurse Practitioner; Visit Provider Nurse Practitioner
DX: F10.20 Alcohol dependence, uncomplicated (principal)
CPT/HCPCS: 36415; 80305

== ENCOUNTER → 2023-07-29 16:08 | Outpatient (CLI) | payer OTHER, MEDICAID, SELFPAY ==
[2022-12-12 17:22] VITALS: BMI 20.5
[2023-07-29 20:15] LABS: UR Morphine/Opiate cutoff 300 Negative (Negative); Ur Creatinine Normal (Normal); Ur Specific Gravity Normal (Normal); Urine Amphetamines Negative (Negative); Urine Barbiturates Negative (Negative); Urine Benzodiazepines Negative (Negative); Urine Cocaine Negative (Negative); Urine MDMA Negative (Negative); Urine Methadone Negative (Negative); Urine Methamphetamines Negative (Negative); Urine Oxycodone Negative (Negative); Urine Phencyclidine Negative (Negative); Urine Tetrahydrocannabinol Negative (Negative); Urine Tricyclic Antidepressant Negative (Negative); Urine pH Normal (Normal)
== END ==
PROVIDERS: PCP Physician Assistant; Referring Provider Physician Assistant; Visit Provider Physician Assistant
DX: F10.20 Alcohol dependence, uncomplicated (principal)
CPT/HCPCS: 80305

== ENCOUNTER → 2023-08-02 12:07 | Outpatient (CLI) | payer OTHER, MEDICAID, SELFPAY ==
[2022-12-12 17:22] VITALS: BMI 20.5
== END ==
PROVIDERS: PCP Physician Assistant; Referring Provider Physician Assistant; Visit Provider Physician Assistant
DX: F10.20 Alcohol dependence, uncomplicated (principal)
CPT/HCPCS: 80307

== ENCOUNTER 2023-12-08 14:49 | Observation (INO) | payer OTHER, MEDICAID, SELFPAY ==
[2022-12-12 17:22] VITALS: BMI 20.5
[2023-12-08] VITALS (25 sets, daily range): BP systolic 105–164; BP diastolic 67–97; PULSE 113–151; RESP 18–33; TEMP 36.4; O2SAT 94–100; BMI 25.7
--- NOTE | 2023-12-08 15:20 | ED.SEIZURE ---
HPI - Seizure <Russell Polanco DO - Last Filed: 12/13/23 17:57> General Chief Complaint: Seizure Stated Complaint: seziure Time Seen by Provider: 12/08/23 15:19 Source: patient and EMS Mode of arrival: EMS Limitations: no limitations History of Present Illness HPI Narrative: Patient is a 43-year-old female who arrives by EMS for evaluation of a witnessed seizure. Patient states she does not remember the event. She stated that the last thing she remembers she was leaving the house through the back door which she states is not normally how they exit the house. The next thing that she remembers was waking up in the back of the ambulance. She was never had a history of seizure. She stated that she did bite her lower lip. No loss of bowel or bladder. No neck pain or extremity pain. She states that her last drink was 3 days ago. Upon further questioning he was more like 48 hours ago. She has never had an alcohol withdrawal seizure. She thinks that she is potentially withdrawing from alcohol. She has been alcohol detox in the past. She denies any other drugs or illicit substances. Related Data Home Medications Medication Instructions Recorded Confirmed L norgest/E estradiol-E estrad 1 tab PO DAILY 12/09/23 12/09/23 0.15 mg-30 mcg (84)/10 mcg(7) tabs,3mos (Ashlyna) amlodipine 10 mg tablet 10 mg PO DAILY 12/09/23 12/09/23 duloxetine 20 mg capsule,delayed 20 mg PO DAILY 12/09/23 12/09/23 release hydroxyzine HCl 50 mg tablet 50 mg PO BID PRN anxiety 12/09/23 12/09/23 pregabalin 75 mg capsule 75 mg PO 3XD 12/09/23 12/09/23 trazodone 50 mg tablet 50 mg PO ONCE PM PRN insomnia 12/09/23 12/09/23 Previous Rx's Medication Instructions Recorded chlordiazepoxide HCl 25 mg capsule 25 mg PO TID #21 caps 12/09/23 thiamine mononitrate (vit B1) 100 100 mg PO DAILY #30 tabs 12/09/23 mg tablet Allergies Allergy/AdvReac Type Severity Reaction Status Date / Time Penicillins Allergy Swelling Verified 04/29/23 09:33 of Lip/Tongue/Throat Review of Systems <DO Shelia Ballard Last Filed: 12/13/23 17:57> Review of Systems ROS Unobtainable: All systems reviewed & are unremarkable except as noted in HPI and below Patient History <DO Shelia Ballard Last Filed: 12/13/23 17:57> Medical History Anxiety and depression HTN (hypertension) Alcohol withdrawal seizure Alcohol use disorder Social History household members: none Smoking Status: Current every day smoker alcohol intake: current Smoking Status: Current every day smoker tobacco type: vaping alcohol intake frequency: 3 or more drinks per day Alcohol type: hard liquor Substance Use Type: former substance user Exam <DO Shelia Ballard Last Filed: 12/13/23 17:57> Initial Vital Signs Initial Vital Signs: Vital Signs Temperature 97.6 F 12/08/23 14:56 Pulse Rate 151 H 12/08/23 14:56 Respiratory Rate 12/08/23 14:56 Blood Pressure 105/79 12/08/23 14:56 Pulse Oximetry 98 12/08/23 14:56 Oxygen Delivery Method Room Air 12/08/23 14:56 Const General: cooperative, comfortable and No ill appearing HENMT Mouth: other (Contusion to lower lip. Tongue is unremarkable.) Resp Effort & Inspection: normal respiratory effort Auscultation: clear to auscultation bilaterally Cardio Rate: tachycardic Rhythm: regular rhythm GI Inspection: normal to inspection and non-distended Back/Spine/Pelvis Cervical Spine: No cervical spinal tenderness Skin General: no rashes or lesions noted Neuro General: patient alert, patient awake, patient oriented x3 and moves all extremities Extrem Other: Moves all 4 extremities equally. No gross deformities. <Cata Crystal MD - Last Filed: 12/09/23 00:02> Initial Vital Signs Initial Vital Signs: Vital Signs Temperature 97.6 F 12/08/23 14:56 Pulse Rate 151 H 12/08/23 14:56 Respiratory Rate 12/08/23 14:56 Blood Pressure 105/79 12/08/23 14:56 Pulse Oximetry 98 12/08/23 14:56 Oxygen Delivery Method Room Air 12/08/23 14:56 Scores <DO Shelia Ballard Last Filed: 12/13/23 17:57> GCS Alexus coma scale eye opening: Spontaneous [place] coma scale verbal response: Orientated [place] coma scale motor response: Obey commands [place] coma scale total score: 15 <Cata Crystal MD - Last Filed: 12/09/23 00:02> GCS Alexus coma scale total score: 15 Course <Russell Polanco DO - Last Filed: 12/13/23 17:57> Orders Ordered: Discontinued Medications Acetaminophen (Acetaminophen 325 Mg Tablet) 650 mg PO NOW ONE Stop: 12/08/23 20:36 Last Admin: 12/08/23 20:41 Dose: 650 mg Documented By: NICHOLAS Amlodipine Besylate (Amlodipine 5 Mg Tablet) 10 mg PO DAILY [facility] Last Admin: 12/09/23 08:59 Dose: 10 mg Documented By: JUSTO Chlordiazepoxide HCl (Chlordiazepoxide 25 Mg Capsule) 25 mg PO TID [facility] Last Admin: 12/09/23 09:14 Dose: 25 mg Documented By: JUSTO Duloxetine HCl (Duloxetine 20 Mg Capsule) 20 mg PO DAILY [facility] Last Admin: 12/09/23 08:59 Dose: 20 mg Documented By: JUSTO Folic Acid (Folic Acid 1 Mg Tablet) 1 mg PO DAILY [facility] Last Admin: 12/09/23 09:00 Dose: 1 mg Documented By: JUSTO Hydroxyzine HCl (Hydroxyzine Hcl 25 Mg Tablet) 50 mg PO BID PRN PRN Reason: anxiety Sodium Chloride (Normal Saline 0.9%) 1,000 mls @ 1,000 mls/hr IV BOLUS ONE Stop: 12/08/23 16:19 Last Infusion: 12/08/23 17:18 Dose: Infused Documented By: Admin: 12/08/23 15:34 Dose: 1,000 mls/hr Documented By: NIDA Thiamine HCl 100 mg/ Sodium (Chloride) 101 mls @ 404 mls/hr IV NOW ONE Stop: 12/08/23 15:21 Last Infusion: 12/08/23 15:59 Dose: Infused Documented By: Admin: 12/08/23 15:33 Dose: 404 mls/hr Documented By: MPO Sodium Chloride (Normal Saline 0.9%) 1,000 mls @ 1,000 mls/hr IV BOLUS ONE Stop: 12/08/23 18:55 Last Infusion: 12/08/23 19:42 Dose: Infused Documented By: Admin: 12/08/23 18:02 Dose: 1,000 mls/hr Documented By: NIDA Lorazepam (Lorazepam 2 Mg/Ml Inj) 0 mg IV CIWAPRN PRN; Protocol PRN Reason: Alcohol Withdrawal Lorazepam (Lorazepam 2 Mg/Ml Inj) 1 mg IV Q30MIN PRN PRN Reason: Anxiety Multivitamins (Multivitamin 1 Tablet) 1 tab PO DAILY [facility] Last Admin: 12/09/23 09:00 Dose: 1 tab Documented By: JUSTO Naloxone HCl (Naloxone 0.4 Mg/Ml Vial) 0.2 mg IV Q2MIN PRN PRN Reason: Opiate Reversal Nicotine (Nicotine 14 Patch) 14 mg TOP DAILY [facility] Last Admin: 12/09/23 09:00 Dose: 14 mg Documented By: JUSTO Brooks Norgest/E. Estradiol-E.Estrad [ Ashlyna] 0.15 Mg-30 Mcg (84)/10 1 tab PO DAILY [facility] Last Admin: 12/09/23 10:48 Dose: Not Given Documented By: Ondansetron HCl (Ondansetron 4 Mg/2 Ml Inj) 4 mg IV Q6HR PRN PRN Reason: Nausea And Vomiting Pantoprazole Sodium (Pantoprazole 40 Mg Vial) 40 mg IV DAILY [facility] Last Admin: 12/09/23 09:00 Dose: 40 mg Documented By: JUSTO Phenobarbital (Phenobarbital 65 Mg/Ml Vial) 260 mg IV NOW ONE Stop: 12/08/23 15:21 Last Admin: 12/08/23 15:33 Dose: 260 mg Documented By: NIDA Phenobarbital (Phenobarbital 65 Mg/Ml Vial) 130 mg IV NOW ONE Stop: 12/08/23 23:36 Last Admin: 12/08/23 23:51 Dose: 130 mg Documented By: NICHOLAS Potassium Chloride (Potassium Chloride 20 Meq Tab) 40 meq PO Q6H [facility] Stop: 12/09/23 15:46 Last Admin: 12/09/23 09:51 Dose: 40 meq Documented By: JUSTO Pregabalin (Pregabalin 75 Mg Capsule) 75 mg PO TID [facility] Last Admin: 12/09/23 09:00 Dose: 75 mg Documented By: JUSTO Thiamine HCl (Thiamine 100 Mg Tablet) 100 mg PO DAILY [facility] Stop: 12/12/23 09:01 Last Admin: 12/09/23 09:00 Dose: 100 mg Documented By: JUSTO Vital Signs Vital signs: Vital Signs - 8 hr 12/08/23 16:30 12/08/23 16:45 12/08/23 16:45 Pulse Rate 133 H 129 H Respiratory Rate 22 24 Blood Pressure 141/95 H Pulse Oximetry 96 97 Oxygen Delivery Method 12/08/23 17:00 12/08/23 17:30 12/08/23 18:00 Pulse Rate 119 H 119 H 126 H Respiratory Rate 23 26 H 31 H Blood Pressure Pulse Oximetry 98 99 98 Oxygen Delivery Method 12/08/23 18:30 12/08/23 18:40 12/08/23 18:40 Pulse Rate 117 H 125 H Respiratory Rate 31 H 18 Blood Pressure 151/97 H Pulse Oximetry 99 98 Oxygen Delivery Method 12/08/23 18:49 12/08/23 18:49 12/08/23 19:00 Pulse Rate 121 H 126 H Respiratory Rate 24 32 H Blood Pressure 141/93 H Pulse Oximetry 98 98 Oxygen Delivery Method Room Air 12/08/23 19:00 12/08/23 19:30 12/08/23 19:30 Pulse Rate 133 H Respiratory Rate 28 H Blood Pressure 147/90 H 164/96 H Pulse Oximetry 97 Oxygen Delivery Method Room Air 12/08/23 20:00 12/08/23 20:00 12/08/23 20:30 Pulse Rate 119 H Respiratory Rate 33 H Blood Pressure 135/82 153/97 H Pulse Oximetry 97 Oxygen Delivery Method Room Air 12/08/23 20:30 12/08/23 21:00 12/08/23 21:30 Pulse Rate 113 H 119 H 127 H Respiratory Rate 19 19 22 Blood Pressure Pulse Oximetry 98 98 100 Oxygen Delivery Method Room Air Room Air Room Air 12/08/23 21:59 12/08/23 21:59 12/08/23 22:00 Pulse Rate 122 H 126 H Respiratory Rate 25 H 29 H Blood Pressure 138/96 H Pulse Oximetry 98 98 Oxygen Delivery Method Room Air 12/08/23 22:00 12/08/23 22:32 12/08/23 22:40 Pulse Rate 139 H Respiratory Rate 20 Blood Pressure 140/89 158/93 H Pulse Oximetry Oxygen Delivery Method 12/08/23 22:40 12/08/23 23:00 12/08/23 23:00 Pulse Rate 118 H 115 H Respiratory Rate 22 20 Blood Pressure 145/74 H Pulse Oximetry 100 99 Oxygen Delivery Method Room Air 12/08/23 23:30 12/08/23 23:30 Pulse Rate 117 H Respiratory Rate 21 Blood Pressure 124/67 Pulse Oximetry 98 Oxygen Delivery Method Room Air <Cata Crystal MD - Last Filed: 12/09/23 00:02> Orders Ordered: Discontinued Medications Acetaminophen (Acetaminophen 325 Mg Tablet) 650 mg PO NOW ONE Stop: 12/08/23 20:36 Last Admin: 12/08/23 20:41 Dose: 650 mg Documented By: NICHOLAS Amlodipine Besylate (Amlodipine 5 Mg Tablet) 10 mg PO DAILY [facility] Last Admin: 12/09/23 08:59 Dose: 10 mg Documented By: JUSTO Chlordiazepoxide HCl (Chlordiazepoxide 25 Mg Capsule) 25 mg PO TID [facility] Last Admin: 12/09/23 09:14 Dose: 25 mg Documented By: JUSTO Duloxetine HCl (Duloxetine 20 Mg Capsule) 20 mg PO DAILY [facility] Last Admin: 12/09/23 08:59 Dose: 20 mg Documented By: JUSTO Folic Acid (Folic Acid 1 Mg Tablet) 1 mg PO DAILY [facility] Last Admin: 12/09/23 09:00 Dose: 1 mg Documented By: JUSTO Hydroxyzine HCl (Hydroxyzine Hcl 25 Mg Tablet) 50 mg PO BID PRN PRN Reason: anxiety Sodium Chloride (Normal Saline 0.9%) 1,000 mls @ 1,000 mls/hr IV BOLUS ONE Stop: 12/08/23 16:19 Last Infusion: 12/08/23 17:18 Dose: Infused Documented By: Admin: 12/08/23 15:34 Dose: 1,000 mls/hr Documented By: NIDA Thiamine HCl 100 mg/ Sodium (Chloride) 101 mls @ 404 mls/hr IV NOW ONE Stop: 12/08/23 15:21 Last Infusion: 12/08/23 15:59 Dose: Infused Documented By: Admin: 12/08/23 15:33 Dose: 404 mls/hr Documented By: NIDA Sodium Chloride (Normal Saline 0.9%) 1,000 mls @ 1,000 mls/hr IV BOLUS ONE Stop: 12/08/23 18:55 Last Infusion: 12/08/23 19:42 Dose: Infused Documented By: Admin: 12/08/23 18:02 Dose: 1,000 mls/hr Documented By: NIDA Lorazepam (Lorazepam 2 Mg/Ml Inj) 0 mg IV CIWAPRN PRN; Protocol PRN Reason: Alcohol Withdrawal Lorazepam (Lorazepam 2 Mg/Ml Inj) 1 mg IV Q30MIN PRN PRN Reason: Anxiety Multivitamins (Multivitamin 1 Tablet) 1 tab PO DAILY [facility] Last Admin: 12/09/23 09:00 Dose: 1 tab Documented By: JUSTO Naloxone HCl (Naloxone 0.4 Mg/Ml Vial) 0.2 mg IV Q2MIN PRN PRN Reason: Opiate Reversal Nicotine (Nicotine 14 Patch) 14 mg TOP DAILY [facility] Last Admin: 12/09/23 09:00 Dose: 14 mg Documented By: JUSTO Brooks Norgest/E. Estradiol-E.Estrad [ Ashlyna] 0.15 Mg-30 Mcg (84)/10 1 tab PO DAILY [facility] Last Admin: 12/09/23 10:48 Dose: Not Given Documented By: Ondansetron HCl (Ondansetron 4 Mg/2 Ml Inj) 4 mg IV Q6HR PRN PRN Reason: Nausea And Vomiting Pantoprazole Sodium (Pantoprazole 40 Mg Vial) 40 mg IV DAILY [facility] Last Admin: 12/09/23 09:00 Dose: 40 mg Documented By: JUSTO Phenobarbital (Phenobarbital 65 Mg/Ml Vial) 260 mg IV NOW ONE Stop: 12/08/23 15:21 Last Admin: 12/08/23 15:33 Dose: 260 mg Documented By: NIDA Phenobarbital (Phenobarbital 65 Mg/Ml Vial) 130 mg IV NOW ONE Stop: 12/08/23 23:36 Last Admin: 12/08/23 23:51 Dose: 130 mg Documented By: NICHOLAS Potassium Chloride (Potassium Chloride 20 Meq Tab) 40 meq PO Q6H [facility] Stop: 12/09/23 15:46 Last Admin: 12/09/23 09:51 Dose: 40 meq Documented By: JUSTO Pregabalin (Pregabalin 75 Mg Capsule) 75 mg PO TID [facility] Last Admin: 12/09/23 09:00 Dose: 75 mg Documented By: JUSTO Thiamine HCl (Thiamine 100 Mg Tablet) 100 mg PO DAILY [facility] Stop: 12/12/23 09:01 Last Admin: 12/09/23 09:00 Dose: 100 mg Documented By: JUSTO Vital Signs Vital signs: Vital Signs - 8 hr 12/08/23 16:30 12/08/23 16:45 12/08/23 16:45 Pulse Rate 133 H 129 H Respiratory Rate 22 24 Blood Pressure 141/95 H Pulse Oximetry 96 97 Oxygen Delivery Method 12/08/23 17:00 12/08/23 17:30 12/08/23 18:00 Pulse Rate 119 H 119 H 126 H Respiratory Rate 23 26 H 31 H Blood Pressure Pulse Oximetry 98 99 98 Oxygen Delivery Method 12/08/23 18:30 12/08/23 18:40 12/08/23 18:40 Pulse Rate 117 H 125 H Respiratory Rate 31 H 18 Blood Pressure 151/97 H Pulse Oximetry 99 98 Oxygen Delivery Method 12/08/23 18:49 12/08/23 18:49 12/08/23 19:00 Pulse Rate 121 H 126 H Respiratory Rate 24 32 H Blood Pressure 141/93 H Pulse Oximetry 98 98 Oxygen Delivery Method Room Air 12/08/23 19:00 12/08/23 19:30 12/08/23 19:30 Pulse Rate 133 H Respiratory Rate 28 H Blood Pressure 147/90 H 164/96 H Pulse Oximetry 97 Oxygen Delivery Method Room Air 12/08/23 20:00 12/08/23 20:00 12/08/23 20:30 Pulse Rate 119 H Respiratory Rate 33 H Blood Pressure 135/82 153/97 H Pulse Oximetry 97 Oxygen Delivery Method Room Air 12/08/23 20:30 12/08/23 21:00 12/08/23 21:30 Pulse Rate 113 H 119 H 127 H Respiratory Rate 19 19 22 Blood Pressure Pulse Oximetry 98 98 100 Oxygen Delivery Method Room Air Room Air Room Air 12/08/23 21:59 12/08/23 21:59 12/08/23 22:00 Pulse Rate 122 H 126 H Respiratory Rate 25 H 29 H Blood Pressure 138/96 H Pulse Oximetry 98 98 Oxygen Delivery Method Room Air 12/08/23 22:00 12/08/23 22:32 12/08/23 22:40 Pulse Rate 139 H Respiratory Rate 20 Blood Pressure 140/89 158/93 H Pulse Oximetry Oxygen Delivery Method 12/08/23 22:40 12/08/23 23:00 12/08/23 23:00 Pulse Rate 118 H 115 H Respiratory Rate 22 20 Blood Pressure 145/74 H Pulse Oximetry 100 99 Oxygen Delivery Method Room Air 12/08/23 23:30 12/08/23 23:30 Pulse Rate 117 H Respiratory Rate 21 Blood Pressure 124/67 Pulse Oximetry 98 Oxygen Delivery Method Room Air MDM - Seizure <Russell Polanco DO - Last Filed: 12/13/23 17:57> Lab Data Attestation: I reviewed the patient's lab results. 12/09/23 05:50 12/09/23 05:50 Labs: Lab Results 12/08/23 12/08/23 12/08/23 Range/Units 15:10 16:56 20:45 WBC 8.7 (4.5-11.0) X10^3/uL RBC 4.08 (4.0-5.2) X10^6/uL Hgb 12.7 (12.0-16.0) g/dL Hct 37.6 (36-46) % MCV 92.1 (80-100) fL MCH 31.2 (26-34) PG MCHC 33.8 (30-36) % RDW 17.6 H (11.6-14.8) % Plt Count 240 (150-400) X10^3/uL Neut % (Auto) Bumper Machine Operator Lymph % (Auto) Bumper Machine Operator [place] % (Auto) Bumper Machine Operator Eos % (Auto) Bumper Machine Operator Baso % (Auto) Bumper Machine Operator Neut # (Auto) Bumper Machine Operator Lymph # (Auto) Bumper Machine Operator [place] # (Auto) Bumper Machine Operator Eos # (Auto) Bumper Machine Operator Baso # (Auto) Bumper Machine Operator Total Counted 100 Seg Neutrophils % 77.0 H (38-70) % Band Neutrophils % 1.0 L (3-7) % Lymphocytes % (Manual) 18.0 L (25-45) % Monocytes % (Manual) 3.0 (2-11) % Basophils % (Manual) 1.0 (0-1) % Neutrophils # (Manual) 6786 H (2473-5876) /uL Nucleated RBCs 2 H ( - 0) #/Diff RBC Morphology Normal morphology Sodium 132 L (137-145) mmol/L Potassium 3.3 L (3.4-5.1) mmol/L Chloride 101 (98-107) mmol/L Carbon Dioxide 9 L* (22-32) mmol/L BUN 6 L (7-17) mg/dL Creatinine 0.92 (0.52-1.04) mg/dL Estimated GFR > 60 (>60) mL/min BUN/Creatinine Ratio 6.5 (6-22) Glucose 183 H (70-100) mg/dL Calcium 9.2 (8.4-10.2) mg/dL Total Bilirubin 3.4 H (0.2-1.3) mg/dL AST 84 H (14-36) IU/L ALT 46 H (<35) IU/L Alkaline Phosphatase 109 (38-126) U/L Total Protein 7.9 (6.3-8.2) g/dL Albumin 4.4 (3.5-5.0) g/dL Globulin 3.5 (1.7-4.1) g/dL Albumin/Globulin Ratio 1.3 (1.0-2.8) Lipase 151 (23-300) U/L Urine RBC None seen (0-5/HPF) Urine WBC 5-10/hpf H (0-5/HPF) Ur Squamous Epith Cells 5-10 /hpf H (0-5/HPF) Urine Bacteria Moderate (10-30) H (None) Ur Culture Indicated? Specimen cultured Vol Urine Centrifuged 10ml (spun) Urine Test Negative (Negative) U Opiates 300ng/mL cut Negative (Negative) Ur Oxycodone Screen Negative (Negative) Urine Methadone Screen Negative (Negative) Ur Barbiturates Screen Positive H (Negative) U Tricyclic Antidepress Negative (Negative) Ur Phencyclidine Scrn Negative (Negative) Ur Amphetamines Screen Negative (Negative) U Methamphetamines Scrn Negative (Negative) Ur MDMA Scrn (Ecstasy) Negative (Negative) U Benzodiazepines Scrn Negative (Negative) Urine Cocaine Screen Negative (Negative) U Marijuana (THC) Screen Negative (Negative) Urine pH Normal (Normal) Urine Specific [place] Normal (Normal) Ethyl Alcohol < 10 ( - 10) mg/dL Ur Creatinine Normal (Normal) SARS-CoV-2 (PCR) Negative (Negative) Urine Dip Bedside Urine Glucose Negative Bedside Urine Bilirubin - Negative Bedside Urine Ketone +/- 5 Urine Specific [place] 1.010 Bedside Urine Occult Blood - Negative Bedside Urine pH 7.0 Bedside Urine Protein + 30 Bedside Urine Urobilinogen 1+ 2mg Bedside Urine Nitrite - Negative Bedside Urine Leukocytes +/- [address] scan - head: Radiologist's Impression: PROCEDURE: CT HEAD/BRAIN WO CON INDICATIONS: New onset seizure TECHNIQUE: Noncontrast 4.5 mm thick angled axial sections acquired from the foramen magnum to the vertex, with coronal and sagittal reformats. For radiation dose reduction, the following was used: automated exposure control, adjustment of mA and/or kV according to patient size. COMPARISON: [facility], CT, CT HEAD/BRAIN WO CON, 05/19/2022, 18:50. FINDINGS: Image quality: Diagnostic. CSF spaces: Basal cisterns are patent. No extra-axial fluid collections. Ventricles are normal in size and shape. Brain: No midline shift. No intracranial masses or hemorrhage. Britt-white matter interface is normal. Skull and face: Calvarium and visualized facial bones are intact, without suspicious lesions. Sinuses: Visualized sinuses and mastoids are clear. IMPRESSION: No acute intracranial hemorrhage is seen. No acute intracranial pathology. MDM Narrative Medical decision making narrative: Patient most likely had an alcohol withdrawal seizure. Her alcohol level is 0. Initially she stated that her last drink was 3 days ago but after questioning appears that it was more like 48 hours ago. She has never had an alcohol withdrawal seizure although she has withdrawn from alcohol in the past. She has been to outpatient rehab and also detox in the past. She feels much better after phenobarbital. No further seizure-like activity. She remains somewhat tachycardic and somewhat jittery but states that she was much improved. She was alert and oriented x3. In my opinion has capacity to make decisions. Not clinically intoxicated. Had an extended conversation with her regarding options. She states she was interested in detox. Social work consult was placed. Care turned over to Dr. Crystal to follow-up and disposition. <Cata Crystal MD - Last Filed: 12/09/23 00:02> Lab Data Labs: Lab Results 12/08/23 12/08/23 12/08/23 Range/Units 15:10 16:56 20:45 WBC 8.7 (4.5-11.0) X10^3/uL RBC 4.08 (4.0-5.2) X10^6/uL Hgb 12.7 (12.0-16.0) g/dL Hct 37.6 (36-46) % MCV 92.1 (80-100) fL MCH 31.2 (26-34) PG MCHC 33.8 (30-36) % RDW 17.6 H (11.6-14.8) % Plt Count 240 (150-400) X10^3/uL Neut % (Auto) Bumper Machine Operator Lymph % (Auto) Bumper Machine Operator [place] % (Auto) Bumper Machine Operator Eos % (Auto) Bumper Machine Operator Baso % (Auto) Bumper Machine Operator Neut # (Auto) Bumper Machine Operator Lymph # (Auto) Bumper Machine Operator [place] # (Auto) Bumper Machine Operator Eos # (Auto) Bumper Machine Operator Baso # (Auto) Bumper Machine Operator Total Counted 100 Seg Neutrophils % 77.0 H (38-70) % Band Neutrophils % 1.0 L (3-7) % Lymphocytes % (Manual) 18.0 L (25-45) % Monocytes % (Manual) 3.0 (2-11) % Basophils % (Manual) 1.0 (0-1) % Neutrophils # (Manual) 6786 H (0465-8674) /uL Nucleated RBCs 2 H ( - 0) #/Diff RBC Morphology Normal morphology Sodium 132 L (137-145) mmol/L Potassium 3.3 L (3.4-5.1) mmol/L Chloride 101 (98-107) mmol/L Carbon Dioxide 9 L* (22-32) mmol/L BUN 6 L (7-17) mg/dL Creatinine 0.92 (0.52-1.04) mg/dL Estimated GFR > 60 (>60) mL/min BUN/Creatinine Ratio 6.5 (6-22) Glucose 183 H (70-100) mg/dL Calcium 9.2 (8.4-10.2) mg/dL Total Bilirubin 3.4 H (0.2-1.3) mg/dL AST 84 H (14-36) IU/L ALT 46 H (<35) IU/L Alkaline Phosphatase 109 (38-126) U/L Total Protein 7.9 (6.3-8.2) g/dL Albumin 4.4 (3.5-5.0) g/dL Globulin 3.5 (1.7-4.1) g/dL Albumin/Globulin Ratio 1.3 (1.0-2.8) Lipase 151 (23-300) U/L Urine RBC None seen (0-5/HPF) Urine WBC 5-10/hpf H (0-5/HPF) Ur Squamous Epith Cells 5-10 /hpf H (0-5/HPF) Urine Bacteria Moderate (10-30) H (None) Ur Culture Indicated? Specimen cultured Vol Urine Centrifuged 10ml (spun) Urine Test Negative (Negative) U Opiates 300ng/mL cut Negative (Negative) Ur Oxycodone Screen Negative (Negative) Urine Methadone Screen Negative (Negative) Ur Barbiturates Screen Positive H (Negative) U Tricyclic Antidepress Negative (Negative) Ur Phencyclidine Scrn Negative (Negative) Ur Amphetamines Screen Negative (Negative) U Methamphetamines Scrn Negative (Negative) Ur MDMA Scrn (Ecstasy) Negative (Negative) U Benzodiazepines Scrn Negative (Negative) Urine Cocaine Screen Negative (Negative) U Marijuana (THC) Screen Negative (Negative) Urine pH Normal (Normal) Urine Specific [place] Normal (Normal) Ethyl Alcohol < 10 ( - 10) mg/dL Ur Creatinine Normal (Normal) SARS-CoV-2 (PCR) Negative (Negative) Urine Dip Bedside Urine Glucose Negative Bedside Urine Bilirubin - Negative Bedside Urine Ketone +/- 5 Urine Specific [place] 1.010 Bedside Urine Occult Blood - Negative Bedside Urine pH 7.0 Bedside Urine Protein + 30 Bedside Urine Urobilinogen 1+ 2mg Bedside Urine Nitrite - Negative Bedside Urine Leukocytes +/- 15 Esterase MDM Narrative Medical decision making narrative: Patient most likely had an alcohol withdrawal seizure. Her alcohol level is 0. Initially she stated that her last drink was 3 days ago but after questioning appears that it was more like 48 hours ago. She has never had an alcohol withdrawal seizure although she has withdrawn from alcohol in the past. She has been to outpatient rehab and also detox in the past. She feels much better after phenobarbital. No further seizure-like activity. She remains somewhat tachycardic and somewhat jittery but states that she was much improved. She was alert and oriented x3. In my opinion has capacity to make decisions. Not clinically intoxicated. Had an extended conversation with her regarding options. She states she was interested in detox. Social work consult was placed. Care turned over to Dr. Crystal to follow-up and disposition. Labs and chart reviewed, patient is independently evaluated She did screen with [facility]. There medical screening physician felt that at this point she was too high-risk for them to accept her within the 1st 24 hours after her alcohol withdrawal seizure. We will talk to our admitting hospitalist for admission regarding acute alcohol withdrawal with alcohol withdrawal seizure. She has received 260 mg of phenobarbital which is quite helpful. At this point she is complaining of headache has a quite slight tremor, has been tachypneic she is increasingly tachycardic and her blood pressure is climbing again. She is given another 130 mg of IV phenobarbital for acute alcohol withdrawal symptoms. Discussed with her the reason for hospitalization versus outpatient detox she understands. She remains quite committed to appropriate treatment and not returning to acute alcohol use. Care will be reviewed with Dr. Edwards Discharge Plan Departure Patient Disposition: Admitted As Inpatient Clinical Impression: Alcohol abuse with withdrawal Alcohol withdrawal seizure Qualifiers: Complication of substance-induced condition: uncomplicated Qualified Code(s): F10.930 - Alcohol use, unspecified with withdrawal, uncomplicated Admit Date/Time: 12/09/23 00:04 Admit Provider: Amandeep Maya
--- NOTE | 2023-12-08 15:21 | EKG_ITS ---
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
[2023-12-08] MEDS: THIAMINE 100 MG in SODIUM CHLORIDE 0.9% 100 ML 404 MG IV (15:33)
[2023-12-08] MEDS: PHENobarbital 65 MG/ML VIAL 260 MG IV (15:33)
[2023-12-08 15:34] LABS: Albumin 4.4 g/dL (3.5-5.0); Albumin Globulin Ratio 1.3 (1.0-2.8); Alkaline Phosphatase 109 U/L (38-126); Aspartate Aminotransferase 84 IU/L (14-36); BUN Creatinine Ratio 6.5 (6-22); Bilirubin Total 3.4 mg/dL (0.2-1.3); Blood Urea Nitrogen 6 mg/dL (7-17); Calcium 9.2 mg/dL (8.4-10.2); Chloride 101 mmol/L (98-107); Estimated Glomerular Filt Rate > 60 mL/min (>60); Ethanol (ETOH) < 10 mg/dL; Globulin 3.5 g/dL (1.7-4.1); Glucose 183 mg/dL (70-100); Lipase 151 U/L (23-300); Potassium 3.3 mmol/L (3.4-5.1); Sodium 132 mmol/L (137-145); Total Protein 7.9 g/dL (6.3-8.2)
[2023-12-08] MEDS: SODIUM CHLORIDE 0.9% 1,000 ML 1000 ML IV ×2 (15:34→18:02)
[2023-12-08 15:35] LABS: Hematocrit 37.6 % (36-46); Hemoglobin 12.7 g/dL (12.0-16.0); Mean Corpuscular HGB Conc 33.8 % (30-36); Mean Corpuscular Hemoglobin 31.2 PG (26-34); Mean Corpuscular Volume 92.1 fL (80-100); Platelet Count 240 X10^3/uL (150-400); Red Blood Cell Count 4.08 X10^6/uL (4.0-5.2); Red Cell Distribution Width 17.6 % (11.6-14.8); White Blood Cell Count 8.7 X10^3/uL (4.5-11.0)
[2023-12-08 15:40] LABS: Alanine Aminotransferase 46 IU/L (<35); HEMOLYSIS < 15 (0-50)
--- NOTE | 2023-12-08 15:48 | PC.NURSE ---
Pt arrived to ED via EMS s/p seizure. EMS reports that pt had seizure outside of home and friend called EMS. Pt does not remember having seizure or falling. Pt states that she woke up and ambulance had already arrived to take her. Pt drinks approximately 750ml of hard liquor a day and her last drink was 3 days ago. Pt answers questions appropriately, but gets confused about the date/year. Severe tremors observed and pt states that she is very anxious, itchy/tingling, and diaphoretic. Pt tachycardic with HR 151. CIWA 15. Dr Polanco notified. Pt states that she is interested in detox/rehab for ETOH.
[2023-12-08 15:55] LABS: Carbon Dioxide 9 mmol/L (22-32)
[2023-12-08 16:25] LABS: Add Manual Diff / Slide Review YES
[2023-12-08 16:29] LABS: Neutrophils Absolute Manual 6786 /uL (3000-5900); Nucleated Red Blood Cells 2 #/Diff; RBC Morphology Normal Morphology; Total Cells Counted 100
--- NOTE | 2023-12-08 17:04 | PC.NURSE ---
Pt up to commode with 1 person assist. Pt remains shakey but improved since arrival. Pt states that she feels less anxious. Pt a&ox4.
[2023-12-08 17:14] LABS: Pregnancy Test Urine Negative (Negative); Ur Creatinine Normal (Normal); Ur Specific Gravity Normal (Normal); Urine Amphetamines Negative (Negative); Urine Barbiturates Positive (Negative); Urine Benzodiazepines Negative (Negative); Urine Cocaine Negative (Negative); Urine MDMA Negative (Negative); Urine Methadone Negative (Negative); Urine Methamphetamines Negative (Negative); Urine Opiates Negative (Negative); Urine Oxycodone Negative (Negative); Urine Phencyclidine Negative (Negative); Urine THC Negative (Negative); Urine Tricyclic Antidepressant Negative (Negative); Urine pH Normal (Normal)
[2023-12-08 17:24] LABS: Urine Volume 10mL (spun)
[2023-12-08 17:25] LABS: Bacteria Urine Moderate (10-30); Culture Indicated Urine Specimen Cultured; RBC Urine None Seen (0-5/HPF); Squamous Epithelial Cell Urine 5-10 /HPF (0-5/HPF); WBC Urine 5-10/HPF (0-5/HPF)
--- NOTE | 2023-12-08 19:37 | CM.SWNOTE ---
ED VOCATIONAL AUTO BODY INSTRUCTOR Note: Patient is a 43yo female, resident of [place], presents to the ED s/p seizure, now requesting assistance with medical detox from ETOH use. Patient's Primary care provider is Radha Thomas PA-C and insurance is [place] [employer]. ED VOCATIONAL AUTO BODY INSTRUCTOR met w/patient at bedside; introduced self and role. Present in the room is pt's friend, Marvin. Patient was found in bed, alert and oriented, cooperative with assessment. Pt confirmed living situation and good support in . Pt expressed preference in attending detox for ETOH use. Pt has a hx of attending detox at [facility] and [facility] in [place]. Pt agreeable to referral to [facility] at this time. ED VOCATIONAL AUTO BODY INSTRUCTOR called [facility] and it was reported that there are beds available, ED VOCATIONAL AUTO BODY INSTRUCTOR sent packet for review. Plan: Pending acceptance at detox center, pt to discharge to detox center for etoh detox. ED Staff briefed by VOCATIONAL AUTO BODY INSTRUCTOR and will follow closely for coordination of discharge plans. ZACK Garcia
[2023-12-08] MEDS: ACETAMINOPHEN 325 MG TABLET 650 MG PO (20:41)
[2023-12-08 21:12] LABS: COVID19 -Nasal RAPID Negative (Negative)
[2023-12-08] MEDS: PHENobarbital 65 MG/ML VIAL 130 MG IV (23:51)
[2023-12-09] VITALS (23 sets, daily range): BP systolic 135–159; BP diastolic 77–98; PULSE 95–141; RESP 13–37; TEMP 36.4–37; O2SAT 90–100; BMI 23.6
--- NOTE | 2023-12-09 00:37 | PC.NURSE ---
Followed up with [facility] for possible transfer for pt to detox. Spoke with Juana at 2300 and she said that their doctor over there doesn't think it would be the best idea for the pt to be accepted at this time due to not being seizure free for 24 hours, tachycardia, tachypnea, and as well as an elevated bilirubin which they would transfer her back to the ED for. Dr. Crystal and SHILA Montiel notified as well as the pt. Reaching out to the hospitalist for admission
[2023-12-09 04:06] LABS: MRSA (Nasal) PCR NOT DETECTED (Not Detect)
--- NOTE | 2023-12-09 05:51 | P.HP_ITS ---
History of Present Illness History of Present Illness Date Patient Seen: 12/08/23 Time Patient Seen: 00:30 Chief complaint: seizure Narrative: 43 y/o with PMH of alcoholism that quit drinking 48 hours ago presented to ED after she sustained alcohol withdrawal seizure. She has no recollection of the event. From the ED: She stated that the last thing she remembers she was leaving the house through the back door which she states is not normally how they exit the house. The next thing that she remembers was waking up in the back of the ambulance. She was never had a history of seizure. She stated that she did bite her lower lip. No loss of bowel or bladder. No neck pain or extremity pain. In the ED treated with phenobarbital. On admission tachycardic, not delirious, w/o hallucinations, with minor lip bite injury and unremarkable CTH. [facility] Medical History (Updated 12/09/23 @ 07:10 by Amandeep Edwards MD) Anxiety and depression HTN (hypertension) Alcohol withdrawal seizure Alcohol use disorder Social History household members: significant other Smoking Status: Current every day smoker alcohol intake: current Meds Home Medications and Allergies Home Medications Medication Instructions Recorded Confirmed Type L norgest/E estradiol-E estrad 1 tab PO DAILY 12/09/23 12/09/23 History 0.15 mg-30 mcg (84)/10 mcg(7) tabs,3mos (Ashlyna) amlodipine 10 mg tablet 10 mg PO DAILY 12/09/23 12/09/23 History duloxetine 20 mg capsule,delayed 20 mg PO DAILY 12/09/23 12/09/23 History release hydroxyzine HCl 50 mg tablet 50 mg PO BID PRN anxiety 12/09/23 12/09/23 History pregabalin 75 mg capsule 75 mg PO 3XD 12/09/23 12/09/23 History trazodone 50 mg tablet 50 mg PO ONCE PM PRN insomnia 12/09/23 12/09/23 History Allergies Allergy/AdvReac Type Severity Reaction Status Date / Time Penicillins Allergy Swelling Verified 04/29/23 09:33 of Lip/Tongue/Throat Review of Systems Constitutional Comments: w/o fever or chills Eyes Comments: w/o vision changes ENT Comments: bitten lip earlier today with a seizure Cardiovascular Comments: w/o chest pain has palpitations Respiratory Comments: w/o shortness of breath Neurologic Comments: w/o headache Psychiatric Comments: denies visual or auditory hallucinations anxious Exam Vital Signs (past 8 hours): - 12/08/23 21:59 12/08/23 21:59 12/08/23 22:00 Temperature Pulse Rate 122 H 126 H Respiratory Rate 25 H 29 H Blood Pressure 138/96 H Pulse Oximetry 98 98 Oxygen Delivery Method Room Air Oxygen Flow Rate 12/08/23 22:00 12/08/23 22:32 12/08/23 22:40 Temperature Pulse Rate 139 H Respiratory Rate 20 Blood Pressure 140/89 158/93 H Pulse Oximetry Oxygen Delivery Method Oxygen Flow Rate 12/08/23 22:40 12/08/23 23:00 12/08/23 23:00 Temperature Pulse Rate 118 H 115 H Respiratory Rate 22 20 Blood Pressure 145/74 H Pulse Oximetry 100 99 Oxygen Delivery Method Room Air Oxygen Flow Rate 12/08/23 23:30 12/08/23 23:30 12/09/23 00:00 Temperature Pulse Rate 117 H 114 H Respiratory Rate 21 17 Blood Pressure 124/67 Pulse Oximetry 98 95 Oxygen Delivery Method Room Air Room Air Oxygen Flow Rate 12/09/23 00:00 12/09/23 00:30 12/09/23 00:30 Temperature Pulse Rate 118 H Respiratory Rate 23 Blood Pressure 135/78 135/89 Pulse Oximetry 99 Oxygen Delivery Method Room Air Oxygen Flow Rate 12/09/23 01:00 12/09/23 01:01 12/09/23 01:30 Temperature Pulse Rate 137 H 100 H Respiratory Rate 22 25 H Blood Pressure Pulse Oximetry 93 100 Oxygen Delivery Method Room Air Room Air Room Air Oxygen Flow Rate 12/09/23 01:30 12/09/23 01:51 12/09/23 01:51 Temperature Pulse Rate 107 H Respiratory Rate 27 H Blood Pressure 147/80 H 147/98 H Pulse Oximetry 90 L Oxygen Delivery Method Oxygen Flow Rate 12/09/23 01:59 12/09/23 02:00 12/09/23 02:00 Temperature 97.8 F Pulse Rate 107 H 109 H Respiratory Rate 18 27 H Blood Pressure 147/98 H 141/89 H Pulse Oximetry 98 99 Oxygen Delivery Method Oxygen Flow Rate 0 12/09/23 02:30 12/09/23 03:00 12/09/23 03:00 Temperature Pulse Rate 104 H 106 H Respiratory Rate 17 19 Blood Pressure 141/93 H Pulse Oximetry 98 100 Oxygen Delivery Method Oxygen Flow Rate 12/09/23 03:30 12/09/23 04:00 12/09/23 04:00 Temperature 97.7 F Pulse Rate 119 H 119 H Respiratory Rate 24 17 Blood Pressure Pulse Oximetry 98 98 Oxygen Delivery Method Oxygen Flow Rate 12/09/23 04:00 12/09/23 04:30 12/09/23 05:00 Temperature Pulse Rate 112 H Respiratory Rate 20 Blood Pressure 137/77 135/91 H Pulse Oximetry 100 Oxygen Delivery Method Oxygen Flow Rate 12/09/23 05:00 Temperature Pulse Rate 111 H Respiratory Rate 22 Blood Pressure Pulse Oximetry 97 Oxygen Delivery Method Oxygen Flow Rate Oxygen Delivery Method Room Air Oxygen Flow Rate 0 Const Other: in no distress HENMT Other: swollen lower lip Eyes Other: eomi Neck Other: supple Resp Other: normal respiratory effort Cardio Other: tachycardic, regular Skin Other: w/o jaundice or rashes Neuro Other: w/o deficits not tremolous Extrem Other: w/o swelling Psych Other: oriented, not delusional anxious Objective Labs 12/08/23 15:10 12/08/23 15:10 Labs: Laboratory Results - last 24 hr 12/08/23 12/08/23 12/08/23 15:10 16:56 20:45 WBC 8.7 RBC 4.08 Hgb 12.7 Hct 37.6 MCV 92.1 MCH 31.2 MCHC 33.8 RDW 17.6 H Plt Count 240 Neut % (Auto) Enterprise Application Architect Lymph % (Auto) Enterprise Application Architect [place] % (Auto) Enterprise Application Architect Eos % (Auto) Enterprise Application Architect Baso % (Auto) Enterprise Application Architect Neut # (Auto) Enterprise Application Architect Lymph # (Auto) Enterprise Application Architect [place] # (Auto) Enterprise Application Architect Eos # (Auto) Enterprise Application Architect Baso # (Auto) Enterprise Application Architect Total Counted 100 Seg Neutrophils % 77.0 H Band Neutrophils % 1.0 L Lymphocytes % (Manual) 18.0 L Monocytes % (Manual) 3.0 Basophils % (Manual) 1.0 Neutrophils # (Manual) 6786 H Nucleated RBCs 2 H RBC Morphology Normal morphology Sodium 132 L Potassium 3.3 L Chloride 101 Carbon Dioxide 9 L* BUN 6 L Creatinine 0.92 Estimated GFR > 60 BUN/Creatinine Ratio 6.5 Glucose 183 H Calcium 9.2 Total Bilirubin 3.4 H AST 84 H ALT 46 H Alkaline Phosphatase 109 Total Protein 7.9 Albumin 4.4 Globulin 3.5 Albumin/Globulin Ratio 1.3 Lipase 151 Urine RBC None seen Urine WBC 5-10/hpf H Ur Squamous Epith Cells 5-10 /hpf H Urine Bacteria Moderate (10-30) H Ur Culture Indicated? Specimen cultured Vol Urine Centrifuged 10ml (spun) Urine Test Negative Nasal Screen MRSA (PCR) U Opiates 300ng/mL cut Negative Ur Oxycodone Screen Negative Urine Methadone Screen Negative Ur Barbiturates Screen Positive H U Tricyclic Antidepress Negative Ur Phencyclidine Scrn Negative Ur Amphetamines Screen Negative U Methamphetamines Scrn Negative Ur MDMA Scrn (Ecstasy) Negative U Benzodiazepines Scrn Negative Urine Cocaine Screen Negative U Marijuana (THC) Screen Negative Urine pH Normal Urine Specific [place] Normal Ethyl Alcohol < 10 Ur Creatinine Normal SARS-CoV-2 (PCR) Negative 12/09/23 02:30 WBC RBC Hgb Hct MCV MCH MCHC RDW Plt Count Neut % (Auto) Lymph % (Auto) [place] % (Auto) Eos % (Auto) Baso % (Auto) Neut # (Auto) Lymph # (Auto) [place] # (Auto) Eos # (Auto) Baso # (Auto) Total Counted Seg Neutrophils % Band Neutrophils % Lymphocytes % (Manual) Monocytes % (Manual) Basophils % (Manual) Neutrophils # (Manual) Nucleated RBCs RBC Morphology Sodium Potassium Chloride Carbon Dioxide BUN Creatinine Estimated GFR BUN/Creatinine Ratio Glucose Calcium Total Bilirubin AST ALT Alkaline Phosphatase Total Protein Albumin Globulin Albumin/Globulin Ratio Lipase Urine RBC Urine WBC Ur Squamous Epith Cells Urine Bacteria Ur Culture Indicated? Vol Urine Centrifuged Urine Test Nasal Screen MRSA (PCR) Not detected U Opiates 300ng/mL cut Ur Oxycodone Screen Urine Methadone Screen Ur Barbiturates Screen U Tricyclic Antidepress Ur Phencyclidine Scrn Ur Amphetamines Screen U Methamphetamines Scrn Ur MDMA Scrn (Ecstasy) U Benzodiazepines Scrn Urine Cocaine Screen U Marijuana (THC) Screen Urine pH Urine Specific [place] Ethyl Alcohol Ur Creatinine SARS-CoV-2 (PCR) Assessment & Plan Assessment and plan (1) Alcohol withdrawal seizure: Qualifiers: Complication of substance-induced condition: uncomplicated Qualified Code(s): F10.930 - Alcohol use, unspecified with withdrawal, uncomplicated; R56.9 - Unspecified convulsions Status: Acute (2) Alcohol abuse with withdrawal: Status: Acute (3) HTN (hypertension): Status: Acute (4) Anxiety and depression: Status: Acute Assessment & Plan narrative: Alcoholism, Alcohol Withdrawal - she quit drinking 2-3 days ago and is motivated to go to detox - had significant withdrawal in April - CIWA protocol - not delirious on admission - B1, FA Alcohol Withdrawal Seizure - placed in observation in ICU - prn Lorazepam HTN - Norvasc Anxiety, Depression - hydroxyzine, duloxetine DVT prophylaxis - SCDs GI prophylaxis - PPI Time-Based Coding :: [TOTAL MINUTES] spent with patient and on the chart (including review of chart, obtaining history, exam, reviewing outside data, placing orders, documenting exam and treatment plan, and counseling patient) on [DATE].
[2023-12-09 06:54] LABS: Add Manual Diff / Slide Review NO; Basophils Absolute Auto 0 /uL (0-100); Basophils Percent Auto 0.6 % (0-2); Eosinophils Absolute Auto 100 /uL (0-450); Hemoglobin 10.9 g/dL (12.0-16.0); Lymphocytes Absolute Auto 1200 /uL (1100-4500); Lymphocytes Percent Auto 21.4 % (25-40); Mean Corpuscular HGB Conc 33.9 % (30-36); Mean Corpuscular Hemoglobin 31.3 PG (26-34); Mean Corpuscular Volume 92.1 fL (80-100); Monocytes Absolute Auto 500 /uL (0-900); Monocytes Percent Auto 8.9 % (3-14); Neutrophils Absolute Auto 3800 /uL (1500-7000); Neutrophils Percent Auto 68.1 % (50-75); Platelet Count 170 X10^3/uL (150-400); Red Blood Cell Count 3.48 X10^6/uL (4.0-5.2); Red Cell Distribution Width 18.1 % (11.6-14.8); White Blood Cell Count 5.5 X10^3/uL (4.5-11.0)
[2023-12-09 06:57] LABS: Alanine Aminotransferase 26 IU/L (<35); Albumin 3.4 g/dL (3.5-5.0); Albumin Globulin Ratio 1.2 (1.0-2.8); Alkaline Phosphatase 88 U/L (38-126); Aspartate Aminotransferase 69 IU/L (14-36); BUN Creatinine Ratio 6.1 (6-22); Bilirubin Total 2.3 mg/dL (0.2-1.3); Blood Urea Nitrogen 4 mg/dL (7-17); Calcium 8.4 mg/dL (8.4-10.2); Carbon Dioxide 21 mmol/L (22-32); Chloride 107 mmol/L (98-107); Estimated Glomerular Filt Rate > 60 mL/min (>60); Globulin 2.9 g/dL (1.7-4.1); Glucose 88 mg/dL (70-100); HEMOLYSIS < 15 (0-50); Potassium 3.2 mmol/L (3.4-5.1); Sodium 136 mmol/L (137-145); Total Protein 6.3 g/dL (6.3-8.2)
--- NOTE | 2023-12-09 08:15 | P.HP_ITS ---
History of Present Illness History of Present Illness Date Patient Seen: 12/09/23 Chief complaint: seizure Narrative: From night doctor: 3 y/o with PMH of alcoholism that quit drinking 48 hours ago presented to ED after she sustained alcohol withdrawal seizure. She has no recollection of the event. From the ED: She stated that the last thing she remembers she was leaving the house through the back door which she states is not normally how they exit the house. The next thing that she remembers was waking up in the back of the ambulance. She was never had a history of seizure. She stated that she did bite her lower lip. No loss of bowel or bladder. No neck pain or extremity pain. In the ED treated with phenobarbital. On admission tachycardic, not delirious, w/o hallucinations, with minor lip bite injury and unremarkable CTH. Additional information: She would her last drink 3 days prior to arrival and denies a history of previous alcohol withdrawal seizure she was drinking about a 5th of alcohol a day. She was in treatment twice last year, once for 28 days, and once for 7-14 days. She was had very limited days of sobriety. She was lost access to her 2 children who also live in this city. She would feels little bit shaky but denies any hallucinations. No nausea, dyspnea, or diarrhea. She feels much better than yesterday. [facility] Medical History Anxiety and depression HTN (hypertension) Alcohol withdrawal seizure Alcohol use disorder Social History household members: significant other Smoking Status: Current every day smoker alcohol intake: current Meds Home Medications and Allergies Home Medications Medication Instructions Recorded Confirmed Type L norgest/E estradiol-E estrad 1 tab PO DAILY 12/09/23 12/09/23 History 0.15 mg-30 mcg (84)/10 mcg(7) tabs,3mos (Ashlyna) amlodipine 10 mg tablet 10 mg PO DAILY 12/09/23 12/09/23 History duloxetine 20 mg capsule,delayed 20 mg PO DAILY 12/09/23 12/09/23 History release hydroxyzine HCl 50 mg tablet 50 mg PO BID PRN anxiety 12/09/23 12/09/23 History pregabalin 75 mg capsule 75 mg PO 3XD 12/09/23 12/09/23 History trazodone 50 mg tablet 50 mg PO ONCE PM PRN insomnia 12/09/23 12/09/23 History Allergies Allergy/AdvReac Type Severity Reaction Status Date / Time Penicillins Allergy Swelling Verified 04/29/23 09:33 of Lip/Tongue/Throat Review of Systems Review of Systems Narrative: All else reviewed and otherwise unremarkable except as noted in the history and physical. Exam Vital Signs (past 8 hours): - 12/09/23 00:30 12/09/23 00:30 12/09/23 01:00 Temperature Pulse Rate 118 H Respiratory Rate 23 Blood Pressure 135/89 Pulse Oximetry 99 Oxygen Delivery Method Room Air Room Air Oxygen Flow Rate 12/09/23 01:01 12/09/23 01:30 12/09/23 01:30 Temperature Pulse Rate 137 H 100 H Respiratory Rate 22 25 H Blood Pressure 147/80 H Pulse Oximetry 93 100 Oxygen Delivery Method Room Air Room Air Oxygen Flow Rate 12/09/23 01:51 12/09/23 01:51 12/09/23 01:59 Temperature 97.8 F Pulse Rate 107 H 107 H Respiratory Rate 27 H 18 Blood Pressure 147/98 H 147/98 H Pulse Oximetry 90 L 98 Oxygen Delivery Method Oxygen Flow Rate 0 12/09/23 02:00 12/09/23 02:00 12/09/23 02:30 Temperature Pulse Rate 109 H 104 H Respiratory Rate 27 H 17 Blood Pressure 141/89 H Pulse Oximetry 99 98 Oxygen Delivery Method Oxygen Flow Rate 12/09/23 03:00 12/09/23 03:00 12/09/23 03:30 Temperature Pulse Rate 106 H 119 H Respiratory Rate 19 24 Blood Pressure 141/93 H Pulse Oximetry 100 98 Oxygen Delivery Method Oxygen Flow Rate 12/09/23 04:00 12/09/23 04:00 12/09/23 04:00 Temperature 97.7 F Pulse Rate 119 H Respiratory Rate 17 Blood Pressure 137/77 Pulse Oximetry 98 Oxygen Delivery Method Oxygen Flow Rate 12/09/23 04:30 12/09/23 05:00 12/09/23 05:00 Temperature Pulse Rate 112 H 111 H Respiratory Rate 20 22 Blood Pressure 135/91 H Pulse Oximetry 100 97 Oxygen Delivery Method Oxygen Flow Rate 12/09/23 05:30 12/09/23 06:00 12/09/23 06:00 Temperature Pulse Rate 106 H 120 H Respiratory Rate 13 25 H Blood Pressure 136/90 Pulse Oximetry 98 99 Oxygen Delivery Method Oxygen Flow Rate 12/09/23 06:30 Temperature Pulse Rate 95 H Respiratory Rate 16 Blood Pressure Pulse Oximetry 99 Oxygen Delivery Method Oxygen Flow Rate Oxygen Delivery Method Room Air Oxygen Flow Rate 0 Narrative Exam Narrative: NAD, alert and oriented, fluent speech, calm. She was a little shaky. She has relatively normal cognition. Normocephalic skull, EOMI, anicteric sclera, symmetric pupils. Oropharynx unremarkable, no droop. Neck supple, midline trachea, no adenopathy. Lungs clear, normal rate and effort. Heart regular, no murmur gallop or rub. Abdomen is soft, non distended and non tender. Extremities are free of edema. Skin is free of rash or lesions. Joints are not swollen or deformed. Judgment appears to be normal. Objective Imaging CT scan - head: Radiologist's impression: No acute intracranial hemorrhage is seen. No acute intracranial pathology. Labs 12/09/23 05:50 12/09/23 05:50 Labs: Laboratory Results - last 24 hr 12/08/23 12/08/23 12/08/23 15:10 16:56 20:45 WBC 8.7 RBC 4.08 Hgb 12.7 Hct 37.6 MCV 92.1 MCH 31.2 MCHC 33.8 RDW 17.6 H Plt Count 240 Neut % (Auto) Certified Pharmacy Technician Lymph % (Auto) Certified Pharmacy Technician [place] % (Auto) Certified Pharmacy Technician Eos % (Auto) Certified Pharmacy Technician Baso % (Auto) Certified Pharmacy Technician Neut # (Auto) Certified Pharmacy Technician Lymph # (Auto) Certified Pharmacy Technician [place] # (Auto) Certified Pharmacy Technician Eos # (Auto) Certified Pharmacy Technician Baso # (Auto) Certified Pharmacy Technician Total Counted 100 Seg Neutrophils % 77.0 H Band Neutrophils % 1.0 L Lymphocytes % (Manual) 18.0 L Monocytes % (Manual) 3.0 Basophils % (Manual) 1.0 Neutrophils # (Manual) 6786 H Nucleated RBCs 2 H RBC Morphology Normal morphology Sodium 132 L Potassium 3.3 L Chloride 101 Carbon Dioxide 9 L* BUN 6 L Creatinine 0.92 Estimated GFR > 60 BUN/Creatinine Ratio 6.5 Glucose 183 H Calcium 9.2 Total Bilirubin 3.4 H AST 84 H ALT 46 H Alkaline Phosphatase 109 Total Protein 7.9 Albumin 4.4 Globulin 3.5 Albumin/Globulin Ratio 1.3 Lipase 151 Urine RBC None seen Urine WBC 5-10/hpf H Ur Squamous Epith Cells 5-10 /hpf H Urine Bacteria Moderate (10-30) H Ur Culture Indicated? Specimen cultured Vol Urine Centrifuged 10ml (spun) Urine Test Negative Nasal Screen MRSA (PCR) U Opiates 300ng/mL cut Negative Ur Oxycodone Screen Negative Urine Methadone Screen Negative Ur Barbiturates Screen Positive H U Tricyclic Antidepress Negative Ur Phencyclidine Scrn Negative Ur Amphetamines Screen Negative U Methamphetamines Scrn Negative Ur MDMA Scrn (Ecstasy) Negative U Benzodiazepines Scrn Negative Urine Cocaine Screen Negative U Marijuana (THC) Screen Negative Urine pH Normal Urine Specific [place] Normal Ethyl Alcohol < 10 Ur Creatinine Normal SARS-CoV-2 (PCR) Negative 12/09/23 12/09/23 02:30 05:50 WBC 5.5 RBC 3.48 L Hgb 10.9 L Hct 32.0 L MCV 92.1 MCH 31.3 MCHC 33.9 RDW 18.1 H Plt Count 170 Neut % (Auto) 68.1 Lymph % (Auto) 21.4 L [place] % (Auto) 8.9 Eos % (Auto) 1.0 L Baso % (Auto) 0.6 Neut # (Auto) 3800 Lymph # (Auto) 1200 [place] # (Auto) 500 Eos # (Auto) 100 Baso # (Auto) 0 Total Counted Seg Neutrophils % Band Neutrophils % Lymphocytes % (Manual) Monocytes % (Manual) Basophils % (Manual) Neutrophils # (Manual) Nucleated RBCs RBC Morphology Sodium 136 L Potassium 3.2 L Chloride 107 Carbon Dioxide 21 L BUN 4 L Creatinine 0.66 Estimated GFR > 60 BUN/Creatinine Ratio 6.1 Glucose 88 Calcium 8.4 Total Bilirubin 2.3 H AST 69 H ALT 26 Alkaline Phosphatase 88 Total Protein 6.3 Albumin 3.4 L Globulin 2.9 Albumin/Globulin Ratio 1.2 Lipase Urine RBC Urine WBC Ur Squamous Epith Cells Urine Bacteria Ur Culture Indicated? Vol Urine Centrifuged Urine Test Nasal Screen MRSA (PCR) Not detected U Opiates 300ng/mL cut Ur Oxycodone Screen Urine Methadone Screen Ur Barbiturates Screen U Tricyclic Antidepress Ur Phencyclidine Scrn Ur Amphetamines Screen U Methamphetamines Scrn Ur MDMA Scrn (Ecstasy) U Benzodiazepines Scrn Urine Cocaine Screen U Marijuana (THC) Screen Urine pH Urine Specific [place] Ethyl Alcohol Ur Creatinine SARS-CoV-2 (PCR) Assessment & Plan Assessment & Plan narrative: 1. Severe alcohol use dosorder with alcohol withdrawal, present on admission and improving. - she quit drinking 2-3 days ago and is motivated to go to detox - had significant withdrawal in April - [facility] protocol - not delirious on admission - B1, FA 2. Alcohol withdrawal seizure, present on admission and active. - placed in observation in ICU - prn Lorazepam 3. HTN, present on admission and active. - Norvasc 4. Anxiety, Depression, present on admission and active. - hydroxyzine, duloxetine PLAN: We will place on scheduled Librium and monitor her progress today. She appears to be much improved. We will see how well she can ambulate and eat today. Time-Based Coding :: 30 min spent with patient and on the chart (including review of chart, obtaining history, exam, reviewing outside data, placing orders, documenting exam and treatment plan, and counseling patient) on 12/08. Quality MIPS - Admit I confirm the patient?s Advance Care Plan is present, Code status is documented, Surrogate decision maker is in patient?s record [If Yes, STOP here]: Yes MIPS - Meds 'Current medications' to include all prescriptions, [id number] products, herbals, cannabis/cannabidiol products, and vitamin/mineral/dietary (nutritional) supplements. I have utilized all available resources to obtain, update, or review the patient?s current medications. [If Yes, STOP here]: Yes
[2023-12-09] MEDS: DULOXETINE 20 MG CAPSULE PO (08:59)
[2023-12-09] MEDS: AMLODIPINE 5 MG TABLET 10 MG PO (08:59)
[2023-12-09] MEDS: THIAMINE 100 MG TABLET PO (09:00)
[2023-12-09] MEDS: PANTOPRAZOLE 40 MG VIAL IV (09:00)
[2023-12-09] MEDS: PREGABALIN 75 MG CAPSULE PO (09:00)
[2023-12-09] MEDS: MULTIVITAMIN 1 TABLET 1 TAB PO (09:00)
[2023-12-09] MEDS: FOLIC ACID 1 MG TABLET PO (09:00)
[2023-12-09] MEDS: NICOTINE 14 PATCH 14 MG TOP (09:00)
[2023-12-09] MEDS: chlordiazePOXIDE 25 MG CAPSULE PO (09:14)
[2023-12-09] MEDS: POTASSIUM CHLORIDE 20 MEQ TAB 40 MEQ PO (09:51)
--- NOTE | 2023-12-09 11:59 | P.DS_ITS ---
History of Present Illness History of Present Illness Chief complaint: seizure Narrative: From night doctor: 3 y/o with PMH of alcoholism that quit drinking 48 hours ago presented to ED after she sustained alcohol withdrawal seizure. She has no recollection of the event. From the ED: She stated that the last thing she remembers she was leaving the house through the back door which she states is not normally how they exit the house. The next thing that she remembers was waking up in the back of the ambulance. She was never had a history of seizure. She stated that she did bite her lower lip. No loss of bowel or bladder. No neck pain or extremity pain. In the ED treated with phenobarbital. On admission tachycardic, not delirious, w/o hallucinations, with minor lip bite injury and unremarkable CTH. Additional information: She would her last drink 3 days prior to arrival and denies a history of previous alcohol withdrawal seizure she was drinking about a 5th of alcohol a day. She was in treatment twice last year, once for 28 days, and once for 7-14 days. She was had very limited days of sobriety. She was lost access to her 2 children who also live in this city. She would feels little bit shaky but denies any hallucinations. No nausea, dyspnea, or diarrhea. She feels much better than yesterday. Discharge Providers Provider Date of admission: 12/09/23 00:04 Discharge Date: 12/09/23 Primary care physician: Radha Thomas PA-C Consults: 12/08/23 15:47 Consult to [facility] - Retail Analytics Manager Stat Comment: Retail Analytics Manager Consult needed for:: Other reason (Comment) Comment: ETOH detox 12/08/23 17:28 Consult to [facility] - Retail Analytics Manager Stat Comment: Retail Analytics Manager Consult needed for:: Substance abuse 12/09/23 00:36 Consult to Dietitian, Adult Routine Comment: Reason For Exam: alcoholism Discharge provider: Pepe Hilliard MD Summary Hospital Course Discharge Diagnosis: 1. Alcohol withdrawal seizure, present on admission resolved. 2. Alcohol withdrawal syndrome, present on admission and improved. 3. Severe alcohol use disorder, present on admission and active. 4. Hypokalemia, present on admission and improved. Hospital Course: She was admitted with alcohol withdrawal seizures. She drinks about a 5th of alcohol a day and stopped 3 days prior to presentation due to a visit from a former boyfriend. She was treated with CIWA protocol and improved relatively quickly. Potassium was replaced. She was started on Librium on the morning of December 08 was able to ambulate and eat without difficulty. She had no delirium. She requested discharge home and notes that her visitor is 6 years sober and more than able to help with her. She was felt to be stable and safe for discharge. Status at Discharge Cognitive/behavioral status at discharge: oriented Functional status at discharge: independent ambulation Overall status at discharge: patient is progressing back to baseline Time Spent with Patient Time spent: Greater than 30 minutes Exam Vital Signs (past 8 hours): - 12/09/23 04:00 12/09/23 04:00 12/09/23 04:00 Temperature 97.7 F Pulse Rate 119 H Respiratory Rate 17 Blood Pressure 137/77 Pulse Oximetry 98 12/09/23 04:30 12/09/23 05:00 12/09/23 05:00 Temperature Pulse Rate 112 H 111 H Respiratory Rate 20 22 Blood Pressure 135/91 H Pulse Oximetry 100 97 12/09/23 05:30 12/09/23 06:00 12/09/23 06:00 Temperature Pulse Rate 106 H 120 H Respiratory Rate 13 25 H Blood Pressure 136/90 Pulse Oximetry 98 99 12/09/23 06:30 12/09/23 07:00 12/09/23 07:30 Temperature Pulse Rate 95 H 100 H 103 H Respiratory Rate 16 16 37 H Blood Pressure Pulse Oximetry 99 98 96 12/09/23 08:00 12/09/23 08:00 12/09/23 08:04 Temperature 97.6 F Pulse Rate 97 H Respiratory Rate 18 Blood Pressure 159/97 H 152/96 H Pulse Oximetry 98 12/09/23 08:04 12/09/23 08:30 12/09/23 08:58 Temperature Pulse Rate 104 H 101 H 141 H Respiratory Rate 24 22 37 H Blood Pressure Pulse Oximetry 97 97 99 12/09/23 11:41 Temperature 98.6 F Pulse Rate Respiratory Rate Blood Pressure 138/82 Pulse Oximetry Oxygen Delivery Method Room Air Oxygen Flow Rate 0 Narrative Exam Narrative: NAD, alert and oriented. Fluent speech. Lungs are clear, normal rate and effort. Heart is regular, no murmur gallop or rub. Abdomen is soft, non distended. Extremities are free of edema. Objective Imaging CT scan - head: Radiologist's impression: Normal. Labs 12/09/23 05:50 12/09/23 05:50 Labs: Laboratory Results - last 24 hr 12/08/23 12/08/23 12/08/23 15:10 16:56 20:45 WBC 8.7 RBC 4.08 Hgb 12.7 Hct 37.6 MCV 92.1 MCH 31.2 MCHC 33.8 RDW 17.6 H Plt Count 240 Neut % (Auto) [employer] Lymph % (Auto) [employer] Coke % (Auto) [employer] Eos % (Auto) [employer] Baso % (Auto) [employer] Neut # (Auto) [employer] Lymph # (Auto) Mechanic [employer]der [employer] Driver Coke # (Auto) Mechan[employer]der [employer] Driver Eos # (Auto) Mechanic [employer]der [employer] Driver Baso # (Auto) Mechan[employer] Driver Total Counted 100 Seg Neutrophils % 77.0 H Band Neutrophils % 1.0 L Lymphocytes % (Manual) 18.0 L Monocytes % (Manual) 3.0 Basophils % (Manual) 1.0 Neutrophils # (Manual) 6786 H Nucleated RBCs 2 H RBC Morphology Normal morphology Sodium 132 L Potassium 3.3 L Chloride 101 Carbon Dioxide 9 L* BUN 6 L Creatinine 0.92 Estimated GFR > 60 BUN/Creatinine Ratio 6.5 Glucose 183 H Calcium 9.2 Total Bilirubin 3.4 H AST 84 H ALT 46 H Alkaline Phosphatase 109 Total Protein 7.9 Albumin 4.4 Globulin 3.5 Albumin/Globulin Ratio 1.3 Lipase 151 Urine RBC None seen Urine WBC 5-10/hpf H Ur Squamous Epith Cells 5-10 /hpf H Urine Bacteria Moderate (10-30) H Ur Culture Indicated? Specimen cultured Vol Urine Centrifuged 10ml (spun) Urine Test Negative Nasal Screen MRSA (PCR) U Opiates 300ng/mL cut Negative Ur Oxycodone Screen Negative Urine Methadone Screen Negative Ur Barbiturates Screen Positive H U Tricyclic Antidepress Negative Ur Phencyclidine Scrn Negative Ur Amphetamines Screen Negative U Methamphetamines Scrn Negative Ur MDMA Scrn (Ecstasy) Negative U Benzodiazepines Scrn Negative Urine Cocaine Screen Negative U Marijuana (THC) Screen Negative Urine pH Normal Urine Specific [place] Normal Ethyl Alcohol < 10 Ur Creatinine Normal SARS-CoV-2 (PCR) Negative 12/09/23 12/09/23 02:30 05:50 WBC 5.5 RBC 3.48 L Hgb 10.9 L Hct 32.0 L MCV 92.1 MCH 31.3 MCHC 33.9 RDW 18.1 H Plt Count 170 Neut % (Auto) 68.1 Lymph % (Auto) 21.4 L Coke % (Auto) 8.9 Eos % (Auto) 1.0 L Baso % (Auto) 0.6 Neut # (Auto) 3800 Lymph # (Auto) 1200 Coke # (Auto) 500 Eos # (Auto) 100 Baso # (Auto) 0 Total Counted Seg Neutrophils % Band Neutrophils % Lymphocytes % (Manual) Monocytes % (Manual) Basophils % (Manual) Neutrophils # (Manual) Nucleated RBCs RBC Morphology Sodium 136 L Potassium 3.2 L Chloride 107 Carbon Dioxide 21 L BUN 4 L Creatinine 0.66 Estimated GFR > 60 BUN/Creatinine Ratio 6.1 Glucose 88 Calcium 8.4 Total Bilirubin 2.3 H AST 69 H ALT 26 Alkaline Phosphatase 88 Total Protein 6.3 Albumin 3.4 L Globulin 2.9 Albumin/Globulin Ratio 1.2 Lipase Urine RBC Urine WBC Ur Squamous Epith Cells Urine Bacteria Ur Culture Indicated? Vol Urine Centrifuged Urine Test Nasal Screen MRSA (PCR) Not detected U Opiates 300ng/mL cut Ur Oxycodone Screen Urine Methadone Screen Ur Barbiturates Screen U Tricyclic Antidepress Ur Phencyclidine Scrn Ur Amphetamines Screen U Methamphetamines Scrn Ur MDMA Scrn (Ecstasy) U Benzodiazepines Scrn Urine Cocaine Screen U Marijuana (THC) Screen Urine pH Urine Specific [place] Ethyl Alcohol Ur Creatinine SARS-CoV-2 (PCR) [facility] Medical History Anxiety and depression HTN (hypertension) Alcohol withdrawal seizure Alcohol use disorder Social History household members: none Smoking Status: Current every day smoker alcohol intake: current Discharge Assessment & Plan Assessment and Plan Assessment: 1. Alcohol withdrawal seizure, present on admission resolved. 2. Alcohol withdrawal syndrome, present on admission and improved. 3. Severe alcohol use disorder, present on admission and active. 4. Hypokalemia, present on admission and improved. Plan of Treatment: Discharge home, Librium 25 t.i.d. as needed. She was started attending recovery meetings within the next 2 days. She was going to be assisted by her friend to a 6 years sober. Other information was obtained by social work. She was been in inpatient rehab twice in the past. Discharge Plan Discharge Plan Patient Disposition: Home Provider Discharge Comment: Stable for discharge home with Lila. She has someone to take care of her home who has been sober for 6 years. Discharge orders & Medications Prescriptions: New chlordiazepoxide HCl 25 mg Capsule 25 mg PO TID Qty: 21 0RF thiamine mononitrate (vit B1) 100 mg Tablet 100 mg PO DAILY Qty: 30 0RF Continued L norgest/e.estradiol-e.estrad [Ashlyna] 0.15 mg-30 mcg (84)/10 mcg (7) tablets,dose pack,3 month 1 tab PO DAILY hydroxyzine HCl 50 mg tablet 50 mg PO BID PRN (Reason: anxiety) amlodipine 10 mg tablet 10 mg PO DAILY trazodone 50 mg tablet 50 mg PO ONCE PM PRN (Reason: insomnia) duloxetine 20 mg capsule,delayed release(DR/EC) 20 mg PO DAILY pregabalin 75 mg capsule 75 mg PO 3XD Follow up/Referrals: Radha Thomas I, PA-C [Primary Care Provider] - Discharge Health Status Multidrug resistant organism: No MDRO Diet/Activity/Treatments Diet: Diet as Tolerated Activity: As tolerated. Visit Report/Discharge Packet Instructions: Alcohol Withdrawal Stand Alone Forms: Patient Portal/API Discharge Data Primary Care Provider: Radha Thomas I Attending Provider: Amandeep Maya Admmarva Date/Time: 12/09/23 00:04
--- NOTE | 2023-12-09 12:16 | CM.DANOTE ---
DCP Assessment Note: Pt is a 43yo male, resident of [place], is admitted for ETOH withdrawal with seizures. Pt lives in a unit with a duplex, alone. Pt's Primary Care Provider is Dr. Lizbeth Flynn MD (established today) and insurance is [employer]/Medicaid. Reviewed chart and team rounds for pt's medical status and initial discharge needs. DCP met w/patient at bedside; introduced self and role. Patient was found in bed, alert and oriented, cooperative with assessment. Pt is familiar to this DCP due to presentation in ED the previous night. Pt confirmed living situation and good support in partner, who has been sober for the past 6 years. Pt expressed preference in discharging home with [facility] follow up. Pt has a hx of attending inpatient rehab at [facility] in [place], pt was released from there on 08/23. Patient is court ordered to attend [facility] treatment with hopes of reunification with children (they are in [place] with father). DCP discussed referral to [facility] OP program, pt stated preference for [facility]. DCP provided pamphlet for facility and discussed services offered. Pt appreciative. DCP called [facility] with hopes of sending referral for pt, it was reported that referrals are not necessary and pt will have to self-refer at discharge. DCP encouraged pt to attempt intake today upon discharge. Pt verbalized understanding. Pt requested assistance with obtaining a PCP in network as having her Primary Care in [place] was a barrier. Pt provided with link to search for available Providers. Pt was able to establish care with Dr. Lizbeth Flynn with a follow up appointment on 12/15. Plan: Pt to discharge when medically stable, partner to transport home. Pt to follow up with OP [facility] treatment and AA meetings/establishing a sponsor, as discussed during assessment. CM team will follow closely for coordination of discharge plans. ZACK Garcia Discharge Planning/Care Management CM Discharge Assessment Start: 12/09/23 12:10 Freq: Status: Active Protocol: Document 12/09/23 12:10 MW (Rec: 12/09/23 12:15 MW [id number]) Discharge Planning Assessment Assigned Cota NDERA Ford DPOA/Assigned Designee Name Preet Wong Contact Information [phone] Advance Directives? No History Provided By Patient,Friend,Medical Record Has Patient been admitted in last 30 No days? Prior Living Arrangements House Household Members none Type of transporation used prior to Drives own vehicle admit Independent with ADL's Yes Is patient alert and oriented? Yes Caregiver for Another No: Patient has 2 sons but not in her custody at the moment. Comment Continued alcohol use, non- compliance with treatment. Discharge Plan Home Transportation Arrangement Marvin, partner, to transport. Referrals Initiated None needed,Other Additional Comment Pt to follow up with [facility] - no referral from this FOOD STYLIST required per staff at facility. Pt educated on how to self-refer. Whiteboard Updated in Patient Room with Yes name and ext. # of Cota Comment [phone] Please Provide Date Initial DC 12/09/23 Assessment Was Performed Next Review Type Continued Stay Review
== END 2023-12-09 12:27 | disposition home or self-care (01) ==
LOC: ED 23:39 → ICU 12-09 05:52 → AC 12-09 11:17
PROVIDERS: Emergency Medicine; Admitting Provider Internal Medicine; Emergency Provider Emergency Medicine; PCP Physician Assistant; Referring Provider Emergency Medicine; Visit Provider Internal Medicine
DX: F10.239 Alcohol dependence with withdrawal, unspecified (principal); G40.89 Other seizures; E87.6 Hypokalemia; Z11.52 Encounter for screening for COVID-19
CPT/HCPCS: 36415; 70450; 80053; 80305; 80320; 81003; 81015; 81025; 83690; 85007; 85025; 87086; 87635; 87797; 93005; 93010; 96361; 96365; 96375; 96376; 99284; G0378; J2470; J2560

== ENCOUNTER 2024-01-26 21:19 | Emergency (ER) | payer OTHER, MEDICAID, SELFPAY ==
[2023-12-09 01:00] VITALS: BMI 23.6
[2024-01-26] VITALS (11 sets, daily range): BP systolic 151–186; BP diastolic 103–108; PULSE 82–130; RESP 17–20; TEMP 36.9; O2SAT 96–100
--- NOTE | 2024-01-26 21:32 | ED_ITS ---
HPI - Nausea/Vomiting/Diarrhea General Chief complaint: Nausea/Vomiting/Diarrhea Stated complaint: throwing up, tense muscles Time Seen by Provider: 01/26/24 21:21 Source: patient Mode of arrival: Ambulatory History of Present Illness HPI Narrative: 43-year-old female with history of hypertension, alcohol use disorder (still drinks 1-2 per day per pt) presents by private vehicle from home for nausea, vomiting, diarrhea since approximately 3:00 a.m.. Patient reports multiple episodes nonbloody nonbilious emesis and 2 3 episodes of diarrhea today. She states she was not been able to keep anything down. Reports mild cramping abdominal pain when she vomits, however currently free of any pain. Related Data Home Medications Medication Instructions Recorded Confirmed L norgest/E estradiol-E estrad 1 tab PO DAILY 12/09/23 12/09/23 0.15 mg-30 mcg (84)/10 mcg(7) tabs,3mos (Ashlyna) amlodipine 10 mg tablet 10 mg PO DAILY 12/09/23 12/09/23 duloxetine 20 mg capsule,delayed 20 mg PO DAILY 12/09/23 12/09/23 release hydroxyzine HCl 50 mg tablet 50 mg PO BID PRN anxiety 12/09/23 12/09/23 pregabalin 75 mg capsule 75 mg PO 3XD 12/09/23 12/09/23 trazodone 50 mg tablet 50 mg PO ONCE PM PRN insomnia 12/09/23 12/09/23 Previous Rx's Medication Instructions Recorded chlordiazepoxide HCl 25 mg capsule 25 mg PO TID #21 caps 12/09/23 thiamine mononitrate (vit B1) 100 100 mg PO DAILY #30 tabs 12/09/23 mg tablet ondansetron 4 mg disintegrating 4 mg PO Q8H PRN nausea and 01/26/24 tablet vomiting #30 tabs Allergies Allergy/AdvReac Type Severity Reaction Status Date / Time gabapentin Allergy Verified 01/26/24 21:26 Penicillins Allergy Swelling Verified 04/29/23 09:33 of Lip/Tongue/Throat Patient History Medical History Anxiety and depression HTN (hypertension) Alcohol withdrawal seizure Alcohol use disorder Social History household members: none Smoking Status: Current every day smoker alcohol intake: current Smoking Status: Current every day smoker tobacco type: vaping alcohol intake frequency: 3 or more drinks per day Alcohol type: beer and hard liquor Substance Use Type: former substance user Exam Initial Vital Signs Initial Vital Signs: Vital Signs Blood Pressure 186/105 H 01/26/24 21:23 Const: Awake, alert, no acute distress, nontoxic appearing Cardiac: Tachycardia, regular rhythm RESP: unlabored, clear bilaterally GI: Soft, nontender, nondistended Skin: Warm, Dry, intact, no rashes Neuro: AO x3, CN II-XII grossly intact, moves all extremities Course Orders Ordered: ED Orders 01/26/24 21:30 CBC Auto Diff [Complete Blood Count AUTO DIFF] Stat CMP [Comprehensive Metabolic Panel] Stat Ethanol (ETOH) Stat 01/26/24 22:40 Urine Microscopic Stat Discontinued Medications Folic Acid (Folic Acid 1 Mg Tablet) 1 mg PO NOW ONE Stop: 01/26/24 21:32 Last Admin: 01/26/24 23:24 Dose: 1 mg Documented By: ROSAURA Thiamine HCl 200 mg/ Sodium (Chloride) 102 mls @ 408 mls/hr IV NOW ONE Stop: 01/26/24 21:32 Last Infusion: 01/26/24 22:06 Dose: Infused Documented By: Admin: 01/26/24 21:47 Dose: 408 mls/hr Documented By: HARRISON Sodium Chloride (Normal Saline 0.9%) 1,000 mls @ 1,000 mls/hr IV BOLUS ONE Stop: 01/26/24 22:56 Last Infusion: 01/26/24 22:49 Dose: Infused Documented By: Admin: 01/26/24 22:04 Dose: 1,000 mls/hr Documented By: ROSAURA Ondansetron HCl (Ondansetron 4 Mg/2 Ml Inj) 4 mg IV NOW ONE Stop: 01/26/24 21:32 Last Admin: 01/26/24 21:47 Dose: 4 mg Documented By: HARRISON Potassium Chloride (Potassium Chloride 20 Meq Tab) 40 meq PO NOW ONE Stop: 01/26/24 21:58 Last Admin: 01/26/24 23:24 Dose: 40 meq Documented By: ROSAURA Prochlorperazine (Prochlorperazine 10 Mg/2 Ml Vial) 10 mg IV NOW ONE Stop: 01/26/24 22:41 Last Admin: 01/26/24 22:59 Dose: 10 mg Documented By: LS Vital Signs Vital signs: Vital Signs - 8 hr 01/26/24 21:23 01/26/24 21:24 01/26/24 21:26 Temperature 98.5 F Pulse Rate 125 H 130 H Respiratory Rate 20 Blood Pressure 186/105 H 185/105 H Pulse Oximetry 98 98 Oxygen Delivery Method Room Air 01/26/24 21:30 01/26/24 22:00 01/26/24 22:30 Temperature Pulse Rate 104 H 98 H 95 H Respiratory Rate Blood Pressure Pulse Oximetry 100 98 100 Oxygen Delivery Method 01/26/24 22:48 01/26/24 22:48 01/26/24 23:00 Temperature Pulse Rate 116 H 82 Respiratory Rate Blood Pressure 169/107 H Pulse Oximetry 99 98 Oxygen Delivery Method 01/26/24 23:00 01/26/24 23:30 01/26/24 23:30 Temperature Pulse Rate 98 H Respiratory Rate Blood Pressure 171/103 H 166/108 H Pulse Oximetry 99 Oxygen Delivery Method 01/26/24 23:37 Temperature Pulse Rate 95 H Respiratory Rate Blood Pressure Pulse Oximetry 99 Oxygen Delivery Method MDM - Nausea/Vomiting/Diarrhea Differential Diagnosis Differential diagnosis: Likely traveler's diarrhea, food poisoning and gastroenteritis Lab Data 01/26/24 21:30 01/26/24 21:30 Labs: Lab Results 01/26/24 01/26/24 Range/Units 21:30 22:40 WBC 10.6 (4.5-11.0) X10^3/uL RBC 4.11 (4.0-5.2) X10^6/uL Hgb 11.8 L (12.0-16.0) g/dL Hct 35.5 L (36-46) % MCV 86.3 (80-100) fL MCH 28.8 (26-34) PG MCHC 33.3 (30-36) % RDW 17.7 H (11.6-14.8) % Plt Count 311 (150-400) X10^3/uL Neut % (Auto) 82.2 H (50-75) % Lymph % (Auto) 13.1 L (25-40) % [place]hing % (Auto) 3.7 (3-14) % Eos % (Auto) 0.0 L (2-4) % Baso % (Auto) 1.0 (0-2) % Neut # (Auto) 8700 H (8686-0575) /uL Lymph # (Auto) 1400 (9721-3820) /uL [place]hing # (Auto) 400 (0-900) /uL Eos # (Auto) 0 (0-450) /uL Baso # (Auto) 100 (0-100) /uL Sodium 128 L (137-145) mmol/L Potassium 3.0 L (3.4-5.1) mmol/L Chloride 96 L (98-107) mmol/L Carbon Dioxide 19 L (22-32) mmol/L BUN < 2 L (7-17) mg/dL Creatinine 0.51 L (0.52-1.04) mg/dL Estimated GFR > 60 (>60) mL/min BUN/Creatinine Ratio 3.9 L (6-22) Glucose 152 H (70-100) mg/dL Calcium 8.5 (8.4-10.2) mg/dL Total Bilirubin 1.5 H (0.2-1.3) mg/dL AST 41 H (14-36) IU/L ALT 22 (<35) IU/L Alkaline Phosphatase 70 (38-126) U/L Total Protein 8.2 (6.3-8.2) g/dL Albumin 4.7 (3.5-5.0) g/dL Globulin 3.5 (1.7-4.1) g/dL Albumin/Globulin Ratio 1.3 (1.0-2.8) Urine RBC None seen (0-5/HPF) Urine WBC None seen (0-5/HPF) Ur Squamous Epith Cells 0-1 /hpf (0-5/HPF) Urine Bacteria None seen (None) Ur Culture Indicated? Cult not indicated Vol Urine Centrifuged 10ml (spun) Ethyl Alcohol < 10 ( - 10) mg/dL Urine Dip Bedside Urine Glucose Negative Bedside Urine Bilirubin - Negative Bedside Urine Ketone - Negative Urine Specific [place] 1.015 Bedside Urine Occult Blood - Negative Bedside Urine pH 8 Bedside Urine Protein +/- 15 Bedside Urine Urobilinogen - Negative Bedside Urine Nitrite - Negative Bedside Urine Leukocytes - Negative Esterase MDM Narrative Medical decision making narrative: Nontoxic appearing patient with 1 day of nausea and vomiting. Abdomen soft, no reproducible tenderness to palpation. Patient initially tachycardic, however once placed in ED bed heart rate quickly drops to 80-90 beats per minute. Zofran, IV fluids, blood work drawn Lab work shows WBC count 10.6, hemoglobin 11.8, platelets 311, sodium 128, potassium 3.0, creatinine 0.51, T bili 1.5, AST 41, ALT 22, alkaline phos 70. Patient's T bili is downtrending from priors. Sodium and potassium were slightly lower than patient's previous values. Patient was receiving normal saline and was given p.o. potassium for repletion. Patient vomited after Zofran, Compazine ordered. Patient able to tolerate p.o. fluids after Compazine and stated that she felt much better and ready to go home. Antinausea medication sent to pharmacy of choice. Discharge Plan Departure Patient Disposition: Home Clinical Impression: Nausea, Vomiting, and Diarrhea Instructions: DI for Vomiting -- Adult Activity Restrictions/Additional Instructions: Your sodium and potassium were slightly low today. Make sure that at home you drink plenty of hydrating fluids. Stick to a light diet over the next day or so until your stomach feels settled. Nausea medications have been sent to the [facility] in [place]. Prescriptions: New ondansetron 4 mg tablet,disintegrating 4 mg PO Q8H PRN (Reason: nausea and vomiting) Qty: 30 0RF No Action L norgest/e.estradiol-e.estrad [Ashlyna] 0.15 mg-30 mcg (84)/10 mcg (7) tablets,dose pack,3 month 1 tab PO DAILY hydroxyzine HCl 50 mg tablet 50 mg PO BID PRN (Reason: anxiety) amlodipine 10 mg tablet 10 mg PO DAILY trazodone 50 mg tablet 50 mg PO ONCE PM PRN (Reason: insomnia) duloxetine 20 mg capsule,delayed release(DR/EC) 20 mg PO DAILY pregabalin 75 mg capsule 75 mg PO 3XD chlordiazepoxide HCl 25 mg Capsule 25 mg PO TID Qty: 21 0RF thiamine mononitrate (vit B1) 100 mg Tablet 100 mg PO DAILY Qty: 30 0RF Referrals: Radha Thomas PA-C [Primary Care Provider] - Stand Alone Forms: Patient Portal/API
--- NOTE | 2024-01-26 21:34 | EKG_ITS ---
[address] [id number] [address] [address] Test Date: 2024-01-26 Pat Name: Yovanny Carroll Department: Room: Gender: Female Reconciliation Analyst: KRYSTA : 1980 Requested By: Order Number: [id number] Reading MD: Juarez Davis MD Measurements Intervals [place] Rate: 100 P: 39 MD: 126 QRS: 30 QRSD: 76 T: 75 QT: 370 QTc: 477 Interpretive Statements Normal sinus rhythm Nonspecific ST and T wave abnormality Prolonged QT Electronically Signed On 01-27-2024 4:52:45 PDT by Juarez Davis MD
[2024-01-26 21:45] LABS: Add Manual Diff / Slide Review NO; Basophils Absolute Auto 100 /uL (0-100); Eosinophils Absolute Auto 0 /uL (0-450); Hematocrit 35.5 % (36-46); Hemoglobin 11.8 g/dL (12.0-16.0); Lymphocytes Absolute Auto 1400 /uL (1100-4500); Lymphocytes Percent Auto 13.1 % (25-40); Mean Corpuscular HGB Conc 33.3 % (30-36); Mean Corpuscular Hemoglobin 28.8 PG (26-34); Mean Corpuscular Volume 86.3 fL (80-100); Monocytes Absolute Auto 400 /uL (0-900); Monocytes Percent Auto 3.7 % (3-14); Neutrophils Absolute Auto 8700 /uL (1500-7000); Neutrophils Percent Auto 82.2 % (50-75); Platelet Count 311 X10^3/uL (150-400); Red Blood Cell Count 4.11 X10^6/uL (4.0-5.2); Red Cell Distribution Width 17.7 % (11.6-14.8); White Blood Cell Count 10.6 X10^3/uL (4.5-11.0)
[2024-01-26] MEDS: THIAMINE 200 MG in SODIUM CHLORIDE 0.9% 100 ML 408 MG IV (21:47)
[2024-01-26] MEDS: ONDANSETRON 4 MG/2 ML INJ IV (21:47)
[2024-01-26 21:51] LABS: Alanine Aminotransferase 22 IU/L (<35); Albumin 4.7 g/dL (3.5-5.0); Albumin Globulin Ratio 1.3 (1.0-2.8); Alkaline Phosphatase 70 U/L (38-126); Aspartate Aminotransferase 41 IU/L (14-36); BUN Creatinine Ratio 3.9 (6-22); Bilirubin Total 1.5 mg/dL (0.2-1.3); Blood Urea Nitrogen < 2 mg/dL (7-17); Calcium 8.5 mg/dL (8.4-10.2); Carbon Dioxide 19 mmol/L (22-32); Chloride 96 mmol/L (98-107); Estimated Glomerular Filt Rate > 60 mL/min (>60); Ethanol (ETOH) < 10 mg/dL; Globulin 3.5 g/dL (1.7-4.1); Glucose 152 mg/dL (70-100); HEMOLYSIS < 15 (0-50); Sodium 128 mmol/L (137-145); Total Protein 8.2 g/dL (6.3-8.2)
[2024-01-26] MEDS: SODIUM CHLORIDE 0.9% 1,000 ML 1000 ML IV (22:04)
--- NOTE | 2024-01-26 22:47 | PC.NURSE ---
Pt unable to tolerate sips of water after IV zofran. Now vomiting. PO meds held
[2024-01-26] MEDS: PROCHLORPERAZINE 10 MG/2 ML VIAL IV (22:59)
[2024-01-26 23:11] LABS: Bacteria Urine None Seen; Culture Indicated Urine Cult Not Indicated; RBC Urine None Seen (0-5/HPF); Squamous Epithelial Cell Urine 0-1 /HPF (0-5/HPF); Urine Volume 10mL (spun); WBC Urine None Seen (0-5/HPF)
[2024-01-26] MEDS: POTASSIUM CHLORIDE 20 MEQ TAB 40 MEQ PO (23:24)
[2024-01-26] MEDS: FOLIC ACID 1 MG TABLET PO (23:24)
--- NOTE | 2024-01-26 23:45 | PC.NURSE ---
Pt has tolerated ice chips, water, and PO meds. States she feels better and is ready to go home. Dr Schmitt notified.
== END 2024-01-26 23:56 | disposition home or self-care (01) ==
PROVIDERS: Emergency Provider Emergency Medicine; PCP Physician Assistant
DX: R11.2 Nausea with vomiting, unspecified (principal); R19.7 Diarrhea, unspecified; I10 Essential (primary) hypertension; R00.0 Tachycardia, unspecified
CPT/HCPCS: 36415; 80053; 80320; 81003; 81015; 85025; 93005; 93010; 96361; 96365; 96375; 99284; J0780; J2405

== ENCOUNTER 2024-04-08 12:16 | Observation (INO) | payer OTHER, SELFPAY ==
[2023-12-09 01:00] VITALS: BMI 23.6
[2024-04-08] VITALS (22 sets, daily range): BP systolic 142–210; BP diastolic 91–117; PULSE 88–122; RESP 14–29; TEMP 36.8–36.9; O2SAT 94–100; BMI 25.4
[2024-04-08 12:50] LABS: Add Manual Diff / Slide Review NO; Basophils Absolute Auto 0 /uL (0-100); Basophils Percent Auto 0.3 % (0-2); Eosinophils Absolute Auto 0 /uL (0-450); Hematocrit 37.2 % (36-46); Hemoglobin 12.4 g/dL (12.0-16.0); Lymphocytes Absolute Auto 900 /uL (1100-4500); Lymphocytes Percent Auto 9.3 % (25-40); Mean Corpuscular HGB Conc 33.4 % (30-36); Mean Corpuscular Hemoglobin 31.7 PG (26-34); Monocytes Absolute Auto 500 /uL (0-900); Monocytes Percent Auto 4.9 % (3-14); Neutrophils Absolute Auto 8100 /uL (1500-7000); Neutrophils Percent Auto 85.5 % (50-75); Platelet Count 366 X10^3/uL (150-400); Red Blood Cell Count 3.92 X10^6/uL (4.0-5.2); Red Cell Distribution Width 21.9 % (11.6-14.8); White Blood Cell Count 9.5 X10^3/uL (4.5-11.0)
[2024-04-08] MEDS: SODIUM CHLORIDE 0.9% 1,000 ML 1000 ML IV (12:51)
[2024-04-08] MEDS: ONDANSETRON 4 MG/2 ML INJ IV (12:56)
[2024-04-08 13:01] LABS: Alanine Aminotransferase 122 IU/L (<35); Albumin 4.4 g/dL (3.5-5.0); Albumin Globulin Ratio 1.4 (1.0-2.8); Alkaline Phosphatase 95 U/L (38-126); Aspartate Aminotransferase 303 IU/L (14-36); BUN Creatinine Ratio 3.9 (6-22); Bilirubin Total 3.5 mg/dL (0.2-1.3); Blood Urea Nitrogen 3 mg/dL (7-17); Calcium 8.6 mg/dL (8.4-10.2); Carbon Dioxide 15 mmol/L (22-32); Chloride 95 mmol/L (98-107); Estimated Glomerular Filt Rate > 60 mL/min (>60); Globulin 3.2 g/dL (1.7-4.1); Glucose 181 mg/dL (70-100); HEMOLYSIS < 15 (0-50); Lipase 153 U/L (23-300); Potassium 3.2 mmol/L (3.4-5.1); Sodium 134 mmol/L (137-145); Total Protein 7.6 g/dL (6.3-8.2)
[2024-04-08 13:10] LABS: Lactate (Lactic Acid) 3.7 mmol/L (0.7-2.1)
[2024-04-08 13:13] LABS: Anisocytosis 2+
[2024-04-08] MEDS: PHENobarbital 65 MG/ML VIAL 130 MG IV (13:48)
[2024-04-08] MEDS: PANTOPRAZOLE 40 MG VIAL IV (13:48)
--- NOTE | 2024-04-08 14:11 | ED_ITS ---
HPI - Nausea/Vomiting/Diarrhea <Jaleesa Hoffman DO - Last Filed: 04/09/24 07:00> General Chief complaint: Nausea/Vomiting/Diarrhea Stated complaint: vomiting x5 days Time Seen by Provider: 04/08/24 12:56 Source: patient Mode of arrival: Wheelchair History of Present Illness HPI Narrative: Patient 44-year-old female history of alcohol abuse and withdrawal presents today with ongoing vomiting diarrhea. She reports that she has been vomiting for the last 5 days. Her last alcoholic drink was 2 days ago. She had a similar presentation back in January. She was hospitalized in November for an alcohol withdrawal seizure. Today she has had a little bit of diarrhea as well. Abdominal pain has improved since fluids Zofran and phenobarbital. She is still feeling a bit nauseous. She does not have interest in going to rehab. Related Data Home Medications Medication Instructions Recorded Confirmed amlodipine 10 mg tablet 10 mg PO DAILY 12/09/23 04/08/24 hydroxyzine HCl 50 mg tablet 50 mg PO BID PRN anxiety 12/09/23 04/08/24 pregabalin 75 mg capsule 75 mg PO 3XD 12/09/23 04/08/24 trazodone 50 mg tablet 50 mg PO BEDTIME 12/09/23 04/08/24 trazodone 50 mg tablet 50 mg PO ONCE PM 04/08/24 04/08/24 Previous Rx's Medication Instructions Recorded thiamine mononitrate (vit B1) 100 100 mg PO DAILY #30 tabs 12/09/23 mg tablet ondansetron 4 mg disintegrating 4 mg PO Q8H PRN nausea and 04/08/24 tablet vomiting #10 tabs Allergies Allergy/AdvReac Type Severity Reaction Status Date / Time gabapentin Allergy Verified 04/08/24 12:47 Penicillins Allergy Swelling Verified 04/08/24 12:47 of Lip/Tongue/Throat Patient History <DO Shelia Rouse Last Filed: 04/09/24 07:00> Medical History Anxiety and depression HTN (hypertension) Alcohol withdrawal seizure Alcohol use disorder Social History household members: none Smoking Status: Current every day smoker alcohol intake: current Smoking Status: Current every day smoker tobacco type: vaping alcohol intake frequency: 3 or more drinks per day Alcohol type: beer and hard liquor Exam <DO Shelia Rouse Last Filed: 04/09/24 07:00> Initial Vital Signs Initial Vital Signs: Vital Signs Temperature 98.2 F 04/08/24 12:16 Pulse Rate 122 H 04/08/24 12:16 Respiratory Rate 16 04/08/24 12:16 Blood Pressure 210/111 H 04/08/24 12:16 Pulse Oximetry 100 04/08/24 12:16 Oxygen Delivery Method Room Air 04/08/24 12:16 GENERAL: Alert 44-year-old female dry heaving HEENT: Head atraumatic,EOMI, pupils reactive, face symmetric, mild scleral icterus dry mucous membranes CARDIOVASCULAR: Regular rate and rhythm without murmurs, rubs or gallops. RESPIRATORY: Breath sounds equal bilaterally, no wheezes rales or rhonchi. ABDOMEN: Soft, nontender. Normoactive bowel sounds all 4 quadrants. No guarding or rebound. EXTREMITIES: Normal range of motion, no clubbing or edema. Neurovascularly intact NEUROLOGICAL: Alert and oriented x4.Normal gait and speech. Cranial nerves II through XII grossly intact. SKIN: Warm, dry, no laceration, no petechiae, no rashes or lesions. <Russell Polanco DO - Last Filed: 04/08/24 20:59> Initial Vital Signs Initial Vital Signs: Vital Signs Temperature 98.2 F 04/08/24 12:16 Pulse Rate 122 H 04/08/24 12:16 Respiratory Rate 16 04/08/24 12:16 Blood Pressure 210/111 H 04/08/24 12:16 Pulse Oximetry 100 04/08/24 12:16 Oxygen Delivery Method Room Air 04/08/24 12:16 Course <Jaleesa Hoffman DO - Last Filed: 04/09/24 07:00> Orders Ordered: Clonidine HCl (Clonidine 0.1 Mg Tablet) 0.1 mg PO Q4HR PRN PRN Reason: Alcohol Withdrawal Last Admin: 04/09/24 04:16 Dose: 0.1 mg Documented By: MS Folic Acid (Folic Acid 1 Mg Tablet) 1 mg PO DAILY MARYJO Sodium Chloride (Normal Saline 0.9%) 1,000 mls @ 100 mls/hr IV CONT MARYJO Last Admin: 04/09/24 06:23 Dose: 100 mls/hr Documented By: Infusion: 04/09/24 05:51 Dose: Infused Documented By: Admin: 04/08/24 19:51 Dose: 100 mls/hr Documented By: YE Sodium Chloride (Normal Saline 0.9%) 1,000 mls @ 1,000 mls/hr IV BOLUS PRN PRN Reason: Fluid replacement Potassium Phosphate 30 mmol/ (Sodium Chloride) 510 mls @ 127.5 mls/hr IV NOW ONE Stop: 04/09/24 10:44 POTASSIUM CHLORIDE IN WATER (Potassium Cl 10 Meq/100 Ml Pauline) 10 meq in 100 mls @ 100 mls/hr IV Q1H MARYJO Stop: 04/09/24 12:59 Magnesium Sulfate (Magnesium Sulfate) 4 gm in 100 mls @ 25 mls/hr IV NOW ONE Stop: 04/09/24 10:59 Lorazepam (Lorazepam 2 Mg/Ml Inj) 0 mg IV CIWAPRN PRN; Protocol PRN Reason: Alcohol Withdrawal Morphine Sulfate (Morphine 4 Mg/Ml Inj) 3 mg IV Q4HR PRN PRN Reason: Pain, Severe (7-10) Multivitamins (Multivitamin 1 Tablet) 1 tab PO DAILY [facility] Naloxone HCl (Naloxone 0.4 Mg/Ml Vial) 0.2 mg IV Q2MIN PRN PRN Reason: Opiate Reversal Ondansetron HCl (Ondansetron 4 Mg/2 Ml Inj) 4 mg IV NOW PRN PRN Reason: Nausea And Vomiting Last Admin: 04/08/24 12:56 Dose: 4 mg Documented By: YE Ondansetron HCl (Ondansetron 4 Mg Odt) 4 mg PO NOW PRN PRN Reason: Nausea And Vomiting Ondansetron HCl (Ondansetron 4 Mg/2 Ml Inj) 4 mg IV Q4HR PRN PRN Reason: Nausea And Vomiting Promethazine HCl (Promethazine 12.5 Mg Supp) 12.5 mg NV Q6HR PRN PRN Reason: Nausea And Vomiting Thiamine HCl (Thiamine 100 Mg Tablet) 100 mg PO DAILY [facility] Stop: 04/12/24 09:01 Discontinued Medications Sodium Chloride (Normal Saline 0.9%) 1,000 mls @ 1,000 mls/hr IV BOLUS ONE Stop: 04/08/24 13:46 Last Infusion: 04/08/24 13:49 Dose: Infused Documented By: Admin: 04/08/24 12:51 Dose: 1,000 mls/hr Documented By: YE Thiamine HCl 100 mg/ Sodium (Chloride) 101 mls @ 404 mls/hr IV NOW ONE Stop: 04/08/24 20:44 Last Infusion: 04/08/24 21:28 Dose: Infused Documented By: Admin: 04/08/24 20:59 Dose: 404 mls/hr Documented By: AB Sodium Chloride (Normal Saline 0.9%) 1,000 mls @ 1,000 mls/hr IV BOLUS ONE Stop: 04/08/24 21:23 Last Admin: 04/08/24 22:23 Dose: Not Given Documented By: CARRI Lorazepam (Lorazepam 2 Mg/Ml Inj) 1 mg IV NOW ONE Stop: 04/08/24 14:24 Last Admin: 04/08/24 15:05 Dose: 1 mg Documented By: YE Lorazepam (Lorazepam 2 Mg/Ml Inj) 2 mg IV NOW ONE Stop: 04/08/24 16:07 Last Admin: 04/08/24 16:17 Dose: 2 mg Documented By: YE Metoclopramide HCl (Metoclopramide 10 Mg/2 Ml Inj) 10 mg IV NOW ONE Stop: 04/08/24 18:22 Last Admin: 04/08/24 18:29 Dose: 10 mg Documented By: YE Morphine Sulfate (Morphine 4 Mg/Ml Inj) 3 mg IV Q4HR MARYJO Ondansetron HCl (Ondansetron 4 Mg Odt Prepack) 1 bottle MISC DIRECTED ONE Stop: 04/08/24 18:08 Last Admin: 04/08/24 20:16 Dose: Not Given Documented By: Ondansetron HCl (Ondansetron 4 Mg/2 Ml Inj) 4 mg IV NOW ONE Stop: 04/08/24 20:25 Last Admin: 04/08/24 22:14 Dose: Not Given Documented By: CARRI Ondansetron HCl (Ondansetron 4 Mg/2 Ml Inj) 4 mg IV Q4HR MARYJO Pantoprazole Sodium (Pantoprazole 40 Mg Vial) 40 mg IV NOW ONE Stop: 04/08/24 12:57 Last Admin: 04/08/24 13:48 Dose: 40 mg Documented By: YE Phenobarbital (Phenobarbital 65 Mg/Ml Vial) 130 mg IV NOW ONE Stop: 04/08/24 13:35 Last Admin: 04/08/24 13:48 Dose: 130 mg Documented By: YE Vital Signs Vital signs: Vital Signs - 8 hr 04/08/24 13:00 04/08/24 13:30 04/08/24 14:00 Pulse Rate 88 105 H 110 H Respiratory Rate 14 18 15 Blood Pressure Pulse Oximetry 99 99 98 Oxygen Delivery Method 04/08/24 15:03 04/08/24 15:05 04/08/24 15:05 Pulse Rate 96 H 94 H Respiratory Rate Blood Pressure 175/112 H Pulse Oximetry 99 99 Oxygen Delivery Method 04/08/24 15:30 04/08/24 15:30 04/08/24 16:00 Pulse Rate 104 H Respiratory Rate Blood Pressure 149/105 H 162/101 H Pulse Oximetry 94 Oxygen Delivery Method 04/08/24 16:00 04/08/24 16:30 04/08/24 16:30 Pulse Rate 106 H 101 H Respiratory Rate Blood Pressure 166/91 H Pulse Oximetry 99 96 Oxygen Delivery Method Room Air 04/08/24 17:00 04/08/24 17:00 04/08/24 17:30 Pulse Rate 104 H 114 H Respiratory Rate 18 Blood Pressure 167/101 H Pulse Oximetry 96 97 Oxygen Delivery Method 04/08/24 17:30 04/08/24 18:00 04/08/24 18:00 Pulse Rate 101 H Respiratory Rate 18 Blood Pressure 163/93 H 168/100 H Pulse Oximetry 96 Oxygen Delivery Method 04/08/24 18:30 04/08/24 18:30 04/08/24 19:00 Pulse Rate 100 H 99 H Respiratory Rate 18 21 Blood Pressure 172/117 H Pulse Oximetry 99 99 Oxygen Delivery Method 04/08/24 19:30 04/08/24 20:00 04/08/24 20:30 Pulse Rate 107 H 99 H 102 H Respiratory Rate 26 H 29 H 19 Blood Pressure Pulse Oximetry 94 94 95 Oxygen Delivery Method Room Air 04/08/24 20:42 04/08/24 20:42 Pulse Rate 102 H Respiratory Rate 22 Blood Pressure 142/96 H Pulse Oximetry 94 Oxygen Delivery Method Room Air <Russell Polanco DO - Last Filed: 04/08/24 20:59> Orders Ordered: Clonidine HCl (Clonidine 0.1 Mg Tablet) 0.1 mg PO Q4HR PRN PRN Reason: Alcohol Withdrawal Last Admin: 04/09/24 04:16 Dose: 0.1 mg Documented By: Folic Acid (Folic Acid 1 Mg Tablet) 1 mg PO DAILY [facility] Sodium Chloride (Normal Saline 0.9%) 1,000 mls @ 100 mls/hr IV CONT MARYJO Last Admin: 04/09/24 06:23 Dose: 100 mls/hr Documented By: Infusion: 04/09/24 05:51 Dose: Infused Documented By: Admin: 04/08/24 19:51 Dose: 100 mls/hr Documented By: YE Sodium Chloride (Normal Saline 0.9%) 1,000 mls @ 1,000 mls/hr IV BOLUS PRN PRN Reason: Fluid replacement Potassium Phosphate 30 mmol/ (Sodium Chloride) 510 mls @ 127.5 mls/hr IV NOW ONE Stop: 04/09/24 10:44 POTASSIUM CHLORIDE IN WATER (Potassium Cl 10 Meq/100 Ml Pauline) 10 meq in 100 mls @ 100 mls/hr IV Q1H MARYJO Stop: 04/09/24 12:59 Magnesium Sulfate (Magnesium Sulfate) 4 gm in 100 mls @ 25 mls/hr IV NOW ONE Stop: 04/09/24 10:59 Lorazepam (Lorazepam 2 Mg/Ml Inj) 0 mg IV CIWAPRN PRN; Protocol PRN Reason: Alcohol Withdrawal Morphine Sulfate (Morphine 4 Mg/Ml Inj) 3 mg IV Q4HR PRN PRN Reason: Pain, Severe (7-10) Multivitamins (Multivitamin 1 Tablet) 1 tab PO DAILY [facility] Naloxone HCl (Naloxone 0.4 Mg/Ml Vial) 0.2 mg IV Q2MIN PRN PRN Reason: Opiate Reversal Ondansetron HCl (Ondansetron 4 Mg/2 Ml Inj) 4 mg IV NOW PRN PRN Reason: Nausea And Vomiting Last Admin: 04/08/24 12:56 Dose: 4 mg Documented By: YE Ondansetron HCl (Ondansetron 4 Mg Odt) 4 mg PO NOW PRN PRN Reason: Nausea And Vomiting Ondansetron HCl (Ondansetron 4 Mg/2 Ml Inj) 4 mg IV Q4HR PRN PRN Reason: Nausea And Vomiting Promethazine HCl (Promethazine 12.5 Mg Supp) 12.5 mg NV Q6HR PRN PRN Reason: Nausea And Vomiting Thiamine HCl (Thiamine 100 Mg Tablet) 100 mg PO DAILY MARYJO Stop: 04/12/24 09:01 Discontinued Medications Sodium Chloride (Normal Saline 0.9%) 1,000 mls @ 1,000 mls/hr IV BOLUS ONE Stop: 04/08/24 13:46 Last Infusion: 04/08/24 13:49 Dose: Infused Documented By: Admin: 04/08/24 12:51 Dose: 1,000 mls/hr Documented By: YE Thiamine HCl 100 mg/ Sodium (Chloride) 101 mls @ 404 mls/hr IV NOW ONE Stop: 04/08/24 20:44 Last Infusion: 04/08/24 21:28 Dose: Infused Documented By: Admin: 04/08/24 20:59 Dose: 404 mls/hr Documented By: Sodium Chloride (Normal Saline 0.9%) 1,000 mls @ 1,000 mls/hr IV BOLUS ONE Stop: 04/08/24 21:23 Last Admin: 04/08/24 22:23 Dose: Not Given Documented By: CARRI Lorazepam (Lorazepam 2 Mg/Ml Inj) 1 mg IV NOW ONE Stop: 04/08/24 14:24 Last Admin: 04/08/24 15:05 Dose: 1 mg Documented By: YE Lorazepam (Lorazepam 2 Mg/Ml Inj) 2 mg IV NOW ONE Stop: 04/08/24 16:07 Last Admin: 04/08/24 16:17 Dose: 2 mg Documented By: YE Metoclopramide HCl (Metoclopramide 10 Mg/2 Ml Inj) 10 mg IV NOW ONE Stop: 04/08/24 18:22 Last Admin: 04/08/24 18:29 Dose: 10 mg Documented By: YE Morphine Sulfate (Morphine 4 Mg/Ml Inj) 3 mg IV Q4HR [facility] Ondansetron HCl (Ondansetron 4 Mg Odt Prepack) 1 bottle MISC DIRECTED ONE Stop: 04/08/24 18:08 Last Admin: 04/08/24 20:16 Dose: Not Given Documented By: Ondansetron HCl (Ondansetron 4 Mg/2 Ml Inj) 4 mg IV NOW ONE Stop: 04/08/24 20:25 Last Admin: 04/08/24 22:14 Dose: Not Given Documented By: CARRI Ondansetron HCl (Ondansetron 4 Mg/2 Ml Inj) 4 mg IV Q4HR MARYJO Pantoprazole Sodium (Pantoprazole 40 Mg Vial) 40 mg IV NOW ONE Stop: 04/08/24 12:57 Last Admin: 04/08/24 13:48 Dose: 40 mg Documented By: YE Phenobarbital (Phenobarbital 65 Mg/Ml Vial) 130 mg IV NOW ONE Stop: 04/08/24 13:35 Last Admin: 04/08/24 13:48 Dose: 130 mg Documented By: YE Vital Signs Vital signs: Vital Signs - 8 hr 04/08/24 13:00 04/08/24 13:30 04/08/24 14:00 Pulse Rate 88 105 H 110 H Respiratory Rate 14 18 15 Blood Pressure Pulse Oximetry 99 99 98 Oxygen Delivery Method 04/08/24 15:03 04/08/24 15:05 04/08/24 15:05 Pulse Rate 96 H 94 H Respiratory Rate Blood Pressure 175/112 H Pulse Oximetry 99 99 Oxygen Delivery Method 04/08/24 15:30 04/08/24 15:30 04/08/24 16:00 Pulse Rate 104 H Respiratory Rate Blood Pressure 149/105 H 162/101 H Pulse Oximetry 94 Oxygen Delivery Method 04/08/24 16:00 04/08/24 16:30 04/08/24 16:30 Pulse Rate 106 H 101 H Respiratory Rate Blood Pressure 166/91 H Pulse Oximetry 99 96 Oxygen Delivery Method Room Air 04/08/24 17:00 04/08/24 17:00 04/08/24 17:30 Pulse Rate 104 H 114 H Respiratory Rate 18 Blood Pressure 167/101 H Pulse Oximetry 96 97 Oxygen Delivery Method 04/08/24 17:30 04/08/24 18:00 04/08/24 18:00 Pulse Rate 101 H Respiratory Rate 18 Blood Pressure 163/93 H 168/100 H Pulse Oximetry 96 Oxygen Delivery Method 04/08/24 18:30 04/08/24 18:30 04/08/24 19:00 Pulse Rate 100 H 99 H Respiratory Rate 18 21 Blood Pressure 172/117 H Pulse Oximetry 99 99 Oxygen Delivery Method 04/08/24 19:30 04/08/24 20:00 04/08/24 20:30 Pulse Rate 107 H 99 H 102 H Respiratory Rate 26 H 29 H 19 Blood Pressure Pulse Oximetry 94 94 95 Oxygen Delivery Method Room Air 04/08/24 20:42 04/08/24 20:42 Pulse Rate 102 H Respiratory Rate 22 Blood Pressure 142/96 H Pulse Oximetry 94 Oxygen Delivery Method Room Air MDM - Nausea/Vomiting/Diarrhea <Jaleesa Hoffman DO - Last Filed: 04/09/24 07:00> Lab Data 04/09/24 05:19 04/09/24 05:19 Labs: Lab Results 04/08/24 04/08/24 04/08/24 Range/Units 12:39 14:40 14:48 WBC 9.5 (4.5-11.0) X10^3/uL RBC 3.92 L (4.0-5.2) X10^6/uL Hgb 12.4 (12.0-16.0) g/dL Hct 37.2 (36-46) % MCV 95.0 (80-100) fL MCH 31.7 (26-34) PG MCHC 33.4 (30-36) % RDW 21.9 H (11.6-14.8) % Plt Count 366 (150-400) X10^3/uL Neut % (Auto) 85.5 H (50-75) % Lymph % (Auto) 9.3 L (25-40) % Ogle % (Auto) 4.9 (3-14) % Eos % (Auto) 0.0 L (2-4) % Baso % (Auto) 0.3 (0-2) % Neut # (Auto) 8100 H (9680-8079) /uL Lymph # (Auto) 900 L (0810-0303) /uL Ogle # (Auto) 500 (0-900) /uL Eos # (Auto) 0 (0-450) /uL Baso # (Auto) 0 (0-100) /uL RBC Morphology Not Reportable Anisocytosis 2+ H Sodium 134 L (137-145) mmol/L Potassium 3.2 L (3.4-5.1) mmol/L Chloride 95 L (98-107) mmol/L Carbon Dioxide 15 L (22-32) mmol/L BUN 3 L (7-17) mg/dL Creatinine 0.76 (0.52-1.04) mg/dL Estimated GFR > 60 (>60) mL/min BUN/Creatinine Ratio 3.9 L (6-22) Glucose 181 H (70-100) mg/dL Lactate 3.7 H 2.3 H (0.7-2.1) mmol/L Calcium 8.6 (8.4-10.2) mg/dL Total Bilirubin 3.5 H (0.2-1.3) mg/dL AST 303 H (14-36) IU/L ALT 122 H (<35) IU/L Alkaline Phosphatase 95 (38-126) U/L Total Protein 7.6 (6.3-8.2) g/dL Albumin 4.4 (3.5-5.0) g/dL Globulin 3.2 (1.7-4.1) g/dL Albumin/Globulin Ratio 1.4 (1.0-2.8) Lipase 153 (23-300) U/L Urine RBC 30-100/hpf H (0-5/HPF) Urine WBC 1-5/hpf (0-5/HPF) Ur Squamous Epith Cells 0-1 /hpf (0-5/HPF) Urine Bacteria None seen (None) Hyaline Casts 0-1/lpf (None) Urine Mucus 1+ H (Negative) Ur Culture Indicated? Cult not indicated Vol Urine Centrifuged 10ml (spun) U Opiates 300ng/mL cut Negative (Negative) Ur Oxycodone Screen Negative (Negative) Urine Methadone Screen Negative (Negative) Ur Barbiturates Screen Negative (Negative) U Tricyclic Antidepress Negative (Negative) Ur Phencyclidine Scrn Negative (Negative) Ur Amphetamines Screen Negative (Negative) U Methamphetamines Scrn Negative (Negative) Ur MDMA Scrn (Ecstasy) Negative (Negative) U Benzodiazepines Scrn Positive H (Negative) Urine Cocaine Screen Negative (Negative) U Marijuana (THC) Screen Negative (Negative) Urine pH Normal (Normal) Urine Specific [place] Normal (Normal) Ur Creatinine Normal (Normal) Point of Care Testing Test Results Negative Urine Dip Bedside Urine Glucose Negative Bedside Urine Bilirubin - Negative Bedside Urine Ketone +++ 80 Urine Specific [place] 1.020 Bedside Urine Occult Blood +++ Bedside Urine pH 6.0 Bedside Urine Protein + 30 Bedside Urine Urobilinogen - Negative Bedside Urine Nitrite - Negative Bedside Urine Leukocytes +/- 15 Esterase ECG Data Attestation: I personally reviewed and interpreted this ECG as follows: MDM Narrative Medical decision making narrative: MDM CC: Nausea vomiting diarrhea Complicating co-morbidities: Alcohol abuse Medical records reviewed: Previous ED visits Differential considered: Alcohol withdrawal, alcoholic hepatitis gastroenteritis cholecystitis cholelithiasis choledocholithiasis Exam documented above, pertinent findings include: Patient dry heaving abdomen is soft no localization of pain no peritoneal signs mild icterus and jaundice noted Lab Test results independently reviewed as above. Pertinent findings: WBC 9.5 hemoglobin 12.4 hematocrit 37.2 platelets 366 Sodium 134 potassium 3.2 chloride 95 bicarb 15 BUN 3 creatinine 0.76 Lactate 3.7 with repeat 2.3 Bilirubin 3.5 previously 1.5 AST 303 previously 41 ALT 122 previously 22 Lipase 153 Imaging studies independently reviewed: Consultations: 1805 Dr. Francis request imaging prior to admission Treatments: IV fluids phenobarbital Ativan Zofran Protonix Reglan Re-evaluations: After Zofran and IV fluids patient is still feeling shaky he was given some phenobarbital along with some Ativan. She initially was able to keep down some fluids however started throwing up again. At which point she was given Reglan Discussion: Patient 44-year-old female history of alcohol abuse prior history of alcohol withdrawal and seizure. She has been vomiting for 5 days last alcoholic drink was 2 days ago. She definitely is showing some signs of alcohol with draw. Unclear what is her initial nausea vomiting. She had a very similar presentation nausea vomiting diarrhea previously. Today she does have elevated bilirubin higher than it was previously. She does not have specific right upper quadrant pain. However after ongoing nausea vomiting ultrasound and CT ordered. Patient signed out to Dr. Polanco. Anticipate admission. <Russell Polanco, DO - Last Filed: 04/08/24 20:59> Lab Data Attestation: I reviewed the patient's lab results. Labs: Lab Results 04/08/24 04/08/24 04/08/24 Range/Units 12:39 14:40 14:48 WBC 9.5 (4.5-11.0) X10^3/uL RBC 3.92 L (4.0-5.2) X10^6/uL Hgb 12.4 (12.0-16.0) g/dL Hct 37.2 (36-46) % MCV 95.0 (80-100) fL MCH 31.7 (26-34) PG MCHC 33.4 (30-36) % RDW 21.9 H (11.6-14.8) % Plt Count 366 (150-400) X10^3/uL Neut % (Auto) 85.5 H (50-75) % Lymph % (Auto) 9.3 L (25-40) % Ogle % (Auto) 4.9 (3-14) % Eos % (Auto) 0.0 L (2-4) % Baso % (Auto) 0.3 (0-2) % Neut # (Auto) 8100 H (7449-5530) /uL Lymph # (Auto) 900 L (7032-6532) /uL Ogle # (Auto) 500 (0-900) /uL Eos # (Auto) 0 (0-450) /uL Baso # (Auto) 0 (0-100) /uL RBC Morphology Not Reportable Anisocytosis 2+ H Sodium 134 L (137-145) mmol/L Potassium 3.2 L (3.4-5.1) mmol/L Chloride 95 L (98-107) mmol/L Carbon Dioxide 15 L (22-32) mmol/L BUN 3 L (7-17) mg/dL Creatinine 0.76 (0.52-1.04) mg/dL Estimated GFR > 60 (>60) mL/min BUN/Creatinine Ratio 3.9 L (6-22) Glucose 181 H (70-100) mg/dL Lactate 3.7 H 2.3 H (0.7-2.1) mmol/L Calcium 8.6 (8.4-10.2) mg/dL Total Bilirubin 3.5 H (0.2-1.3) mg/dL AST 303 H (14-36) IU/L ALT 122 H (<35) IU/L Alkaline Phosphatase 95 (38-126) U/L Total Protein 7.6 (6.3-8.2) g/dL Albumin 4.4 (3.5-5.0) g/dL Globulin 3.2 (1.7-4.1) g/dL Albumin/Globulin Ratio 1.4 (1.0-2.8) Lipase 153 (23-300) U/L Urine RBC 30-100/hpf H (0-5/HPF) Urine WBC 1-5/hpf (0-5/HPF) Ur Squamous Epith Cells 0-1 /hpf (0-5/HPF) Urine Bacteria None seen (None) Hyaline Casts 0-1/lpf (None) Urine Mucus 1+ H (Negative) Ur Culture Indicated? Cult not indicated Vol Urine Centrifuged 10ml (spun) U Opiates 300ng/mL cut Negative (Negative) Ur Oxycodone Screen Negative (Negative) Urine Methadone Screen Negative (Negative) Ur Barbiturates Screen Negative (Negative) U Tricyclic Antidepress Negative (Negative) Ur Phencyclidine Scrn Negative (Negative) Ur Amphetamines Screen Negative (Negative) U Methamphetamines Scrn Negative (Negative) Ur MDMA Scrn (Ecstasy) Negative (Negative) U Benzodiazepines Scrn Positive H (Negative) Urine Cocaine Screen Negative (Negative) U Marijuana (THC) Screen Negative (Negative) Urine pH Normal (Normal) Urine Specific [place] Normal (Normal) Ur Creatinine Normal (Normal) Point of Care Testing Test Results Negative Urine Dip Bedside Urine Glucose Negative Bedside Urine Bilirubin - Negative Bedside Urine Ketone +++ 80 Urine Specific [place] 1.020 Bedside Urine Occult Blood +++ Bedside Urine pH 6.0 Bedside Urine Protein + 30 Bedside Urine Urobilinogen - Negative Bedside Urine Nitrite - Negative Bedside Urine Leukocytes +/- 15 Esterase Imaging Data US - abdomen: Radiologist's Impression: PROCEDURE: US ABDOMEN LIMITED INDICATIONS: right upper quad TECHNIQUE: Real-time focused scanning was performed of the abdomen, with image documentation. COMPARISON: [facility], US, US ABDOMEN LIMITED, 12/12/2022, 14:55. [facility], CT, CT ABDOMEN PELVIS W CON, 04/08/2024, 18:29. FINDINGS: Liver measures 16 cm. Gallbladder is unremarkable. CBD is nondilated at 4 mm. Pancreas is unremarkable by ultrasound. IMPRESSION: No acute right upper quadrant sonographic abnormality. CT scan - abdomen/pelvis: Radiologist's Impression: PROCEDURE: CT ABDOMEN PELVIS W CON INDICATIONS: persistant vomiting TECHNIQUE: After the administration of intravenous contrast, axial sections acquired from the lung bases to the pubic symphysis. Coronal and sagittal reformats were performed. For radiation dose reduction, the following was used: automated exposure control, adjustment of mA and/or kV according to patient size. COMPARISON: [facility], CT, CT ABDOMEN PELVIS W CON, 12/12/2022, 14:46. FINDINGS: Image quality: Diagnostic Lower chest: Unremarkable lung bases Nonspecific distal esophageal wall thickening and hyperemia. This may represent esophagitis. Liver: Hepatic steatosis, likely severe even on this postcontrast study Gallbladder and biliary system: Unremarkable, nondilated Pancreas: Mild focal edematous fat stranding is adjacent to the head and uncinate process. No ductal dilation Spleen: Nonenlarged Adrenals: No discrete nodules Kidneys: No solid mass or hydronephrosis. Vessels and lymph nodes: The main portal vein is patent. No abdominal aortic aneurysm. No pathologic lymph nodes by size criteria. Bowel and peritoneum: No evidence of small bowel obstruction. No pathologic ascites. No drainable abscess. There is mild diffuse colonic wall thickening and submucosal fatty deposition, also involving the rectum. No drainable abscess. Nondilated appendix Body wall: Unremarkable Pelvis: Bladder is unremarkable. Heterogeneous appearance of the uterus including the endometrium. This is decreased from prior. Bones: Degenerative changes. IMPRESSION: Mild edematous fat stranding adjacent pancreatic head and uncinate process, correlate lipase for pancreatitis. Possible additional esophagitis, which could be evaluated with endoscopy. Severe hepatic steatosis. Probable colitis, favored acute on chronic. Heterogeneous uterus and endometrium, decreased in size compared to prior, possibly a degenerating fibroid, which could be further evaluated and surveyed using ultrasound. ECG Data Interpretation: Sinus rhythm Ventricular rate of 96 Normal axis Normal QRS Nonspecific ST T wave changes MDM Narrative Medical decision making narrative: MDM CC: Nausea vomiting diarrhea Complicating co-morbidities: Alcohol abuse Medical records reviewed: Previous ED visits Differential considered: Alcohol withdrawal, alcoholic hepatitis gastroenteritis cholecystitis cholelithiasis choledocholithiasis Exam documented above, pertinent findings include: Patient dry heaving abdomen is soft no localization of pain no peritoneal signs mild icterus and jaundice noted Lab Test results independently reviewed as above. Pertinent findings: WBC 9.5 hemoglobin 12.4 hematocrit 37.2 platelets 366 Sodium 134 potassium 3.2 chloride 95 bicarb 15 BUN 3 creatinine 0.76 Lactate 3.7 with repeat 2.3 Bilirubin 3.5 previously 1.5 AST 303 previously 41 ALT 122 previously 22 Lipase 153 Imaging studies independently reviewed: Consultations: 1805 Dr. Francis request imaging prior to admission Treatments: IV fluids phenobarbital Ativan Zofran Protonix Reglan Re-evaluations: After Zofran and IV fluids patient is still feeling shaky he was given some phenobarbital along with some Ativan. She initially was able to keep down some fluids however started throwing up again. At which point she was given Reglan Discussion: Patient 44-year-old female history of alcohol abuse prior history of alcohol withdrawal and seizure. She has been vomiting for 5 days last alcoholic drink was 2 days ago. She definitely is showing some signs of alcohol with draw. Unclear what is her initial nausea vomiting. She had a very similar presentation nausea vomiting diarrhea previously. Today she does have elevated bilirubin higher than it was previously. She does not have specific right upper quadrant pain. However after ongoing nausea vomiting ultrasound and CT ordered. Patient signed out to Dr. Polanco. Anticipate admission. Dr polanco: Patient does seem to be somewhat improving. She was no longer confused. Is still slightly tachycardic. Has received fluids. Still quite nauseous. Right upper quadrant ultrasound and CT scan showed no acute pathology. CT scan somewhat concerning about pancreatitis however her lipase is unremarkable. Patient is going to require admission to the hospital because of her alcohol withdrawal and vomiting. Discussed the case with Dr. Mcfarlane hospitalist on-call who will admit for further evaluation and treatment. Discharge Plan Departure Patient Disposition: Admitted as Observation Clinical Impression: Alcohol abuse with withdrawal, Gastroenteritis Admit Date/Time: 04/08/24 20:49 Admit Provider: Diane Mcfarlane
[2024-04-08 14:34] LABS: Reflexed Lactate in 2 Hours Y
[2024-04-08] MEDS: LORazepam 2 MG/ML INJ 1 MG IV (15:05)
[2024-04-08 15:11] LABS: Lactate 2HR (Lactic Acid Rflx) 2.3 mmol/L (0.7-2.1)
[2024-04-08 15:30] LABS: Bacteria Urine None Seen; Hyaline Casts Urine 0-1/LPF; RBC Urine 30-100/HPF (0-5/HPF); Squamous Epithelial Cell Urine 0-1 /HPF (0-5/HPF); Urine Volume 10mL (spun); WBC Urine 1-5/HPF (0-5/HPF)
[2024-04-08 15:31] LABS: Culture Indicated Urine Cult Not Indicated; Mucus Urine 1+ (Negative)
[2024-04-08] MEDS: LORazepam 2 MG/ML INJ IV (16:17)
[2024-04-08 16:56] LABS: Ur Creatinine Normal (Normal); Ur Specific Gravity Normal (Normal); Urine pH Normal (Normal)
[2024-04-08 16:57] LABS: Urine Amphetamines Negative (Negative); Urine Barbiturates Negative (Negative); Urine Benzodiazepines Positive (Negative); Urine Cocaine Negative (Negative); Urine MDMA Negative (Negative); Urine Methadone Negative (Negative); Urine Methamphetamines Negative (Negative); Urine Opiates Negative (Negative); Urine Oxycodone Negative (Negative); Urine Phencyclidine Negative (Negative); Urine THC Negative (Negative); Urine Tricyclic Antidepressant Negative (Negative)
--- NOTE | 2024-04-08 17:42 | PC.NURSE ---
Patient currently has no nausea and no abdominal pain, they are resting comfortably. Myesha FUCHS offered apple juice, patient is keeping fluids down
--- NOTE | 2024-04-08 18:23 | DI.CT.S_ITS ---
PROCEDURE: CT ABDOMEN PELVIS W CON INDICATIONS: persistant vomiting TECHNIQUE: After the administration of intravenous contrast, axial sections acquired from the lung bases to the pubic symphysis. Coronal and sagittal reformats were performed. For radiation dose reduction, the following was used: automated exposure control, adjustment of mA and/or kV according to patient size. COMPARISON: [facility], CT, CT ABDOMEN PELVIS W CON, 12/12/2022, 14:46. FINDINGS: Image quality: Diagnostic Lower chest: Unremarkable lung bases Nonspecific distal esophageal wall thickening and hyperemia. This may represent esophagitis. Liver: Hepatic steatosis, likely severe even on this postcontrast study Gallbladder and biliary system: Unremarkable, nondilated Pancreas: Mild focal edematous fat stranding is adjacent to the head and uncinate process. No ductal dilation Spleen: Nonenlarged Adrenals: No discrete nodules Kidneys: No solid mass or hydronephrosis. Vessels and lymph nodes: The main portal vein is patent. No abdominal aortic aneurysm. No pathologic lymph nodes by size criteria. Bowel and peritoneum: No evidence of small bowel obstruction. No pathologic ascites. No drainable abscess. There is mild diffuse colonic wall thickening and submucosal fatty deposition, also involving the rectum. No drainable abscess. Nondilated appendix Body wall: Unremarkable Pelvis: Bladder is unremarkable. Heterogeneous appearance of the uterus including the endometrium. This is decreased from prior. Bones: Degenerative changes. IMPRESSION: Mild edematous fat stranding adjacent pancreatic head and uncinate process, correlate lipase for pancreatitis. Possible additional esophagitis, which could be evaluated with endoscopy. Severe hepatic steatosis. Probable colitis, favored acute on chronic. Heterogeneous uterus and endometrium, decreased in size compared to prior, possibly a degenerating fibroid, which could be further evaluated and surveyed using ultrasound. Dictated by: Yves Fam M.D. on 04/08/2024 at 19:10 Approved by: Yves Fam M.D. on 04/08/2024 at 19:14
--- NOTE | 2024-04-08 18:23 | DI.US.S_ITS ---
PROCEDURE: US ABDOMEN LIMITED INDICATIONS: right upper quad TECHNIQUE: Real-time focused scanning was performed of the abdomen, with image documentation. COMPARISON: [facility], US, US ABDOMEN LIMITED, 12/12/2022, 14:55. [facility], CT, CT ABDOMEN PELVIS W CON, 04/08/2024, 18:29. FINDINGS: Liver measures 16 cm. Gallbladder is unremarkable. CBD is nondilated at 4 mm. Pancreas is unremarkable by ultrasound. IMPRESSION: No acute right upper quadrant sonographic abnormality. Dictated by: Yves Fam M.D. on 04/08/2024 at 19:41 Approved by: Yves Fam M.D. on 04/08/2024 at 19:42
[2024-04-08] MEDS: METOCLOPRAMIDE 10 MG/2 ML INJ IV (18:29)
--- NOTE | 2024-04-08 19:25 | PC.NURSE ---
Patient threw up, provider currently looking at possible admit. Reglan ordered, see MAR. Provider ordered CT and US. Patient is currently resting again, arousable with touch feels very sleepy and reports still feeling nauseous
--- NOTE | 2024-04-08 19:38 | PC.NURSE ---
This RN went into room to assess patient after medication, see MAR. Patient is very disoriented, doesnt know where she is, what month it is, what year it is, and why she is here. Reoriented the patient, gave her water to PO challenge
[2024-04-08] MEDS: SODIUM CHLORIDE 0.9% 1,000 ML 100 ML IV (19:51)
--- NOTE | 2024-04-08 20:43 | DI.RAD.S_ITS ---
PROCEDURE: XR CHEST 1V INDICATIONS: ramez for pna TECHNIQUE: One view of the chest was acquired. COMPARISON: [facility], CR, XR CHEST 1V, 12/24/2022, 16:06. FINDINGS: Surgical changes and devices: None. Lungs and pleura: Lungs are clear. No pleural effusions or pneumothorax. Mediastinum: Mediastinal contours appear normal. Heart size is normal. Bones and chest wall: No suspicious bony lesions. Overlying soft tissues appear unremarkable. IMPRESSION: No acute cardiopulmonary abnormality is seen. Dictated by: King Jarquin M.D. on 04/08/2024 at 21:00 Approved by: King Jarquin M.D. on 04/08/2024 at 21:00
--- NOTE | 2024-04-08 20:55 | EKG_ITS ---
[facility] [address] [place] [address] Test Date: 2024-04-08 Pat Name: Yovanny Carroll Department: [facility] Room: 90A Gender: Female Compressed Gases Tester: ILEANA : 1980 Requested By: Order Number: [id number] Reading MD: Mitchell Bates Measurements Intervals [place] Rate: 96 P: 26 WY: 122 QRS: 18 QRSD: 68 T: 136 QT: 392 QTc: 495 Interpretive Statements Normal sinus rhythm ST & T wave abnormality, consider inferior ischemia ST & T wave abnormality, consider anterolateral ischemia Prolonged QT Electronically Signed On 04-10-2024 19:42:21 PST by Mitchell Bates
[2024-04-08] MEDS: THIAMINE 100 MG in SODIUM CHLORIDE 0.9% 100 ML 404 MG IV (20:59)
--- NOTE | 2024-04-08 22:11 | PC.NURSE ---
Pt admitted to room 207, medication list was done, however pt isn't sure 100% about her home medications. Admissions questions were done.
[2024-04-08 22:45] LABS: INR 1.2 (0.9-1.3); Prothrombin Time 13.4 SECONDS (9.4-12.5)
[2024-04-08 22:50] LABS: Magnesium 1.2 mg/dL (1.6-2.3); Phosphorous 1.8 mg/dL (2.5-4.5)
[2024-04-09] VITALS (8 sets, daily range): BP systolic 122–165; BP diastolic 81–108; PULSE 84–112; RESP 17–19; TEMP 36.2–37.3; O2SAT 95–100
--- NOTE | 2024-04-09 01:21 | PC.NURSE ---
Assumed care of patient at 0120
--- NOTE | 2024-04-09 04:15 | PM.HP.1 ---
History of Present Illness History of Present Illness Chief complaint: vomiting x5 days PFSH Medical History Anxiety and depression HTN (hypertension) Alcohol withdrawal seizure Alcohol use disorder Social History household members: none Smoking Status: Current every day smoker alcohol intake: current Meds Home Medications and Allergies Home Medications Medication Instructions Recorded Confirmed Type amlodipine 10 mg tablet 10 mg PO DAILY 12/09/23 04/08/24 History hydroxyzine HCl 50 mg tablet 50 mg PO BID PRN anxiety 12/09/23 04/08/24 History pregabalin 75 mg capsule 75 mg PO 3XD 12/09/23 04/08/24 History thiamine mononitrate (vit B1) 100 100 mg PO DAILY #30 tabs 12/09/23 04/08/24 Rx mg tablet trazodone 50 mg tablet 50 mg PO BEDTIME 12/09/23 04/08/24 History ondansetron 4 mg disintegrating 4 mg PO Q8H PRN nausea and 04/08/24 Rx tablet vomiting #10 tabs trazodone 50 mg tablet 50 mg PO ONCE PM 04/08/24 04/08/24 History Allergies Allergy/AdvReac Type Severity Reaction Status Date / Time gabapentin Allergy Verified 04/08/24 12:47 Penicillins Allergy Swelling Verified 04/08/24 12:47 of Lip/Tongue/Throat Exam Vital Signs (past 8 hours): - 04/08/24 20:30 04/08/24 20:42 04/08/24 20:42 Temperature Pulse Rate 102 H 102 H Respiratory Rate 19 22 Blood Pressure 142/96 H Pulse Oximetry 95 94 Oxygen Delivery Method Room Air Room Air 04/08/24 21:00 04/08/24 21:00 04/08/24 22:04 Temperature 98.4 F Pulse Rate 107 H 104 H Respiratory Rate 19 Blood Pressure 156/103 H 160/117 H Pulse Oximetry 95 96 Oxygen Delivery Method Room Air 04/08/24 22:25 04/09/24 00:00 Temperature 99.2 F Pulse Rate 112 H Respiratory Rate 17 Blood Pressure 165/108 H Pulse Oximetry 97 Oxygen Delivery Method Room Air Oxygen Delivery Method Room Air Objective Labs 04/08/24 12:39 04/08/24 12:39 Labs: Laboratory Results - last 24 hr 04/08/24 04/08/24 04/08/24 12:39 14:40 14:48 WBC 9.5 RBC 3.92 L Hgb 12.4 Hct 37.2 MCV 95.0 MCH 31.7 MCHC 33.4 RDW 21.9 H Plt Count 366 Neut % (Auto) 85.5 H Lymph % (Auto) 9.3 L [place] % (Auto) 4.9 Eos % (Auto) 0.0 L Baso % (Auto) 0.3 Neut # (Auto) 8100 H Lymph # (Auto) 900 L [place] # (Auto) 500 Eos # (Auto) 0 Baso # (Auto) 0 RBC Morphology Not Reportable Anisocytosis 2+ H PT INR Sodium 134 L Potassium 3.2 L Chloride 95 L Carbon Dioxide 15 L BUN 3 L Creatinine 0.76 Estimated GFR > 60 BUN/Creatinine Ratio 3.9 L Glucose 181 H Lactate 3.7 H 2.3 H Calcium 8.6 Phosphorus Magnesium Total Bilirubin 3.5 H AST 303 H ALT 122 H Alkaline Phosphatase 95 Total Protein 7.6 Albumin 4.4 Globulin 3.2 Albumin/Globulin Ratio 1.4 Lipase 153 Urine RBC 30-100/hpf H Urine WBC 1-5/hpf Ur Squamous Epith Cells 0-1 /hpf Urine Bacteria None seen Hyaline Casts 0-1/lpf Urine Mucus 1+ H Ur Culture Indicated? Cult not indicated Vol Urine Centrifuged 10ml (spun) U Opiates 300ng/mL cut Negative Ur Oxycodone Screen Negative Urine Methadone Screen Negative Ur Barbiturates Screen Negative U Tricyclic Antidepress Negative Ur Phencyclidine Scrn Negative Ur Amphetamines Screen Negative U Methamphetamines Scrn Negative Ur MDMA Scrn (Ecstasy) Negative U Benzodiazepines Scrn Positive H Urine Cocaine Screen Negative U Marijuana (THC) Screen Negative Urine pH Normal Urine Specific [place] Normal Ur Creatinine Normal 04/08/24 22:26 WBC RBC Hgb Hct MCV MCH MCHC RDW Plt Count Neut % (Auto) Lymph % (Auto) [place] % (Auto) Eos % (Auto) Baso % (Auto) Neut # (Auto) Lymph # (Auto) [place] # (Auto) Eos # (Auto) Baso # (Auto) RBC Morphology Anisocytosis PT 13.4 H INR 1.2 Sodium Potassium Chloride Carbon Dioxide BUN Creatinine Estimated GFR BUN/Creatinine Ratio Glucose Lactate Calcium Phosphorus 1.8 L Magnesium 1.2 L Total Bilirubin AST ALT Alkaline Phosphatase Total Protein Albumin Globulin Albumin/Globulin Ratio Lipase Urine RBC Urine WBC Ur Squamous Epith Cells Urine Bacteria Hyaline Casts Urine Mucus Ur Culture Indicated? Vol Urine Centrifuged U Opiates 300ng/mL cut Ur Oxycodone Screen Urine Methadone Screen Ur Barbiturates Screen U Tricyclic Antidepress Ur Phencyclidine Scrn Ur Amphetamines Screen U Methamphetamines Scrn Ur MDMA Scrn (Ecstasy) U Benzodiazepines Scrn Urine Cocaine Screen U Marijuana (THC) Screen Urine pH Urine Specific [place] Ur Creatinine Assessment & Plan Assessment and plan (1) Alcohol abuse with withdrawal: Status: Acute (2) Esophagitis: Status: Acute (3) Intractable nausea and vomiting: Status: Acute (4) Gastroenteritis: Status: Acute (5) Hypokalemia due to excessive gastrointestinal loss of potassium: Status: Acute Time-Based Coding :: [TOTAL MINUTES] spent with patient and on the chart (including review of chart, obtaining history, exam, reviewing outside data, placing orders, documenting exam and treatment plan, and counseling patient) on [DATE].
[2024-04-09] MEDS: cloNIDine 0.1 MG TABLET PO (04:16)
[2024-04-09 05:50] LABS: Add Manual Diff / Slide Review NO; Basophils Absolute Auto 100 /uL (0-100); Basophils Percent Auto 0.9 % (0-2); Eosinophils Absolute Auto 0 /uL (0-450); Eosinophils Percent Auto 0.1 % (2-4); Hematocrit 31.7 % (36-46); Hemoglobin 10.6 g/dL (12.0-16.0); Lymphocytes Absolute Auto 1500 /uL (1100-4500); Lymphocytes Percent Auto 19.4 % (25-40); Mean Corpuscular HGB Conc 33.5 % (30-36); Mean Corpuscular Hemoglobin 31.9 PG (26-34); Mean Corpuscular Volume 95.4 fL (80-100); Monocytes Absolute Auto 400 /uL (0-900); Monocytes Percent Auto 5.8 % (3-14); Neutrophils Absolute Auto 5700 /uL (1500-7000); Neutrophils Percent Auto 73.8 % (50-75); Platelet Count 263 X10^3/uL (150-400); Red Blood Cell Count 3.32 X10^6/uL (4.0-5.2); Red Cell Distribution Width 21.4 % (11.6-14.8); White Blood Cell Count 7.8 X10^3/uL (4.5-11.0)
[2024-04-09 05:59] LABS: Calcium 7.6 mg/dL (8.4-10.2); Carbon Dioxide 24 mmol/L (22-32); Chloride 99 mmol/L (98-107); Estimated Glomerular Filt Rate > 60 mL/min (>60); Glucose 116 mg/dL (70-100); HEMOLYSIS < 15 (0-50); Potassium 2.9 mmol/L (3.4-5.1); Sodium 131 mmol/L (137-145)
[2024-04-09 06:00] LABS: BUN Creatinine Ratio 2.8 (6-22); Blood Urea Nitrogen < 2 mg/dL (7-17)
[2024-04-09 06:17] LABS: Anisocytosis 2+; Microcytosis 1+; Platelet Estimate Adequate on smear; Stomatocytes 1+
[2024-04-09] MEDS: SODIUM CHLORIDE 0.9% 1,000 ML 100 ML IV (06:23)
[2024-04-09 06:24] LABS: Cholesterol 156 mg/dL (140-199); HDL Cholesterol 89 mg/dL (40-60); LDL Cholesterol Calculated 45 mg/dL (<100); Triglycerides 111 mg/dL (35-150)
--- NOTE | 2024-04-09 06:41 | PC.NURSE ---
Pt potassium, magnesium and phospharate are all low, Pharmacy notified, waiting on replacement.
[2024-04-09] MEDS: POTASSIUM PHOSPHATE 30 MMOL in SODIUM CHLORIDE 0.9% 500 ML 127.5 MMOL IV ×2 (07:08→18:29)
[2024-04-09] MEDS: MAGNESIUM SULFATE 4 GM/100 ML PIGGYBACK IV (07:11)
[2024-04-09] MEDS: MULTIVITAMIN 1 TABLET 1 TAB PO (08:28)
[2024-04-09] MEDS: THIAMINE 100 MG TABLET PO (08:28)
[2024-04-09] MEDS: FOLIC ACID 1 MG TABLET PO (08:28)
[2024-04-09] MEDS: ACETAMINOPHEN 325 MG TABLET 650 MG PO (08:53)
[2024-04-09] MEDS: chlordiazePOXIDE 25 MG CAPSULE PO ×3 (08:54→22:55)
--- NOTE | 2024-04-09 09:07 | P.HP_ITS ---
History of Present Illness History of Present Illness Date Patient Seen: 04/09/24 Chief complaint: vomiting x5 days PFSH Medical History Anxiety and depression HTN (hypertension) Alcohol withdrawal seizure Alcohol use disorder Social History household members: none Smoking Status: Current every day smoker alcohol intake: current Comment: 2 drinks of vodka per day Meds Home Medications and Allergies Home Medications Medication Instructions Recorded Confirmed Type amlodipine 10 mg tablet 10 mg PO DAILY 12/09/23 04/08/24 History hydroxyzine HCl 50 mg tablet 50 mg PO BID PRN anxiety 12/09/23 04/08/24 History pregabalin 75 mg capsule 75 mg PO 3XD 12/09/23 04/08/24 History thiamine mononitrate (vit B1) 100 100 mg PO DAILY #30 tabs 12/09/23 04/08/24 Rx mg tablet trazodone 50 mg tablet 50 mg PO BEDTIME 12/09/23 04/08/24 History ondansetron 4 mg disintegrating 4 mg PO Q8H PRN nausea and 04/08/24 Rx tablet vomiting #10 tabs trazodone 50 mg tablet 50 mg PO ONCE PM 04/08/24 04/08/24 History Allergies Allergy/AdvReac Type Severity Reaction Status Date / Time gabapentin Allergy Verified 04/08/24 12:47 Penicillins Allergy Swelling Verified 04/08/24 12:47 of Lip/Tongue/Throat Review of Systems Review of Systems ROS: Yes All systems reviewed with the patient and are negative except as otherwise documented Exam Vital Signs (past 8 hours): - 04/09/24 04:00 04/09/24 04:16 04/09/24 08:00 Temperature 99.0 F 97.2 F L Pulse Rate 92 H 93 H 84 Respiratory Rate 17 19 Blood Pressure 154/103 H 154/103 H 122/81 Pulse Oximetry 95 96 Oxygen Flow Rate 0 Oxygen Delivery Method Room Air Oxygen Flow Rate 0 Const General: cooperative and anxious Nutritional Appearance: well nourished Orientation: alert, awake and oriented x3 HENMT Head: normocephalic and atraumatic Ears: other (EOMI PERRL no scleral icterus) Nose: nares normal Face and sinus: normal facial exam Mouth: moist mucous membranes Throat: posterior oropharynx normal Eyes Conjunctivae: conjunctivae normal Neck Neck: supple Thyroid: thyroid normal Other: no lymphadenopathy Chest Chest: normal inspection of the chest and normal palpation of entire chest wall Resp Effort & Inspection: normal respiratory effort and able to speak in complete sentences Auscultation: clear to auscultation bilaterally Other: BS equal bilat, no wheeze/ rales or rhonchi Cardio Heart Sounds: other (Tachycardia, S1 S2, No M/G/R) Pulses: normal peripheral pulses GI Palpation: soft, no hepatosplenomegaly and other Auscultation: normal bowel sounds General: bimanual renal exam normal bilaterally Back/Spine/Pelvis Back: normal to inspection Skin General: no rashes or lesions noted, dry skin and warm Lesions: no lesions Rashes: no rashes Neuro General: patient alert, patient awake, patient oriented x3, moves all extremities, CN's II-XI intact bilaterally and deep tendon reflexes 2+ bilaterally Cranial Nerves: CN's II-XI intact bilaterally Cognition: normal cognition Speech: speech normal and other (anxious) Motor: muscle tone normal throughout and strength 5/5 throughout Sensory Exam: no sensory deficits noted Coordination: other (coordination is WNL) Extrem General: normal to inspection, full ROM and capillary refill normal Psych Appearance: grossly normal Mental Status: mental status grossly normal Mood: anxious mood Affect: anxious affect Attitude: cooperative Thought Process: normal Thought Content: normal Objective ECG Impression: Interpreted by me : NSR VR 96, Non specific ST _ T wave changes present, no acute ST changes Prolonged QT interval Imaging CT scan - abdomen: Radiologist's impression: SSION: Mild edematous fat stranding adjacent pancreatic head and uncinate process, correlate lipase for pancreatitis. Possible additional esophagitis, which could be evaluated with endoscopy. Severe hepatic steatosis. Probable colitis, favored acute on chronic. Heterogeneous uterus and endometrium, decreased in size compared to prior, possibly a degenerating fibroid, which could be further evaluated and surveyed using ultrasound. Labs 04/09/24 05:19 04/09/24 05:19 Labs: Laboratory Results - last 24 hr 04/08/24 04/08/24 04/08/24 12:39 14:40 14:48 WBC 9.5 RBC 3.92 L Hgb 12.4 Hct 37.2 MCV 95.0 MCH 31.7 MCHC 33.4 RDW 21.9 H Plt Count 366 Neut % (Auto) 85.5 H Lymph % (Auto) 9.3 L [place] % (Auto) 4.9 Eos % (Auto) 0.0 L Baso % (Auto) 0.3 Neut # (Auto) 8100 H Lymph # (Auto) 900 L [place] # (Auto) 500 Eos # (Auto) 0 Baso # (Auto) 0 Platelet Estimate RBC Morphology Not Reportable Anisocytosis 2+ H Microcytosis Stomatocytes PT INR Sodium 134 L Potassium 3.2 L Chloride 95 L Carbon Dioxide 15 L BUN 3 L Creatinine 0.76 Estimated GFR > 60 BUN/Creatinine Ratio 3.9 L Glucose 181 H Lactate 3.7 H 2.3 H Calcium 8.6 Phosphorus Magnesium Total Bilirubin 3.5 H AST 303 H ALT 122 H Alkaline Phosphatase 95 Total Protein 7.6 Albumin 4.4 Globulin 3.2 Albumin/Globulin Ratio 1.4 Triglycerides Cholesterol LDL Cholesterol, Calc HDL Cholesterol Lipase 153 Urine RBC 30-100/hpf H Urine WBC 1-5/hpf Ur Squamous Epith Cells 0-1 /hpf Urine Bacteria None seen Hyaline Casts 0-1/lpf Urine Mucus 1+ H Ur Culture Indicated? Cult not indicated Vol Urine Centrifuged 10ml (spun) U Opiates 300ng/mL cut Negative Ur Oxycodone Screen Negative Urine Methadone Screen Negative Ur Barbiturates Screen Negative U Tricyclic Antidepress Negative Ur Phencyclidine Scrn Negative Ur Amphetamines Screen Negative U Methamphetamines Scrn Negative Ur MDMA Scrn (Ecstasy) Negative U Benzodiazepines Scrn Positive H Urine Cocaine Screen Negative U Marijuana (THC) Screen Negative Urine pH Normal Urine Specific [place] Normal Ur Creatinine Normal 04/08/24 04/09/24 22:26 05:19 WBC 7.8 RBC 3.32 L Hgb 10.6 L Hct 31.7 L MCV 95.4 MCH 31.9 MCHC 33.5 RDW 21.4 H Plt Count 263 Neut % (Auto) 73.8 Lymph % (Auto) 19.4 L [place] % (Auto) 5.8 Eos % (Auto) 0.1 L Baso % (Auto) 0.9 Neut # (Auto) 5700 Lymph # (Auto) 1500 [place] # (Auto) 400 Eos # (Auto) 0 Baso # (Auto) 100 Platelet Estimate Adequate on smear RBC Morphology See below Anisocytosis 2+ H Microcytosis 1+ H Stomatocytes 1+ H PT 13.4 H INR 1.2 Sodium 131 L Potassium 2.9 L Chloride 99 Carbon Dioxide 24 BUN < 2 L Creatinine 0.72 Estimated GFR > 60 BUN/Creatinine Ratio 2.8 L Glucose 116 H Lactate Calcium 7.6 L Phosphorus 1.8 L Magnesium 1.2 L Total Bilirubin AST ALT Alkaline Phosphatase Total Protein Albumin Globulin Albumin/Globulin Ratio Triglycerides 111 Cholesterol 156 LDL Cholesterol, Calc 45 HDL Cholesterol 89 H Lipase Urine RBC Urine WBC Ur Squamous Epith Cells Urine Bacteria Hyaline Casts Urine Mucus Ur Culture Indicated? Vol Urine Centrifuged U Opiates 300ng/mL cut Ur Oxycodone Screen Urine Methadone Screen Ur Barbiturates Screen U Tricyclic Antidepress Ur Phencyclidine Scrn Ur Amphetamines Screen U Methamphetamines Scrn Ur MDMA Scrn (Ecstasy) U Benzodiazepines Scrn Urine Cocaine Screen U Marijuana (THC) Screen Urine pH Urine Specific [place] Ur Creatinine Assessment & Plan Assessment and plan (1) Alcohol abuse with withdrawal: Problem details: Recurrent attempt by patient to quit Alcohol consumption, though unsuccessful sec to not compliant with Alcohol rehab recommendations Status: Acute Plan: Alcohol Withdrawal Protocol with Benzodiazepines Clonidone po for SBP control Loarazepam IV/ oral prn per Protocol Pt states she does not need SW consult for providing Alcohol rehab resources, pt states, she has them Monitor CIWA score for any escalation at which point shall transfer to ICU for closer observation given h/o ETOH withdrawal Seizures. Anti Emetics prn Fall Precautions (2) Esophagitis: Problem details: likely Alcohol induced Status: Acute Plan: Protonix 40 mg IV q 12 hrs, started in ED, continue. Carfate oralsuspension when able to tolerate orally (3) Hypokalemia due to excessive gastrointestinal loss of potassium: Problem details: Sec to GI losses, decreased oral intake, replace / see orders Status: Acute (4) Nausea and vomiting: Qualifiers: Vomiting type: bilious vomiting Qualified Code(s): R11.14 - Bilious vomiting Status: Acute (5) Hypomagnesemia: Problem details: Sec to Alcohol abuse./ / Nausea and vomiting and diarrhea/ GI losses Status: Acute (6) Hypophosphatemia: Status: Acute (7) Intractable nausea and vomiting: Status: Acute Assessment & Plan narrative: See above, replace electrolytes per Electrolyte protocol ( replaced per Clinical Pharmacist), continue to monitore El.ectrolytes Time-Based Coding :: [67 mins ] spent with patient and on the chart (including review of chart, obtaining history, exam, reviewing outside data, placing orders, documenting exam and treatment plan, and counseling patient) on [DATE].
[2024-04-09] MEDS: POTASSIUM CHLORIDE IN WATER 10 MEQ/100 ML PIGGYBACK 100 MEQ IV ×3 (11:15→22:47)
--- NOTE | 2024-04-09 14:15 | CM.DANOTE ---
Initial DCP Assessment Visit Note Reviewed EMR and team rounds for status updates. Met with pt at bedside to introduce self and role, pt was found to be somnolent, however was able to engage in visit and share that she prefers to d/c home once she's medically stable for d/c. Pt lives independently in an apartment with her Marvin markham, and is unemployed. She does have children, however she lost legal custody of them due to her ongoing PORSCHE/ETOH use, they live with their father here in [place]. Her fiance will transport her home at d/c, likely tomorrow 04/10 if she improves. Payor: Naseem PCP: Radha Thomas Pt is a 44 year-old F with a hx of ETOH PORSCHE who presented to the ED last evening with c/o 5-days of nausea, vomiting, and abdominal pain. Her last drink was reportedly 2-days ago. She was started on IV fluids, Zofran, Reglan, Ativan, and phenobarbital in the ED, however continued to be shakey and still nauseous, unable to keep down fluids. Labs showed hypokalemia and elevated bilirubin. CT abd was consistent with pancreatitis. She stated to the ED staff that she had no interest in PORSCHE tx or resources. Last admit here at for ETOH overdose was in November of this year. Pt was admitted for further tx and monitoring of her electrolytes. DCP will continue to monitor for any further evolving needs until she is stable for d/c. Discharge Planning/Care Management CM Discharge Assessment Start: 04/09/24 14:12 Freq: Status: Active Protocol: Document 04/09/24 14:12 DPL (Rec: 04/09/24 14:15 DPL [id number]) Discharge Planning Assessment Assigned Administrative Support Associate NEDRA De Leon Advance Directives? No History Provided By Patient,Medical Record Has Patient been admitted in last 30 No days? Prior Living Arrangements Apartment/Condo Household Members significant other Type of transporation used prior to Relies on Others admit Willing to Return to Facility? No Independent with ADL's Yes Is patient alert and oriented? Yes Comment N/A Caregiver for Another No: Pt's children live w/their father due to her PORSCHE. Comment Pt declines going to rehab for PORSCHE tx, and prefers home d/c. Barriers to Discharge No Comment Continued alcohol use, non- compliance with treatment. Discharge Plan Home Transportation Arrangement Marvin, partner, to transport. Referrals Initiated None needed,Other Whiteboard Updated in Patient Room with Yes name and ext. # of Administrative Support Associate Review Status In Process Please Provide Date Initial DC 04/09/24 Assessment Was Performed
[2024-04-09 15:51] LABS: Calcium 7.1 mg/dL (8.4-10.2); Carbon Dioxide 26 mmol/L (22-32); Chloride 101 mmol/L (98-107); Estimated Glomerular Filt Rate > 60 mL/min (>60); Glucose 106 mg/dL (70-100); HEMOLYSIS < 15 (0-50); Magnesium 2.6 mg/dL (1.6-2.3); Phosphorous 2.3 mg/dL (2.5-4.5); Potassium 3.1 mmol/L (3.4-5.1); Sodium 132 mmol/L (137-145)
[2024-04-09 15:52] LABS: Blood Urea Nitrogen < 2 mg/dL (7-17)
--- NOTE | 2024-04-09 17:53 | PM.PN.1 ---
Subjective Subjective Interval history: 44 year old female with PMH of EtOH abuse admitted with nausea/vomiting. Feels better today, mildly tremulous. Exam Vital Signs (past 8 hours): - 04/09/24 12:00 04/09/24 14:13 04/09/24 16:00 Temperature 97.8 F Pulse Rate 96 H 89 Respiratory Rate 19 18 Blood Pressure 148/102 H 132/94 H 129/92 H Pulse Oximetry 100 98 Oxygen Flow Rate 0 0 Oxygen Delivery Method Room Air Oxygen Flow Rate 0 Narrative Exam Narrative: Gen: ill appearing female, mild tremulous and tongue fasciculations CV: RRR no m/r/g Pulm : CTA b/l Abd: S minimal epigastric tenderness, nondistended. Ext: No edema Objective Labs 04/09/24 05:19 04/09/24 15:20 Labs: Laboratory Results - last 24 hr 04/08/24 04/09/24 04/09/24 22:26 05:19 15:20 WBC 7.8 RBC 3.32 L Hgb 10.6 L Hct 31.7 L MCV 95.4 MCH 31.9 MCHC 33.5 RDW 21.4 H Plt Count 263 Neut % (Auto) 73.8 Lymph % (Auto) 19.4 L [place] % (Auto) 5.8 Eos % (Auto) 0.1 L Baso % (Auto) 0.9 Neut # (Auto) 5700 Lymph # (Auto) 1500 [place] # (Auto) 400 Eos # (Auto) 0 Baso # (Auto) 100 Platelet Estimate Adequate on smear RBC Morphology See below Anisocytosis 2+ H Microcytosis 1+ H Stomatocytes 1+ H PT 13.4 H INR 1.2 Sodium 131 L 132 L Potassium 2.9 L 3.1 L Chloride 99 101 Carbon Dioxide 24 26 BUN < 2 L < 2 L Creatinine 0.72 0.67 Estimated GFR > 60 > 60 BUN/Creatinine Ratio 2.8 L 3.0 L Glucose 116 H 106 H Calcium 7.6 L 7.1 L Phosphorus 1.8 L 2.3 L Magnesium 1.2 L 2.6 H Triglycerides 111 Cholesterol 156 LDL Cholesterol, Calc 45 HDL Cholesterol 89 H PFSH Medical History Anxiety and depression HTN (hypertension) Alcohol withdrawal seizure Alcohol use disorder Social History household members: significant other Smoking Status: Current every day smoker alcohol intake: current Assessment & Plan Assessment & Plan narrative: 1. Alcoholic pancreatitis and hepatitis, present on admission - no lipase elevations, but mild abdominal pain with CT findings of pancreatitis - can advance diet as tolerated today - DF score of 14.5, no indication for steroids - continue to monitor LFTs daily. 2. Alcohol withdrawal. - start librium - continue ativan per ciwa protocol 3. Hypokalemia - continue to replete as needed, due to GI losses 4. Hypomagnesemia - continue to replete as needed, improved to 2.6 from 1.2 5. HTN - holding home amlodipine Code: Full, surrogate is patient's spouse DVT: Lovenox daily I have utilized all available immediate resources to obtain, update, or review the patient's current medications. Dispo: patient admitted under inpatient status. Likely discharge home in a couple of days. Additional history obtained via discussions with the ER provider. These discussions contributed to the creation of the above assessment and plan. I have reviewed patient's presenting documentation, labs, and imaging personally. Time-Based Coding :: [TOTAL MINUTES] spent with patient and on the chart (including review of chart, obtaining history, exam, reviewing outside data, placing orders, documenting exam and treatment plan, and counseling patient) on [DATE].
[2024-04-10] VITALS: BP 162/127; PULSE 105; RESP 18; TEMP 36.8; O2SAT 100
[2024-04-10] MEDS: POTASSIUM CHLORIDE IN WATER 10 MEQ/100 ML PIGGYBACK 100 MEQ IV (01:42)
[2024-04-10 01:57] VITALS: BP 150/102
[2024-04-10 04:53] VITALS: BP 156/98; PULSE 94; RESP 18; TEMP 37; O2SAT 100
[2024-04-10 05:00] LABS: Add Manual Diff / Slide Review NO; Basophils Absolute Auto 0 /uL (0-100); Basophils Percent Auto 0.6 % (0-2); Eosinophils Absolute Auto 0 /uL (0-450); Eosinophils Percent Auto 0.9 % (2-4); Hematocrit 32.5 % (36-46); Hemoglobin 10.7 g/dL (12.0-16.0); Lymphocytes Absolute Auto 1400 /uL (1100-4500); Lymphocytes Percent Auto 29.7 % (25-40); Mean Corpuscular HGB Conc 32.9 % (30-36); Mean Corpuscular Hemoglobin 31.8 PG (26-34); Mean Corpuscular Volume 96.7 fL (80-100); Monocytes Absolute Auto 300 /uL (0-900); Monocytes Percent Auto 6.1 % (3-14); Neutrophils Absolute Auto 3000 /uL (1500-7000); Neutrophils Percent Auto 62.7 % (50-75); Platelet Count 232 X10^3/uL (150-400); Red Blood Cell Count 3.36 X10^6/uL (4.0-5.2); Red Cell Distribution Width 21.1 % (11.6-14.8); White Blood Cell Count 4.7 X10^3/uL (4.5-11.0)
[2024-04-10 05:26] LABS: Alanine Aminotransferase 72 IU/L (<35); Albumin 3.1 g/dL (3.5-5.0); Albumin Globulin Ratio 1.1 (1.0-2.8); Alkaline Phosphatase 73 U/L (38-126); Aspartate Aminotransferase 95 IU/L (14-36); Bilirubin Total 2.2 mg/dL (0.2-1.3); Calcium 7.2 mg/dL (8.4-10.2); Carbon Dioxide 23 mmol/L (22-32); Chloride 103 mmol/L (98-107); Estimated Glomerular Filt Rate > 60 mL/min (>60); Globulin 2.7 g/dL (1.7-4.1); Glucose 102 mg/dL (70-100); HEMOLYSIS < 15 (0-50); Magnesium 1.9 mg/dL (1.6-2.3); Potassium 3.4 mmol/L (3.4-5.1); Sodium 133 mmol/L (137-145); Total Protein 5.8 g/dL (6.3-8.2)
[2024-04-10 05:30] LABS: Blood Urea Nitrogen < 2 mg/dL (7-17)
[2024-04-10 05:33] LABS: Anisocytosis 2+; Platelet Estimate Adequate on smear
[2024-04-10 05:34] LABS: Macrocytosis 1+; Microcytosis 1+
[2024-04-10 07:59] VITALS: BP 157/106; PULSE 100; RESP 17; TEMP 36.1; O2SAT 97
[2024-04-10] MEDS: POTASSIUM CHLORIDE 20 MEQ TAB 40 MEQ PO (08:02)
[2024-04-10] MEDS: FOLIC ACID 1 MG TABLET PO (08:02)
[2024-04-10] MEDS: MULTIVITAMIN 1 TABLET 1 TAB PO (08:02)
[2024-04-10] MEDS: chlordiazePOXIDE 25 MG CAPSULE PO (08:02)
[2024-04-10] MEDS: THIAMINE 100 MG TABLET PO (08:02)
[2024-04-10 09:11] VITALS: BP 134/95; PULSE 80
[2024-04-10 11:56] VITALS: BP 144/106; PULSE 86; RESP 17; TEMP 36.6; O2SAT 98
--- NOTE | 2024-04-10 13:08 | PM.DS.1 ---
History of Present Illness History of Present Illness Date Patient Seen: 04/10/24 Time Patient Seen: 13:09 Chief complaint: vomiting x5 days Narrative: Per ER provider, Patient 44-year-old female history of alcohol abuse and withdrawal presents today with ongoing vomiting diarrhea. She reports that she has been vomiting for the last 5 days. Her last alcoholic drink was 2 days ago. She had a similar presentation back in January. She was hospitalized in November for an alcohol withdrawal seizure. Today she has had a little bit of diarrhea as well. Abdominal pain has improved since fluids Zofran and phenobarbital. She is still feeling a bit nauseous. She does not have interest in going to rehab. Discharge Providers Provider Date of admission: 04/08/24 20:49 Discharge Date: 04/10/24 Primary care physician: Radha Thomas PA-C Discharge provider: Mitchell Bates DO Summary Hospital Course Discharge Diagnosis: 1. Alcoholic pancreatitis and hepatitis, present on admission 2. Alcohol withdrawal. 3. Hypokalemia 4. Hypomagnesemia 5. HTN Hospital Course: This is a 44 year old female who was admitted with intractable nausea, vomiting and diarrhea. She had no lipase elevations, but had mild epigastric abdominal pain and CT findings consistent with pancreatitis. Lab abnormalities were consistent with an alcoholic hepatitis, with a low discriminant function of 14.5. Tbili, AST, ALT were all improving over the course of her stay. Her symptoms slowly improved over the course of her stay and she was able to tolerate adequate oral intake prior to discharge. Her initial low magnesium and potassium were repleted and improved later in her stay. She did develop alcohol withdrawal during her stay with mild anxiety, tongue fasciculations and tremors. She received phenobarbital in the emergency room and librium while admitted to the floor. On the day of discharge she had no tongue fasciculations and minimal symptoms while stopping librium, no additional treatments were felt to be necessary after discharge. Time Spent with Patient Time spent: Greater than 30 minutes Exam Vital Signs (past 8 hours): - 04/10/24 07:59 04/10/24 09:11 04/10/24 11:56 Temperature 97.0 F L 97.8 F Pulse Rate 100 H 80 86 Respiratory Rate 17 17 Blood Pressure 157/106 H 134/95 H 144/106 H Pulse Oximetry 97 98 Oxygen Flow Rate 0 0 Oxygen Delivery Method Room Air Oxygen Flow Rate 0 Narrative Exam Narrative: Gen: no acute distress, slightly lethargic CV: RRR no m/r/g Pulm : CTA b/l Abd: S minimal epigastric tenderness, nondistended. Ext: No edema Objective Labs 04/10/24 04:22 04/10/24 04:22 Labs: Laboratory Results - last 24 hr 04/09/24 04/10/24 15:20 04:22 WBC 4.7 RBC 3.36 L Hgb 10.7 L Hct 32.5 L MCV 96.7 MCH 31.8 MCHC 32.9 RDW 21.1 H Plt Count 232 Neut % (Auto) 62.7 Lymph % (Auto) 29.7 [place] % (Auto) 6.1 Eos % (Auto) 0.9 L Baso % (Auto) 0.6 Neut # (Auto) 3000 Lymph # (Auto) 1400 [place] # (Auto) 300 Eos # (Auto) 0 Baso # (Auto) 0 Platelet Estimate Adequate on smear RBC Morphology See below Anisocytosis 2+ H Microcytosis 1+ H Macrocytosis 1+ H Sodium 132 L 133 L Potassium 3.1 L 3.4 Chloride 101 103 Carbon Dioxide 26 23 BUN < 2 L < 2 L Creatinine 0.67 0.67 Estimated GFR > 60 > 60 BUN/Creatinine Ratio 3.0 L 3.0 L Glucose 106 H 102 H Calcium 7.1 L 7.2 L Phosphorus 2.3 L Magnesium 2.6 H 1.9 Total Bilirubin 2.2 H AST 95 H ALT 72 H Alkaline Phosphatase 73 Total Protein 5.8 L Albumin 3.1 L Globulin 2.7 Albumin/Globulin Ratio 1.1 PFSH Medical History Anxiety and depression HTN (hypertension) Alcohol withdrawal seizure Alcohol use disorder Social History household members: significant other Smoking Status: Current every day smoker alcohol intake: current Discharge Plan Discharge Plan Patient Disposition: Home Provider Discharge Comment: You were admitted to the hospital with alcoholic hepatitis and pancreatitis, now improved. Continue to try and cut down on alcohol use or stop all together, resources are available if you would like them. No other changes to your home medications are recommended. Discharge orders & Medications Prescriptions: New ondansetron 4 mg tablet,disintegrating 4 mg PO Q8H PRN (Reason: nausea and vomiting) Qty: 10 0RF Continued hydroxyzine HCl 50 mg tablet 50 mg PO BID PRN (Reason: anxiety) amlodipine 10 mg tablet 10 mg PO DAILY trazodone 50 mg tablet 50 mg PO BEDTIME pregabalin 75 mg capsule 75 mg PO 3XD thiamine mononitrate (vit B1) 100 mg Tablet 100 mg PO DAILY Qty: 30 0RF trazodone 50 mg tablet 50 mg PO ONCE PM Follow up/Referrals: Radha Thomas PA-C [Primary Care Provider] - Discharge Health Status Multidrug resistant organism: No MDRO Diet/Activity/Treatments Diet: Diet as Tolerated and Regular Activity: As tolerated no restrictions Visit Report/Discharge Packet Instructions: Alcohol Withdrawal, Ondansetron Stand Alone Forms: Patient Portal/API, Stroke Signs & Symptoms, Patient Portal/API/Survey Discharge Data Primary Care Provider: Radha Thomas I
--- NOTE | 2024-04-10 14:50 | PC.NURSE ---
Pt is ready for discharge home with friend and is waiting for her ride. IV has been removed. Went over d/c instructions with Pt-discussed d/c meds, time of last dose, reviewed stroke education, encouraged Pt to consider stopping alcohol intake altogether, encouraged Pt to not drive while using alcohol, and to follow up with her doctor as needed. Pt denied further questions and will be ready to be taken out when her ride arrives.
--- NOTE | 2024-04-10 16:23 | PC.NURSE ---
Pt out via w/c by [employer] with all belongings
== END 2024-04-10 16:23 | disposition home or self-care (01) | DRG 775 ==
LOC: ED 18:24 → AC 04-09 08:21
PROVIDERS: Emergency Medicine; Internal Medicine; Admitting Provider Hospitalist; Emergency Provider Emergency Medicine; PCP Physician Assistant; Referring Provider Emergency Medicine; Visit Provider Hospitalist
DX: F10.139 Alcohol abuse with withdrawal, unspecified (principal); K20.90 Esophagitis, unspecified without bleeding; E83.39 Other disorders of phosphorus metabolism; F17.210 Nicotine dependence, cigarettes, uncomplicated; E87.6 Hypokalemia; E83.42 Hypomagnesemia; K85.20 Alcohol induced acute pancreatitis without necrosis or infection; K70.10 Alcoholic hepatitis without ascites; F41.9 Anxiety disorder, unspecified; I10 Essential (primary) hypertension; F32.A Depression, unspecified
CPT/HCPCS: 36415; 71045; 74177; 76705; 80048; 80053; 80061; 80305; 81003; 81015; 81025; 82962; 83605; 83690; 83735; 84100; 85025; 85610; 93005; 96365; 96366; 96367; 96368; 96375; 96376; 99284; G0378; J2060; J2405; J2470; J2560; J2765; J3475; Q9967

== ENCOUNTER → 2024-10-11 12:20 | Outpatient (CLI) | payer OTHER, SELFPAY ==
[2024-04-08 22:01] VITALS: BMI 25.4
[2024-10-11 13:02] LABS: Add Manual Diff / Slide Review NO; Basophils Absolute Auto 0 /uL (0-100); Basophils Percent Auto 0.9 % (0-2); Eosinophils Absolute Auto 0 /uL (0-450); Eosinophils Percent Auto 0.1 % (2-4); Hematocrit 37.6 % (36-46); Hemoglobin 12.6 g/dL (12.0-16.0); Lymphocytes Absolute Auto 1200 /uL (1100-4500); Mean Corpuscular HGB Conc 33.5 % (30-36); Mean Corpuscular Hemoglobin 32.9 PG (26-34); Monocytes Absolute Auto 400 /uL (0-900); Monocytes Percent Auto 6.5 % (3-14); Neutrophils Absolute Auto 3800 /uL (1500-7000); Neutrophils Percent Auto 70.5 % (50-75); Platelet Count 348 X10^3/uL (150-400); Red Blood Cell Count 3.84 X10^6/uL (4.0-5.2); Red Cell Distribution Width 15.1 % (11.6-14.8); White Blood Cell Count 5.4 X10^3/uL (4.5-11.0)
[2024-10-11 13:23] LABS: Alanine Aminotransferase 42 IU/L (<35); Albumin 3.6 g/dL (3.5-5.0); Albumin Globulin Ratio 1.3 (1.0-2.8); Alkaline Phosphatase 108 U/L (38-126); Aspartate Aminotransferase 110 IU/L (14-36); BUN Creatinine Ratio 8.3 (6-22); Bilirubin Total 1.5 mg/dL (0.2-1.3); Blood Urea Nitrogen 4 mg/dL (7-17); Calcium 8.6 mg/dL (8.4-10.2); Carbon Dioxide 26 mmol/L (22-32); Chloride 100 mmol/L (98-107); Estimated Glomerular Filt Rate > 60 mL/min (>60); Globulin 2.7 g/dL (1.7-4.1); Glucose 93 mg/dL (70-99); HEMOLYSIS < 15 (0-50); Potassium 4.3 mmol/L (3.4-5.1); Sodium 132 mmol/L (137-145); Total Protein 6.3 g/dL (6.3-8.2)
[2024-10-11 13:36] LABS: Medtox Non-DOT Urine Drug Scre See Separate Report
[2024-10-11 13:54] LABS: Testosterone 21.1 ng/dL (5.71-77.0)
[2024-10-11 16:39] LABS: Follicle Stimulating Hormone 13.1 mIU/mL; Progesterone, Total 0.77 ng/mL
[2024-10-11 16:55] LABS: Estradiol, Total 197.9 pg/mL
[2024-10-13 01:10] LABS: Cholesterol HDL Ratio 2.9 ratio (0.0-4.4); Cholesterol,Total 174 mg/dL (100-199); HDL Cholesterol 60 mg/dL (>39); LDL Cholesterol Cal 94 mg/dL (0-99); Triglycerides 115 mg/dL (0-149); VLDL Cholesterol Cal 20 mg/dL (5-40)
== END ==
LOC: LAB 12:25
PROVIDERS: PCP Physician Assistant; Referring Provider Specialist; Visit Provider Specialist
DX: G62.9 Polyneuropathy, unspecified (principal); N95.9 Unspecified menopausal and perimenopausal disorder; R53.83 Other fatigue; R68.82 Decreased libido; R73.09 Other abnormal glucose; Z51.81 Encounter for therapeutic drug level monitoring
CPT/HCPCS: 36415; 80053; 80061; 81099; 82670; 83001; 84144; 84270; 84402; 84403; 85025

== ENCOUNTER 2025-03-19 16:37 | Inpatient (IN) | payer OTHER, SELFPAY ==
[2024-04-08 22:01] VITALS: BMI 25.4
[2025-03-19] VITALS (25 sets, daily range): BP systolic 130–188; BP diastolic 85–113; PULSE 102–137; RESP 18–33; TEMP 36.6–37.4; O2SAT 94–99; BMI 21.7
--- NOTE | 2025-03-19 16:52 | DI.RAD.S_ITS ---
PROCEDURE: XR CHEST 1V INDICATIONS: cough TECHNIQUE: One view of the chest was acquired. COMPARISON: [facility], CR, XR CHEST 1V, 12/24/2022, 16:06. [facility], CR, XR CHEST 1V, 04/08/2024, 20:40. FINDINGS: Surgical changes and devices: None. Lungs and pleura: An incomplete inspiratory result is noted, causing a crowded appearance to the lung markings. No focal infiltrates are seen. No pneumothorax or significant pleural effusions are seen. Mediastinum: Mediastinal contours appear normal. Heart size is normal. Bones and chest wall: No suspicious bony lesions. Overlying soft tissues appear unremarkable. IMPRESSION: Low lung volumes, without an acute abnormality seen by plain film. No focal infiltrates are seen. Dictated by: Eriberto Gonzalez M.D. on 03/19/2025 at 16:21 Approved by: Eriberto Gonzalez M.D. on 03/19/2025 at 16:21
--- NOTE | 2025-03-19 16:52 | DI.CT.S_ITS ---
PROCEDURE: CT HEAD/BRAIN WO CON INDICATIONS: seizure TECHNIQUE: Noncontrast 4.5 mm thick angled axial sections acquired from the foramen magnum to the vertex, with coronal and sagittal reformats. For radiation dose reduction, the following was used: automated exposure control, adjustment of mA and/or kV according to patient size. COMPARISON: [facility], CT, CT HEAD/BRAIN WO CON, 12/08/2023, 15:28. FINDINGS: Image quality: Diagnostic. CSF spaces: Basal cisterns are patent. No extra-axial fluid collections. Ventricles are normal in size and shape. Brain: No midline shift. No intracranial mass effect or hemorrhage. Britt- white matter interface is normal. Volume loss greater than expected for age. Skull and face: Calvarium and visualized facial bones are intact, without suspicious lesions. Sinuses: Visualized sinuses and mastoids are clear. IMPRESSION: No acute intracranial pathology. Volume loss greater than expected for age. Dictated by: King Jarquin M.D. on 03/19/2025 at 17:34 Approved by: King Jarquin M.D. on 03/19/2025 at 17:34
--- NOTE | 2025-03-19 16:52 | EKG_ITS ---
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
--- NOTE | 2025-03-19 16:55 | ED.AMS ---
HPI - Altered Mental Status General Chief Complaint: Toxicology Problem Stated Complaint: N/V 2 days,Heavy ETOH use Time Seen by Provider: 03/19/25 16:38 History of Present Illness HPI narrative: 45-year-old female brought in by EMS. Was found down in the floor in her kitchen by her ?out of it?. Patient uses alcohol heavily about half of the 5th of vodka or Tequila a day. She says she can not remember what happened before this, last drank this morning. Has had some nausea and vomiting for the last couple of days. Has a history of alcohol withdrawal seizures, was admitted here in March of last year with alcohol withdrawal and pancreatitis. No fevers, no abdominal pain no chest pain no shortness of breath has a mild cough does not believe she has hit her head recently does not have a headache. She does have I have possible bite to her lower lip. He was not incontinent of urine. Related Data Home Medications ?Medication ?Instructions ?Recorded ?Confirmed amlodipine 10 mg tablet 10 mg PO DAILY 12/09/23 03/19/25 hydroxyzine HCl 50 mg tablet 50 mg PO BID PRN anxiety 12/09/23 03/19/25 pregabalin 75 mg capsule 75 mg PO 3XD 12/09/23 03/19/25 trazodone 50 mg tablet 50 mg PO BEDTIME 12/09/23 03/19/25 L norgest/E estradiol-E estrad 1 tab PO DAILY 03/19/25 03/19/25 0.15 mg-30 mcg (84)/10 mcg(7) tabs,3mos ([place]pes[place]) estradiol 0.01% (0.1 mg/gram) 1 g vaginal BID 03/19/25 03/19/25 vaginal cream Previous Rx's ?Medication ?Instructions ?Recorded thiamine mononitrate (vit B1) 100 100 mg PO DAILY #30 tabs 12/09/23 mg tablet Allergies Allergy/AdvReac Type Severity Reaction Status Date / Time gabapentin Allergy Verified 03/19/25 16:51 Penicillins Allergy Swelling Verified 03/19/25 16:51 of Lip/Tongue/Throat Patient History Medical History Anxiety and depression HTN (hypertension) Alcohol withdrawal seizure Alcohol use disorder Social History household members: significant other Smoking Status: Current every day smoker alcohol intake: current tobacco type: vaping alcohol intake frequency: 3 or more drinks per day Alcohol type: beer and hard liquor Exam Narrative Exam Narrative: 45-year-old female tremulous, vital signs are reviewed she is tachycardic, appears intoxicated Head is atraumatic pupils are equal and reactive extraocular movements are intact she has horizontal nystagmus Neck is supple and nontender Heart sounds are normal Lungs have scattered wheezes Abdomen soft nontender normal bowel sounds Alert and oriented moving all 4 extremities spontaneously and equally Has an appropriate affect, denying suicidal ideation hallucinations. Moving all 4 extremities spontaneously and equally. Initial Vital Signs Initial Vital Signs: Vital Signs Pulse Rate 137 H 03/19/25 16:41 Pulse Oximetry 99 03/19/25 16:41 Course Orders Ordered: ED Orders 03/19/25 16:40 CBC Auto Diff [Complete Blood Count AUTO DIFF] Stat CMP [Comprehensive Metabolic Panel] Stat ETOH [Ethanol (ETOH)] Stat Lipase Stat MAG [Magnesium] Stat PT [Prothrombin Time INR] Stat 03/19/25 16:52 CT head/brain wo con Stat Chest [XR chest 1V] Stat EKG-12 Lead Stat 03/19/25 17:30 Venous Blood Gas STAT 03/19/25 18:04 Venous Blood Gas Routine 03/19/25 18:09 Venous Blood Gas Routine 03/19/25 19:16 Urine Drug Screen, Rapid Stat Urine Microscopic Stat Acetaminophen (Acetaminophen 325 Mg Tablet) 650 mg PO Q6H PRN PRN Reason: Fever/Mild Pain (1-3) Calcium Carbonate (Calcium Carbonate 500 Mg Tab) 1,000 mg PO Q4HR PRN PRN Reason: Dyspepsia Folic Acid (Folic Acid 1 Mg Tablet) 1 mg PO DAILY MARYJO Haloperidol (Haloperidol 5 Mg/Ml Vial) 5 mg IV Q4HR PRN PRN Reason: Agitation Sodium Chloride (Normal Saline 0.9%) 1,000 mls @ 100 mls/hr IV CONT MARYJO Last Infusion: 03/19/25 21:13 Dose: 100 mls/hr Documented By: Admin: 03/19/25 20:42 Dose: 100 mls/hr Documented By: YANELI Ibuprofen (Ibuprofen 600 Mg Tablet) 600 mg PO Q6H PRN PRN Reason: Fever/Mild Pain (1-3) Lorazepam (Lorazepam 2 Mg/Ml Inj) 0 mg IV CIWAPRN PRN; Protocol PRN Reason: Alcohol Withdrawal Lorazepam (Lorazepam 1 Mg Tablet) 0 mg PO CIWAPRN PRN; Protocol PRN Reason: Alcohol Withdrawal Multivitamins (Multivitamin 1 Tablet) 1 tab PO DAILY MARYJO Naloxone HCl (Naloxone 0.4 Mg/Ml Vial) 0.2 mg IV Q2MIN PRN PRN Reason: Opiate Reversal Nicotine (Nicotine 21 Mg Patch) 21 mg TOP DAILY MARYJO Ondansetron HCl (Ondansetron 4 Mg/2 Ml Inj) 4 mg IV Q8HR PRN PRN Reason: Nausea And Vomiting Last Admin: 03/19/25 22:03 Dose: 4 mg Documented By: VIET Pantoprazole Sodium (Pantoprazole Dr 20 Mg Tablet) 40 mg PO 0600 MARYJO Pregabalin (Pregabalin 75 Mg Capsule) 75 mg PO TID MARYJO Last Admin: 03/19/25 22:04 Dose: 75 mg Documented By: VIET Promethazine HCl (Promethazine 12.5 Mg Supp) 12.5 mg [place] Q6HR PRN PRN Reason: Nausea And Vomiting Thiamine HCl (Thiamine 100 Mg Tablet) 100 mg PO DAILY MARYJO Trazodone HCl (Trazodone 50 Mg Tablet) 50 mg PO BEDTIME MARYJO Last Admin: 03/19/25 22:04 Dose: 50 mg Documented By: VIET Discontinued Medications Sodium Chloride (Normal Saline 0.9%) 1,000 mls @ 1,000 mls/hr IV BOLUS ONE Stop: 03/19/25 18:05 Last Infusion: 03/19/25 18:03 Dose: Infused Documented By: Admin: 03/19/25 17:12 Dose: 1,000 mls/hr Documented By: ALISSA Sodium Chloride (Normal Saline 0.9%) 1,000 mls @ 1,000 mls/hr IV BOLUS ONE Stop: 03/19/25 19:07 Last Infusion: 03/19/25 19:10 Dose: Infused Documented By: Admin: 03/19/25 18:11 Dose: 1,000 mls/hr Documented By: YANELI Phenobarbital (Phenobarbital 65 Mg/Ml Vial) 260 mg IV NOW ONE Stop: 03/19/25 16:53 Last Admin: 03/19/25 17:01 Dose: 260 mg Documented By: ALISSA Consultations Consultation #1: Discussed with Dr Dsouza hosptialist, accepts admission Vital Signs Vital signs: Vital Signs - 8 hr 03/19/25 16:41 03/19/25 16:42 03/19/25 16:42 Temperature Pulse Rate 137 H 135 H Respiratory Rate Blood Pressure 141/89 H Pulse Oximetry 99 99 Oxygen Delivery Method 03/19/25 16:50 03/19/25 17:13 03/19/25 17:22 Temperature 97.9 F Pulse Rate 135 H 129 H Respiratory Rate 22 19 Blood Pressure 141/89 H 138/93 H Pulse Oximetry 97 97 Oxygen Delivery Method Room Air 03/19/25 17:22 03/19/25 17:30 03/19/25 17:30 Temperature Pulse Rate 111 H 107 H Respiratory Rate 18 20 Blood Pressure 137/95 H Pulse Oximetry 94 96 Oxygen Delivery Method 03/19/25 17:40 03/19/25 17:40 03/19/25 17:50 Temperature Pulse Rate 109 H Respiratory Rate 21 Blood Pressure 135/94 H 138/95 H Pulse Oximetry 97 Oxygen Delivery Method 03/19/25 17:50 03/19/25 18:00 03/19/25 18:00 Temperature Pulse Rate 107 H 112 H Respiratory Rate 20 22 Blood Pressure 139/97 H Pulse Oximetry 95 95 Oxygen Delivery Method 03/19/25 18:10 03/19/25 18:10 03/19/25 18:20 Temperature Pulse Rate 110 H 111 H Respiratory Rate 23 22 Blood Pressure 138/96 H Pulse Oximetry 95 96 Oxygen Delivery Method 03/19/25 18:20 03/19/25 18:30 03/19/25 18:30 Temperature Pulse Rate 108 H Respiratory Rate 22 Blood Pressure 142/89 H 143/95 H Pulse Oximetry 95 Oxygen Delivery Method 03/19/25 18:40 03/19/25 18:40 03/19/25 18:50 Temperature Pulse Rate 109 H Respiratory Rate 19 Blood Pressure 144/92 H 130/87 Pulse Oximetry 97 Oxygen Delivery Method 03/19/25 18:50 03/19/25 19:00 03/19/25 19:00 Temperature Pulse Rate 106 H 105 H Respiratory Rate 21 21 Blood Pressure 142/85 H Pulse Oximetry 96 95 Oxygen Delivery Method 03/19/25 19:30 03/19/25 19:35 03/19/25 19:35 Temperature Pulse Rate 111 H 109 H Respiratory Rate 24 23 Blood Pressure 156/107 H Pulse Oximetry 97 97 Oxygen Delivery Method 03/19/25 19:40 03/19/25 19:40 Temperature Pulse Rate 115 H Respiratory Rate 33 H Blood Pressure 161/113 H Pulse Oximetry 97 Oxygen Delivery Method MDM - Altered Mental Status Lab Data Lab results narrative: Alcohol not detected. Initially had a low CO2 on chemistries, likely related to recent seizure. No leukocytosis or anemia 03/19/25 16:40 03/19/25 20:09 Labs: Lab Results 03/19/25 03/19/25 03/19/25 Range/Units 16:40 16:40 16:40 WBC 9.1 (4.5-11.0) X10^3/uL RBC 4.41 (4.0-5.2) X10^6/uL Hgb 13.8 (12.0-16.0) g/dL Hct 41.9 (36-46) % MCV 95.1 (80-100) fL MCH 31.3 (26-34) PG MCHC 32.9 (30-36) % RDW 17.3 H (11.6-14.8) % Plt Count 273 (150-400) X10^3/uL Neut % (Auto) 71.8 (50-75) % Lymph % (Auto) 18.5 L (25-40) % [place] % (Auto) 9.5 (3-14) % Eos % (Auto) 0.0 L (2-4) % Baso % (Auto) 0.2 (0-2) % Neut # (Auto) 6600 (8862-1264) /uL Lymph # (Auto) 1700 (1688-0906) /uL [place] # (Auto) 900 (0-900) /uL Eos # (Auto) 0 (0-450) /uL Baso # (Auto) 0 (0-100) /uL PT 11.7 (9.4-12.5) SECONDS INR 1.0 (0.9-1.3) VBG pH (7.33-7.43) VBG pCO2 (45-50) mmHg VBG pO2 (35-45) mmHg VBG HCO3 (24-28) mmol/L VBG Total CO2 (24-29) mmol/L VBG O2 Saturation (70-75) % VBG Base Excess (0-4) mmol/L Sodium 136 L Cancelled (137-145) mmol/L Potassium 3.3 L Cancelled (3.4-5.1) mmol/L Chloride 94 L (98-107) mmol/L Carbon Dioxide (22-32) mmol/L BUN (7-17) mg/dL Creatinine (0.52-1.04) mg/dL Estimated GFR (>60) mL/min BUN/Creatinine Ratio (6-22) Glucose (70-99) mg/dL Calcium (8.4-10.2) mg/dL Magnesium (1.6-2.3) mg/dL Total Bilirubin (0.2-1.3) mg/dL AST (14-36) IU/L ALT (<35) IU/L Alkaline Phosphatase (38-126) U/L Total Protein (6.3-8.2) g/dL Albumin (3.5-5.0) g/dL Globulin (1.7-4.1) g/dL Albumin/Globulin Ratio (1.0-2.8) Lipase (23-300) U/L Urine RBC (0-5/HPF) Urine WBC (0-5/HPF) Ur Squamous Epith Cells (0-5/HPF) Urine Bacteria (None) Urine Mucus (Negative) Ur Culture Indicated? Vol Urine Centrifuged U Opiates 300ng/mL cut (Negative) Ur Oxycodone Screen (Negative) Urine Methadone Screen (Negative) Ur Barbiturates Screen (Negative) U Tricyclic Antidepress (Negative) Ur Phencyclidine Scrn (Negative) Ur Amphetamines Screen (Negative) U Methamphetamines Scrn (Negative) Ur MDMA Scrn (Ecstasy) (Negative) U Benzodiazepines Scrn (Negative) Urine Cocaine Screen (Negative) U Marijuana (THC) Screen (Negative) Urine pH (Normal) Urine Specific [place] (Normal) Ethyl Alcohol (<10) mg/dL Ur Creatinine (Normal) 03/19/25 03/19/25 03/19/25 Range/Units 16:40 16:40 16:40 WBC (4.5-11.0) X10^3/uL RBC (4.0-5.2) X10^6/uL Hgb (12.0-16.0) g/dL Hct (36-46) % MCV (80-100) fL MCH (26-34) PG MCHC (30-36) % RDW (11.6-14.8) % Plt Count (150-400) X10^3/uL Neut % (Auto) (50-75) % Lymph % (Auto) (25-40) % [place] % (Auto) (3-14) % Eos % (Auto) (2-4) % Baso % (Auto) (0-2) % Neut # (Auto) (9833-2354) /uL Lymph # (Auto) (2526-9104) /uL [place] # (Auto) (0-900) /uL Eos # (Auto) (0-450) /uL Baso # (Auto) (0-100) /uL PT (9.4-12.5) SECONDS INR (0.9-1.3) VBG pH (7.33-7.43) VBG pCO2 (45-50) mmHg VBG pO2 (35-45) mmHg VBG HCO3 (24-28) mmol/L VBG Total CO2 (24-29) mmol/L VBG O2 Saturation (70-75) % VBG Base Excess (0-4) mmol/L Sodium (137-145) mmol/L Potassium (3.4-5.1) mmol/L Chloride Cancelled (98-107) mmol/L Carbon Dioxide < 5 L* Cancelled (22-32) mmol/L BUN 4 L Cancelled (7-17) mg/dL Creatinine 0.88 (0.52-1.04) mg/dL Estimated GFR (>60) mL/min BUN/Creatinine Ratio (6-22) Glucose (70-99) mg/dL Calcium (8.4-10.2) mg/dL Magnesium (1.6-2.3) mg/dL Total Bilirubin (0.2-1.3) mg/dL AST (14-36) IU/L ALT (<35) IU/L Alkaline Phosphatase (38-126) U/L Total Protein (6.3-8.2) g/dL Albumin (3.5-5.0) g/dL Globulin (1.7-4.1) g/dL Albumin/Globulin Ratio (1.0-2.8) Lipase (23-300) U/L Urine RBC (0-5/HPF) Urine WBC (0-5/HPF) Ur Squamous Epith Cells (0-5/HPF) Urine Bacteria (None) Urine Mucus (Negative) Ur Culture Indicated? Vol Urine Centrifuged U Opiates 300ng/mL cut (Negative) Ur Oxycodone Screen (Negative) Urine Methadone Screen (Negative) Ur Barbiturates Screen (Negative) U Tricyclic Antidepress (Negative) Ur Phencyclidine Scrn (Negative) Ur Amphetamines Screen (Negative) U Methamphetamines Scrn (Negative) Ur MDMA Scrn (Ecstasy) (Negative) U Benzodiazepines Scrn (Negative) Urine Cocaine Screen (Negative) U Marijuana (THC) Screen (Negative) Urine pH (Normal) Urine Specific [place] (Normal) Ethyl Alcohol (<10) mg/dL Ur Creatinine (Normal) 03/19/25 03/19/25 03/19/25 Range/Units 16:40 16:40 16:40 WBC (4.5-11.0) X10^3/uL RBC (4.0-5.2) X10^6/uL Hgb (12.0-16.0) g/dL Hct (36-46) % MCV (80-100) fL MCH (26-34) PG MCHC (30-36) % RDW (11.6-14.8) % Plt Count (150-400) X10^3/uL Neut % (Auto) (50-75) % Lymph % (Auto) (25-40) % [place] % (Auto) (3-14) % Eos % (Auto) (2-4) % Baso % (Auto) (0-2) % Neut # (Auto) (4149-3333) /uL Lymph # (Auto) (2354-9740) /uL [place] # (Auto) (0-900) /uL Eos # (Auto) (0-450) /uL Baso # (Auto) (0-100) /uL PT (9.4-12.5) SECONDS INR (0.9-1.3) VBG pH (7.33-7.43) VBG pCO2 (45-50) mmHg VBG pO2 (35-45) mmHg VBG HCO3 (24-28) mmol/L VBG Total CO2 (24-29) mmol/L VBG O2 Saturation (70-75) % VBG Base Excess (0-4) mmol/L Sodium (137-145) mmol/L Potassium (3.4-5.1) mmol/L Chloride (98-107) mmol/L Carbon Dioxide (22-32) mmol/L BUN (7-17) mg/dL Creatinine Cancelled (0.52-1.04) mg/dL Estimated GFR > 60 Cancelled (>60) mL/min BUN/Creatinine Ratio 4.5 L Cancelled (6-22) Glucose 209 H (70-99) mg/dL Calcium (8.4-10.2) mg/dL Magnesium (1.6-2.3) mg/dL Total Bilirubin (0.2-1.3) mg/dL AST (14-36) IU/L ALT (<35) IU/L Alkaline Phosphatase (38-126) U/L Total Protein (6.3-8.2) g/dL Albumin (3.5-5.0) g/dL Globulin (1.7-4.1) g/dL Albumin/Globulin Ratio (1.0-2.8) Lipase (23-300) U/L Urine RBC (0-5/HPF) Urine WBC (0-5/HPF) Ur Squamous Epith Cells (0-5/HPF) Urine Bacteria (None) Urine Mucus (Negative) Ur Culture Indicated? Vol Urine Centrifuged U Opiates 300ng/mL cut (Negative) Ur Oxycodone Screen (Negative) Urine Methadone Screen (Negative) Ur Barbiturates Screen (Negative) U Tricyclic Antidepress (Negative) Ur Phencyclidine Scrn (Negative) Ur Amphetamines Screen (Negative) U Methamphetamines Scrn (Negative) Ur MDMA Scrn (Ecstasy) (Negative) U Benzodiazepines Scrn (Negative) Urine Cocaine Screen (Negative) U Marijuana (THC) Screen (Negative) Urine pH (Normal) Urine Specific [place] (Normal) Ethyl Alcohol (<10) mg/dL Ur Creatinine (Normal) 03/19/25 03/19/25 03/19/25 Range/Units 16:40 16:40 18:09 WBC (4.5-11.0) X10^3/uL RBC (4.0-5.2) X10^6/uL Hgb (12.0-16.0) g/dL Hct (36-46) % MCV (80-100) fL MCH (26-34) PG MCHC (30-36) % RDW (11.6-14.8) % Plt Count (150-400) X10^3/uL Neut % (Auto) (50-75) % Lymph % (Auto) (25-40) % [place] % (Auto) (3-14) % Eos % (Auto) (2-4) % Baso % (Auto) (0-2) % Neut # (Auto) (2712-6427) /uL Lymph # (Auto) (9194-7853) /uL [place] # (Auto) (0-900) /uL Eos # (Auto) (0-450) /uL Baso # (Auto) (0-100) /uL PT (9.4-12.5) SECONDS INR (0.9-1.3) VBG pH 7.48 H (7.33-7.43) VBG pCO2 28.2 L (45-50) mmHg VBG pO2 62 H (35-45) mmHg VBG HCO3 21 L (24-28) mmol/L VBG Total CO2 20 L (24-29) mmol/L VBG O2 Saturation 93 H (70-75) % VBG Base Excess -1.5 L (0-4) mmol/L Sodium (137-145) mmol/L Potassium (3.4-5.1) mmol/L Chloride (98-107) mmol/L Carbon Dioxide (22-32) mmol/L BUN (7-17) mg/dL Creatinine (0.52-1.04) mg/dL Estimated GFR (>60) mL/min BUN/Creatinine Ratio (6-22) Glucose Cancelled (70-99) mg/dL Calcium 8.9 Cancelled (8.4-10.2) mg/dL Magnesium 1.7 (1.6-2.3) mg/dL Total Bilirubin 1.6 H (0.2-1.3) mg/dL AST 132 H (14-36) IU/L ALT 60 H (<35) IU/L Alkaline Phosphatase 67 (38-126) U/L Total Protein 9.2 H (6.3-8.2) g/dL Albumin 5.4 H (3.5-5.0) g/dL Globulin 3.8 (1.7-4.1) g/dL Albumin/Globulin Ratio 1.4 (1.0-2.8) Lipase 137 (23-300) U/L Urine RBC (0-5/HPF) Urine WBC (0-5/HPF) Ur Squamous Epith Cells (0-5/HPF) Urine Bacteria (None) Urine Mucus (Negative) Ur Culture Indicated? Vol Urine Centrifuged U Opiates 300ng/mL cut (Negative) Ur Oxycodone Screen (Negative) Urine Methadone Screen (Negative) Ur Barbiturates Screen (Negative) U Tricyclic Antidepress (Negative) Ur Phencyclidine Scrn (Negative) Ur Amphetamines Screen (Negative) U Methamphetamines Scrn (Negative) Ur MDMA Scrn (Ecstasy) (Negative) U Benzodiazepines Scrn (Negative) Urine Cocaine Screen (Negative) U Marijuana (THC) Screen (Negative) Urine pH (Normal) Urine Specific [place] (Normal) Ethyl Alcohol < 10 (<10) mg/dL Ur Creatinine (Normal) // Range/Units 19:16 WBC (4.5-11.0) X10^3/uL RBC (4.0-5.2) X10^6/uL Hgb (12.0-16.0) g/dL Hct (36-46) % MCV (80-100) fL MCH (26-34) PG MCHC (30-36) % RDW (11.6-14.8) % Plt Count (150-400) X10^3/uL Neut % (Auto) (50-75) % Lymph % (Auto) (25-40) % [place] % (Auto) (3-14) % Eos % (Auto) (2-4) % Baso % (Auto) (0-2) % Neut # (Auto) (9753-6709) /uL Lymph # (Auto) (2001-4765) /uL [place] # (Auto) (0-900) /uL Eos # (Auto) (0-450) /uL Baso # (Auto) (0-100) /uL PT (9.4-12.5) SECONDS INR (0.9-1.3) VBG pH (7.33-7.43) VBG pCO2 (45-50) mmHg VBG pO2 (35-45) mmHg VBG HCO3 (24-28) mmol/L VBG Total CO2 (24-29) mmol/L VBG O2 Saturation (70-75) % VBG Base Excess (0-4) mmol/L Sodium (137-145) mmol/L Potassium (3.4-5.1) mmol/L Chloride (98-107) mmol/L Carbon Dioxide (22-32) mmol/L BUN (7-17) mg/dL Creatinine (0.52-1.04) mg/dL Estimated GFR (>60) mL/min BUN/Creatinine Ratio (6-22) Glucose (70-99) mg/dL Calcium (8.4-10.2) mg/dL Magnesium (1.6-2.3) mg/dL Total Bilirubin (0.2-1.3) mg/dL AST (14-36) IU/L ALT (<35) IU/L Alkaline Phosphatase (38-126) U/L Total Protein (6.3-8.2) g/dL Albumin (3.5-5.0) g/dL Globulin (1.7-4.1) g/dL Albumin/Globulin Ratio (1.0-2.8) Lipase (23-300) U/L Urine RBC 0-1/hpf D (0-5/HPF) Urine WBC 0-1/hpf (0-5/HPF) Ur Squamous Epith Cells 1-5 /hpf (0-5/HPF) Urine Bacteria Occasional (0-1) (None) Urine Mucus 1+ H (Negative) Ur Culture Indicated? Cult not indicated Vol Urine Centrifuged 10ml (spun) U Opiates 300ng/mL cut Negative (Negative) Ur Oxycodone Screen Negative (Negative) Urine Methadone Screen Negative (Negative) Ur Barbiturates Screen Positive H (Negative) U Tricyclic Antidepress Negative (Negative) Ur Phencyclidine Scrn Negative (Negative) Ur Amphetamines Screen Negative (Negative) U Methamphetamines Scrn Negative (Negative) Ur MDMA Scrn (Ecstasy) Negative (Negative) U Benzodiazepines Scrn Negative (Negative) Urine Cocaine Screen Negative (Negative) U Marijuana (THC) Screen Positive H (Negative) Urine pH Normal (Normal) Urine Specific [place] Normal (Normal) Ethyl Alcohol (<10) mg/dL Ur Creatinine Normal (Normal) Point of Care Testing Test Results Negative Urine Dip Bedside Urine Glucose Negative Bedside Urine Bilirubin - Negative Bedside Urine Ketone ++ 40 Urine Specific [place] 1.015 Bedside Urine Occult Blood ++ Bedside Urine pH 7.5 Bedside Urine Protein ++ 100 Bedside Urine Urobilinogen - Negative Bedside Urine Nitrite - Negative Bedside Urine Leukocytes - Negative Esterase Imaging Data CT scan - head: My Impression: Independent review of CT head, no acute findings Radiologist's Impression: Radiology report reviewed, no acute Chest x-ray: My Impression: Independently viewed chest x-ray, no acute findings Radiologist's Impression: Chest x-ray per Radiology no acute abnormality ECG Data Attestation: I personally reviewed and interpreted this ECG as follows: (Sinus tachycardia at 118, no acute ST segment changes) MDM Narrative Medical decision making narrative: 45-year-old female with a history of alcohol withdrawal seizures who has recently been vomiting she is actively using alcohol and presentation is suggestive of a unwitnessed seizure. No acute intracranial abnormalities, no evidence of acute infection, was given IV phenobarb in the emergency department does not appear to be experiencing delirium tremens. We will be admitted to the hospitalist service. Discharge Plan Departure Patient Disposition: Admitted As Inpatient Clinical Impression: Alcohol withdrawal seizure Alcohol withdrawal Qualifiers: Complication of substance-induced condition: with unspecified complication Qualified Code(s): F10.939 - Alcohol use, unspecified with withdrawal, unspecified Vomiting Qualifiers: Vomiting type: unspecified Nausea presence: with nausea Qualified Code(s): R11.2 - Nausea with vomiting, unspecified Admit Date/Time: 03/19/25 19:47 Admit Provider: Russell Dsouza
[2025-03-19 17:04] LABS: Add Manual Diff / Slide Review NO; Hematocrit 41.9 % (36-46); Hemoglobin 13.8 g/dL (12.0-16.0); Lymphocytes Absolute Auto 1700 /uL (1100-4500); Mean Corpuscular HGB Conc 32.9 % (30-36); Mean Corpuscular Hemoglobin 31.3 PG (26-34); Mean Corpuscular Volume 95.1 fL (80-100); Platelet Count 273 X10^3/uL (150-400)
[2025-03-19 17:06] LABS: INR 1.0 (0.9-1.3); Prothrombin Time 11.7 SECONDS (9.4-12.5)
[2025-03-19 17:10] LABS: Alanine Aminotransferase 60 IU/L (<35); Albumin 5.4 g/dL (3.5-5.0); Albumin Globulin Ratio 1.4 (1.0-2.8); Alkaline Phosphatase 67 U/L (38-126); Blood Urea Nitrogen 4 mg/dL (7-17); Calcium 8.9 mg/dL (8.4-10.2); Chloride 94 mmol/L (98-107); Estimated Glomerular Filt Rate > 60 mL/min (>60); Ethanol (ETOH) < 10 mg/dL (<10); Globulin 3.8 g/dL (1.7-4.1); Glucose 209 mg/dL (70-99); HEMOLYSIS 47 (0-50); Lipase 137 U/L (23-300); Magnesium 1.7 mg/dL (1.6-2.3); Potassium 3.3 mmol/L (3.4-5.1); Sodium 136 mmol/L (137-145); Total Protein 9.2 g/dL (6.3-8.2)
[2025-03-19] MEDS: SODIUM CHLORIDE 0.9% 1,000 ML 1000 ML IV ×2 (17:12→18:11)
[2025-03-19 17:18] LABS: Carbon Dioxide < 5 mmol/L (22-32)
[2025-03-19 18:12] LABS: Base Excess VBG -1.5 mmol/L (0-4); HCO3 VBG 21 mmol/L (24-28); Oxygen Saturation VBG 93 % (70-75); PCO2 VBG 28.2 mmHg (45-50); PO2 VBG 62 mmHg (35-45); Total CO2 VBG 20 mmol/L (24-29); pH VBG 7.48 (7.33-7.43)
[2025-03-19 19:28] LABS: UR Morphine/Opiate cutoff 300 Negative (Negative); Ur Specific Gravity Normal (Normal); Urine MDMA Negative (Negative); Urine Methamphetamines Negative (Negative); Urine Tetrahydrocannabinol Positive (Negative); Urine Tricyclic Antidepressant Negative (Negative)
[2025-03-19 20:13] LABS: Culture Indicated Urine Cult Not Indicated
[2025-03-19 20:30] LABS: Blood Urea Nitrogen 4 mg/dL (7-17); Calcium 7.5 mg/dL (8.4-10.2); Carbon Dioxide 21 mmol/L (22-32); Chloride 101 mmol/L (98-107); Estimated Glomerular Filt Rate > 60 mL/min (>60); Glucose 93 mg/dL (70-99); HEMOLYSIS < 15 (0-50); Potassium 3.1 mmol/L (3.4-5.1); Sodium 134 mmol/L (137-145)
[2025-03-19] MEDS: SODIUM CHLORIDE 0.9% 1,000 ML 100 ML IV (20:42)
[2025-03-19] MEDS: ONDANSETRON 4 MG/2 ML INJ IV (22:03)
[2025-03-19] MEDS: PREGABALIN 75 MG CAPSULE PO (22:04)
[2025-03-19 23:20] LABS: MRSA (Nasal) PCR NOT DETECTED (Not Detect)
--- NOTE | 2025-03-20 02:51 | PM.HP.1 ---
History of Present Illness History of Present Illness Date Patient Seen: 03/20/25 Time Patient Seen: 02:52 Chief complaint: N/V 2 days,Heavy ETOH use Narrative: the pt is a 45 yo who presents to the ER after being found by her down on the floor unconscious. 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, , reguarly smokes marijuana [facility] Medical History Anxiety and depression HTN (hypertension) Alcohol withdrawal seizure Alcohol use disorder Social History household members: significant other Smoking Status: Current every day smoker alcohol intake: current Meds Home Medications and Allergies Home Medications ?Medication ?Instructions ?Recorded ?Confirmed ?Type amlodipine 10 mg tablet 10 mg PO DAILY 12/09/23 03/19/25 History hydroxyzine HCl 50 mg tablet 50 mg PO BID PRN anxiety 12/09/23 03/19/25 History pregabalin 75 mg capsule 75 mg PO 3XD 12/09/23 03/19/25 History thiamine mononitrate (vit B1) 100 100 mg PO DAILY #30 tabs 12/09/23 03/19/25 Rx mg tablet trazodone 50 mg tablet 50 mg PO BEDTIME 12/09/23 03/19/25 History L norgest/E estradiol-E estrad 1 tab PO DAILY 03/19/25 03/19/25 History 0.15 mg-30 mcg (84)/10 mcg(7) tabs,3mos ([place]) estradiol 0.01% (0.1 mg/gram) 1 g vaginal BID 03/19/25 03/19/25 History vaginal cream Allergies Allergy/AdvReac Type Severity Reaction Status Date / Time gabapentin Allergy Verified 03/19/25 16:51 Penicillins Allergy Swelling Verified 03/19/25 16:51 of Lip/Tongue/Throat Exam Vital Signs (past 8 hours): - 03/19/25 19:00 03/19/25 19:00 03/19/25 19:30 Temperature Pulse Rate 105 H 111 H Respiratory Rate 21 24 Blood Pressure 142/85 H Pulse Oximetry 95 97 Oxygen Delivery Method 03/19/25 19:35 03/19/25 19:35 03/19/25 19:40 Temperature Pulse Rate 109 H Respiratory Rate 23 Blood Pressure 156/107 H 161/113 H Pulse Oximetry 97 Oxygen Delivery Method 03/19/25 19:40 03/19/25 19:51 03/19/25 19:51 Temperature Pulse Rate 115 H 104 H Respiratory Rate 33 H 23 Blood Pressure 188/88 H Pulse Oximetry 97 97 Oxygen Delivery Method 03/19/25 20:00 03/19/25 20:00 03/19/25 20:20 Temperature Pulse Rate 102 H Respiratory Rate 20 Blood Pressure 166/95 H 152/104 H Pulse Oximetry 95 Oxygen Delivery Method 03/19/25 20:20 03/19/25 20:30 03/19/25 20:40 Temperature Pulse Rate 104 H 110 H Respiratory Rate 21 25 H Blood Pressure 158/97 H Pulse Oximetry 94 95 Oxygen Delivery Method 03/19/25 20:40 03/19/25 20:47 03/19/25 21:05 Temperature Pulse Rate 118 H 127 H Respiratory Rate 18 Blood Pressure Pulse Oximetry 96 97 Oxygen Delivery Method Room Air 03/19/25 21:09 03/19/25 21:09 Temperature 99.3 F Pulse Rate 127 H Respiratory Rate 30 H Blood Pressure 163/108 H Pulse Oximetry 96 Oxygen Delivery Method Oxygen Delivery Method Room Air Const General: healthy appearing, comfortable and well developed Other: Due to technical issues, I was not able to examine the pt but was able to visualize and talk to the pt. Objective Labs 03/19/25 16:40 03/19/25 20:09 Labs: Laboratory Results - last 24 hr 03/19/25 03/19/25 03/19/25 16:40 16:40 16:40 WBC 9.1 RBC 4.41 Hgb 13.8 Hct 41.9 MCV 95.1 MCH 31.3 MCHC 32.9 RDW 17.3 H Plt Count 273 Neut % (Auto) 71.8 Lymph % (Auto) 18.5 L [place] % (Auto) 9.5 Eos % (Auto) 0.0 L Baso % (Auto) 0.2 Neut # (Auto) 6600 Lymph # (Auto) 1700 [place] # (Auto) 900 Eos # (Auto) 0 Baso # (Auto) 0 PT 11.7 INR 1.0 VBG pH VBG pCO2 VBG pO2 VBG HCO3 VBG Total CO2 VBG O2 Saturation VBG Base Excess Sodium 136 L Cancelled Potassium 3.3 L Cancelled Chloride 94 L Carbon Dioxide BUN Creatinine Estimated GFR BUN/Creatinine Ratio Glucose Calcium Magnesium Total Bilirubin AST ALT Alkaline Phosphatase Total Protein Albumin Globulin Albumin/Globulin Ratio Lipase Urine RBC Urine WBC Ur Squamous Epith Cells Urine Bacteria Urine Mucus Ur Culture Indicated? Vol Urine Centrifuged Nasal Screen MRSA (PCR) U Opiates 300ng/mL cut Ur Oxycodone Screen Urine Methadone Screen Ur Barbiturates Screen U Tricyclic Antidepress Ur Phencyclidine Scrn Ur Amphetamines Screen U Methamphetamines Scrn Ur MDMA Scrn (Ecstasy) U Benzodiazepines Scrn Urine Cocaine Screen U Marijuana (THC) Screen Urine pH Urine Specific [place] Ethyl Alcohol Ur Creatinine 03/19/25 03/19/25 03/19/25 16:40 16:40 16:40 WBC RBC Hgb Hct MCV MCH MCHC RDW Plt Count Neut % (Auto) Lymph % (Auto) [place] % (Auto) Eos % (Auto) Baso % (Auto) Neut # (Auto) Lymph # (Auto) [place] # (Auto) Eos # (Auto) Baso # (Auto) PT INR VBG pH VBG pCO2 VBG pO2 VBG HCO3 VBG Total CO2 VBG O2 Saturation VBG Base Excess Sodium Potassium Chloride Cancelled Carbon Dioxide < 5 L* Cancelled BUN 4 L Cancelled Creatinine 0.88 Estimated GFR BUN/Creatinine Ratio Glucose Calcium Magnesium Total Bilirubin AST ALT Alkaline Phosphatase Total Protein Albumin Globulin Albumin/Globulin Ratio Lipase Urine RBC Urine WBC Ur Squamous Epith Cells Urine Bacteria Urine Mucus Ur Culture Indicated? Vol Urine Centrifuged Nasal Screen MRSA (PCR) U Opiates 300ng/mL cut Ur Oxycodone Screen Urine Methadone Screen Ur Barbiturates Screen U Tricyclic Antidepress Ur Phencyclidine Scrn Ur Amphetamines Screen U Methamphetamines Scrn Ur MDMA Scrn (Ecstasy) U Benzodiazepines Scrn Urine Cocaine Screen U Marijuana (THC) Screen Urine pH Urine Specific [place] Ethyl Alcohol Ur Creatinine 03/19/25 03/19/25 03/19/25 16:40 16:40 16:40 WBC RBC Hgb Hct MCV MCH MCHC RDW Plt Count Neut % (Auto) Lymph % (Auto) [place] % (Auto) Eos % (Auto) Baso % (Auto) Neut # (Auto) Lymph # (Auto) [place] # (Auto) Eos # (Auto) Baso # (Auto) PT INR VBG pH VBG pCO2 VBG pO2 VBG HCO3 VBG Total CO2 VBG O2 Saturation VBG Base Excess Sodium Potassium Chloride Carbon Dioxide BUN Creatinine Cancelled Estimated GFR > 60 Cancelled BUN/Creatinine Ratio 4.5 L Cancelled Glucose 209 H Calcium Magnesium Total Bilirubin AST ALT Alkaline Phosphatase Total Protein Albumin Globulin Albumin/Globulin Ratio Lipase Urine RBC Urine WBC Ur Squamous Epith Cells Urine Bacteria Urine Mucus Ur Culture Indicated? Vol Urine Centrifuged Nasal Screen MRSA (PCR) U Opiates 300ng/mL cut Ur Oxycodone Screen Urine Methadone Screen Ur Barbiturates Screen U Tricyclic Antidepress Ur Phencyclidine Scrn Ur Amphetamines Screen U Methamphetamines Scrn Ur MDMA Scrn (Ecstasy) U Benzodiazepines Scrn Urine Cocaine Screen U Marijuana (THC) Screen Urine pH Urine Specific [place] Ethyl Alcohol Ur Creatinine 03/19/25 03/19/25 03/19/25 16:40 16:40 18:09 WBC RBC Hgb Hct MCV MCH MCHC RDW Plt Count Neut % (Auto) Lymph % (Auto) [place] % (Auto) Eos % (Auto) Baso % (Auto) Neut # (Auto) Lymph # (Auto) [place] # (Auto) Eos # (Auto) Baso # (Auto) PT INR VBG pH 7.48 H VBG pCO2 28.2 L VBG pO2 62 H VBG HCO3 21 L VBG Total CO2 20 L VBG O2 Saturation 93 H VBG Base Excess -1.5 L Sodium Potassium Chloride Carbon Dioxide BUN Creatinine Estimated GFR BUN/Creatinine Ratio Glucose Cancelled Calcium 8.9 Cancelled Magnesium 1.7 Total Bilirubin 1.6 H AST 132 H ALT 60 H Alkaline Phosphatase 67 Total Protein 9.2 H Albumin 5.4 H Globulin 3.8 Albumin/Globulin Ratio 1.4 Lipase 137 Urine RBC Urine WBC Ur Squamous Epith Cells Urine Bacteria Urine Mucus Ur Culture Indicated? Vol Urine Centrifuged Nasal Screen MRSA (PCR) U Opiates 300ng/mL cut Ur Oxycodone Screen Urine Methadone Screen Ur Barbiturates Screen U Tricyclic Antidepress Ur Phencyclidine Scrn Ur Amphetamines Screen U Methamphetamines Scrn Ur MDMA Scrn (Ecstasy) U Benzodiazepines Scrn Urine Cocaine Screen U Marijuana (THC) Screen Urine pH Urine Specific [place] Ethyl Alcohol < 10 Ur Creatinine 03/19/25 03/19/25 03/19/25 19:16 20:09 21:21 WBC RBC Hgb Hct MCV MCH MCHC RDW Plt Count Neut % (Auto) Lymph % (Auto) [place] % (Auto) Eos % (Auto) Baso % (Auto) Neut # (Auto) Lymph # (Auto) [place] # (Auto) Eos # (Auto) Baso # (Auto) PT INR VBG pH VBG pCO2 VBG pO2 VBG HCO3 VBG Total CO2 VBG O2 Saturation VBG Base Excess Sodium 134 L Potassium 3.1 L Chloride 101 Carbon Dioxide 21 L BUN 4 L Creatinine 0.53 Estimated GFR > 60 BUN/Creatinine Ratio 7.5 Glucose 93 D Calcium 7.5 L Magnesium Total Bilirubin AST ALT Alkaline Phosphatase Total Protein Albumin Globulin Albumin/Globulin Ratio Lipase Urine RBC 0-1/hpf D Urine WBC 0-1/hpf Ur Squamous Epith Cells 1-5 /hpf Urine Bacteria Occasional (0-1) Urine Mucus 1+ H Ur Culture Indicated? Cult not indicated Vol Urine Centrifuged 10ml (spun) Nasal Screen MRSA (PCR) Not detected U Opiates 300ng/mL cut Negative Ur Oxycodone Screen Negative Urine Methadone Screen Negative Ur Barbiturates Screen Positive H U Tricyclic Antidepress Negative Ur Phencyclidine Scrn Negative Ur Amphetamines Screen Negative U Methamphetamines Scrn Negative Ur MDMA Scrn (Ecstasy) Negative U Benzodiazepines Scrn Negative Urine Cocaine Screen Negative U Marijuana (THC) Screen Positive H Urine pH Normal Urine Specific [place] Normal Ethyl Alcohol Ur Creatinine Normal Assessment & Plan Assessment & Plan narrative: I have discussed the pt's presenting symptoms, labs and imaging with the ER provider and agree with the decision for admission. I have reviewed the labs personally showing a normal sodium, low potassium of 3.1, normal CBC, will monitor the pt on telemetry, ativan as needed, IV Fluids, CIWA checks, replacing the potassium, empiric Keppra 500 BID, thiamine and folate with MVI ordered, I, Dr. Russell Dsouza in [place] has seen and examined Yovanny Carroll in [place] using audio/video of tele-medicine with the pt's consent and nursing assistance. The pt will need more than 2 MN in the hospital during this stay . Time-Based Coding :: [TOTAL MINUTES] spent with patient and on the chart (including review of chart, obtaining history, exam, reviewing outside data, placing orders, documenting exam and treatment plan, and counseling patient) on [DATE]. Quality VTE Deep Vein Thrombosis/Pulmonary Embolism Present on Admission: No
[2025-03-20 03:00] VITALS: BP 145/86; PULSE 101; RESP 18; TEMP 37.2; O2SAT 95
[2025-03-20 04:03] LABS: Alanine Aminotransferase 36 IU/L (<35); Albumin 4.0 g/dL (3.5-5.0); Albumin Globulin Ratio 1.3 (1.0-2.8); Alkaline Phosphatase 64 U/L (38-126); Blood Urea Nitrogen 4 mg/dL (7-17); Calcium 7.5 mg/dL (8.4-10.2); Carbon Dioxide 22 mmol/L (22-32); Chloride 101 mmol/L (98-107); Estimated Glomerular Filt Rate > 60 mL/min (>60); Globulin 3.0 g/dL (1.7-4.1); Glucose 90 mg/dL (70-99); HEMOLYSIS < 15 (0-50); Lipase 75 U/L (23-300); Potassium 3.2 mmol/L (3.4-5.1); Sodium 134 mmol/L (137-145); Total Protein 7.0 g/dL (6.3-8.2)
[2025-03-20 04:05] VITALS: PULSE 83; RESP 24
[2025-03-20 04:12] LABS: NT-proBNP (BNP-Adult 18+) 755 pg/mL (<125)
[2025-03-20 06:00] VITALS: PULSE 101; RESP 22
--- NOTE | 2025-03-20 08:02 | P.HP_ITS ---
History of Present Illness History of Present Illness Date Patient Seen: 03/20/25 Chief complaint: N/V 2 days,Heavy ETOH use Narrative: From night doctor: the pt is a 45 yo who presents to the ER after being found by her down on the floor unconscious. 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 She was not confused in his not having tremors or hallucinations. No nausea. She was hungry. ROS: All else reviewed and otherwise unremarkable except as noted in the history and physical. O: VSS NAD, alert and oriented, fluent speech, calm. Normocephalic skull, EOMI, anicteric sclera, symmetric pupils. Oropharynx unremarkable, no droop. Neck supple, midline trachea, no adenopathy. Lungs clear, normal rate and effort. Heart regular, no murmur gallop or rub. Abdomen is soft, non distended and non tender. Extremities are free of edema. Skin is free of rash or lesions. Joints are not swollen or deformed. Judgment appears to be normal. IMAGING: Head CT: No acute intracranial pathology. Volume loss greater than expected for age. Chest x-ray: Low lung volumes, without an acute abnormality seen by plain film. No focal infiltrates are seen. A/P: 1. Alcohol withdrawal, improved. 2. Hypovolemic hyponatremia, active. 3. Hypertension, active. 4. History of alcohol withdrawal seizures, not active. 5. Severe alcohol use disorder, active. PLAN: -stopped Keppra and IV fluids -Librium 20 5q 8 hours -out of bed -monitor mental status and CIWA symptoms. [facility] Medical History Anxiety and depression HTN (hypertension) Alcohol withdrawal seizure Alcohol use disorder Social History household members: significant other Smoking Status: Current every day smoker alcohol intake: current Meds Home Medications and Allergies Home Medications ?Medication ?Instructions ?Recorded ?Confirmed ?Type amlodipine 10 mg tablet 10 mg PO DAILY 12/09/23/09/16 History hydroxyzine HCl 50 mg tablet 50 mg PO BID PRN anxiety 12/09/23 03/19/25 History pregabalin 75 mg capsule 75 mg PO 3XD 12/09/23 History thiamine mononitrate (vit B1) 100 100 mg PO DAILY #30 tabs 12/09/23 03/19/25 Rx mg tablet trazodone 50 mg tablet 50 mg PO BEDTIME 12/09/23 History L norgest/E estradiol-E estrad 1 tab PO DAILY 03/19/25 03/19/25 History 0.15 mg-30 mcg (84)/10 mcg(7) tabs,3mos ([place]) estradiol 0.01% (0.1 mg/gram) 1 g vaginal BID 03/19/25 03/19/25 History vaginal cream Allergies Allergy/AdvReac Type Severity Reaction Status Date / Time gabapentin Allergy Verified 03/19/25 16:51 Penicillins Allergy Swelling Verified 03/19/25 16:51 of Lip/Tongue/Throat Exam Vital Signs (past 8 hours): - 03/20/25 03:00 03/20/25 04:05 03/20/25 06:00 Temperature 98.9 F Pulse Rate 101 H 83 101 H Respiratory Rate 18 24 22 Blood Pressure 145/86 H Pulse Oximetry 95 Oxygen Flow Rate 0 Oxygen Delivery Method Room Air Oxygen Flow Rate 0 Objective Labs 03/19/25 16:40 03/20/25 03:30 Labs: Laboratory Results - last 24 hr 03/19/25 03/19/25 03/19/25 16:40 16:40 16:40 WBC 9.1 RBC 4.41 Hgb 13.8 Hct 41.9 MCV 95.1 MCH 31.3 MCHC 32.9 RDW 17.3 H Plt Count 273 Neut % (Auto) 71.8 Lymph % (Auto) 18.5 L [place] % (Auto) 9.5 Eos % (Auto) 0.0 L Baso % (Auto) 0.2 Neut # (Auto) 6600 Lymph # (Auto) 1700 [place] # (Auto) 900 Eos # (Auto) 0 Baso # (Auto) 0 PT 11.7 INR 1.0 VBG pH VBG pCO2 VBG pO2 VBG HCO3 VBG Total CO2 VBG O2 Saturation VBG Base Excess Sodium 136 L Cancelled Potassium 3.3 L Cancelled Chloride 94 L Carbon Dioxide BUN Creatinine Estimated GFR BUN/Creatinine Ratio Glucose Calcium Magnesium Total Bilirubin AST ALT Alkaline Phosphatase NT-Pro-B Natriuret Pep Total Protein Albumin Globulin Albumin/Globulin Ratio Lipase Urine RBC Urine WBC Ur Squamous Epith Cells Urine Bacteria Urine Mucus Ur Culture Indicated? Vol Urine Centrifuged Nasal Screen MRSA (PCR) U Opiates 300ng/mL cut Ur Oxycodone Screen Urine Methadone Screen Ur Barbiturates Screen U Tricyclic Antidepress Ur Phencyclidine Scrn Ur Amphetamines Screen U Methamphetamines Scrn Ur MDMA Scrn (Ecstasy) U Benzodiazepines Scrn Urine Cocaine Screen U Marijuana (THC) Screen Urine pH Urine Specific [place] Ethyl Alcohol Ur Creatinine 03/19/25 03/19/25 03/19/25 16:40 16:40 16:40 WBC RBC Hgb Hct MCV MCH MCHC RDW Plt Count Neut % (Auto) Lymph % (Auto) [place] % (Auto) Eos % (Auto) Baso % (Auto) Neut # (Auto) Lymph # (Auto) [place] # (Auto) Eos # (Auto) Baso # (Auto) PT INR VBG pH VBG pCO2 VBG pO2 VBG HCO3 VBG Total CO2 VBG O2 Saturation VBG Base Excess Sodium Potassium Chloride Cancelled Carbon Dioxide < 5 L* Cancelled BUN 4 L Cancelled Creatinine 0.88 Estimated GFR BUN/Creatinine Ratio Glucose Calcium Magnesium Total Bilirubin AST ALT Alkaline Phosphatase NT-Pro-B Natriuret Pep Total Protein Albumin Globulin Albumin/Globulin Ratio Lipase Urine RBC Urine WBC Ur Squamous Epith Cells Urine Bacteria Urine Mucus Ur Culture Indicated? Vol Urine Centrifuged Nasal Screen MRSA (PCR) U Opiates 300ng/mL cut Ur Oxycodone Screen Urine Methadone Screen Ur Barbiturates Screen U Tricyclic Antidepress Ur Phencyclidine Scrn Ur Amphetamines Screen U Methamphetamines Scrn Ur MDMA Scrn (Ecstasy) U Benzodiazepines Scrn Urine Cocaine Screen U Marijuana (THC) Screen Urine pH Urine Specific [place] Ethyl Alcohol Ur Creatinine 03/19/25 03/19/25 03/19/25 16:40 16:40 16:40 WBC RBC Hgb Hct MCV MCH MCHC RDW Plt Count Neut % (Auto) Lymph % (Auto) [place] % (Auto) Eos % (Auto) Baso % (Auto) Neut # (Auto) Lymph # (Auto) [place] # (Auto) Eos # (Auto) Baso # (Auto) PT INR VBG pH VBG pCO2 VBG pO2 VBG HCO3 VBG Total CO2 VBG O2 Saturation VBG Base Excess Sodium Potassium Chloride Carbon Dioxide BUN Creatinine Cancelled Estimated GFR > 60 Cancelled BUN/Creatinine Ratio 4.5 L Cancelled Glucose 209 H Calcium Magnesium Total Bilirubin AST ALT Alkaline Phosphatase NT-Pro-B Natriuret Pep Total Protein Albumin Globulin Albumin/Globulin Ratio Lipase Urine RBC Urine WBC Ur Squamous Epith Cells Urine Bacteria Urine Mucus Ur Culture Indicated? Vol Urine Centrifuged Nasal Screen MRSA (PCR) U Opiates 300ng/mL cut Ur Oxycodone Screen Urine Methadone Screen Ur Barbiturates Screen U Tricyclic Antidepress Ur Phencyclidine Scrn Ur Amphetamines Screen U Methamphetamines Scrn Ur MDMA Scrn (Ecstasy) U Benzodiazepines Scrn Urine Cocaine Screen U Marijuana (THC) Screen Urine pH Urine Specific [place] Ethyl Alcohol Ur Creatinine 03/19/25 03/19/25 03/19/25 16:40 16:40 18:09 WBC RBC Hgb Hct MCV MCH MCHC RDW Plt Count Neut % (Auto) Lymph % (Auto) [place] % (Auto) Eos % (Auto) Baso % (Auto) Neut # (Auto) Lymph # (Auto) [place] # (Auto) Eos # (Auto) Baso # (Auto) PT INR VBG pH 7.48 H VBG pCO2 28.2 L VBG pO2 62 H VBG HCO3 21 L VBG Total CO2 20 L VBG O2 Saturation 93 H VBG Base Excess -1.5 L Sodium Potassium Chloride Carbon Dioxide BUN Creatinine Estimated GFR BUN/Creatinine Ratio Glucose Cancelled Calcium 8.9 Cancelled Magnesium 1.7 Total Bilirubin 1.6 H AST 132 H ALT 60 H Alkaline Phosphatase 67 NT-Pro-B Natriuret Pep Total Protein 9.2 H Albumin 5.4 H Globulin 3.8 Albumin/Globulin Ratio 1.4 Lipase 137 Urine RBC Urine WBC Ur Squamous Epith Cells Urine Bacteria Urine Mucus Ur Culture Indicated? Vol Urine Centrifuged Nasal Screen MRSA (PCR) U Opiates 300ng/mL cut Ur Oxycodone Screen Urine Methadone Screen Ur Barbiturates Screen U Tricyclic Antidepress Ur Phencyclidine Scrn Ur Amphetamines Screen U Methamphetamines Scrn Ur MDMA Scrn (Ecstasy) U Benzodiazepines Scrn Urine Cocaine Screen U Marijuana (THC) Screen Urine pH Urine Specific [place] Ethyl Alcohol < 10 Ur Creatinine 03/19/25 03/19/25 03/19/25 19:16 20:09 21:21 WBC RBC Hgb Hct MCV MCH MCHC RDW Plt Count Neut % (Auto) Lymph % (Auto) [place] % (Auto) Eos % (Auto) Baso % (Auto) Neut # (Auto) Lymph # (Auto) [place] # (Auto) Eos # (Auto) Baso # (Auto) PT INR VBG pH VBG pCO2 VBG pO2 VBG HCO3 VBG Total CO2 VBG O2 Saturation VBG Base Excess Sodium 134 L Potassium 3.1 L Chloride 101 Carbon Dioxide 21 L BUN 4 L Creatinine 0.53 Estimated GFR > 60 BUN/Creatinine Ratio 7.5 Glucose 93 D Calcium 7.5 L Magnesium Total Bilirubin AST ALT Alkaline Phosphatase NT-Pro-B Natriuret Pep Total Protein Albumin Globulin Albumin/Globulin Ratio Lipase Urine RBC 0-1/hpf D Urine WBC 0-1/hpf Ur Squamous Epith Cells 1-5 /hpf Urine Bacteria Occasional (0-1) Urine Mucus 1+ H Ur Culture Indicated? Cult not indicated Vol Urine Centrifuged 10ml (spun) Nasal Screen MRSA (PCR) Not detected U Opiates 300ng/mL cut Negative Ur Oxycodone Screen Negative Urine Methadone Screen Negative Ur Barbiturates Screen Positive H U Tricyclic Antidepress Negative Ur Phencyclidine Scrn Negative Ur Amphetamines Screen Negative U Methamphetamines Scrn Negative Ur MDMA Scrn (Ecstasy) Negative U Benzodiazepines Scrn Negative Urine Cocaine Screen Negative U Marijuana (THC) Screen Positive H Urine pH Normal Urine Specific [place] Normal Ethyl Alcohol Ur Creatinine Normal 03/20/25 03/20/25 03/20/25 03:30 03:30 03:30 WBC RBC Hgb Hct MCV MCH MCHC RDW Plt Count Neut % (Auto) Lymph % (Auto) [place] % (Auto) Eos % (Auto) Baso % (Auto) Neut # (Auto) Lymph # (Auto) [place] # (Auto) Eos # (Auto) Baso # (Auto) PT INR VBG pH VBG pCO2 VBG pO2 VBG HCO3 VBG Total CO2 VBG O2 Saturation VBG Base Excess Sodium Cancelled 134 L Potassium Cancelled 3.2 L Chloride Cancelled Carbon Dioxide BUN Creatinine Estimated GFR BUN/Creatinine Ratio Glucose Calcium Magnesium Total Bilirubin AST ALT Alkaline Phosphatase NT-Pro-B Natriuret Pep Total Protein Albumin Globulin Albumin/Globulin Ratio Lipase Urine RBC Urine WBC Ur Squamous Epith Cells Urine Bacteria Urine Mucus Ur Culture Indicated? Vol Urine Centrifuged Nasal Screen MRSA (PCR) U Opiates 300ng/mL cut Ur Oxycodone Screen Urine Methadone Screen Ur Barbiturates Screen U Tricyclic Antidepress Ur Phencyclidine Scrn Ur Amphetamines Screen U Methamphetamines Scrn Ur MDMA Scrn (Ecstasy) U Benzodiazepines Scrn Urine Cocaine Screen U Marijuana (THC) Screen Urine pH Urine Specific [place] Ethyl Alcohol Ur Creatinine 03/20/25 03/20/25 03/20/25 03:30 03:30 03:30 WBC RBC Hgb Hct MCV MCH MCHC RDW Plt Count Neut % (Auto) Lymph % (Auto) [place] % (Auto) Eos % (Auto) Baso % (Auto) Neut # (Auto) Lymph # (Auto) [place] # (Auto) Eos # (Auto) Baso # (Auto) PT INR VBG pH VBG pCO2 VBG pO2 VBG HCO3 VBG Total CO2 VBG O2 Saturation VBG Base Excess Sodium Potassium Chloride 101 Carbon Dioxide Cancelled 22 BUN Cancelled 4 L Creatinine Cancelled Estimated GFR BUN/Creatinine Ratio Glucose Calcium Magnesium Total Bilirubin AST ALT Alkaline Phosphatase NT-Pro-B Natriuret Pep Total Protein Albumin Globulin Albumin/Globulin Ratio Lipase Urine RBC Urine WBC Ur Squamous Epith Cells Urine Bacteria Urine Mucus Ur Culture Indicated? Vol Urine Centrifuged Nasal Screen MRSA (PCR) U Opiates 300ng/mL cut Ur Oxycodone Screen Urine Methadone Screen Ur Barbiturates Screen U Tricyclic Antidepress Ur Phencyclidine Scrn Ur Amphetamines Screen U Methamphetamines Scrn Ur MDMA Scrn (Ecstasy) U Benzodiazepines Scrn Urine Cocaine Screen U Marijuana (THC) Screen Urine pH Urine Specific [place] Ethyl Alcohol Ur Creatinine 03/20/25 03/20/25 03/20/25 03:30 03:30 03:30 WBC RBC Hgb Hct MCV MCH MCHC RDW Plt Count Neut % (Auto) Lymph % (Auto) [place] % (Auto) Eos % (Auto) Baso % (Auto) Neut # (Auto) Lymph # (Auto) [place] # (Auto) Eos # (Auto) Baso # (Auto) PT INR VBG pH VBG pCO2 VBG pO2 VBG HCO3 VBG Total CO2 VBG O2 Saturation VBG Base Excess Sodium Potassium Chloride Carbon Dioxide BUN Creatinine 0.63 Estimated GFR Cancelled > 60 BUN/Creatinine Ratio Cancelled 6.3 Glucose Cancelled Calcium Magnesium Total Bilirubin AST ALT Alkaline Phosphatase NT-Pro-B Natriuret Pep Total Protein Albumin Globulin Albumin/Globulin Ratio Lipase Urine RBC Urine WBC Ur Squamous Epith Cells Urine Bacteria Urine Mucus Ur Culture Indicated? Vol Urine Centrifuged Nasal Screen MRSA (PCR) U Opiates 300ng/mL cut Ur Oxycodone Screen Urine Methadone Screen Ur Barbiturates Screen U Tricyclic Antidepress Ur Phencyclidine Scrn Ur Amphetamines Screen U Methamphetamines Scrn Ur MDMA Scrn (Ecstasy) U Benzodiazepines Scrn Urine Cocaine Screen U Marijuana (THC) Screen Urine pH Urine Specific [place] Ethyl Alcohol Ur Creatinine 03/20/25 03/20/25 03:30 03:30 WBC RBC Hgb Hct MCV MCH MCHC RDW Plt Count Neut % (Auto) Lymph % (Auto) [place] % (Auto) Eos % (Auto) Baso % (Auto) Neut # (Auto) Lymph # (Auto) [place] # (Auto) Eos # (Auto) Baso # (Auto) PT INR VBG pH VBG pCO2 VBG pO2 VBG HCO3 VBG Total CO2 VBG O2 Saturation VBG Base Excess Sodium Potassium Chloride Carbon Dioxide BUN Creatinine Estimated GFR BUN/Creatinine Ratio Glucose 90 Calcium Cancelled 7.5 L Magnesium Total Bilirubin 2.0 H AST 103 H ALT 36 H Alkaline Phosphatase 64 NT-Pro-B Natriuret Pep 755 H Total Protein 7.0 Albumin 4.0 Globulin 3.0 Albumin/Globulin Ratio 1.3 Lipase 75 Urine RBC Urine WBC Ur Squamous Epith Cells Urine Bacteria Urine Mucus Ur Culture Indicated? Vol Urine Centrifuged Nasal Screen MRSA (PCR) U Opiates 300ng/mL cut Ur Oxycodone Screen Urine Methadone Screen Ur Barbiturates Screen U Tricyclic Antidepress Ur Phencyclidine Scrn Ur Amphetamines Screen U Methamphetamines Scrn Ur MDMA Scrn (Ecstasy) U Benzodiazepines Scrn Urine Cocaine Screen U Marijuana (THC) Screen Urine pH Urine Specific [place] Ethyl Alcohol Ur Creatinine Assessment & Plan Time-Based Coding :: [TOTAL MINUTES] spent with patient and on the chart (including review of chart, obtaining history, exam, reviewing outside data, placing orders, documenting exam and treatment plan, and counseling patient) on [DATE]. Quality VTE Deep Vein Thrombosis/Pulmonary Embolism Present on Admission: No
[2025-03-20 08:30] VITALS: O2SAT 97
--- NOTE | 2025-03-20 08:57 | CM.DANOTE ---
Initial DCP Assessment Note. Review EMR and PT Interview. Met with patient at bedside to discuss discharge needs.PT is alert x 3. Independent. Lives with partner. Declined Detox/Rehab info. Payor:??Naseem PCP: ? Summary & Plan:?45 y/o female arrived to ED via EMS c/o N&V s/p ETOH. Admittied INPT. Dx. Detox. Plan: Discharge home when stable. Discharge Planning/Care Management CM Discharge Assessment Start: 03/19/25 20:47 Freq: Status: Active Protocol: Document 03/20/25 08:55 (Rec: 03/20/25 08:57 [id number]) Discharge Planning Assessment Assigned Discharge Justina Chin RN CM Rn Case Mgr Provider Dr. William Gusman Advance Directives? No History Provided By Patient,Medical Record Has Patient been No admitted in last 30 days? Prior Living House Arrangements Household Members significant other Type of Drives own vehicle transporation used prior to admit Independent with ADL Yes 's Is patient alert and Yes oriented? Caregiver for No Another Barriers to No Discharge Comment Continued alcohol use, non-compliance with treatment. Discharge Plan Home Transportation Marvin, partner, to transport. Arrangement Referrals Initiated None needed,Other Review Status In Process Please Provide Date 03/20/25 Initial DC Assessment Was Performed Next Review Type Continued Stay Review
[2025-03-20] MEDS: FOLIC ACID 1 MG TABLET PO (09:54)
[2025-03-20] MEDS: MULTIVITAMIN 1 TABLET 1 TAB PO (09:54)
[2025-03-20] MEDS: THIAMINE 100 MG TABLET PO (09:54)
[2025-03-20] MEDS: PREGABALIN 75 MG CAPSULE PO ×2 (09:54→14:52)
[2025-03-20] MEDS: PANTOPRAZOLE DR 20 MG TABLET 40 MG PO (09:54)
[2025-03-20] MEDS: CALCIUM CARBONATE 500 MG TAB 1000 MG PO (11:00)
[2025-03-20] MEDS: POTASSIUM CHLORIDE IN WATER 10 MEQ/100 ML PIGGYBACK 100 MEQ IV ×4 (11:35→16:00)
[2025-03-20 12:53] LABS: Blood Urea Nitrogen 5 mg/dL (7-17); Calcium 7.6 mg/dL (8.4-10.2); Carbon Dioxide 20 mmol/L (22-32); Chloride 99 mmol/L (98-107); Estimated Glomerular Filt Rate > 60 mL/min (>60); Glucose 90 mg/dL (70-99); HEMOLYSIS < 15 (0-50); Potassium 3.4 mmol/L (3.4-5.1); Sodium 130 mmol/L (137-145)
[2025-03-20 15:20] VITALS: BP 166/104; PULSE 104; RESP 26; TEMP 36.3; O2SAT 97
--- NOTE | 2025-03-20 16:58 | P.DS_ITS ---
History of Present Illness History of Present Illness Chief complaint: N/V 2 days,Heavy ETOH use Narrative: From night doctor: the pt is a 45 yo who presents to the ER after being found by her down on the floor unconscious. 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 Volume loss greater than expected for age. Chest x-ray: Low lung volumes, without an acute abnormality seen by plain film. No focal infiltrates are seen. A/P: 1. Alcohol withdrawal, improved. 2. Hypovolemic hyponatremia, active. 3. Hypertension, active. 4. History of alcohol withdrawal seizures, not active. 5. Alcohol use disorder, active. Hospital course: She was treated with phenobarbital and then CIWA protocol. She did well in the morning of the and started on oral Librium. No evidence normal sensorium inability to ambulate. To her . She was felt to be stable for discharge and will be given Librium to use as needed. Alcohol cessation is recommended and inferior strategies were discussed with her. Discharge Providers Provider Date of admission: 03/19/25 19:47 Discharge Date: 03/20/25 Primary care physician: Radha Thomas PA-C Consults: 03/19/25 19:59 Consult to Dietitian, Adult Routine Comment: Reason For Exam: alcohol Discharge provider: Pepe Hilliard MD Summary Hospital Course Discharge Diagnosis: Above Hospital Course: Above Status at Discharge Cognitive/behavioral status at discharge: oriented Functional status at discharge: independent ambulation Overall status at discharge: patient is progressing back to baseline Time Spent with Patient Time spent: Greater than 30 minutes Exam Vital Signs (past 8 hours): - 03/20/25 15:20 Temperature 97.4 F L Pulse Rate 104 H Respiratory Rate 26 H Blood Pressure 166/104 H Pulse Oximetry 97 Oxygen Flow Rate 0 Oxygen Delivery Method Room Air Oxygen Flow Rate 0 Narrative Exam Narrative: Discharge exam: NAD, alert and oriented. Fluent speech. Lungs are clear, normal rate and effort. Heart is regular, no murmur gallop or rub. Abdomen is soft, non distended. Extremities are free of edema. Objective Labs 03/19/25 16:40 03/20/25 12:30 Labs: Laboratory Results - last 24 hr 03/19/25 03/19/25 03/19/25 16:40 16:40 16:40 WBC 9.1 RBC 4.41 Hgb 13.8 Hct 41.9 MCV 95.1 MCH 31.3 MCHC 32.9 RDW 17.3 H Plt Count 273 Neut % (Auto) 71.8 Lymph % (Auto) 18.5 L [place] % (Auto) 9.5 Eos % (Auto) 0.0 L Baso % (Auto) 0.2 Neut # (Auto) 6600 Lymph # (Auto) 1700 [place] # (Auto) 900 Eos # (Auto) 0 Baso # (Auto) 0 PT 11.7 INR 1.0 VBG pH VBG pCO2 VBG pO2 VBG HCO3 VBG Total CO2 VBG O2 Saturation VBG Base Excess Sodium 136 L Cancelled Potassium 3.3 L Cancelled Chloride 94 L Carbon Dioxide BUN Creatinine Estimated GFR BUN/Creatinine Ratio Glucose Calcium Magnesium Total Bilirubin AST ALT Alkaline Phosphatase NT-Pro-B Natriuret Pep Total Protein Albumin Globulin Albumin/Globulin Ratio Lipase Urine RBC Urine WBC Ur Squamous Epith Cells Urine Bacteria Urine Mucus Ur Culture Indicated? Vol Urine Centrifuged Nasal Screen MRSA (PCR) U Opiates 300ng/mL cut Ur Oxycodone Screen Urine Methadone Screen Ur Barbiturates Screen U Tricyclic Antidepress Ur Phencyclidine Scrn Ur Amphetamines Screen U Methamphetamines Scrn Ur MDMA Scrn (Ecstasy) U Benzodiazepines Scrn Urine Cocaine Screen U Marijuana (THC) Screen Urine pH Urine Specific [place] Ethyl Alcohol Ur Creatinine 03/19/25 03/19/25 03/19/25 16:40 16:40 16:40 WBC RBC Hgb Hct MCV MCH MCHC RDW Plt Count Neut % (Auto) Lymph % (Auto) [place] % (Auto) Eos % (Auto) Baso % (Auto) Neut # (Auto) Lymph # (Auto) [place] # (Auto) Eos # (Auto) Baso # (Auto) PT INR VBG pH VBG pCO2 VBG pO2 VBG HCO3 VBG Total CO2 VBG O2 Saturation VBG Base Excess Sodium Potassium Chloride Cancelled Carbon Dioxide < 5 L* Cancelled BUN 4 L Cancelled Creatinine 0.88 Estimated GFR BUN/Creatinine Ratio Glucose Calcium Magnesium Total Bilirubin AST ALT Alkaline Phosphatase NT-Pro-B Natriuret Pep Total Protein Albumin Globulin Albumin/Globulin Ratio Lipase Urine RBC Urine WBC Ur Squamous Epith Cells Urine Bacteria Urine Mucus Ur Culture Indicated? Vol Urine Centrifuged Nasal Screen MRSA (PCR) U Opiates 300ng/mL cut Ur Oxycodone Screen Urine Methadone Screen Ur Barbiturates Screen U Tricyclic Antidepress Ur Phencyclidine Scrn Ur Amphetamines Screen U Methamphetamines Scrn Ur MDMA Scrn (Ecstasy) U Benzodiazepines Scrn Urine Cocaine Screen U Marijuana (THC) Screen Urine pH Urine Specific [place] Ethyl Alcohol Ur Creatinine 03/19/25 03/19/25 03/19/25 16:40 16:40 16:40 WBC RBC Hgb Hct MCV MCH MCHC RDW Plt Count Neut % (Auto) Lymph % (Auto) [place] % (Auto) Eos % (Auto) Baso % (Auto) Neut # (Auto) Lymph # (Auto) [place] # (Auto) Eos # (Auto) Baso # (Auto) PT INR VBG pH VBG pCO2 VBG pO2 VBG HCO3 VBG Total CO2 VBG O2 Saturation VBG Base Excess Sodium Potassium Chloride Carbon Dioxide BUN Creatinine Cancelled Estimated GFR > 60 Cancelled BUN/Creatinine Ratio 4.5 L Cancelled Glucose 209 H Calcium Magnesium Total Bilirubin AST ALT Alkaline Phosphatase NT-Pro-B Natriuret Pep Total Protein Albumin Globulin Albumin/Globulin Ratio Lipase Urine RBC Urine WBC Ur Squamous Epith Cells Urine Bacteria Urine Mucus Ur Culture Indicated? Vol Urine Centrifuged Nasal Screen MRSA (PCR) U Opiates 300ng/mL cut Ur Oxycodone Screen Urine Methadone Screen Ur Barbiturates Screen U Tricyclic Antidepress Ur Phencyclidine Scrn Ur Amphetamines Screen U Methamphetamines Scrn Ur MDMA Scrn (Ecstasy) U Benzodiazepines Scrn Urine Cocaine Screen U Marijuana (THC) Screen Urine pH Urine Specific [place] Ethyl Alcohol Ur Creatinine 03/19/25 03/19/25 03/19/25 16:40 16:40 18:09 WBC RBC Hgb Hct MCV MCH MCHC RDW Plt Count Neut % (Auto) Lymph % (Auto) [place] % (Auto) Eos % (Auto) Baso % (Auto) Neut # (Auto) Lymph # (Auto) [place] # (Auto) Eos # (Auto) Baso # (Auto) PT INR VBG pH 7.48 H VBG pCO2 28.2 L VBG pO2 62 H VBG HCO3 21 L VBG Total CO2 20 L VBG O2 Saturation 93 H VBG Base Excess -1.5 L Sodium Potassium Chloride Carbon Dioxide BUN Creatinine Estimated GFR BUN/Creatinine Ratio Glucose Cancelled Calcium 8.9 Cancelled Magnesium 1.7 Total Bilirubin 1.6 H AST 132 H ALT 60 H Alkaline Phosphatase 67 NT-Pro-B Natriuret Pep Total Protein 9.2 H Albumin 5.4 H Globulin 3.8 Albumin/Globulin Ratio 1.4 Lipase 137 Urine RBC Urine WBC Ur Squamous Epith Cells Urine Bacteria Urine Mucus Ur Culture Indicated? Vol Urine Centrifuged Nasal Screen MRSA (PCR) U Opiates 300ng/mL cut Ur Oxycodone Screen Urine Methadone Screen Ur Barbiturates Screen U Tricyclic Antidepress Ur Phencyclidine Scrn Ur Amphetamines Screen U Methamphetamines Scrn Ur MDMA Scrn (Ecstasy) U Benzodiazepines Scrn Urine Cocaine Screen U Marijuana (THC) Screen Urine pH Urine Specific [place] Ethyl Alcohol < 10 Ur Creatinine 03/19/25 03/19/25 03/19/25 19:16 20:09 21:21 WBC RBC Hgb Hct MCV MCH MCHC RDW Plt Count Neut % (Auto) Lymph % (Auto) [place] % (Auto) Eos % (Auto) Baso % (Auto) Neut # (Auto) Lymph # (Auto) [place] # (Auto) Eos # (Auto) Baso # (Auto) PT INR VBG pH VBG pCO2 VBG pO2 VBG HCO3 VBG Total CO2 VBG O2 Saturation VBG Base Excess Sodium 134 L Potassium 3.1 L Chloride 101 Carbon Dioxide 21 L BUN 4 L Creatinine 0.53 Estimated GFR > 60 BUN/Creatinine Ratio 7.5 Glucose 93 D Calcium 7.5 L Magnesium Total Bilirubin AST ALT Alkaline Phosphatase NT-Pro-B Natriuret Pep Total Protein Albumin Globulin Albumin/Globulin Ratio Lipase Urine RBC 0-1/hpf D Urine WBC 0-1/hpf Ur Squamous Epith Cells 1-5 /hpf Urine Bacteria Occasional (0-1) Urine Mucus 1+ H Ur Culture Indicated? Cult not indicated Vol Urine Centrifuged 10ml (spun) Nasal Screen MRSA (PCR) Not detected U Opiates 300ng/mL cut Negative Ur Oxycodone Screen Negative Urine Methadone Screen Negative Ur Barbiturates Screen Positive H U Tricyclic Antidepress Negative Ur Phencyclidine Scrn Negative Ur Amphetamines Screen Negative U Methamphetamines Scrn Negative Ur MDMA Scrn (Ecstasy) Negative U Benzodiazepines Scrn Negative Urine Cocaine Screen Negative U Marijuana (THC) Screen Positive H Urine pH Normal Urine Specific [place] Normal Ethyl Alcohol Ur Creatinine Normal 03/20/25 03/20/25 03/20/25 03:30 03:30 03:30 WBC RBC Hgb Hct MCV MCH MCHC RDW Plt Count Neut % (Auto) Lymph % (Auto) [place] % (Auto) Eos % (Auto) Baso % (Auto) Neut # (Auto) Lymph # (Auto) [place] # (Auto) Eos # (Auto) Baso # (Auto) PT INR VBG pH VBG pCO2 VBG pO2 VBG HCO3 VBG Total CO2 VBG O2 Saturation VBG Base Excess Sodium Cancelled 134 L Potassium Cancelled 3.2 L Chloride Cancelled Carbon Dioxide BUN Creatinine Estimated GFR BUN/Creatinine Ratio Glucose Calcium Magnesium Total Bilirubin AST ALT Alkaline Phosphatase NT-Pro-B Natriuret Pep Total Protein Albumin Globulin Albumin/Globulin Ratio Lipase Urine RBC Urine WBC Ur Squamous Epith Cells Urine Bacteria Urine Mucus Ur Culture Indicated? Vol Urine Centrifuged Nasal Screen MRSA (PCR) U Opiates 300ng/mL cut Ur Oxycodone Screen Urine Methadone Screen Ur Barbiturates Screen U Tricyclic Antidepress Ur Phencyclidine Scrn Ur Amphetamines Screen U Methamphetamines Scrn Ur MDMA Scrn (Ecstasy) U Benzodiazepines Scrn Urine Cocaine Screen U Marijuana (THC) Screen Urine pH Urine Specific [place] Ethyl Alcohol Ur Creatinine 03/20/25 03/20/25 03/20/25 03:30 03:30 03:30 WBC RBC Hgb Hct MCV MCH MCHC RDW Plt Count Neut % (Auto) Lymph % (Auto) [place] % (Auto) Eos % (Auto) Baso % (Auto) Neut # (Auto) Lymph # (Auto) [place] # (Auto) Eos # (Auto) Baso # (Auto) PT INR VBG pH VBG pCO2 VBG pO2 VBG HCO3 VBG Total CO2 VBG O2 Saturation VBG Base Excess Sodium Potassium Chloride 101 Carbon Dioxide Cancelled 22 BUN Cancelled 4 L Creatinine Cancelled Estimated GFR BUN/Creatinine Ratio Glucose Calcium Magnesium Total Bilirubin AST ALT Alkaline Phosphatase NT-Pro-B Natriuret Pep Total Protein Albumin Globulin Albumin/Globulin Ratio Lipase Urine RBC Urine WBC Ur Squamous Epith Cells Urine Bacteria Urine Mucus Ur Culture Indicated? Vol Urine Centrifuged Nasal Screen MRSA (PCR) U Opiates 300ng/mL cut Ur Oxycodone Screen Urine Methadone Screen Ur Barbiturates Screen U Tricyclic Antidepress Ur Phencyclidine Scrn Ur Amphetamines Screen U Methamphetamines Scrn Ur MDMA Scrn (Ecstasy) U Benzodiazepines Scrn Urine Cocaine Screen U Marijuana (THC) Screen Urine pH Urine Specific [place] Ethyl Alcohol Ur Creatinine 03/20/25 03/20/25 03/20/25 03:30 03:30 03:30 WBC RBC Hgb Hct MCV MCH MCHC RDW Plt Count Neut % (Auto) Lymph % (Auto) [place] % (Auto) Eos % (Auto) Baso % (Auto) Neut # (Auto) Lymph # (Auto) [place] # (Auto) Eos # (Auto) Baso # (Auto) PT INR VBG pH VBG pCO2 VBG pO2 VBG HCO3 VBG Total CO2 VBG O2 Saturation VBG Base Excess Sodium Potassium Chloride Carbon Dioxide BUN Creatinine 0.63 Estimated GFR Cancelled > 60 BUN/Creatinine Ratio Cancelled 6.3 Glucose Cancelled Calcium Magnesium Total Bilirubin AST ALT Alkaline Phosphatase NT-Pro-B Natriuret Pep Total Protein Albumin Globulin Albumin/Globulin Ratio Lipase Urine RBC Urine WBC Ur Squamous Epith Cells Urine Bacteria Urine Mucus Ur Culture Indicated? Vol Urine Centrifuged Nasal Screen MRSA (PCR) U Opiates 300ng/mL cut Ur Oxycodone Screen Urine Methadone Screen Ur Barbiturates Screen U Tricyclic Antidepress Ur Phencyclidine Scrn Ur Amphetamines Screen U Methamphetamines Scrn Ur MDMA Scrn (Ecstasy) U Benzodiazepines Scrn Urine Cocaine Screen U Marijuana (THC) Screen Urine pH Urine Specific [place] Ethyl Alcohol Ur Creatinine 03/20/25 03/20/25 03/20/25 03:30 03:30 12:30 WBC RBC Hgb Hct MCV MCH MCHC RDW Plt Count Neut % (Auto) Lymph % (Auto) [place] % (Auto) Eos % (Auto) Baso % (Auto) Neut # (Auto) Lymph # (Auto) [place] # (Auto) Eos # (Auto) Baso # (Auto) PT INR VBG pH VBG pCO2 VBG pO2 VBG HCO3 VBG Total CO2 VBG O2 Saturation VBG Base Excess Sodium 130 L Potassium 3.4 Chloride 99 Carbon Dioxide 20 L BUN 5 L Creatinine 0.57 Estimated GFR > 60 BUN/Creatinine Ratio 8.8 Glucose 90 90 Calcium Cancelled 7.5 L 7.6 L Magnesium Total Bilirubin 2.0 H AST 103 H ALT 36 H Alkaline Phosphatase 64 NT-Pro-B Natriuret Pep 755 H Total Protein 7.0 Albumin 4.0 Globulin 3.0 Albumin/Globulin Ratio 1.3 Lipase 75 Urine RBC Urine WBC Ur Squamous Epith Cells Urine Bacteria Urine Mucus Ur Culture Indicated? Vol Urine Centrifuged Nasal Screen MRSA (PCR) U Opiates 300ng/mL cut Ur Oxycodone Screen Urine Methadone Screen Ur Barbiturates Screen U Tricyclic Antidepress Ur Phencyclidine Scrn Ur Amphetamines Screen U Methamphetamines Scrn Ur MDMA Scrn (Ecstasy) U Benzodiazepines Scrn Urine Cocaine Screen U Marijuana (THC) Screen Urine pH Urine Specific [place] Ethyl Alcohol Ur Creatinine PFSH Medical History Anxiety and depression HTN (hypertension) Alcohol withdrawal seizure Alcohol use disorder Social History household members: significant other Smoking Status: Current every day smoker alcohol intake: current Discharge Assessment & Plan Assessment and Plan Assessment: Above. Plan of Treatment: Discharge home with Librium 25 t.i.d. as needed. A small number of trazodone are also provided for her chronic a insomnia. This is not a new medication for her. Discharge Plan Discharge Plan Patient Disposition: Home Provider Discharge Comment: Stable for discharge. Discharge orders & Medications Prescriptions: New chlordiazepoxide HCl 25 mg capsule 25 mg PO TID PRN (Reason: anxiety) Qty: 14 0RF Continued hydroxyzine HCl 50 mg tablet 50 mg PO BID PRN (Reason: anxiety) amlodipine 10 mg tablet 10 mg PO DAILY pregabalin 75 mg capsule 75 mg PO 3XD thiamine mononitrate (vit B1) 100 mg Tablet 100 mg PO DAILY Qty: 30 0RF estradiol 0.01 % (0.1 mg/gram) cream 1 g vaginal BID L norgest/e.estradiol-e.estrad [[place]] 0.15 mg-30 mcg (84)/10 mcg (7) tablets,dose pack,3 month 1 tab PO DAILY trazodone 50 mg tablet 50 mg PO BEDTIME Qty: 15 0RF Follow up/Referrals: Radha Thomas PA-C [Primary Care Provider, Medical] Diet/Activity/Treatments Diet: Regular Visit Report/Discharge Packet Instructions: DI for Alcohol Use Disorder, Chlordiazepoxide Stand Alone Forms: Patient Portal/API Discharge Data Primary Care Provider: Radha Thomas VTE Deep Vein Thrombosis/Pulmonary Embolism Present on Admission: No
--- NOTE | 2025-03-20 17:51 | PC.NURSE ---
Discharge Note Patient alert and oriented, steady on feet, some slight tremor noted with purposeful movement but none when holding extremities out. Expresses wish to discharge home and states she is feeling much better. Discharge order received from MD. Discharge instructions given on alcohol withdrawal and librium, all questions answered. All belongings with pt including cell phone, shoes, and clothing. Escorted to hospital exit by student RN via wheelchair.
== END 2025-03-20 17:45 | disposition home or self-care (01) | DRG 775 ==
LOC: ED 19:42 → AC 19:48 → ICU 20:41
PROVIDERS: Admitting Provider Internal Medicine; Emergency Provider Emergency Medicine; PCP Physician Assistant; Referring Provider Emergency Medicine; Visit Provider Internal Medicine
DX: F10.939 Alcohol use, unspecified with withdrawal, unspecified (principal); E87.1 Hypo-osmolality and hyponatremia; F17.200 Nicotine dependence, unspecified, uncomplicated; I10 Essential (primary) hypertension; G47.00 Insomnia, unspecified; F41.9 Anxiety disorder, unspecified; R11.2 Nausea with vomiting, unspecified; R56.9 Unspecified convulsions; F12.90 Cannabis use, unspecified, uncomplicated; Y90.0 Blood alcohol level of less than 20 mg/100 ml
CPT/HCPCS: 36415; 70450; 71045; 80048; 80053; 80305; 80320; 81003; 81015; 81025; 82805; 83690; 83735; 83880; 85025; 85610; 87797; 93005; 96361; 96374; 99284; J1953; J2060; J2405; J2560; J7030; J7050